=== PATIENT | male | born 1940 | race Caucasian/White ===

== ENCOUNTER → 2016-08-22 | Outpatient (CLI) | payer MEDICARE ==
[2016-08-22 14:06] LABS: Basophils # (A) 0.1 k/uL (0-0.2); Basophils % (A) 2 %; CH 29.8; Eosinophils # (A) 0.1 k/uL (0-0.7); Eosinophils % (A) 2 %; HCT 43.8 % (39.0-53.0); HDW 2.48; HGB 13.8 gm/dL (13.0-17.5); Luc # (Auto) 0.14; Luc % (Auto) 3; Lymphocytes # (A) 0.7 k/uL (1.0-4.8); Lymphocytes % (A) 14 %; MCH 29.5 pg (25.0-35.0); MCHC 31.4 g/dL (31.0-37.0); MCV 93.7 fL (80.0-100.0); Mean Platelet Volume 8.8; Monocytes # (A) 0.4 k/uL (0-1.0); Monocytes % (A) 7 %; Neutrophils # (A) 3.5 k/uL (1.3-7.7); Neutrophils % (A) 72 %; RBC 4.67 m/uL (4.30-5.90); RDW 13.6 % (11.5-15.5); WBC 4.9 k/uL (3.8-10.6)
[2016-08-22 14:13] LABS: ALT 38 U/L (21-72); AST 22 U/L (17-59); Alkaline Phosphatase 86 U/L (38-126); Anion Gap 10 mmol/L; Blood Urea Nitrogen 18 mg/dL (9-20); Calcium 9.1 mg/dL (8.4-10.2); Carbon Dioxide 25 mmol/L (22-30); Chloride 106 mmol/L (98-107); Cholesterol 149 mg/dL (<200); Creatine Kinase 72 U/L (55-170); Glucose 111 mg/dL (74-99); HDL Cholesterol 47 mg/dL (40-60); Non-African American GFR(MDRD) >60 (>60 ml/min/1.73 sqM); Potassium 4.7 mmol/L (3.5-5.1); Sodium 141 mmol/L (137-145); Total Bilirubin 0.6 mg/dL (0.2-1.3); Total Protein 6.5 g/dL (6.3-8.2); Triglycerides 93 mg/dL (<150)
[2016-08-22 15:01] LABS: Erythrocyte Sedimentation Rate 6 mm/hr (0-15)
[2016-08-22 15:39] LABS: Hepatitis C Virus IgG Index 0.05
[2016-08-22 15:41] LABS: Hepatitis C Virus IgG Ab Negative (Negative)
== END ==
LOC: LABWHC1 08:39
PROVIDERS: ATTEND Internal Medicine
DX: D64.9 Anemia, unspecified (principal); E78.5 Hyperlipidemia, unspecified; N40.0 Benign prostatic hyperplasia without lower urinary tract symptoms
CPT/HCPCS: 36415; 80053; 80061; 82550; 84153; 84439; 84443; 85025; 85652; 86140; 86803

== ENCOUNTER → 2016-09-05 | Outpatient (CLI) | payer MEDICARE ==
[2016-09-05 11:41] LABS: Follicle Stimulating Hormone 6.1 mIU/mL; Prolactin 11.9 ng/mL (3.7-17.9)
[2016-09-05 12:59] LABS: Hemoglobin A1C 6.1 % (4.2-6.1)
== END ==
LOC: LABWHC1 08:56
PROVIDERS: ATTEND Internal Medicine
DX: N40.0 Benign prostatic hyperplasia without lower urinary tract symptoms (principal); E29.1 Testicular hypofunction; N52.9 Male erectile dysfunction, unspecified
CPT/HCPCS: 36415; 82040; 82947; 83001; 83002; 83036; 84146; 84270; 84403

== ENCOUNTER 2016-11-18 22:50 | Emergency (ER) | payer MEDICARE ==
[2016-11-18 23:08] VITALS: TEMP 97.6
[2016-11-19] MEDS ORDERED: cloNIDine HCL 0.1 MG TAB PO STA (00:23)
[2016-11-19] MEDS ORDERED: OXYMETAZOLINE 0.05% NASL SPRAY 15 ML NASAL STA (00:23)
--- NOTE | 2016-11-19 00:41 | ED ---
ENT HPI - General Chief complaint: ENT Stated complaint: Nose Bleed Time Seen by Provider: 11/19/16 00:14 Source: family Mode of arrival: ambulatory Limitations: no limitations - History of Present Illness Initial comments: This patient is a 76-year-old man who presents with complaint that he is having some bleeding from the right side of his nose. He states that it started while he was at rest. He tried to stop things at home but it continued to run for a bit over an hour. The patient states that he has been having some nosebleeds intermittently over the past 2 weeks and that he is been seeing Dr. Mckeon. He just finished a course of antibiotics for possible sinus infection. The patient states that the last time he had bleeding like this was when he had nasal polyps and Dr. Gustafson had to remove them. The patient is not having any symptoms of anemia, no chest pain, dyspnea, palpitations, lightheadedness or syncope, no diaphoresis. No fever or chills. No cough MD complaint: epistaxis Onset/Timin -: hour(s) Location: nose Consistency: constant Improves with: pressure Context-Epistaxis: aspirin use, history of similar - Related Data Home Medications Medication Instructions Recorded Confirmed Aspirin EC [Ecotrin] 325 mg PO DAILY 11/18/16 11/18/16 Atorvastatin [Lipitor] 80 mg PO HS 11/18/16 11/18/16 Losartan/Hydrochlorothiazide 1 tab PO DAILY 11/18/16 11/18/16 [Hyzaar 50-12.5 Tablet] Metoprolol Tartrate [Lopressor] 50 mg PO BID 11/18/16 11/18/16 PARoxetine [Paxil] 20 mg PO DAILY 11/18/16 11/18/16 Allergies Allergy/AdvReac Type Severity Reaction Status Date / Time cephalexin [From Keflex] AdvReac Nausea & Verified 11/18/16 23:30 Vomiting & Diarrhea Review of Systems ROS Statement: Those systems with pertinent positive or pertinent negative responses have been documented in the HPI. ROS Other: All systems not noted in ROS Statement are negative. Constitutional: Denies: fever, chills Eyes: Denies: eye pain, vision change ENT: Reports: as per HPI, epistaxis. Denies: ear pain, throat pain, dental pain , other Respiratory: Denies: cough, dyspnea Cardiovascular: Denies: chest pain, palpitations, orthopnea, syncope Gastrointestinal: Denies: abdominal pain, vomiting Genitourinary: Denies: dysuria, hematuria Skin: Denies: rash Neurological: Denies: headache, weakness, numbness Hematological/Lymphatic: Denies: easy bleeding Past Medical History Past Medical History: No Reported History History of Any Multi-Drug Resistant Organisms: None Reported Past Surgical History: Joint Replacement, Orthopedic Surgery Additional Past Surgical History / Comment(s): heart valve replacement. Right carotid sx. Past Psychological History: No Psychological Hx Reported Smoking Status: Never smoker Past Alcohol Use History: Occasional Past Drug Use History: None Reported General Exam Limitations: no limitations General appearance: alert, in no apparent distress Head exam: Present: atraumatic, normocephalic Eye exam: Present: normal appearance, PERRL, EOMI. Absent: scleral icterus, conjunctival injection ENT exam: Present: normal oropharynx, other (Fresh clot in the right Nare. When this is removed there is no visible anterior source of bleeding. Currently no active bleeding.) Respiratory exam: Present: normal lung sounds bilaterally, chest wall tenderness. Absent: respiratory distress, wheezes, rales, rhonchi, stridor Cardiovascular Exam: Present: regular rate, normal rhythm, normal heart sounds GI/Abdominal exam: Present: soft. Absent: distended, tenderness, guarding Extremities exam: Present: normal capillary refill, pedal edema Neurological exam: Present: alert, CN II-XII intact Skin exam: Present: warm, dry, intact, normal color. Absent: rash Course Vital Signs 11/18/16 11/19/16 23:02 01:04 Temperature 97.6 F Pulse Rate 72 70 Respiratory 18 16 Rate Blood Pressure 140/93 116/52 O2 Sat by Pulse 97 Oximetry Medical Decision Making - Medical Decision Making Patient is a 76-year-old man presenting to be evaluated for epistaxis. Patient was administered oxymetazoline and observed. The patient did have a couple more drops of blood at intervals, but no active bleeding. There is no anterior source of bleeding visible. Discussed with patient and patient's family the risks and benefits of packing versus observation with conservative treatment and at this point in the interest of comfort he chooses not to have packing and will follow-up with Dr. Prince. Discussed return parameters. Disposition Clinical Impression: Epistaxis Disposition: HOME SELF-CARE Condition: Fair Instructions: Nosebleed (ED) Referrals: Quinn Camarena MD [Primary Care Provider] - 1-2 days Aakash Mckeon MD [STAFF PHYSICIAN] - 1-2 days
[2016-11-19 01:06] VITALS: BP 116/52; PULSE 70; RESP 16
== END 2016-11-19 01:40 | disposition home or self-care (01) ==
LOC: EC 22:50
DX: R04.0 Epistaxis (principal); Z79.82 Long term (current) use of aspirin; Z79.899 Other long term (current) drug therapy; Z88.1 Allergy status to other antibiotic agents
CPT/HCPCS: 99283

== ENCOUNTER 2016-11-23 03:43 | Emergency (ER) | payer MEDICARE ==
[2016-11-23 03:51] VITALS: RESP 18
[2016-11-23] MEDS ORDERED: OXYMETAZOLINE 0.05% NASL SPRAY 15 ML ONE (04:04)
--- NOTE | 2016-11-23 04:05 | ED ---
ENT HPI - General Chief complaint: ENT Stated complaint: Nose bleed Time Seen by Provider: 11/23/16 03:51 Source: patient, RN notes reviewed Mode of arrival: ambulatory Limitations: no limitations - History of Present Illness Initial comments: This is a 76-year-old male who presents with complaints of epistaxis from the right naris. He was seen here several days ago for the same. Spontaneously stopped Of note he is also on his way to [facility] for embolization for the same problem He has no other complaints at this time. She'll sweats. He does have a history of a polyp removal from her right naris years ago. He has no pain at this time. He states he keeps dripping down the back. Feels very high. MD complaint: epistaxis - Related Data Home Medications Medication Instructions Recorded Confirmed Aspirin EC [Ecotrin] 325 mg PO DAILY 11/18/16 11/23/16 Atorvastatin [Lipitor] 80 mg PO HS 11/18/16 11/23/16 Losartan/Hydrochlorothiazide 1 tab PO DAILY 11/18/16 11/23/16 [Hyzaar 50-12.5 Tablet] Metoprolol Tartrate [Lopressor] 50 mg PO BID 11/18/16 11/23/16 PARoxetine [Paxil] 20 mg PO DAILY 11/18/16 11/23/16 Allergies Allergy/AdvReac Type Severity Reaction Status Date / Time cephalexin [From Keflex] AdvReac Nausea & Verified 11/23/16 03:51 Vomiting & Diarrhea Review of Systems ROS Statement: Those systems with pertinent positive or pertinent negative responses have been documented in the HPI. ROS Other: All systems not noted in ROS Statement are negative. Past Medical History Past Medical History: CVA/TIA, Hypertension History of Any Multi-Drug Resistant Organisms: None Reported Past Surgical History: Coronary Bypass/CABG, Joint Replacement, Orthopedic Surgery Additional Past Surgical History / Comment(s): heart valve replacement. Right carotid sx. Past Psychological History: No Psychological Hx Reported Smoking Status: Never smoker Past Alcohol Use History: Occasional Past Drug Use History: None Reported General Exam - General Exam Comments Initial Comments: This is a well-developed well-nourished awake alert oriented 3 male Limitations: no limitations General appearance: alert, in no apparent distress Head exam: Present: atraumatic, normocephalic, normal inspection Eye exam: Present: normal appearance, PERRL, EOMI. Absent: scleral icterus, conjunctival injection, periorbital swelling ENT exam: Present: other (Dried blood and small amount of oozing from the right naris of Blood) Neck exam: Present: normal inspection. Absent: tenderness, meningismus, lymphadenopathy Respiratory exam: Absent: wheezes, rales Neurological exam: Present: alert, oriented X3, CN II-XII intact Psychiatric exam: Present: normal affect, normal mood Skin exam: Present: warm, dry, intact, normal color. Absent: rash Course Vital Signs 11/23/16 03:47 Temperature 96.8 F L Pulse Rate 60 Respiratory 18 Rate Blood Pressure 99/60 O2 Sat by Pulse 98 Oximetry Procedures - Procedures Initial comment: The patient did require nasal packing due to an unidentified bleeding source. I did use a rapid Rhino. This was inflated after proper preparation with an appropriate amount of air injected into the apparatus. This did control the bleeding. Patient did not allow totally inserted as per usual is protruding approximately 1.5 cm. Other small amount of oozing it appears with controlled bleeding. Medical Decision Making - Medical Decision Making The patient with epistaxis. Epistaxis is controlled. Patient will be discharged to keep his appointment at [address] for ENT and embolization. Disposition Clinical Impression: Epistaxis, recurrent Disposition: HOME SELF-CARE Condition: Good Instructions: Nosebleed (ED) Additional Instructions: Continue with your appointment at [facility] this morning. Referrals: Quinn Camarena MD [Primary Care Provider] - 1-2 days
[2016-11-23] MEDS ORDERED: OXYMETAZOLINE 0.05% NASL SPRAY 15 ML NASAL STA (04:44)
[2016-11-23 04:56] VITALS: BP 149/73; PULSE 61; TEMP 98.7
== END 2016-11-23 04:51 | disposition home or self-care (01) ==
LOC: EC 03:43
DX: R04.0 Epistaxis (principal); I10 Essential (primary) hypertension; Z88.1 Allergy status to other antibiotic agents; Z79.82 Long term (current) use of aspirin; Z79.899 Other long term (current) drug therapy
CPT/HCPCS: 30901; 99283

== ENCOUNTER → 2016-12-03 | Outpatient (CLI) | payer MEDICARE ==
--- NOTE | 2016-12-03 09:34 | CT ---
EXAMINATION TYPE: CT sinus wo con DATE OF EXAM: 12/03/2016 COMPARISON: NONE HISTORY: Chronic sinusitis CT DLP: 608 mGycm CONTRAST: 0 mL of Omnipaque 300 The paranasal sinuses are examined in the axial plane at 2 mm thick sections. Reconstructed images i n the coronal plane were obtained. There is dental amalgam scatter artifact There is near complete opacification of the right maxillary sinus. Left maxillary sinus is clear. Mi ld mucosal thickening is through scattered ethmoid air cells. The sphenoid sinuses are clear. The f rontal sinuses are clear. The septum is evaluated. There is septal deviation to the left. The ostiomeatal units are patent. There is been a right uncinate ectomy. IMPRESSIONS: 1. Mucosal thickening within the right maxillary sinus. There is been a right uncinate ectomy. Minim al mucosal thickening is within ethmoid air cells.
== END | disposition home or self-care (01) ==
LOC: RADCTMAIN 09:05
PROVIDERS: ATTEND Otolaryngology
DX: J32.0 Chronic maxillary sinusitis (principal); J34.89 Other specified disorders of nose and nasal sinuses; R04.0 Epistaxis
CPT/HCPCS: 70486

== ENCOUNTER 2017-08-27 16:43 | Outpatient (CLI) | payer MEDICARE ==
[2017-08-27 18:21] LABS: Basophils % (A) 1 %; Eosinophils # (A) 0.1 k/uL (0-0.7); Eosinophils % (A) 2 %; HCT 42.2 % (39.0-53.0); HGB 14.4 gm/dL (13.0-17.5); Lymphocytes # (A) 0.9 k/uL (1.0-4.8); Lymphocytes % (A) 19 %; MCH 30.3 pg (25.0-35.0); Mean Platelet Volume 7.5; Monocytes # (A) 0.5 k/uL (0-1.0); Monocytes % (A) 10 %; Neutrophils # (A) 3.1 k/uL (1.3-7.7); Neutrophils % (A) 65 %; Platelet Count 161 k/uL (150-450); RBC 4.74 m/uL (4.30-5.90); RDW 13.2 % (11.5-15.5); WBC 4.7 k/uL (3.8-10.6)
--- NOTE | 2017-08-27 18:36 | XR ---
EXAMINATION TYPE: XR chest 2V DATE OF EXAM: 08/27/2017 COMPARISON: Prior chest x-ray 07/16/2012 HISTORY: Shortness of breath and cough TECHNIQUE: Frontal and lateral views of the chest are obtained. FINDINGS: Patient is post median sternotomy. Cardiac mediastinal silhouette, pulmonary vascularity a nd kenia are stable. No evident airspace disease, pneumothorax, or pleural effusion. Patient is post c ardiac valve replacement. The aorta is dense. IMPRESSION: No acute cardiopulmonary process.
== END 2017-08-27 17:46 | disposition home or self-care (01) ==
LOC: PEDOP 16:43
PROVIDERS: ATTEND Internal Medicine
DX: J06.9 Acute upper respiratory infection, unspecified (principal); J12.9 Viral pneumonia, unspecified
CPT/HCPCS: 85025; 87502; 71046; G0463; 99212

== ENCOUNTER → 2017-09-16 | Outpatient (CLI) | payer MEDICARE ==
[2017-09-16 08:56] LABS: Basophils % (A) 0 %; Eosinophils # (A) 0.1 k/uL (0-0.7); Eosinophils % (A) 2 %; HCT 45.5 % (39.0-53.0); HGB 15.3 gm/dL (13.0-17.5); Lymphocytes # (A) 1.2 k/uL (1.0-4.8); Lymphocytes % (A) 19 %; MCH 29.7 pg (25.0-35.0); MCHC 33.5 g/dL (31.0-37.0); MCV 88.6 fL (80.0-100.0); Mean Platelet Volume 7.4; Monocytes # (A) 0.4 k/uL (0-1.0); Monocytes % (A) 6 %; Neutrophils # (A) 4.1 k/uL (1.3-7.7); Neutrophils % (A) 70 %; Platelet Count 214 k/uL (150-450); RBC 5.14 m/uL (4.30-5.90); RDW 13.3 % (11.5-15.5); WBC 5.9 k/uL (3.8-10.6)
[2017-09-16 09:49] LABS: ALT 45 U/L (21-72); AST 30 U/L (17-59); Alkaline Phosphatase 87 U/L (38-126); Anion Gap 11 mmol/L; Blood Urea Nitrogen 20 mg/dL (9-20); C Reactive Protein <5.0 mg/L (<10.0); Calcium 9.8 mg/dL (8.4-10.2); Carbon Dioxide 31 mmol/L (22-30); Chloride 103 mmol/L (98-107); Cholesterol 163 mg/dL (<200); Creatine Kinase 47 U/L (55-170); Glucose 116 mg/dL (74-99); HDL Cholesterol 45 mg/dL (40-60); LDL Cholesterol,Calculated 87 mg/dL (0-99); Potassium 5.4 mmol/L (3.5-5.1); Sodium 145 mmol/L (137-145); Total Bilirubin 0.6 mg/dL (0.2-1.3); Total Protein 6.9 g/dL (6.3-8.2); Triglycerides 153 mg/dL (<150)
[2017-09-16 10:16] LABS: Prostate Specific Antigen 3.06 ng/mL (0.00-4.00)
[2017-09-16 11:18] LABS: Erythrocyte Sedimentation Rate 9 mm/hr (0-15)
== END | disposition home or self-care (01) ==
LOC: LABWHC1 08:24
PROVIDERS: ATTEND Internal Medicine
DX: Z00.00 Encounter for general adult medical examination without abnormal findings (principal); N40.0 Benign prostatic hyperplasia without lower urinary tract symptoms; E78.5 Hyperlipidemia, unspecified; I10 Essential (primary) hypertension; E55.9 Vitamin D deficiency, unspecified
CPT/HCPCS: 36415; 80053; 80061; 82306; 82550; 84153; 84443; 85025; 85652; 86140

== ENCOUNTER → 2017-09-17 | Outpatient (CLI) | payer MEDICARE | END | disposition home or self-care (01) | LOC: LABWHC1 16:17 | PROVIDERS: ATTEND Internal Medicine | DX: E87.5 Hyperkalemia (principal) | CPT/HCPCS: 36415; 84132 ==

== ENCOUNTER → 2017-10-08 | Outpatient (CLI) | payer MEDICARE ==
[2017-10-08 09:24] LABS: Calcium 9.4 mg/dL (8.4-10.2); Potassium 4.5 mmol/L (3.5-5.1)
== END | disposition home or self-care (01) ==
LOC: LABWHC1 08:30
PROVIDERS: ATTEND Internal Medicine
DX: E87.5 Hyperkalemia (principal); I10 Essential (primary) hypertension
CPT/HCPCS: 36415; 80048

== ENCOUNTER → 2018-02-04 | Outpatient (CLI) | payer MEDICARE ==
[2018-02-04 10:14] LABS: Calcium 9.3 mg/dL (8.4-10.2); Potassium 5.4 mmol/L (3.5-5.1)
== END | disposition home or self-care (01) ==
LOC: LABWHC1 08:47
PROVIDERS: ATTEND Internal Medicine
DX: E55.9 Vitamin D deficiency, unspecified (principal); E87.8 Other disorders of electrolyte and fluid balance, not elsewhere classified
CPT/HCPCS: 36415; 80048; 82306

== ENCOUNTER → 2018-02-20 | Outpatient (CLI) | payer MEDICARE ==
[2018-02-20 13:40] LABS: Anion Gap 7 mmol/L; Blood Urea Nitrogen 24 mg/dL (9-20); Calcium 9.4 mg/dL (8.4-10.2); Carbon Dioxide 30 mmol/L (22-30); Chloride 102 mmol/L (98-107); Glucose 100 mg/dL (74-99); Potassium 4.6 mmol/L (3.5-5.1); Sodium 139 mmol/L (137-145)
== END | disposition home or self-care (01) ==
LOC: LABWHC1 12:13
PROVIDERS: ATTEND Internal Medicine
DX: E87.5 Hyperkalemia (principal); E87.8 Other disorders of electrolyte and fluid balance, not elsewhere classified
CPT/HCPCS: 36415; 80048

== ENCOUNTER 2018-04-05 15:48 | Emergency (ER) | payer MEDICARE ==
[2018-04-05 15:52] VITALS: PULSE 49; RESP 18
[2018-04-05] MEDS ORDERED: SODIUM CHLORIDE 0.9% 1,000 ML IV STA (16:20)
--- NOTE | 2018-04-05 16:27 | ED ---
Dizziness HPI - General Chief Complaint: Dizziness Stated Complaint: SOB Time Seen by Provider: 04/05/18 16:06 Source: patient, RN notes reviewed Mode of arrival: ambulatory Limitations: no limitations - History of Present Illness Initial Comments: This a 77-year-old male who presents with complaints of dizziness that has occurred especially over last couple mornings when he gets up it had been brief episode with todays being prolonged. He was [facility] at [facility] and found have a bradycardic heart rate was sent here for further evaluation. He denied chest pain shortness breath fevers chills nausea vomiting focal weakness or other symptoms at this time. He has no prior history of bradycardia he also has no new changes medication. MD Complaint: dizziness, lightheadedness, difficulty walking, other - Related Data Home Medications Medication Instructions Recorded Confirmed Aspirin EC [Ecotrin] 325 mg PO DAILY 11/18/16 04/05/18 Atorvastatin [Lipitor] 80 mg PO HS 11/18/16 04/05/18 Losartan/Hydrochlorothiazide 1 tab PO DAILY 11/18/16 04/05/18 [Hyzaar 50-12.5 Tablet] Metoprolol Tartrate [Lopressor] 50 mg PO BID 11/18/16 04/05/18 PARoxetine [Paxil] 20 mg PO DAILY 11/18/16 04/05/18 Cetirizine HCl [Zyrtec] 10 mg PO DAILY 04/05/18 04/05/18 Cholecalciferol (Vitamin D3) 2,000 unit PO DAILY 04/05/18 04/05/18 [Vitamin D3] Fluticasone Nasal [place] [Flonase 1 spray EA NOSTRIL DAILY 04/05/18 04/05/18 Nasal [place]] Furosemide [Lasix] 20 mg PO DAILY 04/05/18 04/05/18 Allergies Allergy/AdvReac Type Severity Reaction Status Date / Time cephalexin [From Keflex] AdvReac Nausea & Verified 04/05/18 16:41 Vomiting & Diarrhea Review of Systems ROS Statement: Those systems with pertinent positive or pertinent negative responses have been documented in the HPI. ROS Other: All systems not noted in ROS Statement are negative. Past Medical History Past Medical History: CVA/TIA, Hypertension History of Any Multi-Drug Resistant Organisms: None Reported Past Surgical History: Coronary Bypass/CABG, Joint Replacement, Orthopedic Surgery Additional Past Surgical History / Comment(s): heart valve replacement. Right carotid sx. Nasal cauterization Past Psychological History: No Psychological Hx Reported Smoking Status: Never smoker Past Alcohol Use History: Occasional Past Drug Use History: None Reported General Exam - General Exam Comments Initial Comments: This is a well-developed well-nourished awake alert oriented 3 male Limitations: no limitations General appearance: alert, in no apparent distress Head exam: Present: atraumatic, normocephalic, normal inspection Eye exam: Present: normal appearance, PERRL, EOMI. Absent: scleral icterus, conjunctival injection, periorbital swelling ENT exam: Present: normal exam, mucous membranes moist Neck exam: Present: normal inspection. Absent: tenderness, meningismus, lymphadenopathy Respiratory exam: Present: normal lung sounds bilaterally. Absent: respiratory distress, wheezes, rales, rhonchi, stridor Cardiovascular Exam: Present: normal rhythm, bradycardia, normal heart sounds. Absent: systolic murmur, diastolic murmur, rubs, gallop, clicks GI/Abdominal exam: Present: soft, normal bowel sounds. Absent: distended, tenderness, guarding, rebound, rigid Extremities exam: Present: normal inspection, full ROM, normal capillary refill. Absent: tenderness, pedal edema, joint swelling, calf tenderness Back exam: Present: normal inspection Neurological exam: Present: alert, oriented X3, CN II-XII intact Psychiatric exam: Present: normal affect, normal mood Skin exam: Present: warm, dry, intact, normal color. Absent: rash Course Vital Signs 04/05/18 04/05/18 15:49 17:40 Temperature 98.1 F Pulse Rate 49 L 49 L Respiratory 18 18 Rate Blood Pressure 136/79 129/69 O2 Sat by Pulse 99 95 Oximetry EKG Findings - EKG Results: EKG: interpreted by ERMD, sinus rhythm (Sinus bradycardia rate of 51. Interval 174 QRS duration 158 QT since QTC 534/492 right bundle-branch block and left anterior fascicular block pattern animal voltage criteria for LVH) Medical Decision Making - Medical Decision Making I did discuss findings with the patient and his also with Dr. Camarena, he does have a history of bradycardia this is not out of the ordinary for him. He will be discharge is follow-up in the office and return when necessary - Lab Data Result diagrams: 04/05/18 16:15 04/05/18 16:15 Lab Results 04/05/18 04/05/18 04/05/18 Range/Units 16:15 16:15 16:15 WBC 4.7 (3.8-10.6) k/uL RBC 5.20 (4.30-5.90) m/uL Hgb 15.0 (13.0-17.5) gm/dL Hct 48.1 (39.0-53.0) % MCV 92.4 (80.0-100.0) fL MCH 28.9 (25.0-35.0) pg MCHC 31.3 (31.0-37.0) g/dL RDW 13.6 (11.5-15.5) % Plt Count 202 (150-450) k/uL Neutrophils % 72 % Lymphocytes % 16 % Monocytes % 8 % Eosinophils % 2 % Basophils % 1 % Neutrophils # 3.4 (1.3-7.7) k/uL Lymphocytes # 0.8 L (1.0-4.8) k/uL Monocytes # 0.4 (0-1.0) k/uL Eosinophils # 0.1 (0-0.7) k/uL Basophils # 0.0 (0-0.2) k/uL Sodium 139 (137-145) mmol/L Potassium 4.7 (3.5-5.1) mmol/L Chloride 102 (98-107) mmol/L Carbon Dioxide 30 (22-30) mmol/L Anion Gap 7 mmol/L BUN 20 (9-20) mg/dL Creatinine 1.02 (0.66-1.25) mg/dL Est GFR (CKD-EPI)AfAm 83 (>60 ml/min/1.73 sqM) Est GFR (CKD-EPI)NonAf 72 (>60 ml/min/1.73 sqM) Glucose 95 (74-99) mg/dL Calcium 9.8 (8.4-10.2) mg/dL Magnesium 1.8 (1.6-2.3) mg/dL Total Bilirubin 0.8 (0.2-1.3) mg/dL AST 37 (17-59) U/L ALT 46 (21-72) U/L Alkaline Phosphatase 91 (38-126) U/L Total Creatine Kinase 54 L (55-170) U/L CK-MB (CK-2) 0.7 (0.0-2.4) ng/mL CK-MB (CK-2) Rel Index 1.3 Troponin I <0.012 (0.000-0.034) ng/mL Total Protein 7.3 (6.3-8.2) g/dL Albumin 4.1 (3.5-5.0) g/dL Urine Color Urine Appearance (Clear) Urine pH (5.0-8.0) Ur Specific [facility] (1.001-1.035) Urine Protein (Negative) Urine Glucose (UA) (Negative) Urine Ketones (Negative) Urine Blood (Negative) Urine Nitrite (Negative) Urine Bilirubin (Negative) Urine Urobilinogen (<2.0) mg/dL Ur Leukocyte Esterase (Negative) Urine RBC (0-5) /hpf Urine WBC (0-5) /hpf Ur Squamous Epith Cells (0-4) /hpf Amorphous Sediment (None) /hpf Hyaline Casts (0-2) /lpf Urine Mucus (None) /hpf 04/05/18 Range/Units 17:39 WBC (3.8-10.6) k/uL RBC (4.30-5.90) m/uL Hgb (13.0-17.5) gm/dL Hct (39.0-53.0) % MCV (80.0-100.0) fL MCH (25.0-35.0) pg MCHC (31.0-37.0) g/dL RDW (11.5-15.5) % Plt Count (150-450) k/uL Neutrophils % % Lymphocytes % % Monocytes % % Eosinophils % % Basophils % % Neutrophils # (1.3-7.7) k/uL Lymphocytes # (1.0-4.8) k/uL Monocytes # (0-1.0) k/uL Eosinophils # (0-0.7) k/uL Basophils # (0-0.2) k/uL Sodium (137-145) mmol/L Potassium (3.5-5.1) mmol/L Chloride (98-107) mmol/L Carbon Dioxide (22-30) mmol/L Anion Gap mmol/L BUN (9-20) mg/dL Creatinine (0.66-1.25) mg/dL Est GFR (CKD-EPI)AfAm (>60 ml/min/1.73 sqM) Est GFR (CKD-EPI)NonAf (>60 ml/min/1.73 sqM) Glucose (74-99) mg/dL Calcium (8.4-10.2) mg/dL Magnesium (1.6-2.3) mg/dL Total Bilirubin (0.2-1.3) mg/dL AST (17-59) U/L ALT (21-72) U/L Alkaline Phosphatase (38-126) U/L Total Creatine Kinase (55-170) U/L CK-MB (CK-2) (0.0-2.4) ng/mL CK-MB (CK-2) Rel Index Troponin I (0.000-0.034) ng/mL Total Protein (6.3-8.2) g/dL Albumin (3.5-5.0) g/dL Urine Color Yellow Urine Appearance Clear (Clear) Urine pH 5.5 (5.0-8.0) Ur Specific [facility] 1.026 (1.001-1.035) Urine Protein 1+ H (Negative) Urine Glucose (UA) Negative (Negative) Urine Ketones Negative (Negative) Urine Blood Negative (Negative) Urine Nitrite Negative (Negative) Urine Bilirubin Negative (Negative) Urine Urobilinogen 2.0 (<2.0) mg/dL Ur Leukocyte Esterase Negative (Negative) Urine RBC 1 (0-5) /hpf Urine WBC 2 (0-5) /hpf Ur Squamous Epith Cells 1 (0-4) /hpf Amorphous Sediment Rare H (None) /hpf Hyaline Casts 45 H (0-2) /lpf Urine Mucus Many H (None) /hpf - Radiology Data Radiology results: report reviewed (I did review the imaging and report no acute findings.), image reviewed Disposition Clinical Impression: Bradycardia on ECG, Episode of dizziness Disposition: HOME SELF-CARE Condition: Good Instructions: Dizziness (ED), Bradycardia (ED) Is patient prescribed a controlled substance at d/c from ED?: No Referrals: Quinn Camarena MD [Primary Care Provider] - 1-2 days
[2018-04-05 16:56] LABS: Basophils % (A) 1 %; Eosinophils # (A) 0.1 k/uL (0-0.7); Eosinophils % (A) 2 %; HCT 48.1 % (39.0-53.0); Lymphocytes # (A) 0.8 k/uL (1.0-4.8); Lymphocytes % (A) 16 %; MCH 28.9 pg (25.0-35.0); MCHC 31.3 g/dL (31.0-37.0); MCV 92.4 fL (80.0-100.0); Monocytes # (A) 0.4 k/uL (0-1.0); Monocytes % (A) 8 %; Neutrophils # (A) 3.4 k/uL (1.3-7.7); Neutrophils % (A) 72 %; Platelet Count 202 k/uL (150-450); RDW 13.6 % (11.5-15.5); WBC 4.7 k/uL (3.8-10.6)
[2018-04-05 17:05] LABS: Albumin 4.1 g/dL (3.5-5.0); Calcium 9.8 mg/dL (8.4-10.2); Magnesium 1.8 mg/dL (1.6-2.3); Potassium 4.7 mmol/L (3.5-5.1); Total Bilirubin 0.8 mg/dL (0.2-1.3); Total Protein 7.3 g/dL (6.3-8.2)
[2018-04-05 17:09] LABS: Creatine Kinase 54 U/L (55-170)
[2018-04-05 17:22] LABS: Creatine Kinase MB 0.7 ng/mL (0.0-2.4); Troponin I <0.012 ng/mL (0.000-0.034)
[2018-04-05 18:07] LABS: Amorphous Sediment,Urine Rare /hpf; Appearance,Urine Clear (Clear); Bilirubin,Urine Negative (Negative); Blood,Urine Negative (Negative); Color,Urine Yellow; Glucose,Urine (UA) Negative (Negative); Hyaline Casts,Urine 45 /lpf (0-2); Ketones,Urine Negative (Negative); Leukocyte Esterase,Urine Negative (Negative); Mucus,Urine Many /hpf; Nitrite,Urine Negative (Negative); PH, Urine 5.5 (5.0-8.0); Protein,Urine 1+ (Negative); RBC,Urine 1 /hpf (0-5); Specific Gravity,Urine 1.026 (1.001-1.035); Squamous Epithelial Cell,Urine 1 /hpf (0-4); WBC,Urine 2 /hpf (0-5)
--- NOTE | 2018-04-05 18:07 | XR ---
EXAMINATION TYPE: XR chest 2V DATE OF EXAM: 04/05/2018 COMPARISON: Prior chest x-ray 08/27/2017 HISTORY: Cough and shortness of breath TECHNIQUE: Frontal and lateral views of the chest are obtained. FINDINGS: Patient is post median sternotomy. The aorta is dense. There are overlying cardiac leads. R ight hemidiaphragm is again elevated. There is no focal air space opacity, pleural effusion, or pneum othorax seen. The cardiac silhouette size is stable, patient is post aortic valve replacement. The osseous structures are intact. IMPRESSION: No acute cardiopulmonary process.
[2018-04-05 18:56] VITALS: BP 151/69; TEMP 97.8
== END 2018-04-05 18:56 | disposition home or self-care (01) ==
LOC: EC 15:48
DX: R00.1 Bradycardia, unspecified (principal); R42 Dizziness and giddiness; R26.2 Difficulty in walking, not elsewhere classified; I10 Essential (primary) hypertension; Z88.1 Allergy status to other antibiotic agents; Z79.51 Long term (current) use of inhaled steroids; Z79.82 Long term (current) use of aspirin; Z79.899 Other long term (current) drug therapy; Z95.1 Presence of aortocoronary bypass graft; Z95.2 Presence of prosthetic heart valve
CPT/HCPCS: 36415; 71046; 80053; 81001; 82550; 82553; 83735; 84484; 85025; 93005; 96360; 96361; 99284

== ENCOUNTER → 2018-11-07 | Outpatient (CLI) | payer MEDICARE ==
[2018-11-07 10:39] LABS: Basophils % (A) 1 %; Eosinophils # (A) 0.1 k/uL (0-0.7); Eosinophils % (A) 2 %; HGB 13.9 gm/dL (13.0-17.5); Lymphocytes # (A) 0.8 k/uL (1.0-4.8); Lymphocytes % (A) 17 %; MCH 27.9 pg (25.0-35.0); MCHC 31.5 g/dL (31.0-37.0); MCV 88.7 fL (80.0-100.0); Mean Platelet Volume 7.5; Monocytes # (A) 0.4 k/uL (0-1.0); Monocytes % (A) 8 %; Neutrophils # (A) 3.4 k/uL (1.3-7.7); Neutrophils % (A) 71 %; Platelet Count 208 k/uL (150-450); RBC 4.96 m/uL (4.30-5.90); RDW 14.9 % (11.5-15.5); WBC 4.7 k/uL (3.8-10.6)
[2018-11-07 13:45] LABS: Erythrocyte Sedimentation Rate 11 mm/hr (0-15)
[2018-11-07 16:30] LABS: C Reactive Protein <0.4 mg/dL (0.0-0.8); Creatine Kinase 73 U/L (35-257)
[2018-11-07 16:31] LABS: ALT 19 U/L (10-49); AST 21 U/L (14-35); Alkaline Phosphatase 93 U/L (41-126); Calcium 9.2 mg/dL (8.7-10.3); Carbon Dioxide 29.4 mmol/L (21.6-31.8); Chloride 103 mmol/L (96-109); Cholesterol 157 mg/dL (0-200); Globulin 2.1 g/dL (1.6-3.3); Glucose 114 mg/dL (70-110); LDL Cholesterol,Calculated 94.2 mg/dL (0.0-131.0); Potassium 4.3 mmol/L (3.5-5.5); Sodium 141 mmol/L (135-145); Total Bilirubin 0.8 mg/dL (0.3-1.2); Total Protein 6.3 g/dL (6.2-8.2)
== END | disposition home or self-care (01) ==
LOC: LABWHC1 09:26
PROVIDERS: ATTEND Internal Medicine
DX: Z00.00 Encounter for general adult medical examination without abnormal findings (principal); N40.0 Benign prostatic hyperplasia without lower urinary tract symptoms; E78.5 Hyperlipidemia, unspecified; I10 Essential (primary) hypertension; E55.9 Vitamin D deficiency, unspecified
CPT/HCPCS: 36415; 80053; 80061; 82550; 84153; 84443; 85025; 85652; 86140

== ENCOUNTER 2019-03-13 18:51 | Emergency (ER) | payer MEDICARE ==
--- NOTE | 2019-03-13 20:13 | ED ---
General Adult HPI - General Chief complaint: Fall Stated complaint: Fall Time Seen by Provider: 03/13/19 19:37 Source: patient, family, RN notes reviewed Mode of arrival: EMS Limitations: no limitations - History of Present Illness Initial comments: Patient is a pleasant 78-year-old male presenting to the emergency department complaining of fall. Fall occurred prior to arrival. Patient was at family members house and fell a proximally 5 steps. Patient did strike his head. No loss of consciousness. No confusion. Family states patient appeared slightly dazed for a short time afterwards. Patient does not take blood thinners however does take daily aspirin. Patient was able to take a few steps with assistance. Patient denies any neck or back pain. No chest pain or dyspnea. No abdominal pain. Patient does have abrasions to bilateral arms and head. Last tetanus immunization was 5 years ago. - Related Data Home Medications Medication Instructions Recorded Confirmed Atorvastatin [Lipitor] 80 mg PO HS 11/18/16 03/13/19 Losartan/Hydrochlorothiazide 1 tab PO DAILY 11/18/16 03/13/19 [Hyzaar 50-12.5 Tablet] Metoprolol Tartrate [Lopressor] 50 mg PO BID 11/18/16 03/13/19 PARoxetine [Paxil] 20 mg PO DAILY 11/18/16 03/13/19 Cetirizine HCl [Zyrtec] 10 mg PO DAILY 04/05/18 03/13/19 Cholecalciferol (Vitamin D3) 2,000 unit PO DAILY 04/05/18 03/13/19 [Vitamin D3] Fluticasone Nasal [place] [Flonase 1 spray EA NOSTRIL DAILY 04/05/18 03/13/19 Nasal [place]] Furosemide [Lasix] 20 mg PO DAILY 04/05/18 03/13/19 Aspirin EC [Ecotrin Low Dose] 81 mg PO DAILY 03/13/19 03/13/19 Allergies Allergy/AdvReac Type Severity Reaction Status Date / Time cephalexin [From Keflex] AdvReac Nausea & Verified 03/13/19 19:37 Vomiting & Diarrhea Review of Systems ROS Statement: Those systems with pertinent positive or pertinent negative responses have been documented in the HPI. ROS Other: All systems not noted in ROS Statement are negative. Constitutional: Denies: fever Eyes: Denies: eye pain ENT: Denies: ear pain Respiratory: Denies: dyspnea Cardiovascular: Denies: chest pain Endocrine: Denies: fatigue Gastrointestinal: Denies: abdominal pain Genitourinary: Denies: dysuria Musculoskeletal: Denies: back pain Skin: Denies: rash Neurological: Denies: weakness, confusion Past Medical History Past Medical History: CVA/TIA, Hypertension History of Any Multi-Drug Resistant Organisms: None Reported Past Surgical History: Coronary Bypass/CABG, Joint Replacement, Orthopedic Surgery Additional Past Surgical History / Comment(s): heart valve replacement. Right carotid sx. Nasal cauterization Past Psychological History: No Psychological Hx Reported Smoking Status: Never smoker Past Alcohol Use History: Occasional Past Drug Use History: None Reported General Exam Limitations: no limitations General appearance: alert, in no apparent distress Head exam: Present: other (Posterior parietal soft tissue swelling and abrasions) Eye exam: Present: normal appearance, PERRL, EOMI. Absent: nystagmus ENT exam: Present: normal oropharynx Neck exam: Present: normal inspection, full ROM. Absent: tenderness Respiratory exam: Present: normal lung sounds bilaterally. Absent: chest wall tenderness Cardiovascular Exam: Present: regular rate, normal rhythm GI/Abdominal exam: Present: soft. Absent: tenderness Extremities exam: Present: normal inspection, full ROM. Absent: tenderness Back exam: Present: normal inspection. Absent: tenderness, vertebral tenderness Neurological exam: Present: alert, CN II-XII intact. Absent: motor sensory deficit Expanded Neurological exam: Present: protecting the airway Speech: Present: fluid speech Cranial nerves: EOM's Intact: Normal, Facial Sensation: Normal Sensory exam: Upper Extremity Light Touch: Normal, Lower Extremity Light Touch: Normal Motor strength exam: RUE: 5, LUE: 5, RLE: 5, LLE: 5 Eye Response: (4) open spontaneously Motor Response: (6) obeys commands Verbal Response: (5) oriented Psychiatric exam: Present: normal affect, normal mood Skin exam: Present: normal color Course Vital Signs 03/13/19 18:54 Temperature 98.1 F Pulse Rate 54 L Respiratory 20 Rate Blood Pressure 165/76 O2 Sat by Pulse 98 Oximetry - Reevaluation(s) Reevaluation #1: 03/13/19 20:12 Following original examination patient stated his left hand does feel a little bit funny. Sensation intact. No obvious swelling. No tenderness. Medical Decision Making - Medical Decision Making Patient reevaluated and resting comfortably in bed. Patient and family updated on results. - Radiology Data Radiology results: report reviewed (Computed tomography scan of the brain shows old infarct, no acute Gemelli. No intercranial hemorrhage. Computed tomography scan of the cervical spine shows no fracture. Computed tomography scan of the facial bones shows no fracture.) Disposition Clinical Impression: Fall, Concussion Disposition: HOME SELF-CARE Condition: Stable Instructions (If sedation given, give patient instructions): Concussion (ED), Head Injury (ED) Additional Instructions: Please follow-up with primary care physician in the beginning of the week. [id number]-afoncul Tylenol as needed. Twice daily wash all abrasions with soap and water, apply antibiotic ointment, and bandage. Return for confusion, weakness, persistent vomiting, difficulty walking, worsening symptoms or other concerns. Is patient prescribed a controlled substance at d/c from ED?: No Referrals: Quinn Camarena MD [Primary Care Provider] - 1-2 days Time of Disposition: 20:57
--- NOTE | 2019-03-13 20:14 | CT ---
EXAMINATION TYPE: CT facial bones wo con DATE OF EXAM: 03/13/2019 COMPARISON: HISTORY: Facial lacerations after fall injury CT DLP: 1173.9 mGycm Automated exposure control for dose reduction was used. TECHNIQUE: CT scan of the sinuses is performed without contrast, axial images are obtained, coronal r eformatted images are also reviewed. FINDINGS: The mandibular ring is intact. Temporomandibular joints appear normal. Zygomatic arches are intact. Orbital margins are intact. There is fairly normal aeration of the paranasal sinuses. There is previous surgery on the right maxillary sinus. There is no evidence of blowout fracture. There is no evidence of orbital mass. The nasal bone is intact. There is subcutaneous edema and soft tissue swelling anterior to the right zygoma. IMPRESSION: No fracture. Right side zygomatic soft tissue swelling that measures 1.5 cm in thickness.
--- NOTE | 2019-03-13 20:17 | CT ---
EXAMINATION TYPE: CT brain alex caicedo DATE OF EXAM: 03/13/2019 COMPARISON: CT brain 07/16/2012 HISTORY: Facial lacerations after fall injury CT DLP: 1173.9 mGycm Automated exposure control for dose reduction was used. TECHNIQUE: CT scan of the head and cervical spine are performed without contrast. FINDINGS: Ventricles have normal size. There is no mass effect nor midline shift. There is no sign of intracranial hemorrhage. There is old right parietal 6 cm cortical infarct. The calvarium is intac t. Skull base is intact. There is normal alignment of the cervical vertebra. There is degenerative disc space narrowing at C5- 6 C6-7. There is spurring of the endplates. Facet joints are intact. There is anterior hypertrophic o steophyte formation in the mid and lower cervical spine. IMPRESSION: Old right parietal cortical infarct unchanged. No acute intracranial abnormality. Spondylotic changes in the cervical spine. No fracture seen.
[2019-03-13 22:45] VITALS: BP 139/68; PULSE 58; RESP 18; TEMP 98
== END 2019-03-13 21:48 | disposition home or self-care (01) ==
LOC: EC 18:51
DX: S06.0X0A Concussion without loss of consciousness, initial encounter (principal); S00.01XA Abrasion of scalp, initial encounter; I10 Essential (primary) hypertension; Z79.899 Other long term (current) drug therapy; Z79.51 Long term (current) use of inhaled steroids; Z79.82 Long term (current) use of aspirin; Z88.1 Allergy status to other antibiotic agents; Z95.1 Presence of aortocoronary bypass graft; Z95.2 Presence of prosthetic heart valve; Z86.73 Personal history of transient ischemic attack (TIA), and cerebral infarction without residual deficits; W10.9XXA Fall (on) (from) unspecified stairs and steps, initial encounter; Y92.009 Unspecified place in unspecified non-institutional (private) residence as the place of occurrence of the external cause
CPT/HCPCS: 70450; 70486; 72125; 99284

== ENCOUNTER → 2019-04-25 | Outpatient (CLI) | payer MEDICARE ==
--- NOTE | 2019-04-26 22:05 | MR ---
EXAMINATION TYPE: MR brain wo/w con DATE OF EXAM: 04/25/2019 COMPARISON: CT brain 03/13/2019 HISTORY: vertigo, memory loss TECHNIQUE: Multiplanar, multisequence images of the brain and brainstem is performed without and with IV contras t, utilizing 7.5 mL intravenous Gadavist . FINDINGS: Diffusion weighted images demonstrate no evidence of a recent infarct or other diffusion ab normality. There is no extra-axial fluid collection. The ventricular system and cisternal spaces ar e stable in size and appearance. The brain volume is stable, patient's right frontoparietal infarct with associated encephalomalacia is again seen, there is underlying gliotic change present correspond ing to the low attenuation seen on CT, there is hyperintensity and inversion recovery and T2-weighted sequences. Right internal carotid artery shows an asymmetric appearance, the flow void seen on T2 an d inversion recovery sequence on the left at the level of the siphon shows an irregular appearance, p ossible minimal flow void on the right. Suspect cross no the anterior circulation may be present. Mid line structures demonstrate normal morphology. The craniocervical junction appears within normal ribeiro its. The dural venous sinuses appear patent. The visualized sinuses are remarkable for mucosal disea se in the maxillary sinuses, ethmoid air cells and the globes are intact. IMPRESSION: Chronic cerebral vascular accident is again noted. Correlate for internal carotid artery occlusion on the right.
== END | disposition home or self-care (01) ==
LOC: RADMRIMAIN 11:53
PROVIDERS: ATTEND Internal Medicine
DX: I63.89 Other cerebral infarction (principal); Z87.820 Personal history of traumatic brain injury; R42 Dizziness and giddiness; Z86.73 Personal history of transient ischemic attack (TIA), and cerebral infarction without residual deficits
CPT/HCPCS: 70553; A9585

== ENCOUNTER → 2020-02-09 | Outpatient (CLI) | payer MEDICARE ==
[2020-02-09 09:44] LABS: Basophils % (A) 0 %; Eosinophils # (A) 0.1 k/uL (0-0.7); Eosinophils % (A) 2 %; HCT 43.4 % (39.0-53.0); HGB 13.5 gm/dL (13.0-17.5); Lymphocytes # (A) 0.6 k/uL (1.0-4.8); Lymphocytes % (A) 15 %; MCH 28.7 pg (25.0-35.0); MCV 92.4 fL (80.0-100.0); Mean Platelet Volume 7.8; Monocytes # (A) 0.3 k/uL (0-1.0); Monocytes % (A) 6 %; Neutrophils # (A) 3.3 k/uL (1.3-7.7); Neutrophils % (A) 75 %; Platelet Count 150 k/uL (150-450); RDW 13.7 % (11.5-15.5); WBC 4.3 k/uL (3.8-10.6)
[2020-02-09 16:32] LABS: African American GFR (CKD) 83.8 (60.0-200.0); Albumin 4.1 g/dL (3.80-4.90); Albumin/Globulin Ratio 1.95 (1.60-3.17); Anion Gap 6.1 mmol/L (4.00-12.00); Calcium 9.3 mg/dL (8.7-10.3); Carbon Dioxide 29.9 mmol/L (21.6-31.8); Chol/HDL Ratio 2.98; Globulin 2.1 g/dL (1.6-3.3); Non-African American GFR(CKD) 72.3 (60.0-200.0); Total Bilirubin 0.6 mg/dL (0.2-1.2); Total Protein 6.2 g/dL (6.2-8.2)
[2020-02-09 16:39] LABS: Prostate Specific Antigen 3.3 ng/mL (0.0-6.5)
[2020-02-09 18:38] LABS: Erythrocyte Sedimentation Rate 9 mm/Hr (0-20)
== END | disposition home or self-care (01) ==
LOC: LABWHC1 08:41
PROVIDERS: ATTEND Internal Medicine
DX: I10 Essential (primary) hypertension (principal); D64.9 Anemia, unspecified; E78.5 Hyperlipidemia, unspecified; E87.8 Other disorders of electrolyte and fluid balance, not elsewhere classified; M19.90 Unspecified osteoarthritis, unspecified site; N40.0 Benign prostatic hyperplasia without lower urinary tract symptoms
CPT/HCPCS: 36415; 80053; 80061; 82550; 84153; 85025; 85652

== ENCOUNTER 2020-03-03 07:29 | Observation (INO) | payer MEDICARE ==
[2020-03-03] MEDS ORDERED: SODIUM CHLORIDE 0.9% 500 ML 500 ML IV STA (07:34)
--- NOTE | 2020-03-03 07:46 | ED ---
General Adult HPI - General Stated complaint: left sided weakness Time Seen by Provider: 03/03/20 07:29 Source: patient, RN notes reviewed, old records reviewed - History of Present Illness Initial comments: This is a 79-year-old male who presents to the emergency department complaining of left-sided weakness when he woke up. Patient states when he went to bed last night he had no symptoms he went about 11:00. Patient currently states all symptoms have resolved. Patient states she has a history of a previous TIA with some residual left-sided facial droop. Patient stated today he had no visual disturbance any did not notice any facial droop. Patient states currently his strength is back to baseline. Patient denies any symptoms this time. Patient states at no time did he have chest pain or difficulty breathing or shortness of breath. Patient denies any recent fever chills or cough per patient denies any abdominal pain patient denies nausea vomiting diarrhea. Patient denies any headache. - Related Data Home Medications Medication Instructions Recorded Confirmed Atorvastatin [Lipitor] 80 mg PO DAILY 11/18/16 03/03/20 PARoxetine [Paxil] 20 mg PO DAILY 11/18/16 03/03/20 Cetirizine HCl [Zyrtec] 10 mg PO DAILY 04/05/18 03/03/20 Cholecalciferol (Vitamin D3) 2,000 unit PO DAILY 04/05/18 03/03/20 [Vitamin D3] Fluticasone Nasal [place] [Flonase 1 spray EA NOSTRIL DAILY 04/05/18 03/03/20 Nasal [place]] Aspirin EC [Ecotrin] 325 mg PO DAILY 03/03/20 03/03/20 Losartan Potassium [Cozaar] 25 mg PO DAILY 03/03/20 03/03/20 Metoprolol Tartrate [Lopressor] 25 mg PO BID 03/03/20 03/03/20 Prevagen 1 tab PO DAILY 03/03/20 03/03/20 Tamsulosin [Flomax] 0.4 mg PO BID 03/03/20 03/03/20 Allergies Allergy/AdvReac Type Severity Reaction Status Date / Time cephalexin [From Keflex] AdvReac Nausea & Verified 03/03/20 08:39 Vomiting & Diarrhea Review of Systems ROS Statement: Those systems with pertinent positive or pertinent negative responses have been documented in the HPI. ROS Other: All systems not noted in ROS Statement are negative. Past Medical History Past Medical History: CVA/TIA, Hypertension History of Any Multi-Drug Resistant Organisms: None Reported Past Surgical History: Coronary Bypass/CABG, Joint Replacement, Orthopedic Surgery Additional Past Surgical History / Comment(s): heart valve replacement. Right carotid sx. Nasal cauterization Past Psychological History: No Psychological Hx Reported Past Alcohol Use History: Occasional Past Drug Use History: None Reported General Exam - General Exam Comments Initial Comments: GENERAL: Patient is well-developed and well-nourished. Patient is nontoxic and well- hydrated and is in no acute distress. ENT: Neck is soft and supple. No significant lymphadenopathy is noted. Oropharynx is clear. Moist mucous membranes. Neck has full range of motion without eliciting any pain. EYES: The sclera were anicteric and conjunctiva were pink and moist. Extraocular movements were intact and pupils were equal round and reactive to light. Eyelids were unremarkable. PULMONARY: Unlabored respirations. Good breath sounds bilaterally. No audible rales rhonchi or wheezing was noted. CARDIOVASCULAR: There is a regular rate and rhythm without any murmurs gallops or rubs. ABDOMEN: Soft and nontender with normal bowel sounds. No palpable organomegaly was noted. There is no palpable pulsatile mass. SKIN: Skin is clear with no lesions or rashes and otherwise unremarkable. NEUROLOGIC: Patient is alert and oriented x3. Slight facial droop of the left side but patient states it's residual otherwise no cranial nerve deficit noted. Motor and sensory are also intact. Normal speech, volume and content. Patient has some facial droop on the left side however he states this was noted at his baseline. MUSCULOSKELETAL: Normal extremities with adequate strength and full range of motion. No lower extremity swelling or edema. No calf tenderness. LYMPHATICS: No significant lymphadenopathy is noted PSYCHIATRIC: Normal psychiatric evaluation. Course Vital Signs 03/03/20 07:38 Temperature 98.4 F Pulse Rate 61 Respiratory 19 Rate Blood Pressure 148/76 O2 Sat by Pulse 98 Oximetry Medical Decision Making - Medical Decision Making EKG shows sinus rhythm with premature atrial complexes. Patient's rate is 60 beats a minute. AL interval is 182 QRS is 146 Q-T intervals 478 QTC is 478. Patient's EKG shows a right bundle branch block. Chest x-ray showed no acute normalities. Patient remained asymptomatic throughout the ED stay. I spoke with Dr. Camarena he agreed to admit the patient admitted the patient wrote admitting orders - Lab Data Result diagrams: 03/03/20 07:42 03/03/20 07:42 Lab Results 03/03/20 03/03/20 03/03/20 Range/Units 07:42 07:42 07:42 WBC 4.8 (3.8-10.6) k/uL RBC 4.53 (4.30-5.90) m/uL Hgb 13.1 (13.0-17.5) gm/dL Hct 41.2 (39.0-53.0) % MCV 90.8 (80.0-100.0) fL MCH 28.9 (25.0-35.0) pg MCHC 31.8 (31.0-37.0) g/dL RDW 13.6 (11.5-15.5) % Plt Count 149 L (150-450) k/uL Neutrophils % 74 % Lymphocytes % 16 % Monocytes % 6 % Eosinophils % 2 % Basophils % 1 % Neutrophils # 3.5 (1.3-7.7) k/uL Lymphocytes # 0.7 L (1.0-4.8) k/uL Monocytes # 0.3 (0-1.0) k/uL Eosinophils # 0.1 (0-0.7) k/uL Basophils # 0.0 (0-0.2) k/uL PT 9.9 (9.0-12.0) sec INR 0.9 (<1.2) APTT 23.0 (22.0-30.0) sec Sodium 138 (137-145) mmol/L Potassium 4.4 (3.5-5.1) mmol/L Chloride 107 (98-107) mmol/L Carbon Dioxide 27 (22-30) mmol/L Anion Gap 4 mmol/L BUN 23 H (9-20) mg/dL Creatinine 0.97 (0.66-1.25) mg/dL Est GFR (CKD-EPI)AfAm 87 (>60 ml/min/1.73 sqM) Est GFR (CKD-EPI)NonAf 76 (>60 ml/min/1.73 sqM) Glucose 107 H (74-99) mg/dL Calcium 8.5 (8.4-10.2) mg/dL Total Bilirubin 0.5 (0.2-1.3) mg/dL AST 25 (17-59) U/L ALT 21 (4-49) U/L Alkaline Phosphatase 81 (38-126) U/L Troponin I (0.000-0.034) ng/mL Total Protein 6.0 L (6.3-8.2) g/dL Albumin 3.5 (3.5-5.0) g/dL 03/03/20 Range/Units 07:42 WBC (3.8-10.6) k/uL RBC (4.30-5.90) m/uL Hgb (13.0-17.5) gm/dL Hct (39.0-53.0) % MCV (80.0-100.0) fL MCH (25.0-35.0) pg MCHC (31.0-37.0) g/dL RDW (11.5-15.5) % Plt Count (150-450) k/uL Neutrophils % % Lymphocytes % % Monocytes % % Eosinophils % % Basophils % % Neutrophils # (1.3-7.7) k/uL Lymphocytes # (1.0-4.8) k/uL Monocytes # (0-1.0) k/uL Eosinophils # (0-0.7) k/uL Basophils # (0-0.2) k/uL PT (9.0-12.0) sec INR (<1.2) APTT (22.0-30.0) sec Sodium (137-145) mmol/L Potassium (3.5-5.1) mmol/L Chloride (98-107) mmol/L Carbon Dioxide (22-30) mmol/L Anion Gap mmol/L BUN (9-20) mg/dL Creatinine (0.66-1.25) mg/dL Est GFR (CKD-EPI)AfAm (>60 ml/min/1.73 sqM) Est GFR (CKD-EPI)NonAf (>60 ml/min/1.73 sqM) Glucose (74-99) mg/dL Calcium (8.4-10.2) mg/dL Total Bilirubin (0.2-1.3) mg/dL AST (17-59) U/L ALT (4-49) U/L Alkaline Phosphatase (38-126) U/L Troponin I <0.012 (0.000-0.034) ng/mL Total Protein (6.3-8.2) g/dL Albumin (3.5-5.0) g/dL Disposition Clinical Impression: Transient cerebral ischemia Disposition: ADMITTED IP TO THIS HOSP Is patient prescribed a controlled substance at d/c from ED?: No Referrals: Quinn Camarena MD [Primary Care Provider] - 1-2 days Time of Disposition: 09:35
[2020-03-03 08:08] LABS: Basophils % (A) 1 %; Eosinophils # (A) 0.1 k/uL (0-0.7); Eosinophils % (A) 2 %; HCT 41.2 % (39.0-53.0); HGB 13.1 gm/dL (13.0-17.5); Lymphocytes # (A) 0.7 k/uL (1.0-4.8); Lymphocytes % (A) 16 %; MCH 28.9 pg (25.0-35.0); MCHC 31.8 g/dL (31.0-37.0); MCV 90.8 fL (80.0-100.0); Mean Platelet Volume 8.1; Monocytes # (A) 0.3 k/uL (0-1.0); Monocytes % (A) 6 %; Neutrophils # (A) 3.5 k/uL (1.3-7.7); Neutrophils % (A) 74 %; Platelet Count 149 k/uL (150-450); RBC 4.53 m/uL (4.30-5.90); RDW 13.6 % (11.5-15.5); WBC 4.8 k/uL (3.8-10.6)
[2020-03-03 08:17] LABS: INR 0.9 (<1.2); Prothrombin Time 9.9 sec (9.0-12.0)
[2020-03-03 08:24] LABS: Albumin 3.5 g/dL (3.5-5.0); Calcium 8.5 mg/dL (8.4-10.2); Potassium 4.4 mmol/L (3.5-5.1); Total Bilirubin 0.5 mg/dL (0.2-1.3)
--- NOTE | 2020-03-03 08:51 | XR ---
EXAMINATION TYPE: XR chest 2V DATE OF EXAM: 03/03/2020 COMPARISON: 04/05/2018 HISTORY: Shortness of breath TECHNIQUE: Frontal and lateral views of the chest are obtained. FINDINGS: Scattered senescent parenchymal changes noted. Hyperinflation compatible with COPD. No evidence for infiltrate. No evidence for atelectasis. Heart size is stable. Mediastinal structures are stable and grossly unremarkable. No evidence for hilar prominence. Degenerative changes dorsal spine. IMPRESSION: 1. No evidence for acute pulmonary disease.
--- NOTE | 2020-03-03 09:00 | CT ---
EXAMINATION TYPE: CT brain wo con for TPA DATE OF EXAM: 03/03/2020 COMPARISON: 03/13/2019 HISTORY: Left sided weakness CT DLP: 1099.[address] of the brain was performed. The ventricles, basal cisterns and sulci overlying the cerebral convexities demonstrate mild enlargem ent. Remote insult right MCA territory. There is no evidence for intracranial hemorrhage or sulcal effacement. There is decreased attenuation about the periventricular white matter and deep white matter of both c erebral hemispheres, compatible with chronic small vessel ischemia. Differential diagnosis does inclu de demyelination. No mass effects are seen.No midline shift. Osseous calvarium is intact. If symptoms persist consider MRI. IMPRESSION: 1. Age related atrophic and chronic small vessel ischemic change without acute intracranial process s een at this time.
[2020-03-03] MEDS ORDERED: ASPIRIN 325 MG TAB PO STA (09:35)
[2020-03-03] MEDS ORDERED: ASPIRIN 325 MG TAB PO SCH (10:45)
--- NOTE | 2020-03-03 12:54 | US ---
EXAMINATION TYPE: US carotid duplex BILAT DATE OF EXAM: 03/03/2020 COMPARISON: NONE CLINICAL HISTORY: occlusion. Right ICA occluded EXAM MEASUREMENTS: RIGHT: Peak Systolic Velocity (PSV) cm/sec ----- Right CCA: 29.1 ----- Right ICA: n/a ----- Right ECA: 94.1 ICA/CCA ratio: n/a RIGHT: End Diastole cm/sec ----- Right CCA: 4.2 ----- Right ICA: n/a ----- Right ECA: 11.7 LEFT: Peak Systolic Velocity (PSV) cm/sec ----- Left CCA: 7.36 ----- Left ICA: 100.0 ----- Left ECA: 65.2 ICA/CCA ratio: 1.4 LEFT: End Diastole cm/sec ----- Left CCA: 25.3 ----- Left ICA: 43.3 ----- Left ECA: 16.1 VERTEBRALS (direction of flow): Right Vertebral: Antegrade Left Vertebral: Antegrade Rhythm: Normal Occluded right ICA IMPRESSION: 1. 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 2. No significant hemodynamic stenosis involving the left internal carotid artery. 3. Atherosclerotic changes. Criteria for Assigning % of Stenosis / Diameter reduction (Estimation based on the indirect measurements of the internal carotid artery velocities (ICA PSV). 1. Normal (no stenosis)=ICA PSV < 125 cm/s: ratio < 2.0: ICA EDV<40 cm/s. 2. Less than 50% stenosis=ICA PSV < 125 cm/s: ratio < 2.0: ICA EDV<40 cm/s. 3. 50 to 69% stenosis=ICA PSV of 125 to 230 cm/s: ration 2.0 ? 4.0: ICA EDV 40-100 cm/s. 4. Greater than 70% stenosis to near occlusion= ICA PSV > 230 cm/s: ratio > 4.0: ICA EDV > 100 cm/s. 5. Near occlusion= ICA PSV velocities may be low or undetectable: variable ratio and ICA EDV. 6. Total occlusion=unable to detect flow.
[2020-03-03] MEDS: TAMSULOSIN 0.4 MG CAP.ER.24H PO SCH ×2 (14:42→20:08)
[2020-03-03] MEDS: LOSARTAN 25 MG TAB PO SCH (14:42)
[2020-03-03] MEDS: ASPIRIN 325 MG TAB PO SCH (14:42)
[2020-03-03] MEDS: METOPROLOL TARTRATE 25 MG TAB PO SCH ×2 (14:42→21:25)
[2020-03-03] MEDS: ATORVASTATIN 80 MG TAB PO SCH (14:43)
--- NOTE | 2020-03-03 17:04 | P.CNNES ---
History of Present Illness Consult date: 03/03/20 Requesting physician: Memo Gomez Reason for Consult: Tansient left sided weakness History of Present Illness: This is a 79-year-old right-handed gentleman with medical history of stroke right fronto-parietal (1997), right ICA occulsion s/p endarterectomy (1997) that was unsuccessful, hypertension, coronary artery disease status post CABG and Aortic valve replacement (Bov[place]) the presented emergency department on 03/03/2020 at 07:29am for an episode of left upper extremity weakness and numbness. His is at bedside He said he woke up at 6:00 in the morning and he noticed the left upper extremity weakness and numbness. Last normal state was 11 PM last night. Patient stated that his episode lasted for about a couple hours then resolved. His episode was not associated with the any visual disturbance, slurring the speech, any numbness involving the face or lower extremity. He said that he had an episode in 1997 where his left side of his cheek went numb and he was brought to [facility] and that he was told that he had a transient ischemic attack. He had some stenosis over the right internal carotid artery and had endarterectomy in 1997 but he said that was unsuccessful. His only residual effect from then 1997 TIA episode that he was told was minimal left facial droop. He was not told he had a stroke but he was told he had a transient ischemic attack according to him and his . He takes aspirin the 325 and Lipitor 80 mg daily. He is not on any anticoagulation. He denies any history of seizure. Patient denies tobacco use and illicit drug use. He is socially drinks all call last all call drink was a 6 month ago and the and when he does drink it's usually social. CT of the head the was reported as age-related atrophic and chronic small vessel ischemic change without acute intracranial process seen at this time. I personally reviewed that and I felt there is a encephalomalacia over the frontal parietal region. On MRI of April 2019 at the mentioned that the patient had the encephalomalacia over the frontal parietal region. The CT of the head of 2018 that mentioned that the this was stable compared to the 2013 (encephalomalacia). EKG was reported as sinus rhythm with premature atrial complexes with aberrant conduction. Right bundle branch block. Left anterior fascicular block. Bifascicular block. Minimal voltage criteria for left ventricular hypertrophy, may be normal variant. T wave abnormality, consider inferior lateral ischemia. Ventricular rate is 60. Carotid duplex was reported as there is occlusion of the right ICA. No significant hemodynamic stenosis involving the left internal carotid artery. Atherosclerotic changes. Initial glucose is 107. Review of Systems Review of system: The 12 point system was reviewed and apparent positive and negative per HPI. Past Medical History Past Medical History: CVA/TIA, Hypertension Additional Past Medical History / Comment(s): multiple TIAs. History of Any Multi-Drug Resistant Organisms: None Reported Past Surgical History: Coronary Bypass/CABG, Joint Replacement, Orthopedic Surgery Additional Past Surgical History / Comment(s): heart valve replacement. Right carotid sx. Nasal cauterization. bilat knee replacements. Past Anesthesia/Blood Transfusion Reactions: No Reported Reaction Past Psychological History: No Psychological Hx Reported Smoking Status: Never smoker Past Alcohol Use History: Occasional Past Drug Use History: None Reported Medications and Allergies Home Medications Medication Instructions Recorded Confirmed Type Atorvastatin [Lipitor] 80 mg PO DAILY 11/18/16 03/03/20 History PARoxetine [Paxil] 20 mg PO DAILY 11/18/16 03/03/20 History Cetirizine HCl [Zyrtec] 10 mg PO DAILY 04/05/18 03/03/20 History Cholecalciferol (Vitamin D3) 2,000 unit PO DAILY 04/05/18 03/03/20 History [Vitamin D3] Fluticasone Nasal Combined [place] [Flonase 1 spray EA NOSTRIL DAILY 04/05/18 03/03/20 History Nasal [place]] Aspirin EC [Ecotrin] 325 mg PO DAILY 03/03/20 03/03/20 History Losartan Potassium [Cozaar] 25 mg PO DAILY 03/03/20 03/03/20 History Metoprolol Tartrate [Lopressor] 25 mg PO BID 03/03/20 03/03/20 History Prevagen 1 tab PO DAILY 03/03/20 03/03/20 History Tamsulosin [Flomax] 0.4 mg PO BID 03/03/20 03/03/20 History Allergies Allergy/AdvReac Type Severity Reaction Status Date / Time cephalexin [From Keflex] AdvReac Nausea & Verified 03/03/20 08:39 Vomiting & Diarrhea Physical Examination - Vital Signs Vital Signs: Vital Signs Temp Pulse Pulse Resp BP BP Pulse Ox 03/03/20 15:00 59 L 14 03/03/20 13:20 14 03/03/20 13:07 97.7 F 59 L 14 147/65 97 03/03/20 12:08 56 L 19 125/74 98 03/03/20 09:35 57 L 16 125/69 97 03/03/20 07:38 98.4 F 61 19 148/76 98 Intake and Output 03/03/20 03/03/20 03/03/20 06:59 14:59 22:59 Other: Voiding Method Toilet Toilet Weight 81.601 kg GENERAL: The patient is lying in bed and is not in acute distress. CHEST: The heart rate is regular rate rhythm. No murmurs to auscultation. No carotid bruit bilaterally. LUNG: Clear to auscultation bilaterally no wheezing noted throughout. Not labored breathing. ABDOMEN/GI: Bowel sounds present in all 4 quadrants. No tenderness to palpation throughout. NEUROLOGICAL: Higher mental function: The patient is awake, alert, oriented to self, place and time. Patient is following commands. No aphasia and no neglect. Cranial nerves: The pupils are round, equal and reactive to light and accommodation. Visual dwyer are full to confrontation throughout. Extraocular movement is intact no nystagmus is noted. Facial sensation is normal to touch throughout. The facial strength is normal throughout. Hearing is normal bilaterally to hand rub. Tongue is midline and moved [id number] without any difficulty. No dysarthria is noted. Shoulder shrug is normal bilaterally. Motor: Gait is normal with normal arm swing. The strength is 5 over 5 throughout. Normal tone and bulk. Cerebellum: Normal finger to nose bilaterally. Sensation: Sensation is normal to touch throughout. Reflexes (right/left): 1+ throughout. Plantars are downgoing bilaterally. Results AST of 25, ALTs of 21. - Laboratory Findings CBC and BMP: 03/03/20 07:42 03/03/20 07:42 Abnormal Lab Findings: Abnormal Labs 03/03/20 03/03/20 07:42 07:42 Plt Count 149 L Lymphocytes # 0.7 L BUN 23 H Glucose 107 H Total Protein 6.0 L Assessment and Plan Assessment: Transient ischemic attack (left arm weakness and numbness) Chronic right frontal parietal stroke (1198) Complete occlusion of the right ICA with had unsuccessful endarterectomy in 1997 History of coronary artery disease status post CABG Valve replacement Plan: Currently he is on aspirin 325 daily. In addition I'll add the Plavix 75 in addition to aspirin and for the Plavix for him to be on it for 21 days because TIA episode. Then after that that he discontinued the Plavix and indefinitely continue on aspirin. Continue Lipitor 80 mg daily. Ordered the MRI the brain, lipidprofile, 2-D echocardiogram. Also ordered TSH. Continue cardiac monitoring PT/OT ans OCCUPATIONAL MEDICINE PHYSICIAN are on board The patient was notified that it is a possibility that this could've been a seizure as well because of the encephalomalacia over the frontal parietal region which and caused the cortical irritability from previous stroke. He was in formed that if he continues to have these episodes then the it is highly recommended for him to be on antiepileptic drug. The images were shown that the patient and his and the plan was discussed with them. Thank You for the consult. Josemanuel Ricardo M.D. Neuro-hospitalist Time with Patient: Greater than 30
[2020-03-03] MEDS: CLOPIDOGREL 75 MG TAB PO SCH (18:39)
--- NOTE | 2020-03-03 19:38 | HP ---
HISTORY AND PHYSICAL DATE OF ADMISSION: March 03, 2020. The patient age [age] years old white male . Date of 1940. The patient admitted on observation status and his room #328, bed 1. CHIEF COMPLAINT: The patient presented with left arm and hand not moving and clumsy with numbness. HISTORY OF PRESENT ILLNESS: 79 years old male, , has previous history of right frontal parietal stroke in 1997. He has also right internal carotid artery occlusion after he had endarterectomy in 1997 and was unsuccessful. He has a history of hypertension and coronary artery disease status post CABG. He has aortic valve replacement bovine. 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 He stated that it stayed one and a half hour and by the time he came to the ER was residual effect only and resolved. Last night at 11:00 pm he was completely normal. The patient had no association with visual disturbance or amaurosis fugax. No slurred speech and no numbness of the face. The patient stated that he had disturbance of the speech in 1997 involving also the left face. At the time of the examination, he was completely cleared, able to move his hand and no numbness. Residual effect from 1998 TIA episode. Minimal facial drooping. He is not on any anticoagulant at this time. He had a CT scan of the head and the brain with the presence of age related atrophic and chronic small vessel disease, ischemia without any intracranial process. He had encephalomalacia of the frontal, frontoparietal region. The patient also had an EKG in the ER showed sinus rhythm and right bundle branch block. His carotid duplex study was indicating complete occlusion of the right internal carotid. With no evidence of hemodynamic stenosis on the left side. REVIEW OF SYMPTOMS: Reviewing of the system: He has on examination, he is conscious, alert, oriented, able to give history. The head: he is normocephalic and he denied any blurred vision or headache. The cardiovascular: He had aortic valve replacement and right carotid endarterectomy, which has been completely blocked. He has a history of hypertension and previous TIA. History of hypercholesteremia. Cardiovascular as mentioned, the valve replacement and hypertension. On the pulmonary: No cough or expectoration. No fever or chills. No loss of taste or upper respiratory tract congestion. He had history of surgical nasal polyp on September 1996 and history of vasectomy. His aortic valve done in 2007. Musculoskeletal: He had a total knee replacement in 03/[address] Smith on the left knee and had right knee operated upon in 03/22/[address] Blackburn. He has also coronary bypass graft x2. All of the review of systems was noncontributory. SOCIAL HISTORY: Alcohol intake is rare with a possible 1 can of beer a week. He exercising 3 times a week. Caffeine 3 cups a day. His children: 2 daughters. Smoke habit, never smoked. He retired in 1997. The patient is . FAMILY HISTORY: Hypertension in sister and brother and brother has prostate cancer, arthritis in the sister, stroke cousin, heart disease brother and cousin. He has 3 sisters and diabetes in 1 sister and brother. His father had stomach cancer and mother at age of 84 with the complication of gallbladder removal surgery, father at age of 65 with the cancer of the stomach. MEDICATIONS: Current list of medication: He is on paroxetine 20 mg tablet in a.m., Tamsulosin for enlarged benign prostatic hypertrophy with Tamsulosin 0.4 mg capsule twice a day. He is on atorvastatin 80 mg once at bedtime, metoprolol tartrate 25 mg twice a day, losartan 25 mg tablet once a day. Prevagan 1 capsule a day OTC. He is on aspirin 325 mg once a day and vitamin D3 2000 soft gel capsule once a day OTC and nasal spray for allergy and congestion. PHYSICAL EXAMINATION: VITAL SIGNS: His vital signs, the patient on admission, his temperature 97.7 F, and his pulse rate 56/61, respiratory rate 14 per minute, blood pressure ranging between 148/76 to 125/74. His pulse ox ranging between 98 and 97. He was able to walk and he went to the toilet for voiding. PHYSICAL EXAMINATION: Patient is conscious, alert, oriented x3. Head was normocephalic, atraumatic. Pupil was equal, reactive and he had bilateral hearing aid with a hearing deficit. Nose was negative. Oropharynx: Natural teeth with normal tongue. The estimation and testing of the cranial nerves were negative. Neck was supple. No JVD. No thyromegaly. No lymphadenopathy. He had a scar on the right neck for the previous history of carotid endarterectomy, which is from both the internal carotids and the supply coming from the left side. The chest was clear to auscultation and percussion. No wheezes, no rhonchi. Heart was regular sinus rhythm and the abdomen was soft, positive bowel sounds. No tenderness in the 4 quadrants. Extremities: He has left upper extremity still clumsy but much improved with no numbness at the time of examination. Able to move the hand as well as the arm as well as the left leg. He had bilateral knee arthroplasty with the underlying degenerative arthritis. ASSESSMENT: 1. Transient ischemic attack with a history of previous stroke and history of encephalomalacia. 2. History otherwise aortic valve replacement. 3. History of bilateral knee arthroplasties. 4. He had a bypass with 2 vessel with the underlying coronary artery disease. 5. No history of diabetes. 6. History of depression. 7. History of benign prostatic hypertrophy. 8. History of hyperlipidemia. 9. History of hypertension with hypertensive heart disease, however, currently stable. PLAN: 1. Consulting the Neurology Dr. Josemanuel Yanez who is on for this week for evaluation and treatment and for further testing and meanwhile we will monitor him. 2. Ask the Cardiology to see him as well. 3. The patient is on observation status. 4. MRI was ordered. With the order of the MRI tomorrow and see if the neurologist has any further treatment or for further investigation and probably if it is normal, probably going to go home tomorrow maximum 24 or 48 hours. 5. We will follow the patient, he was on observation. MMODL / IJN: [id number] /
[2020-03-03] MEDS ORDERED: TAMSULOSIN 0.4 MG CAP.ER.24H PO SCH (21:00)
[2020-03-03] MEDS ORDERED: METOPROLOL TARTRATE 25 MG TAB PO SCH (21:00)
--- NOTE | 2020-03-04 08:19 | MR ---
EXAMINATION TYPE: MR brain wo con DATE OF EXAM: 03/04/2020 COMPARISON: MRI brain April 25, 2019. CT brain yesterday. HISTORY: Stroke: Left arm weakness and numbness TECHNIQUE: Multiplanar, multisequence imaging of the brain and brainstem is performed without IV cont rast. FINDINGS: Diffusion weighted images demonstrate no evidence of a recent infarct or other diffusion abnormality. There is no worrisome extra-axial fluid collection. Mild/moderate diffuse ventricular and sulcal prom inence redemonstrated. Significant old infarct right frontal parietal lobes in the MCA distribution r edemonstrated. Occasional focus of T2 hyperintensity consistent with mild to minimal chronic small ve ssel ischemic change. Midline structures demonstrate normal morphology. The craniocervical junction appears within normal limits. There is less well-visualized distal right internal carotid artery flow void corresponding to complete occlusion on CT neck study January 29, 2020 at its origin. The visualized sinuses are clear and the globes are intact. IMPRESSION: 1. No MRI evidence for a recent infarct. 2. Bilateral mild to moderate diffuse cerebral atrophy with significant old right frontoparietal infa rct in the MCA distribution redemonstrated. No significant change from prior MRI. Chronic completely occluded right internal carotid artery at carotid bulb origin, reconstitution at level of [place] of right middle and anterior cerebral arteries of the anterior circulation is likely present.
[2020-03-04 08:24] VITALS: BP 120/69; PULSE 55; RESP 16; TEMP 98
--- NOTE | 2020-03-04 08:47 | P.PN ---
Subjective Progress Note Date: 03/04/20 Patient was seen at bedside and said he is doing good today. He denies any further episodes of weakness or numbness of her left upper extremity. Denies any numbness over the face, any difficulty getting his words out, any visual disturbance. Objective - Vital Signs Vital signs: Vital Signs Temp 98 F 03/04/20 08:23 Pulse 55 L 03/04/20 08:23 Resp 16 03/04/20 08:23 BP 120/69 03/04/20 08:23 Pulse Ox 97 03/04/20 08:23 Intake & Output 03/03/20 03/04/20 03/04/20 18:59 06:59 18:59 Intake Total 200 Output Total 900 Balance 200 -900 Weight 81.601 kg Intake: Oral 200 Output: Urine 900 Other: Voiding Method Toilet Toilet # Voids 1 - Exam GENERAL: The patient is lying in bed and is not in acute distress. CHEST: The heart rate is regular rate rhythm. No murmurs to auscultation. No carotid bruit bilaterally. LUNG: Clear to auscultation bilaterally no wheezing noted throughout. Not labored breathing. ABDOMEN/GI: Bowel sounds present in all 4 quadrants. No tenderness to palpation throughout. NEUROLOGICAL: Higher mental function: The patient is awake, alert, oriented to self, place and time. Patient is following commands. No aphasia and no neglect. Cranial nerves: The pupils are round, equal and reactive to light and accommodation. Visual dwyer are full to confrontation throughout. Extraocular movement is intact no nystagmus is noted. Facial sensation is normal to touch throughout. The facial strength is normal throughout. Hearing is normal bilaterally to hand rub. Tongue is midline and moved [id number] without any difficulty. No dysarthria is noted. Shoulder shrug is normal bilaterally. Motor: Gait is normal with normal arm swing. The strength is 5 over 5 throughout. Normal tone and bulk. Cerebellum: Normal finger to nose bilaterally. Sensation: Sensation is normal to touch throughout. Reflexes (right/left): 1+ throughout. Plantars are downgoing bilaterally. 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 Continue Plavix for 21 days because TIA episode then after than discontinue it. To remain indefinitely remain on aspirin. Continue Lipitor 80 mg daily. MRI the brain: Was reported as no MRI evidence of for recent infarct. Bilateral mild to moderate diffuse cerebral atrophy with significant old right frontal parietal infarct in the MCA distribution demonstrated. No significant change from prior MRI. Chronic completely occluded right internal carotid artery at the carotid bulb origin, reconstitution at the level [place] also right middle and anterior cerebral arteries of the anterior circulation is likely present. I personally reviewed the MRI of the brain and I do agree there is no acute ischemia. There is only encephalomalacia that was a able to appreciate over the right frontal parietal region. Lipid profile: Triglyceride of 104, cholesterol of 131, LDL of 76 and HDL 34. 2-D echocardiogram: Pending TSH: 2.01 Continue cardiac monitoring PT/OT ans PHARMACIST AIDE are on board The patient was notified that it is a possibility that this could've been a seizure as well because of the encephalomalacia over the frontal parietal region which and caused the cortical irritability from previous stroke. He was informed of that if he continues to have these episodes then the it is highly recommended for him to be on antiepileptic drug. At this time he was not inclinded of being on anti-epileptic medication but will consider it later. If the echocardiogram is normal from a neurology standpoint he is clear for discharge. Patient needs to follow-up with a neurologist as an outpatient. Josemanuel Ricardo M.D. Neuro-hospitalist Time with Patient: Less than 30
[2020-03-04] MEDS ORDERED: LORATADINE 10 MG TAB PO SCH (09:00)
[2020-03-04] MEDS ORDERED: ATORVASTATIN 80 MG TAB PO SCH (09:00)
[2020-03-04] MEDS ORDERED: FLUTICASONE 50MCG/SPRAY NASAL 16GM EA NOSTRIL SCH (09:00)
[2020-03-04] MEDS ORDERED: NON FORMULARY DRUG (Prevagen 1 TAB) PO SCH (09:00)
[2020-03-04] MEDS ORDERED: ASPIRIN 325 MG TAB PO SCH (09:00)
[2020-03-04] MEDS ORDERED: CHOLECALCIFEROL 1,000 UNIT TAB PO SCH (09:00)
[2020-03-04] MEDS ORDERED: PARoxetine 20 MG TAB PO SCH (09:00)
[2020-03-04] MEDS ORDERED: LOSARTAN 25 MG TAB PO SCH (09:00)
[2020-03-04] MEDS: ATORVASTATIN 80 MG TAB PO SCH (09:48)
[2020-03-04] MEDS: ASPIRIN 325 MG TAB PO SCH (09:48)
[2020-03-04] MEDS: CLOPIDOGREL 75 MG TAB PO SCH (09:48)
[2020-03-04] MEDS: METOPROLOL TARTRATE 25 MG TAB PO SCH (09:49)
[2020-03-04] MEDS: TAMSULOSIN 0.4 MG CAP.ER.24H PO SCH (09:49)
[2020-03-04] MEDS: LOSARTAN 25 MG TAB PO SCH (09:49)
--- NOTE | 2020-03-04 11:37 | ECHOF ---
Referral Reason:stroke MEASUREMENTS -------- HEIGHT: 165.1 cm WEIGHT: 81.2 kg BP: 119/72 RVIDd: 3.4 cm (< 3.3) IVSd: 1.3 cm (0.6 - 1.1) LVIDd: 4.7 cm (3.9 - 5.3) LVPWd: 1.1 cm (0.6 - 1.1) IVSs: 1.6 cm LVIDs: 3.6 cm LVPWs: 1.4 cm LA Diam: 3.3 cm (2.7 - 3.8) Ao Diam: 3.0 cm (2.0 - 3.7) AV Cusp: 1.2 cm (1.5 - 2.6) MV EXCURSION: 13.514 mm (> 18.000) MV EF SLOPE: 84 mm/s (70 - 150) MV E Saleem: 0.86 m/s MV DecT: 221 ms MV A Saleem: 0.98 m/s MV E/A Ratio: 0.87 AV maxP.29 mmHg AV meanP.74 mmHg AR PHT: 760 ms RAP: 5.00 mmHg RVSP: 37.58 mmHg FINDINGS -------- This was a technically adequate study. The left ventricular size is normal. There is mild concentric left ventricular hypertrophy. Overa ll left ventricular systolic function is mildly impaired with, an EF between 45 - 50 %. Basal infer ior LV wall motion is hypokinetic. The right ventricle is mildly enlarged. The right atrium is normal in size. 5.0mg of Lumason was utilized for enhancement of images Interatrial and interventricular septum intact. Aortic valve is trileaflet and is mildly thickened. Peak/mean gradient across the Aortic Valve is 2 4.29mmHg / 14.74mmHg. Normally functioning bioprosthetic valve. There is mild roddy-prosthetic reg urgitation of the bioprosthetic aortic valve. The mitral valve leaflets are moderately thickened. Moderate mitral annular calcification present. Mild mitral regurgitation is present. Mild tricuspid regurgitation present. There is mild pulmonary hypertension. The right ventricular systolic pressure, as measured by Doppler, is 37.58mmHg. Trace/mild (physiologic) pulmonic regurgitation. The aortic root size is normal. Normal inferior vena cava with normal inspiratory collapse consistent with estimated right atrial pre ssure of 5 mmHg. There is no pericardial effusion. CONCLUSIONS -------- 1. The left ventricular size is normal. 2. There is mild concentric left ventricular hypertrophy. 3. Overall left ventricular systolic function is mildly impaired with, an EF between 45 - 50 %. 4. Basal inferior LV wall motion is hypokinetic. 5. The right ventricle is mildly enlarged. 6. 5.0mg of Lumason was utilized for enhancement of images 7. Aortic valve is trileaflet and is mildly thickened. 8. Peak/mean gradient across the Aortic Valve is 24.29mmHg / 14.74mmHg. 9. Normally functioning bioprosthetic valve. 10. There is mild roddy-prosthetic regurgitation of the bioprosthetic aortic valve. 11. The mitral valve leaflets are moderately thickened. 12. Moderate mitral annular calcification present. 13. Mild mitral regurgitation is present. 14. Mild tricuspid regurgitation present. 15. There is mild pulmonary hypertension. 16. The right ventricular systolic pressure, as measured by Doppler, is 37.58mmHg. 17. Trace/mild (physiologic) pulmonic regurgitation. 18. There is no pericardial effusion 19. Consider KAI if clinically indicated VENEER TAPING MACHINE OFFBEARER: ABEL Collado
--- NOTE | 2020-03-04 13:03 | P.DS ---
Providers Date of admission: 03/03/20 09:35 Stable neurologically Expected date of discharge: 03/04/20 Attending physician: Quinn Camarena Consults: 03/03/20 09:36 Consult Physician Routine Consulting Provider: Josemanuel Ricardo Consult Reason/Comments: TIA Do you want consulting provider notified?: Yes Primary care physician: Quinn Camarena Discharge summary by Dr. Camarena Date of admission 03/03/2020. Date of discharge 03/04/2020. Final diagnosis TIA transient ischemic attack of the left arm weakness and numbness. #2 chronic right frontal parietal stroke. #3 complete occlusion of the right internal carotid artery with a history of unsuccessful and arthrectomy in 1997. 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 #5 underlying coronary artery disease atherosclerotic heart disease with the coronary artery bypass graft 2. #6 impaired left ventricular systolic function with ejection fraction 45-50%. Basal inferior left ventricular wall motion is hypokinetic Gradient across aortic valve 24 with the bioprosthetic valve. And mild regurgitation of the bioprosthetic aortic valve. Mitral regurgitation, tricuspid regurgitation, mild pulmonary hypertension mild his serologic pulmonary regurgitation. Initial presentation in the emergency room: Patient presented with the sudden onset of left upper arm numbness and tingling inability to move it. Hospital course: Patient admitted on cardiac observation unit on 328. Consultation with Dr. Josemanuel Ricardo. Neurologist. MRI of the brain was requested and done and reviewed by the neurologist. His recommendation follow-up with Dr. Richmond neurology as outpatient. Neurologist started him on Plavix added to the aspirin for 21 days. On discharge: Patient seen and evaluated and examined his at bedside. Cleared by neurologist for discharge. Patient is conscious alert oriented 3 with resolution of the numbness of left upper extremities is able to ambulate no neurological residual no numbness and intact motor as well. Head was normocephalic and atraumatic and the pupil is equal reactive and conjunctiva was pink and sclera nonicteric. Oropharynx able to eat and swallow with the natural teeth. No loss of smell no loss of taste. Neck was supple no JVD no thyromegaly no lymphadenopathy scar on the right carotid with complete occlusion of the internal carotid and the scar present. Chest clear to auscultation and percussion no wheezes no rhonchi's. Heart regular sinus rhythm Abdomen soft positive bowel sounds. No tenderness in the 4 quadrants No edema of the lower extremities and positive pulses. On the chest he has a midline scar from previous CABG coronary artery bypass graft and also history of aortic valve replacement . Discussed with the patient that echocardiogram with the underlying follow-up with Dr. ERENDIRA Lima. As outpatient. As well as I'll Dr. Richmond neurologist as outpatient Assessment and plan discharge home today from observation unit. Plan - Discharge Summary Discharge Rx Participant: No New Discharge Prescriptions: No Action PARoxetine [Paxil] 20 mg PO DAILY Atorvastatin [Lipitor] 80 mg PO DAILY Fluticasone Nasal [place] [Flonase Nasal [place]] 1 spray EA NOSTRIL DAILY Cholecalciferol (Vitamin D3) [Vitamin D3] 2,000 unit PO DAILY Cetirizine HCl [Zyrtec] 10 mg PO DAILY Tamsulosin [Flomax] 0.4 mg PO BID Metoprolol Tartrate [Lopressor] 25 mg PO BID Losartan Potassium [Cozaar] 25 mg PO DAILY Aspirin EC [Ecotrin] 325 mg PO DAILY Prevagen 1 tab PO DAILY Discharge Medication List Atorvastatin [Lipitor] 80 mg PO DAILY 11/18/16 [History] PARoxetine [Paxil] 20 mg PO DAILY 11/18/16 [History] Cetirizine HCl [Zyrtec] 10 mg PO DAILY 04/05/18 [History] Cholecalciferol (Vitamin D3) [Vitamin D3] 2,000 unit PO DAILY 04/05/18 [History] Fluticasone Nasal [place] [Flonase Nasal [place]] 1 spray EA NOSTRIL DAILY 04/05/18 [History] Aspirin EC [Ecotrin] 325 mg PO DAILY 03/03/20 [History] Losartan Potassium [Cozaar] 25 mg PO DAILY 03/03/20 [History] Metoprolol Tartrate [Lopressor] 25 mg PO BID 03/03/20 [History] Prevagen 1 tab PO DAILY 03/03/20 [History] Tamsulosin [Flomax] 0.4 mg PO BID 03/03/20 [History] Follow up Appointment(s)/Referral(s): Quinn Camarena MD [Primary Care Provider] - 1-2 days
== END 2020-03-04 13:54 | disposition home or self-care (01) ==
LOC: EC 07:29 → 3NCARDOBS 09:35
PROVIDERS: ADMIT Internal Medicine; ATTEND Internal Medicine
DX: G45.9 Transient cerebral ischemic attack, unspecified (principal); R53.1 Weakness; I65.21 Occlusion and stenosis of right carotid artery; E78.00 Pure hypercholesterolemia, unspecified; E78.5 Hyperlipidemia, unspecified; G93.89 Other specified disorders of brain; I11.9 Hypertensive heart disease without heart failure; I25.10 Atherosclerotic heart disease of native coronary artery without angina pectoris; I45.2 Bifascicular block; I49.1 Atrial premature depolarization; I73.9 Peripheral vascular disease, unspecified; N40.0 Benign prostatic hyperplasia without lower urinary tract symptoms; Z79.82 Long term (current) use of aspirin; Z79.899 Other long term (current) drug therapy; Z80.0 Family history of malignant neoplasm of digestive organs; Z80.42 Family history of malignant neoplasm of prostate; Z82.3 Family history of stroke; Z82.49 Family history of ischemic heart disease and other diseases of the circulatory system; Z83.3 Family history of diabetes mellitus; Z95.1 Presence of aortocoronary bypass graft; Z95.3 Presence of xenogenic heart valve; Z96.653 Presence of artificial knee joint, bilateral
CPT/HCPCS: 96360; 99285; 36415; 93005; 97161; 97165; 80061; 80053; 84443; 84484; 85025; 85610; 85730; 71046; 93880; 70450; 70551; G0378 ×2; C8929; Q9950; 93306

== ENCOUNTER 2020-03-29 07:54 | Day surgery (SDC) | payer MEDICARE ==
[2020-03-24 15:36] VITALS: BMI 30.2
[2020-03-29] MEDS ORDERED: SODIUM CHLORIDE 0.9% 500 ML 500 ML IV ONE (08:07)
[2020-03-29 08:23] VITALS: TEMP 98.1
[2020-03-29] MEDS ORDERED: fentaNYL (PF) 50 MCG/ML 2 ML AMP ONE (09:58)
[2020-03-29] MEDS ORDERED: MIDAZOLAM 2 MG/2 ML VIAL IV ONE (10:12)
[2020-03-29] MEDS ORDERED: BENZOCAINE SPRAY 1 CAN TOPICAL ONE (10:12)
[2020-03-29] MEDS ORDERED: fentaNYL (PF) 50 MCG/ML 2 ML AMP IV ONE (10:16)
--- NOTE | 2020-03-29 10:43 | P.TEE ---
Indications for Procedure(s): History of a CVA/TIA. Ruled out Cardec source of emboli Date of Procedure: 03/29/20 Preoperative Diagnosis: History of CVA. History of a previous aortic valve replacement Postoperative Diagnosis: No definite cardiac source of emboli. Moderate to severe mitral regurgitation which is eccentric Procedure(s) Performed: KAI examination Description of Procedure(s): INDICATION: This is 79-year-old gentleman with history of previous aortic valve replacement with bioprosthetic valve, recently experienced weakness of the left upper extremity suggestive of TIA/CVA. A KAI examination is requested to rule out any Cardec source of emboli CONSENT: . Informed consent was obtained from the patient PROCEDURE: . Patient was brought to the lab in a fasting state. He was prepped and draped in the usual fashion. The throat was sprayed with Hurricaine. Patient was given 2 mg of Versed and 50 g fentanyl for sedation. A lubricated Omni probe was introduced into the oropharynx and was advanced into the esophagus and stomach. Multiple views were obtained both from the stomach and esophagus. Patient tolerated the procedure well. Color pulse and continuous- wave Doppler studies were performed. Saline contrast bubble injection was also performed FINDINGS: The tissue processing well ventilated area was not well visualized. The right and posterior leaflets of showed some calcification but the left leaflet could not be seen well. However, it seems to function normally without any evidence of regurgitation. Gradient of about 23 was obtained across the prosthetic valve. The mitral valve appeared to be normal. However, there is an eccentric mitral regurgitation which is at least moderate to severe with a PISA value of 0.8-1. The left atrial appendage appeared to be free of any clot. The interatrial septum appeared to be intact without any spontaneous shunt. Saline contrast bubble injection did not reveal any crossing of the bubbles across the septum. The aorta showed mild plaque. Left ventricular function appear to be fair. IMPRESSION: #1. Aortic bioprosthetic valve not well visualized but seems to function normally without any evidence of regurgitation or significant gradient. #2. Mitral valve shows eccentric 3-4+ mitral regurgitation. Structurally appeared to be normal. #3. Left atrial appendage appeared free of any clot. #4. Interatrial septum appeared to be intact without any spontaneous shunt #5. Saline contrast bubble injection did not reveal any crossing of the bubbles #6. There is mild to moderate plaque in the aorta PLAN: Continue maximal medical therapy. Follow mitral regurgitation closely
[2020-03-29] MEDS ORDERED: SODIUM CHLORIDE 0.9% 1,000 ML IV SCH (10:45)
[2020-03-29 11:43] VITALS: RESP 16
[2020-03-29 12:47] VITALS: BP 121/57; PULSE 65
== END 2020-03-29 12:25 | disposition home or self-care (01) ==
LOC: CATHCVL 07:54
PROVIDERS: ATTEND Internal Medicine Cardiovascular Disease
DX: I34.0 Nonrheumatic mitral (valve) insufficiency (principal); Z86.73 Personal history of transient ischemic attack (TIA), and cerebral infarction without residual deficits; Z95.3 Presence of xenogenic heart valve; I10 Essential (primary) hypertension; R09.89 Other specified symptoms and signs involving the circulatory and respiratory systems; I25.10 Atherosclerotic heart disease of native coronary artery without angina pectoris; E78.00 Pure hypercholesterolemia, unspecified; E78.5 Hyperlipidemia, unspecified; I25.5 Ischemic cardiomyopathy; I27.20 Pulmonary hypertension, unspecified; E66.3 Overweight; I83.93 Asymptomatic varicose veins of bilateral lower extremities; Z95.1 Presence of aortocoronary bypass graft; Z98.890 Other specified postprocedural states; Z86.79 Personal history of other diseases of the circulatory system; Z79.899 Other long term (current) drug therapy; Z79.82 Long term (current) use of aspirin; Z88.1 Allergy status to other antibiotic agents; Z88.8 Allergy status to other drugs, medicaments and biological substances; Z68.29 Body mass index [BMI] 29.0-29.9, adult
CPT/HCPCS: 93312; 93320; 93325; J2250; J3010

== ENCOUNTER → 2020-07-26 | Outpatient (CLI) | payer MEDICARE ==
--- NOTE | 2020-07-27 10:07 | NM ---
EXAMINATION TYPE: NM WBC limited DATE OF EXAM: 07/26/2020 COMPARISON: MR brain 03/04/2020, ultrasound carotid Doppler duplex 03/03/2020 HISTORY: I 65.23 TECHNIQUE: Following administration of 16.5 mCi Tc99m Ceretec. Images obtained 4 hours post injecti on. FINDINGS: Limited scanning performed over the upper chest, head and neck Small focus of uptake noted in the right neck on anterior image also seen on RPO image. Physiologic u ptake is noted within the marrow. IMPRESSION: Indeterminate small focus of activity in the right neck as described. CT of the neck with contrast ma y be of benefit.
== END | disposition home or self-care (01) ==
LOC: RADNMMAIN 06:47
PROVIDERS: ATTEND Surgery
DX: R93.89 Abnormal findings on diagnostic imaging of other specified body structures (principal)
CPT/HCPCS: 78300; A9569

== ENCOUNTER → 2020-08-08 | Outpatient (CLI) | payer MEDICARE ==
--- NOTE | 2020-08-08 08:38 | CT ---
EXAMINATION TYPE: CT angio neck DATE OF EXAM: 08/08/2020 HISTORY: Carotid stenosis COMPARISON: CT neck January 29, 2020 CT DLP: 352.9 mGycm. Automated Exposure Control for Dose Reduction was Utilized. TECHNIQUE: CTA scan of the neck is performed with IV Contrast, patient injected with 65 mL of Isovue 370, axial images are obtained, coronal and sagittal reformatted images are reviewed. MIP Images are created on CT scanner and reviewed. 3D reconstructed images are created on an independent workstatio n and reviewed. FINDINGS: Carotid/Vascular Structures: Normal three-vessel origin from aortic arch. Normal origin right common carotid artery from the right brachiocephalic artery. Focal moderate to severe calcified plaque at or igin right common carotid artery. No significant stenosis. Mild to moderate peripheral calcified plaq ue in the aortic arch just after three-vessel origin. Partial visualization of post-CABG changes. Mod erate to severe peripheral plaque at origin of left common carotid artery. No significant stenosis. N o significant plaque or stenosis in remainder of common carotid arteries, tortuous course to left com mon carotid artery noted. There is moderate to severe calcified plaque right common carotid artery ex tending into proximal internal carotid artery. Complete occlusion is present shortly after its origin . Right external carotid artery is patent without significant stenosis. No significant stenosis and l eft external carotid artery. Moderate to severe calcified plaque left carotid bulb extends into proxi mal internal carotid artery. Remainder left internal carotid artery shows moderate calcified plaque p etrous and supraclinoid segment without significant stenosis. There is filling of the right middle ce rebral artery likely from collateral flow at level of [place]. There is larger caliber or do minant left vertebral artery. Vertebral arteries are patent to basilar junction. Ascending aortic an eurysm up to to 4.5 cm axial image 2 noted. Other: Straightening of cervical spine with moderate multilevel spurring. Nplu-ex-gevlzwrd disc space narrowing C5-C6 and C6-C7 levels. IMPRESSION: 1. Complete occlusion of right internal carotid artery shortly after its origin. In retrospect this w as present on January 29, 2020 CT. 2. There is ascending thoracic aortic aneurysm measuring up to 4.5 cm in size partially imaged on thi s study.
== END | disposition home or self-care (01) ==
LOC: RADCTMAIN 07:08
PROVIDERS: ATTEND Surgery
DX: I65.21 Occlusion and stenosis of right carotid artery (principal); I71.2 Thoracic aortic aneurysm, without rupture; I65.29 Occlusion and stenosis of unspecified carotid artery; T82.7XXA Infection and inflammatory reaction due to other cardiac and vascular devices, implants and grafts, initial encounter
CPT/HCPCS: 82565; 84520; 70498; 36415; Q9967

== ENCOUNTER → 2020-08-16 | Outpatient (CLI) | payer MEDICARE ==
[2020-08-16 09:25] LABS: Basophils % (A) 0 %; Eosinophils # (A) 0.1 k/uL (0-0.7); Eosinophils % (A) 2 %; HCT 46.1 % (39.0-53.0); HGB 14.4 gm/dL (13.0-17.5); Lymphocytes # (A) 0.9 k/uL (1.0-4.8); Lymphocytes % (A) 16 %; MCH 28.2 pg (25.0-35.0); MCHC 31.2 g/dL (31.0-37.0); MCV 90.4 fL (80.0-100.0); Mean Platelet Volume 8.1; Monocytes # (A) 0.4 k/uL (0-1.0); Monocytes % (A) 6 %; Neutrophils # (A) 4.1 k/uL (1.3-7.7); Neutrophils % (A) 74 %; Platelet Count 161 k/uL (150-450); RDW 13.8 % (11.5-15.5); WBC 5.6 k/uL (3.8-10.6)
[2020-08-16 09:38] LABS: Potassium 4.7 mmol/L (3.5-5.1)
== END | disposition home or self-care (01) ==
LOC: LABPAT 08:04
PROVIDERS: ATTEND Surgery
DX: Z01.818 Encounter for other preprocedural examination (principal); S11.90XA Unspecified open wound of unspecified part of neck, initial encounter; X58.XXXA Exposure to other specified factors, initial encounter
CPT/HCPCS: 36415; 80051; 82565; 84520; 85025

== ENCOUNTER 2020-08-23 06:14 | Day surgery (SDC) | payer MEDICARE ==
[~2020-08-23 06:14] MED LIST: HYDROmorphone 0.5 MG/0.5 ML SYRINGE IVP PRN; LACTATED RINGERS 1,000 ML IV SCH; ONDANSETRON 4 MG/2 ML VIAL IVP ONE; Pre Op ABX Message 1 EACH MISC MISCELLANE ONE; fentaNYL (PF) 50 MCG/ML 2 ML AMP IV PRN
[2020-08-23] MEDS ORDERED: DEXAMETHASONE SOD PHOSPHATE 4 MG/ML 1 ML VIAL IVP ONE (07:01)
[2020-08-23] MEDS ORDERED: SUCCINYLCHOLINE CHLORIDE 100 MG/5 ML SYR IV ONE (07:21)
[2020-08-23] MEDS ORDERED: ePHEDrine SULFATE/0.9% NACL/PF 50 MG/5 ML SYRINGE IV ONE (07:21)
[2020-08-23] MEDS ORDERED: PROPOFOL 10 MG/ML 20 ML VIAL IV ONE (07:21)
[2020-08-23] MEDS ORDERED: MIDAZOLAM 2 MG/2 ML VIAL ONE (07:21)
[2020-08-23] MEDS ORDERED: LIDOCAINE 1% INJ 10MG/ML (20 ML MDV) ONE (07:21)
[2020-08-23] MEDS ORDERED: fentaNYL (PF) 50 MCG/ML 2 ML AMP ONE (07:21)
[2020-08-23] MEDS ORDERED: BUPIVACAINE (PF) 0.25% 30 ML VIAL SQ ONE ×2 (07:36)
[2020-08-23] MEDS ORDERED: ceFAZolin 1,000 MG in SODIUM CHLORIDE 0.9% 1,000 ML IRRIGATION ONE (08:11)
[2020-08-23 08:47] VITALS: TEMP 97
[2020-08-23 09:12] VITALS: RESP 16
--- NOTE | 2020-08-23 09:26 | P.OP ---
Date of Procedure: 08/23/20 Preoperative Diagnosis: Right neck chronic neck wound Postoperative Diagnosis: Right chronic neck wound with tract Procedure(s) Performed: Excision of right neck wound and tract with revision of scar Anesthesia: CAPO Surgeon: Dustin Torres Estimated Blood Loss (ml): 5 Pathology: other (right neck mass, and cervical lymph node) Condition: stable Disposition: PACU Indications for Procedure: 80 year old male with history of multiple neck surgeries originally presented to the office secondary to chronic draining wound at the incision that he states having for several years. After CTA and utrasound demonstrating the wound without evidence of bleeding as well as an occluded previously repaired carotid he was scheduled for excision and presents today for procedure. Operative Findings: wound with cyst like structure and tract to the previous carotid patch area Description of Procedure: After written informed consent was obtained the patient all risks benefits and competitions were described the patient is brought to the operative suite and laid in a supine position. The area of the neck was prepped and draped in usual sterile fashion after appropriate anesthetic was performed per the anesthesiologist. A timeout was performed in normal fashion antibiotics were administered prior to incision. An elliptical incision was created around the existing wound with a 15 blade scalpel and dissection was carried down around the wound with electrocautery. The incision was extended slightly to allow for access to the deep structures. The wound had a sinus tract that extended down to the previous scarred area around his previous patch. Further dissection was carried around the wound to the scar tissue above the patch where it was ligated. There was no drainage noted from this tract at this area and it had diminished to a small orifice. The area was copiously irrigated with antibiotic solution. There is no active drainage noted and opening was unable to be visualized. Hemostasis was assured with electrocautery. The wound/mass was sent off for pathology as well as a lymph node that was encountered upon dissection. The incision was then closed in a multilayer fashion. The skin was then cleansed and dressings were placed. Patient tolerated the procedure well and was following commands and moving all extremities. Patient was then sent to PACU for recovery.
[2020-08-23] MEDS ORDERED: diphenhydrAMINE 50 MG/ML 1 ML VIAL ONE (10:03)
[2020-08-23] MEDS ORDERED: ACETAMINOPHEN TAB 500 MG TAB ONE (10:03)
[2020-08-23] MEDS ORDERED: ACETAMINOPHEN TAB 500 MG TAB PO ONE (10:06)
[2020-08-23] MEDS ORDERED: diphenhydrAMINE 50 MG/ML 1 ML VIAL IVP ONE (10:07)
[2020-08-23 10:31] VITALS: BP 118/73; PULSE 71
--- NOTE | 2020-08-25 13:04 | CDI ---
Date: 08.25.20 CDS/Supervisor Wet Pour Name: Inocencia Echols Phone: If any questions, call [facility] Medical Doctor Md at Patient Name: Redd Hay Admit Date 08.23.20 Discharge Date: 08.23.20 ATTENTION: The [facility] Coding Staff appreciate your assistance in clarifying documentation. Please respond to the clarification below the line at the bottom and electronically sign. The [facility] Coding staff will review the response and follow-up if needed. Please note: Queries are made part of the Legal Health Record. If you have any questions, please contact the Medical Doctor Md. Dear Dr. Torres In order to code to the greatest specificity and for the greatest reimbursement I need the following information: Please document the diameter of the excision/scar revision: __0.5 cm or less __0.6 to 1.0 cm __1.1 to 2.0 cm __2.1 to 3.0 cm __3.1 to 4.0 cm __over 4.0 cm Thank you for your kind consideration. 3.1-4cm MTDD
== END 2020-08-23 11:37 | disposition home or self-care (01) ==
LOC: OR 06:14
PROVIDERS: ATTEND Surgery
DX: S11.90XA Unspecified open wound of unspecified part of neck, initial encounter (principal); L02.11 Cutaneous abscess of neck; L90.5 Scar conditions and fibrosis of skin; I65.23 Occlusion and stenosis of bilateral carotid arteries; I71.2 Thoracic aortic aneurysm, without rupture; E78.5 Hyperlipidemia, unspecified; I10 Essential (primary) hypertension; I25.10 Atherosclerotic heart disease of native coronary artery without angina pectoris; Z79.899 Other long term (current) drug therapy; Z79.82 Long term (current) use of aspirin; Z86.73 Personal history of transient ischemic attack (TIA), and cerebral infarction without residual deficits; Z98.890 Other specified postprocedural states; Z95.2 Presence of prosthetic heart valve; X58.XXXA Exposure to other specified factors, initial encounter
CPT/HCPCS: 88304; 88305; 11424; J2250; J1200; J1100; J0690 ×2; J2405; J2001; J3010; J0330; J2704

== ENCOUNTER 2020-08-25 13:58 | Emergency (ER) | payer MEDICARE ==
[2020-08-25 14:35] VITALS: TEMP 98
--- NOTE | 2020-08-25 17:40 | ED ---
General Adult HPI - General Chief complaint: Neck Pain/Injury Stated complaint: Swelling in neck/face Time Seen by Provider: 08/25/20 17:10 Source: patient Mode of arrival: ambulatory Limitations: no limitations - History of Present Illness Initial comments: Dictation was produced using Clear[employer]ide dictation software. please excuse any grammatical, word or spelling errors. This patient was cared for during a federal and state declared state of emerg ency secondary to Covid 19 Chief Complaint: 80-year-old male presents with complaint of malocclusion History of Present Illness: 80-year-old male who presents today with his [place]. Patient had a neck surgery of a cyst near the right carotid artery 2 days ago. Since his surgery he is complaining of malocclusion. is concerned that he might be having a stroke because of his left face seems weaker than normal and is having trouble speaking.. He states he has pain to his blas ateral jaws. They said during the procedure he had general anesthesia. Denies any facial paresthesias. He states he does have some left hand paresthesias that does not appear to be new. His main complaint is malocclusion and left jaw pain. The ROS documented in this emergency department record has been reviewed and confirmed by me. Those systems with pertinent positive or negative responses have been documented in the HPI. All other systems are other negative and/or noncontributory. PHYSICAL EXAM: General Impression: Alert and oriented x3, not in acute distress HEENT: Normocephalic atraumatic, extra-ocular movements intact, pupils equal and reactive to light bilaterally, mucous membranes moist, malocclusion Cardiovascular: Heart regular rate and rhythm Chest: Able to complete full sentences, no retractions, no tachypnea Abdomen: abdomen soft, non-tender, non-distended, no organomegaly Musculoskeletal: Pulses present and equal in all extremities, no peripheral edema Motor: no focal deficits noted Neurological: no focal motor or sensory deficits noted, left lower facial weak ness that reports is chronic Skin: Intact with no visualized rashes Psych: Normal affect and mood ED course: Old male presents to the emergency department for malocclusion and jaw pain and his concerns of TMJ dislocation. He does have features concerning for possible CVA given that there was procedure performed there is right carotid. Vital signs upon arrival shows heart rate 53 cumbersome vital signs within acceptable limits. Computed tomography scan of the brain shows old No acute intracranial abnormality. There is old right MCA territory infarct. Computed tomography scan the face shows left TMJ dislocation. TMJ reduction was performed under procedural sedation. Patient reevaluated after successful reduction of TMJ dislocation with improvement of symptoms. reports that he appears to be baseline now. Patient reports significant improvement of symptoms. Patient will be discharged with outpatient referral to oral surgery. Patient placed in a Colin bandage and counseled on liquid diet preferably and do not open the jaw so widely. - Related Data Home Medications Medication Instructions Recorded Confirmed Atorvastatin [Lipitor] 80 mg PO HS 11/18/16 08/25/20 Cholecalciferol (Vitamin D3) 50 mcg PO DAILY 04/05/18 08/25/20 [Vitamin D3] Aspirin EC [Ecotrin] 325 mg PO DAILY 03/03/20 08/25/20 Losartan Potassium [Cozaar] 25 mg PO HS 03/03/20 08/25/20 Metoprolol Tartrate [Lopressor] 25 mg PO DAILY 03/03/20 08/25/20 Tamsulosin [Flomax] 0.4 mg PO HS 03/03/20 08/25/20 Escitalopram [Lexapro] 5 mg PO DAILY 03/24/20 08/25/20 busPIRone HCL 5 mg PO BID 03/24/20 08/25/20 Fluocinolone Acetonide [Lidex Soln] 1 applic TOPICAL DAILY PRN 08/25/20 08/25/20 Ketoconazole [Ketoconazole 2% 1 applic TOPICAL DAILY PRN 08/25/20 08/25/20 Shampoo] Previous Rx's Medication Instructions Recorded HYDROcodone/APAP 5-325MG [[place] 1 tab PO Q6HR PRN 3 Days #12 tab 08/25/20 5-325] Allergies Allergy/AdvReac Type Severity Reaction Status Date / Time cephalexin [From Keflex] AdvReac Nausea & Verified 08/25/20 18:20 Vomiting & Diarrhea Review of Systems ROS Statement: Those systems with pertinent positive or pertinent negative responses have been documented in the HPI. ROS Other: All systems not noted in ROS Statement are negative. Past Medical History Past Medical History: Coronary Artery Disease (CAD), CVA/TIA, Hypertension Additional Past Medical History / Comment(s): STATES HE GETS CYSTS AT THE SIGHT OF THE RIGHT CAROTID SURGERY SCAR, DRAINS PERDIODICALLY. MULTIPLE TIAs. -HO SPITALIZED 03/03/20-03/04/20 FOR TIA WITH LEFT ARM WEAKNESS & NUMBNESS WHICH HAS RESOLVED. LEAKY HEART VALVE. History of Any Multi-Drug Resistant Organisms: None Reported Past Surgical History: Coronary Bypass/CABG, Joint Replacement, Orthopedic Surge ry Additional Past Surgical History / Comment(s): AORTIC VALVE REPLACEMENT (BOVINE). RIGHT CAROTID ENDARTERECTOMY (DR. HANKS. Nasal cauterization. Bilat knee replacements. CABG (2007) Past Anesthesia/Blood Transfusion Reactions: No Reported Reaction Past Psychological History: No Psychological Hx Reported Smoking Status: Never smoker Past Alcohol Use History: Rare Past Drug Use History: None Reported - Past Family History Mother Family Medical History: No Reported History General Exam Limitations: no limitations Course Vital Signs 08/25/20 08/25/20 08/25/20 14:32 17:17 18:43 Temperature 98.0 F Pulse Rate 53 L 49 L Respiratory 18 16 16 Rate Blood Pressure 129/75 166/73 O2 Sat by Pulse 99 99 Oximetry 08/25/20 08/25/20 08/25/20 18:55 18:58 19:03 Temperature Pulse Rate 50 L 51 L 49 L Respiratory 16 16 16 Rate Blood Pressure 166/82 133/66 130/77 O2 Sat by Pulse 100 96 100 Oximetry Procedures - Orthopedic Joint Reduction Joint #1 Consent Obtained: verbal consent, written consent Side: left Joint Reduction Location: other (tmj) Analgesia: procedural sedation Technique Used: traction/counter-traction - Procedural Sedation Procedural Sedation Start Time: 18:55 Procedural Sedation Stop Time: 18:58 Indications: fracture/dislocation reduction (tmj dislocation) ASA Class: II Mallampati Airway Score: 2 Preparation: laboratory monitor applied, pulse oximeter, supplemental O2 applied IV Propofol Dose (mgs): 50 Complications: none Patient Tolerated Procedure: well Medical Decision Making - Lab Data Result diagrams: 08/25/20 18:10 08/25/20 18:10 Lab Results 08/25/20 08/25/20 Range/Units 18:10 18:10 WBC 6.3 (3.8-10.6) k/uL RBC 5.02 (4.30-5.90) m/uL Hgb 14.6 (13.0-17.5) gm/dL Hct 45.9 (39.0-53.0) % MCV 91.5 (80.0-100.0) fL MCH 29.1 (25.0-35.0) pg MCHC 31.8 (31.0-37.0) g/dL RDW 13.9 (11.5-15.5) % Plt Count 153 (150-450) k/uL MPV 7.9 Neutrophils % 78 % Lymphocytes % 14 % Monocytes % 6 % Eosinophils % 2 % Basophils % 0 % Neutrophils # 5.0 (1.3-7.7) k/uL Lymphocytes # 0.9 L (1.0-4.8) k/uL Monocytes # 0.4 (0-1.0) k/uL Eosinophils # 0.1 (0-0.7) k/uL Basophils # 0.0 (0-0.2) k/uL Sodium 141 (137-145) mmol/L Potassium 4.2 (3.5-5.1) mmol/L Chloride 102 (98-107) mmol/L Carbon Dioxide 32 H (22-30) mmol/L Anion Gap 7 mmol/L BUN 14 (9-20) mg/dL Creatinine 0.90 (0.66-1.25) mg/dL Est GFR (CKD-EPI)AfAm >90 (>60 ml/min/1.73 sqM) Est GFR (CKD-EPI)NonAf 82 (>60 ml/min/1.73 sqM) Glucose 95 (74-99) mg/dL Calcium 9.7 (8.4-10.2) mg/dL Disposition Clinical Impression: TMJ dislocation Disposition: HOME SELF-CARE Condition: Good Instructions (If sedation given, give patient instructions): Closed Reduction (ED), Temporomandibular Disorder (ED) Prescriptions: HYDROcodone/APAP 5-325MG [[place] 5-325] 1 tab PO Q6HR PRN 3 Days #12 tab PRN Reason: Severe Pain Is patient prescribed a controlled substance at d/c from ED?: Yes If prescribed controlled substance>3 days was MAPS reviewed?: Prescribed <3 Days Referrals: Quinn Camarena MD [Primary Care Provider] - 1-2 days Memo Acosta DDS [STAFF PHYSICIAN] - 1-2 days Time of Disposition: 19:13
[2020-08-25 18:17] LABS: Basophils % (A) 0 %; Eosinophils # (A) 0.1 k/uL (0-0.7); Eosinophils % (A) 2 %; HCT 45.9 % (39.0-53.0); HGB 14.6 gm/dL (13.0-17.5); Lymphocytes # (A) 0.9 k/uL (1.0-4.8); Lymphocytes % (A) 14 %; MCH 29.1 pg (25.0-35.0); MCHC 31.8 g/dL (31.0-37.0); MCV 91.5 fL (80.0-100.0); Mean Platelet Volume 7.9; Monocytes # (A) 0.4 k/uL (0-1.0); Monocytes % (A) 6 %; Neutrophils % (A) 78 %; Platelet Count 153 k/uL (150-450); RBC 5.02 m/uL (4.30-5.90); RDW 13.9 % (11.5-15.5); WBC 6.3 k/uL (3.8-10.6)
[2020-08-25] MEDS ORDERED: PROPOFOL 10 MG/ML 20 ML VIAL IV ONE (18:30)
[2020-08-25 18:37] LABS: African American GFR (CKD) >90 (>60 ml/min/1.73 sqM); Anion Gap 7 mmol/L; Blood Urea Nitrogen 14 mg/dL (9-20); Calcium 9.7 mg/dL (8.4-10.2); Carbon Dioxide 32 mmol/L (22-30); Chloride 102 mmol/L (98-107); Glucose 95 mg/dL (74-99); Non-African American GFR(CKD) 82 (>60 ml/min/1.73 sqM); Potassium 4.2 mmol/L (3.5-5.1); Sodium 141 mmol/L (137-145)
--- NOTE | 2020-08-25 18:39 | CT ---
EXAM: CT brain wo con CLINICAL HISTORY: Status post right neck mass removal. Jaw pain and reduced range of motion. COMPARISON: 03/03/2020. TECHNIQUE: Contiguous axial noncontrast images of the brain were obtained. Coronal and sagittal refor mats were generated and reviewed. Imaging dose reduction technique were utilized per protocol. FINDINGS: There is no evidence for intracranial hemorrhage, mass effect or midline shift. There is old right MC A territory infarct. The aponte-white differentiation is maintained. There is mild white matter disease and parenchymal volume loss Ventricular size and configuration is within normal limits for degree of parenchymal volume. The paranasal sinuses are clear. The mastoid air cells are clear. No evidence for calvarial fracture. IMPRESSION: No acute intracranial abnormality. Old right MCA territory infarct.
--- NOTE | 2020-08-25 19:14 | CT ---
Exam: CT MAXILLOFACIAL WITHOUT CONTRAST Clinical Indication: Postoperative right neck mass removal, presenting with jaw pain and reduced rang e of motion. Comparison: CT neck 08/08/2020. Technique: A CT of the facial bones was performed utilizing axial acquisition without the administra tion of intravenous contrast. Sagittal and coronal reformations were obtained. Iterative dose modulat ion technique was performed. Findings: There are multiple small foci of gas within the right superior and anterior neck soft tissues, just d istal to the mandible angle. No significant fluid collection is seen. There is anterior dislocation of the left temporomandibular joint. There is no acute fracture. The pa ranasal sinuses and mastoid air cells are adequately aerated. Dental amalgam is seen. There is no significant soft tissue abnormality. Impression: Anterior dislocation of the left temporomandibular joint. No acute fracture. Mild soft tissue gas about the right superior and anterior neck soft tissue, likely related to recent postsurgical changes.
[2020-08-25 20:03] VITALS: BP 150/73; PULSE 53; RESP 18
== END 2020-08-25 19:58 | disposition home or self-care (01) ==
LOC: EC 13:58
DX: S03.02XA Dislocation of jaw, left side, initial encounter (principal); I10 Essential (primary) hypertension; I25.10 Atherosclerotic heart disease of native coronary artery without angina pectoris; Z79.82 Long term (current) use of aspirin; Z86.73 Personal history of transient ischemic attack (TIA), and cerebral infarction without residual deficits
CPT/HCPCS: 99284; 21480; 96374; 36415; 80048; 85025; 70486; 70450; J2704

== ENCOUNTER → 2021-03-08 | Outpatient (CLI) | payer MEDICARE ==
[2021-03-08 16:12] LABS: Basophils # (A) 0 X 10*3/uL (0.00-0.10); Basophils % (A) 0 %; Eosinophils # (A) 0.01 X 10*3/uL (0.04-0.35); Eosinophils % (A) 0.3 %; HCT 43.5 % (39.6-50.0); HGB 13.6 g/dL (13.0-17.0); Lymphocytes # (A) 0.42 X 10*3/uL (0.90-5.00); Lymphocytes % (A) 10.5 %; MCH 28.8 pg (27.0-32.0); MCHC 31.3 g/dL (32.0-37.0); Mean Platelet Volume 11.4 fL (9.5-12.2); Monocytes % (A) 7.5 %; Neutrophils # (A) 3.25 X 10*3/uL (1.80-7.70); Neutrophils % (A) 81.2 %; Platelet Count 135 X 10*3/uL (140-440); RBC 4.73 X 10*6/uL (4.40-5.60); RDW 13.8 % (11.5-14.5)
== END | disposition home or self-care (01) ==
LOC: LABWHC1 10:39
PROVIDERS: ATTEND Internal Medicine
DX: K57.92 Diverticulitis of intestine, part unspecified, without perforation or abscess without bleeding (principal); R19.7 Diarrhea, unspecified
CPT/HCPCS: 36415; 80053; 83630; 85025; 87045; 87046; 87324

== ENCOUNTER → 2021-03-17 | Outpatient (CLI) | payer MEDICARE ==
[2021-03-17 14:30] LABS: Appearance,Urine Clear (Clear); Bilirubin,Urine Negative (Negative); Blood,Urine Negative (Negative); Color,Urine Yellow; Glucose,Urine (UA) Negative (Negative); Ketones,Urine Negative (Negative); Leukocyte Esterase,Urine Negative (Negative); Nitrite,Urine Negative (Negative); Protein,Urine Trace (Negative); Specific Gravity,Urine 1.015 (1.001-1.035); Urobilinogen,Urine <2.0 mg/dL (<2.0)
[2021-03-17 21:23] LABS: ALT 42 U/L (10-49); AST 27 U/L (14-35); African American GFR (CKD) 81.2 (60.0-200.0); Albumin 3.9 g/dL (3.8-4.9); Albumin/Globulin Ratio 1.55 (1.60-3.17); Alkaline Phosphatase 90 U/L (41-126); BUN/Creat Ratio 13.24 Ratio (12.00-20.00); Blood Urea Nitrogen 13.5 mg/dL (9.0-27.0); Calcium 9.5 mg/dL (8.7-10.3); Carbon Dioxide 24.2 mmol/L (21.6-31.8); Chloride 104 mmol/L (96-109); Chol/HDL Ratio 3.83 Ratio; Creatine Kinase 74 U/L (35-257); Globulin 2.5 g/dL (1.6-3.3); Glucose 103 mg/dL (70-110); Non-African American GFR(CKD) 70.1 (60.0-200.0); Potassium 5.2 mmol/L (3.5-5.5); Sodium 139 mmol/L (135-145); Total Protein 6.4 g/dL (6.2-8.2)
[2021-03-17 21:24] LABS: Magnesium 1.8 mg/dL (1.5-2.4)
[2021-03-17 23:27] LABS: C Reactive Protein <0.30 mg/dL (0.00-0.80)
== END | disposition home or self-care (01) ==
LOC: LABWHC1 12:02
PROVIDERS: ATTEND Internal Medicine
DX: Z00.00 Encounter for general adult medical examination without abnormal findings (principal); I10 Essential (primary) hypertension; E87.8 Other disorders of electrolyte and fluid balance, not elsewhere classified; E78.5 Hyperlipidemia, unspecified; E55.9 Vitamin D deficiency, unspecified
CPT/HCPCS: 36415; 80053; 80061; 81003; 82306; 82550; 83735; 84153; 85652; 86140

== ENCOUNTER → 2022-03-26 | Outpatient (CLI) | payer MEDICARE ==
[2022-03-26 20:20] LABS: ALT 24 U/L (10-49); AST 21 U/L (14-35); African American GFR (CKD) 87.4 (60.0-200.0); Albumin/Globulin Ratio 1.54 (1.60-3.17); Alkaline Phosphatase 106 U/L (41-126); Blood Urea Nitrogen 14.5 mg/dL (9.0-27.0); Calcium 9.2 mg/dL (8.7-10.3); Chloride 102 mmol/L (96-109); Creatine Kinase 63 U/L (35-257); Globulin 2.6 g/dL (1.6-3.3); Glucose 93 mg/dL (70-110); Magnesium 1.9 mg/dL (1.5-2.4); Non-African American GFR(CKD) 75.4 (60.0-200.0); Phosphorus 2.9 mg/dL (2.4-5.1); Potassium 4.9 mmol/L (3.5-5.5); Sodium 137 mmol/L (135-145); Total Protein 6.6 g/dL (6.2-8.2); Uric Acid 5.3 mg/dL (3.7-8.7)
[2022-03-26 20:57] LABS: Basophils # (A) 0.02 X 10*3/uL (0.00-0.10); Basophils % (A) 0.5 %; Eosinophils # (A) 0.06 X 10*3/uL (0.04-0.35); Eosinophils % (A) 1.4 %; HCT 40.3 % (39.6-50.0); HGB 13.1 g/dL (13.0-17.0); Immature Grans, Automated 0.2 %; Lymphocytes # (A) 0.67 X 10*3/uL (0.90-5.00); Lymphocytes % (A) 15.1 %; MCH 29.3 pg (27.0-32.0); MCHC 32.5 g/dL (32.0-37.0); MCV 90.2 fL (80.0-97.0); Mean Platelet Volume 10.7 fL (9.5-12.2); Monocytes # (A) 0.39 X 10*3/uL (0.20-1.00); Monocytes % (A) 8.8 %; NRBC Per 100 WBC 0 /100 WBCS (0.0-0.0); Neutrophils # (A) 3.29 X 10*3/uL (1.80-7.70); Platelet Count 159 X 10*3/uL (140-440); RBC 4.47 X 10*6/uL (4.40-5.60); RDW 14.3 % (11.5-14.5); WBC 4.44 X 10*3/uL (4.50-10.00)
[2022-03-26 22:07] LABS: Erythrocyte Sedimentation Rate 8 mm/Hr (0-20)
== END | disposition home or self-care (01) ==
LOC: LABWHC1 13:20
PROVIDERS: ATTEND Internal Medicine
DX: Z00.00 Encounter for general adult medical examination without abnormal findings (principal); N40.0 Benign prostatic hyperplasia without lower urinary tract symptoms; E78.5 Hyperlipidemia, unspecified; E03.9 Hypothyroidism, unspecified; M81.0 Age-related osteoporosis without current pathological fracture; D64.9 Anemia, unspecified; E55.9 Vitamin D deficiency, unspecified
CPT/HCPCS: 36415; 80053; 82306; 82550; 83735; 84100; 84153; 84443; 84550; 85025; 85652; 86140

== ENCOUNTER → 2022-03-27 | Outpatient (CLI) | payer MEDICARE ==
[2022-03-27 14:26] LABS: Basophils # (A) 0.01 X 10*3/uL (0.00-0.10); Basophils % (A) 0.2 %; Eosinophils # (A) 0.09 X 10*3/uL (0.04-0.35); Eosinophils % (A) 1.9 %; HCT 42.6 % (39.6-50.0); HGB 13.3 g/dL (13.0-17.0); Immature Grans, Automated 0.4 %; Lymphocytes # (A) 0.65 X 10*3/uL (0.90-5.00); Lymphocytes % (A) 13.9 %; MCH 28.9 pg (27.0-32.0); MCHC 31.2 g/dL (32.0-37.0); MCV 92.6 fL (80.0-97.0); Mean Platelet Volume 10.9 fL (9.5-12.2); Monocytes # (A) 0.37 X 10*3/uL (0.20-1.00); Monocytes % (A) 7.9 %; NRBC Per 100 WBC 0 /100 WBCS (0.0-0.0); Neutrophils # (A) 3.54 X 10*3/uL (1.80-7.70); Neutrophils % (A) 75.7 %; Platelet Count 161 X 10*3/uL (140-440); RDW 14.3 % (11.5-14.5); WBC 4.68 X 10*3/uL (4.50-10.00)
[2022-03-27 16:44] LABS: ALT 24 U/L (10-49); AST 18 U/L (14-35); African American GFR (CKD) 93.8 (60.0-200.0); Alkaline Phosphatase 106 U/L (41-126); BUN/Creat Ratio 15.22 Ratio (12.00-20.00); Blood Urea Nitrogen 13.7 mg/dL (9.0-27.0); Calcium 9.2 mg/dL (8.7-10.3); Chloride 104 mmol/L (96-109); Chol/HDL Ratio 3.43 Ratio; Globulin 2.1 g/dL (1.6-3.3); Glucose 103 mg/dL (70-110); Non-African American GFR(CKD) 80.9 (60.0-200.0); Phosphorus 2.9 mg/dL (2.4-5.1); Potassium 4.6 mmol/L (3.5-5.5); Sodium 141 mmol/L (135-145); Total Protein 6.1 g/dL (6.2-8.2); Uric Acid 4.9 mg/dL (3.7-8.7)
== END | disposition home or self-care (01) ==
LOC: LABWHC1 09:40
PROVIDERS: ATTEND Internal Medicine
DX: Z00.00 Encounter for general adult medical examination without abnormal findings (principal); D64.9 Anemia, unspecified; N40.0 Benign prostatic hyperplasia without lower urinary tract symptoms; E78.5 Hyperlipidemia, unspecified; E05.90 Thyrotoxicosis, unspecified without thyrotoxic crisis or storm; E55.9 Vitamin D deficiency, unspecified
CPT/HCPCS: 36415; 80053; 80061; 82272; 82306; 83735; 84100; 84443; 84550; 85025

== ENCOUNTER → 2023-04-10 | Outpatient (CLI) | payer MEDICARE ==
[2023-04-10 12:33] LABS: Creatinine,Urine Random 188.8 mg/dL; Protein/Creatinine Ratio,Urine 0.042
[2023-04-10 16:25] LABS: Appearance,Urine Clear (Clear); Bilirubin,Urine Negative (Negative); Blood,Urine Negative (Negative); Color,Urine Yellow (Yellow); Ketones,Urine Negative (Negative); Nitrite,Urine Negative (Negative); PH, Urine 6.5; Specific Gravity,Urine 1.021 (1.001-1.030)
[2023-04-10 17:09] LABS: Basophils # (A) 0.01 X 10*3/uL (0.00-0.10); Basophils % (A) 0.2 %; Eosinophils # (A) 0.06 X 10*3/uL (0.04-0.35); Eosinophils % (A) 1.5 %; HCT 43.4 % (39.6-50.0); HGB 13.8 g/dL (13.0-17.0); Lymphocytes # (A) 0.64 X 10*3/uL (0.90-5.00); Lymphocytes % (A) 15.7 %; MCH 29.4 pg (27.0-32.0); MCHC 31.8 g/dL (32.0-37.0); MCV 92.5 FL (80.0-97.0); Mean Platelet Volume 11.9 FL (9.5-12.2); Monocytes # (A) 0.31 X 10*3/uL (0.20-1.00); Monocytes % (A) 7.6 %; NRBC Per 100 WBC 0 X 10*3/uL (0.00-0.01); Neutrophils # (A) 3.05 X 10*3/uL (1.80-7.70); Neutrophils % (A) 74.8 %; Platelet Count 126 X 10*3/uL (140-440); RBC 4.69 X 10*6/uL (4.40-5.60); RDW 13.8 % (11.5-14.5); WBC 4.08 X 10*3/uL (4.50-10.00)
[2023-04-10 17:23] LABS: % Iron Saturation 23.58 (15.00-50.00); ALT 26 U/L (10-49); AST 19 U/L (14-35); Albumin 4.1 g/dL (3.8-4.9); Albumin/Globulin Ratio 1.95 Ratio (1.60-3.17); Alkaline Phosphatase 108 U/L (41-126); Blood Urea Nitrogen 16.1 mg/dL (9.0-27.0); Calcium 9.3 mg/dL (8.7-10.3); Carbon Dioxide 24.8 mmol/L (21.6-31.8); Chloride 105 mmol/L (96-109); Chol/HDL Ratio 3.79 Ratio; Creatine Kinase 51 U/L (35-257); Globulin 2.1 g/dL (1.6-3.3); Glucose 96 mg/dL (70-110); Iron 79 UG/DL (65-175); Magnesium 1.7 mg/dL (1.5-2.4); Phosphorus 2.9 mg/dL (2.4-5.1); Potassium 4.6 mmol/L (3.5-5.5); Prostate Specific Antigen 4.63 ng/mL (0.000-6.500); Sodium 141 mmol/L (135-145); Total Bilirubin 0.5 mg/dL (0.3-1.2); Total Iron Binding Capacity 335 UG/DL (228-460); Total Protein 6.2 g/dL (6.2-8.2); Uric Acid 4.8 mg/dL (3.7-8.7)
[2023-04-10 17:43] LABS: Erythrocyte Sedimentation Rate 9 mm/Hr (0-20)
== END | disposition home or self-care (01) ==
LOC: LABWHC1 08:42
PROVIDERS: ATTEND Internal Medicine
DX: Z00.00 Encounter for general adult medical examination without abnormal findings (principal); I10 Essential (primary) hypertension; D64.9 Anemia, unspecified; E78.5 Hyperlipidemia, unspecified; E55.9 Vitamin D deficiency, unspecified; E87.8 Other disorders of electrolyte and fluid balance, not elsewhere classified; M10.9 Gout, unspecified
CPT/HCPCS: 36415; 80053; 80061; 81003; 82306; 82550; 82570; 82728; 83540; 83550; 83735; 84100; 84153; 84156; 84443; 84550; 85025; 85652; 86140

== ENCOUNTER → 2023-04-17 | Outpatient (CLI) | payer MEDICARE ==
--- NOTE | 2023-04-17 10:02 | XR ---
EXAMINATION TYPE: XR chest 2V DATE OF EXAM: 04/17/2023 COMPARISON: 03/03/2020 TECHNIQUE: PA and lateral views submitted. HISTORY: Shortness of breath FINDINGS: Bilateral subsegmental consolidation with small left effusion. Prosthetic heart valve. 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 Heart is enlarged and there is postoperative change.. Osseous structures demonstrate hypertrophic and degenerative changes of the spine. IMPRESSION: 1. Cardiomegaly with the left lower lobe infiltrate and small effusion. Early venous congestion in th e differential diagnosis..
== END | disposition home or self-care (01) ==
LOC: RADXRMAIN 09:32
PROVIDERS: ATTEND Internal Medicine
DX: I51.7 Cardiomegaly (principal)
CPT/HCPCS: 71046

== ENCOUNTER 2023-04-20 03:55 | Inpatient (IN) | payer MEDICARE ==
[2023-04-20] MEDS ORDERED: methylPREDNISolone SOD SUCCI 125 MG/2 ML VIAL IV STA (04:10)
[2023-04-20] MEDS: MAGNESIUM SULFATE-D5W PMX 1 GM in DEXTROSE/WATER 1 100ML.BAG IVPB SCH ×2 (04:33→05:23)
[2023-04-20 04:47] LABS: Basophils % (A) 0 %; Eosinophils # (A) 0.1 k/uL (0-0.7); Eosinophils % (A) 2 %; HCT 40.1 % (39.0-53.0); HGB 12.7 gm/dL (13.0-17.5); Lymphocytes # (A) 0.8 k/uL (1.0-4.8); Lymphocytes % (A) 16 %; MCH 29.7 pg (25.0-35.0); MCHC 31.7 g/dL (31.0-37.0); MCV 93.5 fL (80.0-100.0); Monocytes # (A) 0.2 k/uL (0-1.0); Monocytes % (A) 5 %; Neutrophils # (A) 3.8 k/uL (1.3-7.7); Neutrophils % (A) 75 %; Platelet Count 104 k/uL (150-450); RBC 4.29 m/uL (4.30-5.90); WBC 5.1 k/uL (3.8-10.6)
[2023-04-20 04:55] LABS: Partial Thromboplastin Time 24.5 sec (22.0-30.0); Prothrombin Time 10.7 sec (10.0-12.5)
[2023-04-20] MEDS ORDERED: IPRATROPIUM-ALBUTEROL 3 ML NEB INHALATION STA (04:59)
[2023-04-20 05:14] LABS: ALT 47 U/L (4-49); AST 38 U/L (17-59); African American GFR (CKD) >90 (>60 ml/min/1.73 sqM); Albumin 3.5 g/dL (3.5-5.0); Alkaline Phosphatase 88 U/L (38-126); Anion Gap 9 mmol/L; Blood Urea Nitrogen 22 mg/dL (9-20); Calcium 8.7 mg/dL (8.4-10.2); Carbon Dioxide 24 mmol/L (22-30); Chloride 106 mmol/L (98-107); Glucose 138 mg/dL (74-99); Non-African American GFR(CKD) 80 (>60 ml/min/1.73 sqM); Potassium 3.7 mmol/L (3.5-5.1); Sodium 139 mmol/L (137-145); Total Bilirubin 0.6 mg/dL (0.2-1.3); Total Protein 6.1 g/dL (6.3-8.2)
--- NOTE | 2023-04-20 05:33 | ED ---
SOB HPI - General Chief Complaint: Shortness of Breath Stated Complaint: SOB Time Seen by Provider: 04/20/23 03:58 Source: EMS Mode of arrival: EMS - History of Present Illness Initial Comments: 83-year-old male with past history of coronary artery disease, hypertension who presents emergency Department with shortness of breath. States that he has been short of breath for the past day however it got acutely worse within the past hour. He denies history of COPD or congestive heart failure. Denies any lower extremity edema. No fevers, chills or cough. When EMS arrived they felt that the patient had a significant wheeze and therefore gave him 2 albuterol and 1 Atrovent breathing treatments. Patient is a nonsmoker. He denies any chest pain. Patient does not take a diuretic. Denies any calf pain or swelling. No other alleviating, precipitating or modifying factors - Related Data Home Medications Medication Instructions Recorded Confirmed Atorvastatin [Lipitor] 80 mg PO HS 11/18/16 08/25/20 Cholecalciferol (Vitamin D3) 50 mcg PO DAILY 04/05/18 08/25/20 [Vitamin D3] Aspirin EC [Ecotrin] 325 mg PO DAILY 03/03/20 08/25/20 Losartan Potassium [Cozaar] 25 mg PO HS 03/03/20 08/25/20 Metoprolol Tartrate [Lopressor] 25 mg PO DAILY 03/03/20 08/25/20 Tamsulosin [Flomax] 0.4 mg PO HS 03/03/20 08/25/20 Escitalopram [Lexapro] 5 mg PO DAILY 03/24/20 08/25/20 busPIRone HCL 5 mg PO BID 03/24/20 08/25/20 Fluocinolone Acetonide [Lidex Soln] 1 applic TOPICAL DAILY PRN 08/25/20 08/25/20 Ketoconazole [Ketoconazole 2% 1 applic TOPICAL DAILY PRN 08/25/20 08/25/20 Shampoo] Previous Rx's Medication Instructions Recorded HYDROcodone/APAP 5-325MG [[place] 1 tab PO Q6HR PRN 3 Days #12 tab 08/25/20 5-325] Allergies Allergy/AdvReac Type Severity Reaction Status Date / Time cephalexin [From Keflex] AdvReac Nausea & Verified 04/20/23 04:04 Vomiting & Diarrhea Review of Systems ROS Statement: Those systems with pertinent positive or pertinent negative responses have been documented in the HPI. ROS Other: All systems not noted in ROS Statement are negative. Past Medical History Past Medical History: Coronary Artery Disease (CAD), CVA/TIA, Hypertension Additional Past Medical History / Comment(s): STATES HE GETS CYSTS AT THE SIGHT OF THE RIGHT CAROTID SURGERY SCAR, DRAINS PERDIODICALLY. MULTIPLE TIAs. - HOSPITALIZED 03/03/20-03/04/20 FOR TIA WITH LEFT ARM WEAKNESS & NUMBNESS WHICH HAS RESOLVED. LEAKY HEART VALVE. History of Any Multi-Drug Resistant Organisms: None Reported Past Surgical History: Coronary Bypass/CABG, Joint Replacement, Orthopedic Surgery Additional Past Surgical History / Comment(s): AORTIC VALVE REPLACEMENT (BOVINE). RIGHT CAROTID ENDARTERECTOMY (DR. HANKS. Nasal cauterization. B ilat knee replacements. CABG (2007) Past Anesthesia/Blood Transfusion Reactions: No Reported Reaction Past Psychological History: No Psychological Hx Reported Smoking Status: Never smoker Past Alcohol Use History: Rare Past Drug Use History: None Reported - Past Family History Mother Family Medical History: No Reported History General Exam General appearance: alert, in distress Head exam: Present: atraumatic, normocephalic, normal inspection Eye exam: Present: normal appearance, PERRL, EOMI. Absent: scleral icterus, conjunctival injection, periorbital swelling ENT exam: Present: normal exam, mucous membranes moist Neck exam: Present: normal inspection. Absent: tenderness, meningismus, lymphadenopathy Respiratory exam: Present: respiratory distress, wheezes, accessory muscle use, other (Tachypnea, conversational dyspnea). Absent: rales, rhonchi, stridor Cardiovascular Exam: Present: regular rate, normal rhythm, normal heart sounds. Absent: systolic murmur, diastolic murmur, rubs, gallop, clicks GI/Abdominal exam: Present: soft, normal bowel sounds. Absent: distended, tenderness, guarding, rebound, rigid Extremities exam: Present: normal inspection, full ROM, normal capillary refill. Absent: tenderness, pedal edema, joint swelling, calf tenderness Back exam: Present: normal inspection Neurological exam: Present: alert, oriented X3, CN II-XII intact Psychiatric exam: Present: normal affect, normal mood Skin exam: Present: warm, dry, intact, normal color. Absent: rash Course Vital Signs 04/20/23 04/20/23 04/20/23 03:56 05:04 05:40 Temperature 98.9 F Pulse Rate 89 78 79 Respiratory 18 20 Rate Blood Pressure 133/70 143/66 O2 Sat by Pulse 89 L 92 L Oximetry 04/20/23 04/20/23 06:00 07:45 Temperature 98.1 F Pulse Rate 81 101 H Respiratory 22 22 Rate Blood Pressure 138/69 144/95 O2 Sat by Pulse 94 L 97 Oximetry Medical Decision Making - Medical Decision Making Was pt. sent in by a medical professional or institution (, PA, SCIENCE EDITOR, urgent care, hospital, or longterm...) When possible be specific @ -No Did you speak to anyone other than the patient for history (EMS, parent, family, police, friend...)? What history was obtained from this source @ -EMS and Did you review nursing and triage notes (agree or disagree)? Why? @ -I reviewed and agree with nursing and triage notes Were old charts reviewed (outside hosp., previous admission, EMS record, old EKG, old radiological studies, urgent care reports/EKG's, longterm records)? Report findings @ -No old charts were reviewed Differential Diagnosis (chest pain, altered mental status, abdominal pain women, abdominal pain men, vaginal bleeding, weakness, fever, dyspnea, syncope, headache, dizziness, GI bleed, back pain, seizure, CVA, palpatations, mental health, musculoskeletal)? @ -Differential Dyspnea: Coronary syndrome, arrhythmia, tamponade, asthma, COPD, pulmonary embolism, pneumonia, pneumothorax, pulmonary effusion, anaphylaxis, diabetic ketoacidosis, flailed chest, pulmonary contusion, diaphragmatic rupture, anemia, neuromuscular, this is not meant to be an all-inclusive list. EKG interpreted by me (3pts min.). @ -Yes and demonstrates sinus rhythm with a rate of 85. NM interval 194. QRS 154. QTC of 495. PVCs. Right bundle branch block. No acute ST segment elevation X-rays interpreted by me (1pt min.). @ -Yes and demonstrates pleural effusions CT interpreted by me (1pt min.). @ -None done U/S interpreted by me (1pt. min.). @ -None done What testing was considered but not performed or refused? (CT, X-rays, U/S, labs)? Why? @ -None What meds were considered but not given or refused? Why? @ -None Did you discuss the management of the patient with other professionals (pr ofessionals i.e. , PA, SCIENCE EDITOR, lab, RT, psych nurse, social worker school, slunk skin curer, teacher, youth liaison officer, case finisher)? Give summary @ -Spoke with Dr. Emanuel who will admit patient Was smoking cessation discussed for >3mins.? @ -No Was critical care preformed (if so, how long)? @ -No Were there social determinants of health that impacted care today? How? (Homelessness, low income, unemployed, alcoholism, drug addiction, transportation, low edu. Level, literacy, decrease access to med. care, assisted, rehab)? @ -No Was there de-escalation of care discussed even if they declined (Discuss DNR or withdrawal of care, Hospice)? DNR status @ -No What co-morbidities impacted this encounter? (DM, HTN, Smoking, COPD, CAD, Cancer, CVA, ARF, Chemo, Hep., AIDS, mental health diagnosis, sleep apnea, morbid obesity)? @ -ascad Was patient admitted / discharged? Hospital course, mention meds given and route, prescriptions, significant lab abnormalities, going to OR and other pertinent info. @ -Admitted. Upon arrival patient was placed into room 10. He was given an additional breathing treatment, 125 Solu-Medrol and a gram of magnesium. Laboratory studies were conducted. Chest x-ray was performed which demonstrates pleural effusions. Patient was given a dose of Lasix. Recommended admission. Spoke with Dr. humphreys who will admit the patient. Undiagnosed new problem with uncertain prognosis? @ -Yes Drug Therapy requiring intensive monitoring for toxicity (Heparin, Nitro, Insulin, Cardizem)? @ -No Were any procedures done? @ -No Diagnosis/symptom? @ -Acute hypoxic respiratory failure, new CHF exacerbation, NSTEMI Acute, or Chronic, or Acute on Chronic? @ -acute Uncomplicated (without systemic symptoms) or Complicated (systemic symptoms)? @ -complicated Side effects of treatment? @ -No Exacerbation, Progression, or Severe Exacerbation? @ -No Poses a threat to life or bodily function? How? (Chest pain, [place], [place], pneumonia, PE, COPD, DKA, ARF, appy, cholecystitis, CVA, Diverticulitis, Homicidal, Suicidal, threat to staff... and all critical care pts) @ -yes - Lab Data Result diagrams: 04/20/23 04:18 04/20/23 04:18 Lab Results 04/20/23 04/20/23 04/20/23 Range/Units 04:18 04:18 04:18 WBC 5.1 (3.8-10.6) k/uL RBC 4.29 L (4.30-5.90) m/uL Hgb 12.7 L (13.0-17.5) gm/dL Hct 40.1 (39.0-53.0) % MCV 93.5 (80.0-100.0) fL MCH 29.7 (25.0-35.0) pg MCHC 31.7 (31.0-37.0) g/dL RDW 14.0 (11.5-15.5) % Plt Count 104 L (150-450) k/uL MPV 9.0 Neutrophils % 75 % Lymphocytes % 16 % Monocytes % 5 % Eosinophils % 2 % Basophils % 0 % Neutrophils # 3.8 (1.3-7.7) k/uL Lymphocytes # 0.8 L (1.0-4.8) k/uL Monocytes # 0.2 (0-1.0) k/uL Eosinophils # 0.1 (0-0.7) k/uL Basophils # 0.0 (0-0.2) k/uL PT 10.7 (10.0-12.5) sec INR 1.0 (<1.2) APTT 24.5 (22.0-30.0) sec Sodium 139 (137-145) mmol/L Potassium 3.7 (3.5-5.1) mmol/L Chloride 106 (98-107) mmol/L Carbon Dioxide 24 (22-30) mmol/L Anion Gap 9 mmol/L BUN 22 H (9-20) mg/dL Creatinine 0.90 (0.66-1.25) mg/dL Est GFR (CKD-EPI)AfAm >90 (>60 ml/min/1.73 sqM) Est GFR (CKD-EPI)NonAf 80 (>60 ml/min/1.73 sqM) Glucose 138 H (74-99) mg/dL Plasma Lactic Acid Owen (0.7-2.0) mmol/L Calcium 8.7 (8.4-10.2) mg/dL Total Bilirubin 0.6 (0.2-1.3) mg/dL AST 38 (17-59) U/L ALT 47 (4-49) U/L Alkaline Phosphatase 88 (38-126) U/L Troponin I (0.000-0.034) ng/mL NT-Pro-B Natriuret Pep 8380 pg/mL Total Protein 6.1 L (6.3-8.2) g/dL Albumin 3.5 (3.5-5.0) g/dL Influenza Type A (PCR) (Not Detectd) Influenza Type B (PCR) (Not Detectd) RSV (PCR) (Not Detectd) SARS-CoV-2 (PCR) (Not Detectd) 04/20/23 04/20/23 04/20/23 Range/Units 04:18 04:18 04:26 WBC (3.8-10.6) k/uL RBC (4.30-5.90) m/uL Hgb (13.0-17.5) gm/dL Hct (39.0-53.0) % MCV (80.0-100.0) fL MCH (25.0-35.0) pg MCHC (31.0-37.0) g/dL RDW (11.5-15.5) % Plt Count (150-450) k/uL MPV Neutrophils % % Lymphocytes % % Monocytes % % Eosinophils % % Basophils % % Neutrophils # (1.3-7.7) k/uL Lymphocytes # (1.0-4.8) k/uL Monocytes # (0-1.0) k/uL Eosinophils # (0-0.7) k/uL Basophils # (0-0.2) k/uL PT (10.0-12.5) sec INR (<1.2) APTT (22.0-30.0) sec Sodium (137-145) mmol/L Potassium (3.5-5.1) mmol/L Chloride (98-107) mmol/L Carbon Dioxide (22-30) mmol/L Anion Gap mmol/L BUN (9-20) mg/dL Creatinine (0.66-1.25) mg/dL Est GFR (CKD-EPI)AfAm (>60 ml/min/1.73 sqM) Est GFR (CKD-EPI)NonAf (>60 ml/min/1.73 sqM) Glucose (74-99) mg/dL Plasma Lactic Acid Owen 1.5 (0.7-2.0) mmol/L Calcium (8.4-10.2) mg/dL Total Bilirubin (0.2-1.3) mg/dL AST (17-59) U/L ALT (4-49) U/L Alkaline Phosphatase (38-126) U/L Troponin I 0.067 H* (0.000-0.034) ng/mL NT-Pro-B Natriuret Pep pg/mL Total Protein (6.3-8.2) g/dL Albumin (3.5-5.0) g/dL Influenza Type A (PCR) Not Detected (Not Detectd) Influenza Type B (PCR) Not Detected (Not Detectd) RSV (PCR) Not Detected (Not Detectd) SARS-CoV-2 (PCR) Not Detected (Not Detectd) Disposition Clinical Impression: Hypoxia, New onset of congestive heart failure, NSTEMI (non-ST elevated myocardial infarction) Disposition: ADMITTED IP TO THIS [facility] Condition: Serious Is patient prescribed a controlled substance at d/c from ED?: No Time of Disposition: 06:12 Decision to Admit Reason: Admit from EC Decision Date: 04/20/23 Decision Time: 06:12
[2023-04-20 05:56] LABS: NT-Pro-B-Type Natriuretic Pept 8380 pg/mL
[2023-04-20] MEDS ORDERED: FUROSEMIDE 10 MG/ML 10 ML VIAL IV STA (06:11)
[2023-04-20] MEDS ORDERED: NALOXONE 0.4 MG/ML 1 ML VIAL IV PRN (06:20)
[2023-04-20] MEDS ORDERED: ASPIRIN 81 MG PO STA (06:22)
--- NOTE | 2023-04-20 07:15 | XR ---
EXAM: XR Chest, 2 Views CLINICAL HISTORY: ITS.REASON XR Reason: difficulty breathing TECHNIQUE: Frontal and lateral views of the chest. COMPARISON: 04/17/2023 FINDINGS: Lungs: Unchanged hazy left base consolidation. Pleural space: Small left pleural effusion. No pneumothorax. Heart: Postsurgical changes from prior aortic valve replacement. Median sternotomy wires in place. Calcified aortic arch. Mediastinum: Unremarkable. Normal mediastinal contour. Bones/joints: Unremarkable. No acute fracture. IMPRESSION: Small left pleural effusion and hazy left base consolidation which may be due to edema, atelectasis, or infection, unchanged from prior study. No new consolidations.
[2023-04-20] MEDS ORDERED: IPRATROPIUM-ALBUTEROL 3 ML NEB INHALATION PRN (10:43)
[2023-04-20] MEDS ORDERED: ESCITALOPRAM 5 MG TAB PO SCH (11:00)
[2023-04-20] MEDS ORDERED: LOSARTAN 25 MG TAB PO SCH (11:00)
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
[2023-04-20] MEDS: CHOLECALCIFEROL 25 MCG (1000 IU) TABLET PO SCH (11:33)
[2023-04-20] MEDS: methylPREDNISolone SOD SUCCI 40 MG/ML 1 ML VIAL IV SCH ×2 (11:35→18:39)
--- NOTE | 2023-04-20 12:03 | CA ---
Transthoracic Echo Report Name: Redd Hay Age: 83 Gender: M : 1940 Exam Date: 04/20/2023 10:15 Exam Location: [facility] Ht (in): 64 Wt (lb): 170 Ordering Physician: Ava Antunez DO Attending/Referring Phys: [id number], [employer] Dede Mcgee [facility] Procedure CPT: Indications: sob, new onset heart failure Cardiac Hx: Technical Quality: Technically difficult study Contrast 1: Definity Total Dose (mL): 5 Contrast 2: Total Dose (mL): MEASUREMENTS (Male / Female) Normal Values 2D ECHO LV Diastolic Diameter PLAX 6.0 cm 4.2 - 5.9 / 3.9 - 5.3 cm LV Systolic Diameter PLAX 5.1 cm IVS Diastolic Thickness 0.9 cm 0.6 - 1.0 / 0.6 - 0.9 cm LVPW Diastolic Thickness 0.9 cm 0.6 - 1.0 / 0.6 - 0.9 cm LV Relative Wall Thickness 0.3 Ascending Aorta Diameter 4.0 cm M-MODE Aortic Root Diameter MM 2.6 cm LA Systolic Diameter MM 3.7 cm LA Ao Ratio MM 1.4 AV Cusp Separation MM 1.4 cm DOPPLER AV Peak Velocity 331.6 cm/s AV Peak Gradient 44.0 mmHg AV Mean Velocity 248.9 cm/s AV Mean Gradient 27.3 mmHg AV Velocity Time Integral 69.5 cm AI Peak Velocity 356.3 cm/s AI Peak Gradient 50.8 mmHg AI Pressure Half Time 263.7 ms LVOT Peak Velocity 86.9 cm/s LVOT Peak Gradient 3.0 mmHg LVOT Velocity Time Integral 21.1 cm TR Peak Velocity 339.0 cm/s TR Peak Gradient 46.0 mmHg Right Atrial Pressure 3.0 mmHg Pulmonary Artery Systolic Pressu 49.0 mmHg Right Ventricular Systolic Press 49.0 mmHg FINDINGS Left Ventricle Left ventricular wall thickness at upper limits of normal. Mildly increased left ventricular diastolic diameter. Moderately reduced left ventricular systolic function. Left ventricular ejection fraction is estimated at 30-35%. Right Ventricle Right ventricle not well visualized. Moderate pulmonary hypertension. Right Atrium Mild right atrial dilatation. Left Atrium Mild left atrial dilatation. Mitral Valve Mitral valve not well visualized. Mitral annular calcification. Trace mitral regurgitation. Aortic Valve Aortic valve not well visualized. Bioprosthetic aortic valve. Gradient recorded across the prosthetic aortic valve within the expected range. Moderate bioprosthetic aortic valve regurgitation. Tricuspid Valve Tricuspid valve not well visualized. Mild tricuspid regurgitation. Pulmonic Valve Pulmonic valve not well visualized. Pericardium Minimal pericardial effusion (normal variant). Aorta Normal size aortic root and mildly dilated proximal ascending aorta. CONCLUSIONS Dilated LV with reduced LV systolic function ejection fraction 35% Parallel with aortic regurgitation Moderately elevated mean gradient across the bioprosthetic aortic valve Previewed by: Dr. Vin Leigh MD (Electronically Signed) Final Date: 20 April 2023 12:02
[2023-04-20] MEDS ORDERED: ESCITALOPRAM 5 MG TAB PO ONE (13:00)
--- NOTE | 2023-04-20 13:30 | P.CRDCN ---
History of Present Illness Consult date: 04/20/23 Reason for Consult (text): Elevated troponin History of present illness: This is Husam Abraham NP, I'm dictating on behalf of Dr. Leigh's H&P and A&P The patient was interviewed and examined. HPI: Patient is a pleasant 83-year-old male with a past medical history that includes coronary artery disease, hypertension, and TIA who presented to the hospital with complaints of shortness of breath. Patient reports that shortness of breath started over the course of the last day, but increased in severity just prior to arrival to the hospital. Patient reports that he was having significant wheezing and a nonproductive cough at that time. In the emergency department the patient underwent an evaluation that included an EKG which demonstrated normal sinus rhythm with frequent PVCs, right bundle branch block and left anterior fascicular block with no evidence of STEMI. Lab work was completed which demonstrated an elevated troponin, and cardiology was subsequently consulted. This morning the patient reports that he is feeling somewhat better. His shortness of breath has improved since arriving to the hospital. He is not and states that he has not been experiencing any chest pain. ROS: [No fever, chills, or rigors] [Positive for nonproductive cough, no phlegm, or expectoration] [no nausea, vomiting, or diarrhea] [no hematuria, dysuria] [no musculoskelatal complaints] [no strokes or seizures] [no skin lesions] EXAMINATION: GENERAL: Well-appearing, well-nourished and in no acute distress. NECK: Supple without JVD or thyromegaly. LUNGS: Diminished breath sounds bilaterally. Respiration equal and unlabored. No wheezes, rales or rhonchi. HEART: Regular rate and rhythm with systolic murmur, no rubs or gallops. S1 and S2 heard. EXTREMITIES: Normal range of motion, no edema. No clubbing or cyanosis. Peripheral pulses intact and strong. REVIEW OF LABS, ECG & MEDICAL DATA: LABS: White count 5.1, hemoglobin 12.7, platelets 104, sodium 139, potassium 3.7, B1 22, creatinine 0.9, calcium 8.7, troponin-0.067, 0.065, 0.061; BNP 8380 EKG: Normal sinus rhythm with frequent PVCs, right bundle branch block, left anterior fascicular block IMAGING: Chest x-ray dated 04/20/2023 demonstrates small left pleural effusion and hazy left base consolidation which may be due to edema, atelectasis, or infection, unchanged from prior study, no new consolidations. Echocardiogram dated 04/20/2023 demonstrates dilated LV with reduced LV systolic function EF of 35%, parallel with aortic regurgitation, moderately elevated mean gradient across the bioprosthetic aortic valve. VITALS: Temp 98.1, pulse 84, blood pressure 144/95, O2 saturation 97% on 3 L IMPRESSION: 1. Elevated troponins, trending down not indicative of ACS 2. Dilated left ventricle with reduced LV systolic function, EF 35% 3. Suspect COPD 4. Hypertension 5. History CAD PLAN: Resume home cardiac medications. Consider IV Lasix if necessary. Pulmonology on consult, and appreciate recommendations. Further recommendations based on patient's clinical course. Thank you for the consult and allowing us to participate in the care of this patient. Past Medical History Past Medical History: Coronary Artery Disease (CAD), CVA/TIA, Hypertension Additional Past Medical History / Comment(s): STATES HE GETS CYSTS AT THE SIGHT OF THE RIGHT CAROTID SURGERY SCAR, DRAINS PERDIODICALLY. MULTIPLE TIAs. - HOSPITALIZED 03/03/20-03/04/20 FOR TIA WITH LEFT ARM WEAKNESS & NUMBNESS WHICH HAS RESOLVED. LEAKY HEART VALVE. History of Any Multi-Drug Resistant Organisms: None Reported Past Surgical History: Coronary Bypass/CABG, Joint Replacement, Orthopedic Surgery Additional Past Surgical History / Comment(s): AORTIC VALVE REPLACEMENT ([facility]). RIGHT CAROTID ENDARTERECTOMY (DR. HANKS. Nasal cauterization. Bilat knee replacements. CABG (2007) Past Anesthesia/Blood Transfusion Reactions: No Reported Reaction Past Psychological History: No Psychological Hx Reported Smoking Status: Never smoker Past Alcohol Use History: Rare Past Drug Use History: None Reported - Past Family History Mother Family Medical History: No Reported History Medications and Allergies Home Medications Medication Instructions Recorded Confirmed Type Atorvastatin [Lipitor] 80 mg PO HS 11/18/16 04/20/23 History Tamsulosin [Flomax] 0.8 mg PO W/SUPPER 03/03/20 04/20/23 History busPIRone HCL 5 mg PO BID 03/24/20 04/20/23 History Ketoconazole [Ketoconazole 2% 1 applic TOPICAL MOTH 08/25/20 04/20/23 History Shampoo] Aspirin EC [Ecotrin Low Dose] 81 mg PO DAILY 04/20/23 04/20/23 History Cholecalciferol [Vitamin D3 (25 50 mcg PO HS 04/20/23 04/20/23 History Mcg = 1000 Iu)] Clobetasol 0.05% Solution 1 applic TOPICAL DIRECTED 04/20/23 04/20/23 History Escitalopram [Lexapro] 20 mg PO DAILY 04/20/23 04/20/23 History Allergies Allergy/AdvReac Type Severity Reaction Status Date / Time cephalexin [From Keflex] AdvReac Nausea & Verified 04/20/23 12:37 Vomiting & Diarrhea Physical Exam Vitals: Vital Signs Temp Pulse Resp BP Pulse Ox FiO2 04/20/23 13:16 85 18 119/92 95 04/20/23 11:31 89 20 110/69 95 04/20/23 11:20 86 04/20/23 11:09 84 97 28 04/20/23 07:45 98.1 F 101 H 22 144/95 97 04/20/23 06:00 81 22 138/69 94 L 04/20/23 05:40 79 04/20/23 05:04 78 20 143/66 92 L 04/20/23 03:56 98.9 F 89 18 133/70 89 L Intake and Output 04/19/23 04/20/23 04/20/23 22:59 06:59 14:59 Other: Weight 77.111 kg Results 04/20/23 04:18 04/20/23 04:18 Cardiac Enzymes 04/20/23 04/20/23 04/20/23 Range/Units 04:18 04:18 09:42 AST 38 (17-59) U/L Troponin I 0.067 H* 0.065 H* (0.000-0.034) ng/mL Coagulation 04/20/23 Range/Units 04:18 PT 10.7 (10.0-12.5) sec APTT 24.5 (22.0-30.0) sec CBC 04/20/23 Range/Units 04:18 WBC 5.1 (3.8-10.6) k/uL RBC 4.29 L (4.30-5.90) m/uL Hgb 12.7 L (13.0-17.5) gm/dL Hct 40.1 (39.0-53.0) % Plt Count 104 L (150-450) k/uL Comprehensive Metabolic Panel 04/20/23 Range/Units 04:18 Sodium 139 (137-145) mmol/L Potassium 3.7 (3.5-5.1) mmol/L Chloride 106 (98-107) mmol/L Carbon Dioxide 24 (22-30) mmol/L BUN 22 H (9-20) mg/dL Creatinine 0.90 (0.66-1.25) mg/dL Glucose 138 H (74-99) mg/dL Calcium 8.7 (8.4-10.2) mg/dL AST 38 (17-59) U/L ALT 47 (4-49) U/L Alkaline Phosphatase 88 (38-126) U/L Total Protein 6.1 L (6.3-8.2) g/dL Albumin 3.5 (3.5-5.0) g/dL Current Medications Generic Name Dose Route Start Last Admin Trade Name Freq PRN Reason Stop Dose Admin Albuterol/Ipratropium 3 ml 04/20/23 10:43 04/20/23 11:09 Ipratropium-Albuterol 3 Ml Neb INHALATION 3 ml RT-QID PRN Administration Shortness Of Breath Or Wheezing Atorvastatin Calcium 80 mg 04/20/23 21:00 Atorvastatin 80 Mg Tab PO HS ARMANDO Cholecalciferol 50 mcg 04/20/23 11:00 04/20/23 11:33 Cholecalciferol 25 Mcg (1000 Iu) Tablet PO 50 mcg DAILY ARMANDO Administration Escitalopram Oxalate 20 mg 04/21/23 09:00 Escitalopram 20 Mg Tab PO DAILY ARMANDO Furosemide 20 mg 04/20/23 16:00 Furosemide 10 Mg/Ml 2 Ml Vial IV Q8HR ARMANDO Heparin Sodium (Porcine) 5,000 unit 04/20/23 21:00 Heparin Sodium,Porcine 5,000 Unit/Ml 1 Ml Vial SQ Q12HR ARMANDO Methylprednisolone Sodium Succinate 40 mg 04/20/23 11:00 04/20/23 11:35 Methylprednisolone Sod Succi 40 Mg/Ml 1 Ml Vial IV 40 mg Q8H ARMANDO Administration Naloxone HCl 0.2 mg 04/20/23 06:20 Naloxone 0.4 Mg/Ml 1 Ml Vial IV Q2M PRN Opioid Reversal Intake and Output 04/19/23 04/20/23 04/20/23 22:59 06:59 14:59 Other: Weight 77.111 kg 04/20/23 04:18 04/20/23 04:18
--- NOTE | 2023-04-20 13:43 | P.CNPUL ---
History of Present Illness Consult date: 04/20/23 Reason for consult: dyspnea History of present illness: This is a 83-year-old male patient presented to the emergency department because of worsening shortness of breath. The patient started off by few days ago having some increased cough that was nonproductive. Denies having any chest pain. Progressively following that, the patient became short of breath. He is known to have coronary artery disease. His undergone previous aortic valve surgery and bypass surgery many years back. He is being followed up locally by cardiology. He is currently on 2 L of oxygen by nasal cannula. His EKG showing normal sinus rhythm with frequent PVCs and he also has a right bundle branch block pattern he had no evidence of any acute ischemic changes. Chest x-ray was consistent with cardiomegaly and CHF. The patient also had a small left-sided pleural effusion. No airspace disease of consolidation.. The rest of the blood work shows a white cell count of 5.1, hemoglobin 12.7 and a platelet count of 104. Normal coagulation profile. The enzymes at 22 with a creatinine of 0.9. Troponins are 0.06 respectively 3. ProBNP level is 8380. Rest of the electronic to normal. The vital screening including influenza, RSV and Covid 19 testing came back all negative. The patient was started on IV Lasix 20 mg IV every 8 hours and the patient is producing excellent amount of urine output. The patient is being seen by cardiology. Echo was ordered and the patient was found to have dilated LV with a reduced left ventricular ejection fraction of 35%. There is also moderate elevation of the gradient across the bioprosthetic aortic valve. No altered mentation. No major edema lower extremities. No previous history of DVT or pulmonary embolism. The patient is currently being admitted to the hospital for further workup. The patient is to be seen by cardiology. Review of Systems Constitutional: Reports fatigue Eyes: denies as per HPI, denies blurred vision, denies bulging eye, denies decreased vision, denies diplopia, denies discharge, denies dry eye, denies irritation, denies itching, denies pain, denies photophobia, denies loss of peripheral vision, denies loss of vision, denies tunnel vision/blind spots Ears: deny: decreased hearing, ear discharge, earache, tinnitus Ears, nose, mouth and throat: Reports as per HPI Breasts: absent: as per HPI, gynecomastia Cardiovascular: Reports decreased exercise tolerance, Reports dyspnea on exertion Respiratory: Reports cough, Reports dyspnea Gastrointestinal: Reports as per HPI Genitourinary: Reports as per HPI Musculoskeletal: Reports as per HPI Musculoskeletal: absent: ankle pain, ankle stiffness, ankle swelling Integumentary: Reports as per HPI Neurological: Reports as per HPI Psychiatric: Reports as per HPI Endocrine: Reports as per HPI Hematologic/Lymphatic: Reports as per HPI Allergic/Immunologic: Reports as per HPI Past Medical History Past Medical History: Coronary Artery Disease (CAD), CVA/TIA, Hypertension, Prostate Disorder Additional Past Medical History / Comment(s): STATES HE GETS CYSTS AT THE SIGHT OF THE RIGHT CAROTID SURGERY SCAR, DRAINS PERDIODICALLY. MULTIPLE TIAs. - HOSPITALIZED 03/03/20-03/04/20 FOR TIA WITH LEFT ARM WEAKNESS & NUMBNESS WHICH HAS RESOLVED. LEAKY HEART VALVE. AVR and previoud CABG History of Any Multi-Drug Resistant Organisms: None Reported Past Surgical History: Coronary Bypass/CABG, Joint Replacement, Orthopedic Surgery Additional Past Surgical History / Comment(s): AORTIC VALVE REPLACEMENT ([facility]). RIGHT CAROTID ENDARTERECTOMY (DR. HANKS. Nasal cauterization. Bilat knee replacements. CABG (2007) Past Anesthesia/Blood Transfusion Reactions: No Reported Reaction Past Psychological History: No Psychological Hx Reported Smoking Status: Never smoker Past Alcohol Use History: Rare Past Drug Use History: None Reported - Past Family History Mother Family Medical History: No Reported History Medications and Allergies Home Medications Medication Instructions Recorded Confirmed Type Atorvastatin [Lipitor] 80 mg PO HS 11/18/16 04/20/23 History Tamsulosin [Flomax] 0.8 mg PO W/SUPPER 03/03/20 04/20/23 History busPIRone HCL 5 mg PO BID 03/24/20 04/20/23 History Ketoconazole [Ketoconazole 2% 1 applic TOPICAL MOTH 08/25/20 04/20/23 History Shampoo] Aspirin EC [Ecotrin Low Dose] 81 mg PO DAILY 04/20/23 04/20/23 History Cholecalciferol [Vitamin D3 (25 50 mcg PO HS 04/20/23 04/20/23 History Mcg = 1000 Iu)] Clobetasol 0.05% Solution 1 applic TOPICAL DIRECTED 04/20/23 04/20/23 History Escitalopram [Lexapro] 20 mg PO DAILY 04/20/23 04/20/23 History Allergies Allergy/AdvReac Type Severity Reaction Status Date / Time cephalexin [From Keflex] AdvReac Nausea & Verified 04/20/23 12:37 Vomiting & Diarrhea Physical Exam Vitals: Vital Signs Temp Pulse Resp BP Pulse Ox 04/20/23 07:45 98.1 F 101 H 22 144/95 97 04/20/23 06:00 81 22 138/69 94 L 04/20/23 05:40 79 04/20/23 05:04 78 20 143/66 92 L 04/20/23 03:56 98.9 F 89 18 133/70 89 L Intake and Output 04/19/23 04/20/23 04/20/23 22:59 06:59 14:59 Other: Weight 77.111 kg Calm and comfortable on 2 L of oxygen by nasal cannula Head exam was generally normal. There was no scleral icterus or corneal arcus. Mucous membranes were moist. Neck was supple and with jugular venous distension, thyromegaly, or carotid bruits. Carotids were easily palpable bilaterally. There was no adenopathy. Lungs sounds are diminished and the patient has crackles in the lung bases and the patient also has some limited extremity wheezes Heart sounds are showing a systolic ejection murmur grade 3/6 over the apex. Patient has frequent PVCs. Abdominal exam revealed normal bowel sounds. The abdomen was soft, non-tender, and without masses, organomegaly, or appreciable enlargement of the abdominal aorta. Examination of the extremities revealed easily palpable radial, femoral and pedal pulses. There was no cyanosis, clubbing or edema. Examination of the skin revealed no evidence of significant rashes, suspicious appearing nevi or other concerning lesions. Neurologically, the patient is awake and alert and the patient does not have any focal neurological deficit. Cranial nerves are essentially intact. Results - Laboratory Findings CBC and BMP: 04/20/23 04:18 04/20/23 04:18 ABG WBC 5.1 k/uL (3.8-10.6) 04/20/23 04:18 RBC 4.29 m/uL (4.30-5.90) L 04/20/23 04:18 Hgb 12.7 gm/dL (13.0-17.5) L 04/20/23 04:18 Hct 40.1 % (39.0-53.0) 04/20/23 04:18 MCV 93.5 fL (80.0-100.0) 04/20/23 04:18 MCH 29.7 pg (25.0-35.0) 04/20/23 04:18 MCHC 31.7 g/dL (31.0-37.0) 04/20/23 04:18 RDW 14.0 % (11.5-15.5) 04/20/23 04:18 Plt Count 104 k/uL (150-450) L 04/20/23 04:18 MPV 9.0 04/20/23 04:18 Neutrophils % 75 % 04/20/23 04:18 Lymphocytes % 16 % 04/20/23 04:18 Monocytes % 5 % 04/20/23 04:18 Eosinophils % 2 % 04/20/23 04:18 Basophils % 0 % 04/20/23 04:18 Neutrophils # 3.8 k/uL (1.3-7.7) 04/20/23 04:18 Lymphocytes # 0.8 k/uL (1.0-4.8) L 04/20/23 04:18 Monocytes # 0.2 k/uL (0-1.0) 04/20/23 04:18 Eosinophils # 0.1 k/uL (0-0.7) 04/20/23 04:18 Basophils # 0.0 k/uL (0-0.2) 04/20/23 04:18 PT 10.7 sec (10.0-12.5) 04/20/23 04:18 INR 1.0 (<1.2) 04/20/23 04:18 APTT 24.5 sec (22.0-30.0) 04/20/23 04:18 Sodium 139 mmol/L (137-145) 04/20/23 04:18 Potassium 3.7 mmol/L (3.5-5.1) 04/20/23 04:18 Chloride 106 mmol/L (98-107) 04/20/23 04:18 Carbon Dioxide 24 mmol/L (22-30) 04/20/23 04:18 Anion Gap 9 mmol/L 04/20/23 04:18 BUN 22 mg/dL (9-20) H 04/20/23 04:18 Creatinine 0.90 mg/dL (0.66-1.25) 04/20/23 04:18 Est GFR (CKD-EPI)AfAm >90 (>60 ml/min/1.73 sqM) 04/20/23 04:18 Est GFR (CKD-EPI)NonAf 80 (>60 ml/min/1.73 sqM) 04/20/23 04:18 Glucose 138 mg/dL (74-99) H 04/20/23 04:18 Plasma Lactic Acid Owen 1.5 mmol/L (0.7-2.0) 04/20/23 04:18 Calcium 8.7 mg/dL (8.4-10.2) 04/20/23 04:18 Total Bilirubin 0.6 mg/dL (0.2-1.3) 04/20/23 04:18 AST 38 U/L (17-59) 04/20/23 04:18 ALT 47 U/L (4-49) 04/20/23 04:18 Alkaline Phosphatase 88 U/L (38-126) 04/20/23 04:18 Troponin I 0.065 ng/mL (0.000-0.034) H* 04/20/23 09:42 NT-Pro-B Natriuret Pep 8380 pg/mL 04/20/23 04:18 Total Protein 6.1 g/dL (6.3-8.2) L 04/20/23 04:18 Albumin 3.5 g/dL (3.5-5.0) 04/20/23 04:18 Influenza Type A (PCR) Not Detected (Not Detectd) 04/20/23 04:26 Influenza Type B (PCR) Not Detected (Not Detectd) 04/20/23 04:26 RSV (PCR) Not Detected (Not Detectd) 04/20/23 04:26 SARS-CoV-2 (PCR) Not Detected (Not Detectd) 04/20/23 04:26 PT/INR, D-dimer PT 10.7 sec (10.0-12.5) 04/20/23 04:18 INR 1.0 (<1.2) 04/20/23 04:18 Abnormal lab findings: Abnormal Labs 04/20/23 04/20/23 04/20/23 04:18 04:18 04:18 RBC 4.29 L Hgb 12.7 L Plt Count 104 L Lymphocytes # 0.8 L BUN 22 H Glucose 138 H Troponin I 0.067 H* Total Protein 6.1 L 04/20/23 09:42 RBC Hgb Plt Count Lymphocytes # BUN Glucose Troponin I 0.065 H* Total Protein - Diagnostic Findings Chest x-ray: image reviewed Assessment and Plan Plan: Acute decompensated CHF with worsening shortness of breath. Exact cause for decompensated heart failure is not clear. Rule out underlying non-ST segment elevation myocardial infarction. Rule out a component of bronchitis currently. Is worsening shortness of breath. The patient has some increased wheezing. Rule out cardiac asthma Systolic heart failure with ejection fraction of 35% Acute hypoxic respiratory failure currently on 2 L of oxygen by nasal cannula Acute non-ST segment elevation myocardial infarction Frequent PVCs with a normal sinus rhythm and a right bundle branch block pattern with left anterior fascicular block History of aortic valve replacement and the patient is a bioprosthetic aortic valve. Echo Showing a moderate grade across the aortic valve Shortness of breath secondary to above Coronary artery disease with previous bypass surgery Hypertension Carotid artery disease with previous carotid surgery Previous history of CVA and TIAs, maintain on aspirin on outpatient basis BPH Plan Agree on IV Lasix Echo was noted Continue bronchodilators and steroids for the next 24 hours Repeat chest x-ray with next 24 hours Cardiology regarding the heart failure and the aortic valve disease May benefit from further cardiac workup including a cardiac catheterization if this has not been done recently. We'll continue to follow
[2023-04-20] MEDS: FUROSEMIDE 10 MG/ML 2 ML VIAL IV SCH ×2 (16:26→23:11)
[2023-04-20] MEDS: HEPARIN SODIUM,PORCINE 5,000 UNIT/ML 1 ML VIAL SQ SCH (20:00)
[2023-04-20] MEDS: ATORVASTATIN 80 MG TAB PO SCH (20:00)
[2023-04-21] MEDS: methylPREDNISolone SOD SUCCI 40 MG/ML 1 ML VIAL IV SCH ×3 (03:12→20:09)
[2023-04-21] MEDS: CHOLECALCIFEROL 25 MCG (1000 IU) TABLET PO SCH (08:31)
[2023-04-21] MEDS: FUROSEMIDE 10 MG/ML 2 ML VIAL IV SCH ×2 (08:31→17:31)
[2023-04-21] MEDS: HEPARIN SODIUM,PORCINE 5,000 UNIT/ML 1 ML VIAL SQ SCH ×2 (08:31→20:09)
[2023-04-21] MEDS ORDERED: ESCITALOPRAM 20 MG TAB PO SCH (09:00)
[2023-04-21 09:58] LABS: Basophils % (A) 0 %; Eosinophils % (A) 0 %; HCT 39.3 % (39.0-53.0); HGB 12.4 gm/dL (13.0-17.5); Hypochromasia Slight; Lymphocytes # (A) 0.2 k/uL (1.0-4.8); Lymphocytes % (A) 3 %; MCH 29.7 pg (25.0-35.0); MCHC 31.6 g/dL (31.0-37.0); MCV 94.2 fL (80.0-100.0); Mean Platelet Volume 9.4; Monocytes # (A) 0.2 k/uL (0-1.0); Monocytes % (A) 3 %; Neutrophils # (A) 7.4 k/uL (1.3-7.7); Neutrophils % (A) 95 %; Platelet Count 132 k/uL (150-450); RBC 4.17 m/uL (4.30-5.90); WBC 7.8 k/uL (3.8-10.6)
[2023-04-21 10:11] LABS: African American GFR (CKD) 81 (>60 ml/min/1.73 sqM); Anion Gap 11 mmol/L; Blood Urea Nitrogen 28 mg/dL (9-20); Calcium 8.9 mg/dL (8.4-10.2); Carbon Dioxide 24 mmol/L (22-30); Chloride 103 mmol/L (98-107); Glucose 198 mg/dL (74-99); Magnesium 1.9 mg/dL (1.6-2.3); Non-African American GFR(CKD) 70 (>60 ml/min/1.73 sqM); Sodium 138 mmol/L (137-145)
--- NOTE | 2023-04-21 11:54 | P.PN ---
Subjective Progress Note Date: 04/21/23 The patient is a 83-year-old male who follows in the office with Dr. ERENDIRA Lima. He is admitted to the hospital for worsening dyspnea. He was found to be in a COPD exacerbation as well as mild heart failure. BNP is elevated at 8000 and the patient does have a reduced ejection fraction. Patient interviewed and examined resting comfortably in bed. He states his breathing is gradually improving. He denies any chest pain or chest pressure. No dizziness or lightheadedness. No heart racing or fluttering. GENERAL: Ill-appearing, well-nourished and in no acute distress. NECK: Supple without JVD or thyromegaly. LUNGS: Breath sounds diminished to auscultation bilaterally. Respiration equal and unlabored. Expiratory wheeze in the right upper and lower lobes. HEART: Regular rate and rhythm. Systolic murmur. No rubs or gallops. S1 and S2 heard. EXTREMITIES: Normal range of motion, no edema. No clubbing or cyanosis. Peripheral pulses intact and strong. TELEMETRY: Sinus rhythm LABS: CBC 7.8, hemoglobin 12.3, hematocrit 39.3, platelet 132, sodium 138, potassium 4.0, BUN 28, creatinine 1.0, magnesium 1.9, IMPRESSION: Dyspnea COPD exacerbation Elevated troponins, flat trend, not indicative of acute coronary syndrome Cardiomyopathy, unspecified, EF 35% Status post aortic valve replacement, moderate regurgitation of bioprosthetic valve Hypertension Right bundle-branch block with left anterior fascicular block History of coronary artery disease PLAN: Check TSH Continue supportive treatment for COPD exacerbation Consider outpatient KAI to further evaluate valvular heart disease Further recommendations to be based upon clinical course I am dictating on behalf of Dr Vin Leigh's history/physical and assessment/plan. Objective - Vital Signs Vital signs: Vital Signs Temp 97.6 F 04/21/23 08:29 Pulse 83 04/21/23 08:30 Resp 16 04/21/23 08:30 BP 138/68 04/21/23 08:29 Pulse Ox 93 L 04/21/23 09:42 FiO2 28 04/20/23 11:09 Intake & Output 04/20/23 04/21/23 04/21/23 18:59 06:59 18:59 Output Total 500 Balance -500 Weight 77.111 kg 79.3 kg Output: Urine 500 Other: Voiding Method Urinal # Voids 2 - Labs CBC & Chem 7: 04/21/23 09:01 04/21/23 09:01 Labs: Abnormal Lab Results - Last 24 Hours (Table) 04/20/23 04/21/23 04/21/23 Range/Units 12:42 09:01 09:01 RBC 4.17 L (4.30-5.90) m/uL Hgb 12.4 L (13.0-17.5) gm/dL Plt Count 132 L (150-450) k/uL Lymphocytes # 0.2 L (1.0-4.8) k/uL BUN 28 H (9-20) mg/dL Glucose 198 H (74-99) mg/dL Troponin I 0.061 H* (0.000-0.034) ng/mL
--- NOTE | 2023-04-21 12:44 | P.PN ---
Subjective Progress Note Date: 04/21/23 This is a 83-year-old male patient presented to the emergency department because of worsening shortness of breath. The patient started off by few days ago having some increased cough that was nonproductive. Denies having any chest pain. Progressively following that, the patient became short of breath. He is known to have coronary artery disease. His undergone previous aortic valve surgery and bypass surgery many years back. He is being followed up locally by cardiology. He is currently on 2 L of oxygen by nasal cannula. His EKG showing normal sinus rhythm with frequent PVCs and he also has a right bundle branch block pattern he had no evidence of any acute ischemic changes. Chest x-ray was consistent with cardiomegaly and CHF. The patient also had a small left-sided pleural effusion. No airspace disease of consolidation.. The rest of the blood work shows a white cell count of 5.1, hemoglobin 12.7 and a platelet count of 104. Normal coagulation profile. The enzymes at 22 with a creatinine of 0.9. Troponins are 0.06 respectively 3. ProBNP level is 8380. Rest of the electro julian to normal. The vital screening including influenza, RSV and Covid 19 testing came back all negative. The patient was started on IV Lasix 20 mg IV every 8 hours and the patient is producing excellent amount of urine output. The patient is being seen by cardiology. Echo was ordered and the patient was found to have dilated LV with a reduced left ventricular ejection fraction of 35%. There is also moderate elevation of the gradient across the bioprosthetic aortic valve. No altered mentation. No major edema lower extremities. No previous history of DVT or pulmonary embolism. The patient is currently being admitted to the hospital for further workup. The patient is to be seen by car diology. On today's evaluation of 04/21/2023, seeing the patient for a follow-up. The patient is improved compared to yesterday. He remains on Lasix 20 mg IV every 8 hours. hours. His less short of breath. No significant bronchospasm and wheezing. Echocardiogram was completed and the patient was found to have impairment of LV function with ejection fraction of 30-35%. The patient is currently on room air oxygen. Afebrile. Hemodynamically stable. Caul Puller on the case. Objective - Vital Signs Vital signs: Vital Signs Temp 97.6 F 04/21/23 08:29 Pulse 83 04/21/23 08:30 Resp 16 04/21/23 08:30 BP 138/68 04/21/23 08:29 Pulse Ox 93 L 04/21/23 09:42 FiO2 28 04/20/23 11:09 Intake & Output 04/20/23 04/21/23 04/21/23 18:59 06:59 18:59 Output Total 500 Balance -500 Weight 77.111 kg 79.3 kg Output: Urine 500 Other: Voiding Method Urinal # Voids 2 - Exam Calm and comfortable on 2 L of oxygen by nasal cannula Head exam was generally normal. There was no scleral icterus or corneal arcus. Mucous membranes were moist. Neck was supple and with jugular venous distension, thyromegaly, or carotid bruits. Carotids were easily palpable bilaterally. There was no adenopathy. Lungs sounds are diminished and the patient has crackles in the lung bases and the patient also has some limited extremity wheezes Heart sounds are showing a systolic ejection murmur grade 3/6 over the apex. Patient has frequent PVCs. Abdominal exam revealed normal bowel sounds. The abdomen was soft, non-tender, and without masses, organomegaly, or appreciable enlargement of the abdominal aorta. Examination of the extremities revealed easily palpable radial, femoral and pedal pulses. There was no cyanosis, clubbing or edema. Examination of the skin revealed no evidence of significant rashes, suspicious appearing nevi or other concerning lesions. Neurologically, the patient is awake and alert and the patient does not have any focal neurological deficit. Cranial nerves are essentially intact. - Labs CBC & Chem 7: 04/21/23 09:01 04/21/23 09:01 Labs: Abnormal Lab Results - Last 24 Hours (Table) 04/20/23 04/20/23 Range/Units 09:42 12:42 Troponin I 0.065 H* 0.061 H* (0.000-0.034) ng/mL Assessment and Plan Plan: Acute decompensated CHF with worsening shortness of breath. Exact cause for decompensated heart failure is not clear. Rule out underlying non-ST segment elevation myocardial infarction. Rule out a component of bronchitis currently. Is worsening shortness of breath. The patient has some increased wheezing. Rule out cardiac asthma, significantly improved since yesterday while being on diuretics. 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 Echo Showing a moderate grade across the aortic valve Shortness of breath secondary to above Coronary artery disease with previous bypass surgery Hypertension Carotid artery disease with previous carotid surgery Previous history of CVA and TIAs, maintain on aspirin on outpatient basis BPH Plan Continue Lasix for another 24 hours Echo was noted Caul Puller incentive cardiac catheterization is needed Continue bronchodilators and steroids for the next 24 hours Repeat chest x-ray with next 24 hours Cardiology regarding the heart failure and the aortic valve disease May benefit from further cardiac workup including a cardiac catheterization if this has not been done recently. We'll continue to follow
[2023-04-21 13:17] LABS: T4, Free (Free Thyroxine) 1.21 ng/dL (0.78-2.19)
[2023-04-21] MEDS ORDERED: ESCITALOPRAM 5 MG TAB PO SCH (14:15)
--- NOTE | 2023-04-21 14:28 | P.PN ---
Subjective Progress Note Date: 04/21/23 Progress note Date of service 04/21/[address] Camarena Patient seen today [id number] evaluated, discussed with patient and his at bedside. With the explanation of what he happened to him With the thoughts of questioning the patient patient stated that in the week of his progressive of his shortness SOB start this and subsequent of lifting heavy Tyer more than 80 pounds twice for his truck. Patient found with his echocardiogram that he had decreased left ventricular diastolic diameter and decreased systolic function with left ventricular ejection fraction 30-35. He had right ventricular moderate pulmonary hypertension Mild right atrial dilatation Mild left atrial the irritation Aortic valve bioprosthetic aortic valve with the gradient across the prosthetic valve and moderate regurgitation, tricuspid valve mild tricuspid regurgitation. And patient advised today do not do any upper extremity strenuous exercise or lifting or racking leaves or shuffling snow or bowling. Discussed the underlying congestive heart failure with the systolic and diastolic dysfunction added to coronary artery bypass graft with 2 vessel. And elevated troponin 3 times as well as elevated pro-BNP with the underlying non- STEMI FL, as mentioned congestive heart failure systolic and diastolic Hypoxemia with acute respiratory failure and wheezing bilateral. Today as patient seen he had no complain feeling much better. Vital sign temperature 97.2 F oral, heart rate 88 bpm and respiratory rate 16, her blood his blood pressure 127/65 with a mean 85, oxygen saturation 93 on room air. Head was normocephalic and atraumatic, he has minor residual from his previous CVA and TIA affecting his left side Oropharynx natural days Neck was supple with a history of carotid endarterectomy in the right side and cyst formation Chest today is improving significantly with no wheezes or rhonchi's and with the Lasix IV has been cleared his rales on the back. Heart compensated regular sinus and positive aortic murmur. As mentioned by the echo Abdomen is soft positive bowel sounds no organ enlargement Extremities no edema and positive pulses Neurologically stable Assessment: #1 acute respiratory hypoxemia #2 acute non-STEMI FL #3 congestive heart failure acute combined systolic and diastolic with ejection fraction measured by 30-35%. #4 history of previous CVA affecting the speech and minimally on the left side. Plan: #1 there is some discrepancy of medication for depression and will cut down the escitalopram 25 mg until we corrected the dose from patient recorded as well as his and discussed with his and the patient. #2 we'll decrease the steroid to 40 mg IV push every 12 hour as improving wheezing and rhonchi #3 will continue diuresis and probably will change to oral tomorrow #4 will see what is the cardiology plan as well and if there is a need for any cardiac catheterization or any other investigation. #5 will ambulate the patient. Objective - Vital Signs Vital signs: Vital Signs Temp 97.2 F L 04/21/23 12:41 Pulse 88 04/21/23 12:41 Resp 16 04/21/23 12:41 BP 127/65 04/21/23 12:41 Pulse Ox 93 L 04/21/23 12:41 FiO2 28 04/20/23 11:09 Intake & Output 04/20/23 04/21/23 04/21/23 18:59 06:59 18:59 Output Total 500 Balance -500 Weight 77.111 kg 79.3 kg Output: Urine 500 Other: Voiding Method Urinal # Voids 2 - Labs CBC & Chem 7: 04/21/23 09:01 04/21/23 09:01 Labs: Abnormal Lab Results - Last 24 Hours (Table) 04/21/23 04/21/23 04/21/23 Range/Units 09:01 09:01 09:01 RBC 4.17 L (4.30-5.90) m/uL Hgb 12.4 L (13.0-17.5) gm/dL Plt Count 132 L (150-450) k/uL Lymphocytes # 0.2 L (1.0-4.8) k/uL BUN 28 H (9-20) mg/dL Glucose 198 H (74-99) mg/dL TSH 0.329 L (0.465-4.680) mIU/L
[2023-04-21] MEDS: ATORVASTATIN 80 MG TAB PO SCH (20:09)
[2023-04-22] MEDS: FUROSEMIDE 10 MG/ML 2 ML VIAL IV SCH ×2 (00:26→08:29)
[2023-04-22] MEDS: HEPARIN SODIUM,PORCINE 5,000 UNIT/ML 1 ML VIAL SQ SCH (08:29)
[2023-04-22] MEDS: methylPREDNISolone SOD SUCCI 40 MG/ML 1 ML VIAL IV SCH (08:29)
[2023-04-22] MEDS: CHOLECALCIFEROL 25 MCG (1000 IU) TABLET PO SCH (08:29)
[2023-04-22 08:57] VITALS: RESP 16; TEMP 97.7
[2023-04-22] MEDS ORDERED: ESCITALOPRAM 5 MG TAB PO SCH (09:00)
--- NOTE | 2023-04-22 10:54 | P.PN ---
Subjective Progress Note Date: 04/22/23 The patient is a 83-year-old male who follows in the office with Dr. ERENDIRA Lima. He is admitted to the hospital for worsening dyspnea. He was found to be in a COPD exacerbation as well as mild heart failure. BNP is elevated at 8000 and the patient does have a reduced ejection fraction. Patient interviewed and examined resting comfortably in bed. He states his breathing is gradually improving. He denies any chest pain or chest pressure. No dizziness or lightheadedness. No heart racing or fluttering. TELEMETRY: Sinus rhythm LABS: CBC 7.8, hemoglobin 12.3, hematocrit 39.3, platelet 132, sodium 138, potassium 4.0, BUN 28, creatinine 1.0, magnesium 1.9, 04/22 Patient is seen today in follow-up. He states his breathing is about back to normal. He has been ambulating in his room and hallway and doing very well. He and his state that the regurgitation on the bioprosthetic valve is some thing new which the plan is for follow-up with Dr. Lima in the office regarding this. He denies having any chest pain. No lightheadedness or dizziness. He is currently on Lasix IV 20 mg every 8 hours. Weight is down 1 kg from yesterday. No repeat lab work available at this time. TSH is 0.3-9 with normal free T4 of 1.21. Patient is waiting for clearance for discharge home later today. GENERAL: Ill-appearing, well-nourished and in no acute distress. NECK: Supple without JVD or thyromegaly. LUNGS: Breath sounds diminished to auscultation bilaterally. Respiration equal and unlabored. Expiratory wheeze in the right upper and lower lobes. HEART: Regular rate and rhythm. Systolic murmur. No rubs or gallops. S1 and S2 heard. EXTREMITIES: Normal range of motion, no edema. No clubbing or cyanosis. Peripheral pulses intact and strong. IMPRESSION: COPD exacerbation Elevated troponins, flat trend, not indicative of acute coronary syndrome Cardiomyopathy, unspecified, EF 35% Status post aortic valve replacement, moderate regurgitation of bioprosthetic valve Hypertension Right bundle-branch block with left anterior fascicular block History of coronary artery disease PLAN: Continue current cardiac medications Transition IV Lasix to oral Continue supportive treatment for COPD exacerbation Patient is cleared from cardiology for discharge May follow-up with Dr. ERENDIRA Lima in the office Nurse practitioner note has been reviewed, I agree with the documented findings and plan of care. Patient was seen and examined. Objective - Vital Signs Vital signs: Vital Signs Temp 97.7 F 04/22/23 08:35 Pulse 87 04/22/23 08:35 Resp 16 04/22/23 08:35 BP 126/46 04/22/23 08:35 Pulse Ox 95 04/22/23 08:35 FiO2 28 04/20/23 11:09 Intake & Output 04/21/23 04/22/23 04/22/23 18:59 06:59 18:59 Intake Total 840 Output Total 350 1550 Balance 490 -1550 Weight 78 kg Intake: Oral 840 Output: Urine 350 1550 Other: Voiding Method Urinal Urinal # Voids 1 - Labs CBC & Chem 7: 04/21/23 09:01 04/21/23 09:01 Labs: Abnormal Lab Results - Last 24 Hours (Table) 04/21/23 04/21/23 04/21/23 Range/Units 09:01 09:01 09:01 RBC 4.17 L (4.30-5.90) m/uL Hgb 12.4 L (13.0-17.5) gm/dL Plt Count 132 L (150-450) k/uL Lymphocytes # 0.2 L (1.0-4.8) k/uL BUN 28 H (9-20) mg/dL Glucose 198 H (74-99) mg/dL TSH 0.329 L (0.465-4.680) mIU/L
[2023-04-22 12:08] VITALS: BP 117/56; PULSE 65
--- NOTE | 2023-04-22 14:26 | P.DS ---
Providers Date of admission: 04/20/23 06:20 Expected date of discharge: 04/22/23 Attending physician: Quinn Camarena Consults: 04/20/23 06:20 Consult Physician Urgent Consulting Provider: Meghann Vergara Consult Reason/Comments: acute hypoxic resp failure Do you want consulting provider notified?: Yes Consult Physician Urgent Consulting Provider: [facility] Consult Reason/Comments: new onset chf, nstemi Do you want consulting provider notified?: Yes Primary care physician: Quinn Camarena Dictation discharge summary Date of service discharge 04/22/2023 Admission on 04/20/2023. Final diagnosis: #1 acute congestive heart failure biventricular #2 systolic function impaired with ejection fraction 30-35 #3 cardiomyopathy probably ischemic with the underlying history of 2 coronary artery bypass graft median sternotomy. 2007 #4 of aortic valve replacement janelle #6 vine prosthesis. #5 right carotid endarterectomy. #6 small left pleural effusion in the chest x-ray done on admission 04/20/2023. #7 wheezing and rhonchi's and rales on admission with associated shortness of breath and hypoxemia. Consultation: #[address] Leigh, subsequently Dr. Romero who cleared him for discharge today. #2 Dr. Mosqueda pulmonary and critical and subsequently Dr. Ricardo. Presentation to the ER: Patient try by EMS shortness of breath and rales in in the emergency room patient diuresed and his pro BNP was significant elevation more than 8000 subsequently consultation with the cardiology as well as pulmonary was requested . Hospital course Patient diuresed aggressively with IV Lasix and subsequently changed to by mouth and adjusted Lasix to 20 mg twice a day by Dr. Romero and he cleared him for discharge Patient started on a steroid in the ER and subsequently decreased and discontinued as his lung is cleared up with no rales and to continue with home medication with the inhaler Puffer ventilating HFA. As needed only and probably the association with congestive heart failure more than COPD exacerbation As patient stabilized breathing fine is no wheezes no rhonchi's no rales, ambulatory seen by cardiology and pulmonary Medication adjusted and patient discharged home in stable general condition to follow-up with Dr. ERENDIRA Lima the primary cardiology and Dr. Mosqueda the pulmonary and critical care This on discharge: Physical exam Head was normocephalic and atraumatic pupil was equal reactive conjunctiva was pink sclera was nonicteric oropharynx natural teeth history he had some hearing improvement Neck was supple no JVD no thyromegaly no lymphadenopathy he had a cyst in the line of the right carotid endarterectomy Chest was clear to auscultation percussion heart was regular sinus rhythm and abdomen was soft positive bowel sounds and extremities no edema Neurologically stable His was at bedside and discussed with her as well Assessment stable with the vital sign temperature 97.7 F oral, pulse 87/m regular respiratory rate 16/m, blood pressure 126/46 with a mean 72 and repeat blood pressure 117/56 with a mean 76 Oxygen saturation 95%. Plan patient discharged home today Follow-up with Dr. ERENDIRA Lima Advised do not left heavy objects, no raking leaves, no bowling and no shoveling snow. We'll follow him next week Follow-up with Dr. Mosqueda the pulmonary and critical care as well as needed end of dictation Patient Condition at Discharge: Serious Plan - Discharge Summary Discharge Rx Participant: No New Discharge Prescriptions: New Furosemide [Lasix] 20 mg PO BID@0900,1600 #60 tab Continue Atorvastatin [Lipitor] 80 mg PO HS Tamsulosin [Flomax] 0.8 mg PO W/SUPPER busPIRone HCL 5 mg PO BID Ketoconazole [Ketoconazole 2% Shampoo] 1 applic TOPICAL MOTH Aspirin EC [Ecotrin Low Dose] 81 mg PO DAILY Cholecalciferol [Vitamin D3 (25 Mcg = 1000 Iu)] 50 mcg PO HS Escitalopram [Lexapro] 20 mg PO DAILY Clobetasol 0.05% Solution 1 applic TOPICAL DIRECTED Discharge Medication List Atorvastatin [Lipitor] 80 mg PO HS 11/18/16 [History] Tamsulosin [Flomax] 0.8 mg PO W/SUPPER 03/03/20 [History] busPIRone HCL 5 mg PO BID 03/24/20 [History] Ketoconazole [Ketoconazole 2% Shampoo] 1 applic TOPICAL MOTH 08/25/20 [History] Aspirin EC [Ecotrin Low Dose] 81 mg PO DAILY 04/20/23 [History] Cholecalciferol [Vitamin D3 (25 Mcg = 1000 Iu)] 50 mcg PO HS 04/20/23 [History] Clobetasol 0.05% Solution 1 applic TOPICAL DIRECTED 04/20/23 [History] Escitalopram [Lexapro] 20 mg PO DAILY 04/20/23 [History] Furosemide [Lasix] 20 mg PO BID@0900,1600 #60 tab 04/22/23 [Rx] Follow up Appointment(s)/Referral(s): Christina Lima MD [STAFF PHYSICIAN] - 04/30/23 3:15 pm ([facility]) Quinn Camarena MD [Primary Care Provider] - 05/01/23 10:30 am Patient Instructions/Handouts: Heart Failure (DC)
--- NOTE | 2023-04-22 15:46 | P.PN ---
Subjective Progress Note Date: 04/22/23 Principal diagnosis: Acute on chronic systolic congestive heart failure with acute hypoxic respiratory failure and non-ST elevation myocardial infarction This is a 83-year-old male patient presented to the emergency department because of worsening shortness of breath. The patient started off by few days ago having some increased cough that was nonproductive. Denies having any chest pain. Progressively following that, the patient became short of breath. He is known to have coronary artery disease. His undergone previous aortic valve surgery and bypass surgery many years back. He is being followed up locally by cardiology. He is currently on 2 L of oxygen by nasal cannula. His EKG showing normal sinus rhythm with frequent PVCs and he also has a right bundle branch block pattern he had no evidence of any acute ischemic changes. Chest x-ray was consistent with cardiomegaly and CHF. The patient also had a small left-sided pleural effusion. No airspace disease of consolidation.. The rest of the blood work shows a white cell count of 5.1, hemoglobin 12.7 and a platelet count of 104. Normal coagulation profile. The enzymes at 22 with a creatinine of 0.9. Troponins are 0.06 respectively 3. ProBNP level is 8380. Rest of the electronic to normal. The vital screening including influenza, RSV and Covid 19 testing came back all negative. The patient was started on IV Lasix 20 mg IV every 8 hours and the patient is producing excellent amount of urine output. The patient is being seen by cardiology. Echo was ordered and the patient was found to have dilated LV with a reduced left ventricular ejection fraction of 35%. There is also moderate elevation of the gradient across the bioprosthetic aortic valve. No altered mentation. No major edema lower extremities. No previous history of DVT or pulmonary embolism. The patient is currently being admitted to the hospital for further workup. The patient is to be seen by cardiology. On today's evaluation of 04/21/2023, seeing the patient for a follow-up. The patient is improved compared to yesterday. He remains on Lasix 20 mg IV every 8 hours. hours. His less short of breath. No significant bronchospasm and wheezing. Echocardiogram was completed and the patient was found to have impairment of LV function with ejection fraction of 30-35%. The patient is currently on room air oxygen. Afebrile. Hemodynamically stable. Dragger Out on the case. Patient was reevaluated today on 04/22/2023, patient is feeling better, breathing easier, responding well to diuretics he was seen yesterday by Dr. Vergara for his congestive heart failure, and he was found to have impaired left ventricular function with ejection fraction of 30-35%. Apparently the patient was cleared by cardiology for discharge planning today. CBC is relatively normal electrolytes are normal renal profile is normal, BNP level on admission was 8380 and his troponin level is in the range of 0.061, patient was transitioned to oral Lasix by cardiology and they cleared the patient to be discharged Objective - Vital Signs Vital signs: Vital Signs Temp 97.7 F 04/22/23 08:35 Pulse 65 04/22/23 11:41 Resp 16 04/22/23 11:41 BP 117/56 04/22/23 11:41 Pulse Ox 95 04/22/23 11:41 FiO2 28 04/20/23 11:09 Intake & Output 04/21/23 04/22/23 04/22/23 18:59 06:59 18:59 Intake Total 840 Output Total 350 1550 500 Balance 490 -1550 -500 Weight 78 kg Intake: Oral 840 Output: Urine 350 1550 500 Other: Voiding Method Urinal Urinal Urinal # Voids 1 - Exam Physical Exam: Revealed an 83-year-old white male in no distress, on room air, is at bedside Head: Atraumatic, normocephalic. HEENT:[Neck is supple.] [No neck masses.] [No thyromegaly.] [No JVD.] Chest: [slightly diminished breath sounds at the bases no crackles or rhonchi or wheezes Cardiac Exam: [Normal S1 and S2, no S3 gallop, no murmur.] Abdomen: [Soft, nontender, no megaly, no rebound, no guarding, normal bowel sounds.] Extremities: [No clubbing, no edema, no cyanosis.] Neurological Exam: [No focal neurologic deficit.]alert and oriented 3 Psychiatric: Normal mood affect and normal mental status examination - Labs CBC & Chem 7: 04/21/23 09:01 04/21/23 09:01 Assessment and Plan Assessment: impression:acute systolic congestive heart failure with severe LV dysfunction and acute non-ST elevation myocardial infarction acute Systolic heart failure with ejection fraction of 35% Acute hypoxic respiratory failure currently on 2 L of oxygen by nasal cannula Acute non-ST segment elevation myocardial infarction History of aortic valve replacement and the patient is a bioprosthetic aortic valve. recommendation: Pulmonary-lam, I believe the patient could be cleared for discharge if cleared by cardiology Follow-up on outpatient basis if felt necessary by the primary care physician. Time with Patient: Less than 30
[2023-04-22] MEDS ORDERED: FUROSEMIDE 20 MG TAB PO SCH (16:00)
--- NOTE | 2023-04-23 07:02 | CDI ---
Documentation Clarification Form Date: 04/23/2023 06:51:39 AM From: Karma Dyson Admit Date: 04/20/2023 06:20:00 AM Patient Name: Redd Hay Visit Number: [id number] Discharge Date: 04/22/2023 02:45:00 PM ATTENTION: The Clinical Documentation Specialists (CDI) and [facility] Coding Staff appreciate your assistance in clarifying documentation. Please respond to the clarification below the line at the bottom and electronically sign. The CDI & [facility] Coding staff will review the response and follow-up if needed. Please note: Queries are made part of the Legal Health Record. If you have any questions, please contact the author of this message via ITS. Dr. Quinn Camarena Conflicting documentation has been found in the medical record. As attending physician, please provide clarification. NSTEMI documented ED notes, PN's 04/21 and 04/22 Cardiology consult "Elevated troponins, trending down not indicative of ACS. History/Risk Factors: HTN, RBBB LAFB, CHF, heart valve replacement, PVC's elevated troponins Clinical Indicators: elevated troponins Treatment: Heparin Please clarify which diagnosis is most appropriate: [ ] NSTEMI [ ] NSTEMI ruled out [ ] Other (please specify) [ ] Unable to determine cardiology did not put that as a diagnosis on the consult please review Please check with the cardiology, because on the dictation the did not with a diagnosis of non-STEMI Please review that with them [id number]
[2023-04-23] MEDS ORDERED: ESCITALOPRAM 20 MG TAB PO SCH (09:00)
== END 2023-04-22 14:45 | disposition home or self-care (01) | DRG 291 ==
LOC: EC 03:55 → 3SCARD 06:20
PROVIDERS: ADMIT Internal Medicine; ATTEND Internal Medicine
DX: I11.0 Hypertensive heart disease with heart failure (principal); I50.43 Acute on chronic combined systolic (congestive) and diastolic (congestive) heart failure; J96.01 Acute respiratory failure with hypoxia; I45.2 Bifascicular block; J44.1 Chronic obstructive pulmonary disease with (acute) exacerbation; I27.20 Pulmonary hypertension, unspecified; I25.5 Ischemic cardiomyopathy; Z79.82 Long term (current) use of aspirin; Z79.899 Other long term (current) drug therapy; Z86.73 Personal history of transient ischemic attack (TIA), and cerebral infarction without residual deficits; Z95.1 Presence of aortocoronary bypass graft; Z95.3 Presence of xenogenic heart valve; Z96.653 Presence of artificial knee joint, bilateral; R79.89 Other specified abnormal findings of blood chemistry; I65.29 Occlusion and stenosis of unspecified carotid artery; I35.1 Nonrheumatic aortic (valve) insufficiency; H91.90 Unspecified hearing loss, unspecified ear; I49.3 Ventricular premature depolarization; F32.A Depression, unspecified; F41.9 Anxiety disorder, unspecified; Z88.1 Allergy status to other antibiotic agents
CPT/HCPCS: 36415; 71046; 80048; 80053; 83605; 83735; 83880; 84439; 84443; 84484; 85025; 85610; 85730; 87636; 93005; 93306; 94640; 94760; 96365; 96366; 96375; 96376; 99285

== ENCOUNTER 2023-05-02 13:24 | Inpatient (IN) | payer MEDICARE ==
--- NOTE | 2023-05-02 13:39 | ED ---
Chest Pain HPI - General Source: patient, RN notes reviewed Mode of arrival: wheelchair Limitations: no limitations <Kyrie Matson - Last Filed: 05/02/23 13:37> <Uziel Cano - Last Filed: 05/02/23 15:59> - General Chief Complaint: Chest Pain Stated Complaint: stabbing chest pains Time Seen by Provider: 05/02/23 13:37 - History of Present Illness Initial Comments: 83-year-old male presents emergency from [facility] chest pain. Patient states he is here 2 weeks ago for similar complaints. Patient states started earlier today centralized chest pain. He has mild shortness of breath. (Kyrie Matson) 83-year-old male with chest discomfort and increased dyspnea. Patient had several recent medication changes by both his primary care and provider. He was recently admitted with chest pain and CHF. He has previous history of bioprosthetic aortic valve. He denies chest pain at the time my evaluation stating that he's had several brief episodes of chest pain over the past 24 hours as well as increased dyspnea. He was discontinued from his Lasix within the past several days. (Uziel Cano) - Related Data Home Medications Medication Instructions Recorded Confirmed Atorvastatin [Lipitor] 80 mg PO HS 11/18/16 04/20/23 Tamsulosin [Flomax] 0.8 mg PO W/SUPPER 03/03/20 04/20/23 busPIRone HCL 5 mg PO BID 03/24/20 04/20/23 Ketoconazole [Ketoconazole 2% 1 applic TOPICAL MOTH 08/25/20 04/20/23 Shampoo] Aspirin EC [Ecotrin Low Dose] 81 mg PO DAILY 04/20/23 04/20/23 Cholecalciferol [Vitamin D3 (25 50 mcg PO HS 04/20/23 04/20/23 Mcg = 1000 Iu)] Clobetasol 0.05% Solution 1 applic TOPICAL DIRECTED 04/20/23 04/20/23 Escitalopram [Lexapro] 20 mg PO DAILY 04/20/23 04/20/23 Previous Rx's Medication Instructions Recorded Furosemide [Lasix] 20 mg PO BID@0900,1600 #60 tab 04/22/23 Allergies Allergy/AdvReac Type Severity Reaction Status Date / Time cephalexin [From Keflex] AdvReac Nausea & Verified 05/02/23 13:33 Vomiting & Diarrhea Review of Systems ROS Other: All systems not noted in ROS Statement are negative. <Kyrie Matson - Last Filed: 05/02/23 13:37> ROS Other: All systems not noted in ROS Statement are negative. <Uziel Cano - Last Filed: 05/02/23 15:59> ROS Statement: Those systems with pertinent positive or pertinent negative responses have been documented in the HPI. Past Medical History Past Medical History: Coronary Artery Disease (CAD), CVA/TIA, Hypertension Additional Past Medical History / Comment(s): STATES HE GETS CYSTS AT THE SIGHT OF THE RIGHT CAROTID SURGERY SCAR, DRAINS PERDIODICALLY. MULTIPLE TIAs. - HOSPITALIZED 03/03/20-03/04/20 FOR TIA WITH LEFT ARM WEAKNESS & NUMBNESS WHICH HAS RESOLVED. LEAKY HEART VALVE, Fall with concussion in 2019. AVR and previou CABG 20 years ago History of Any Multi-Drug Resistant Organisms: None Reported Past Surgical History: Coronary Bypass/CABG, Joint Replacement, Orthopedic Surgery Additional Past Surgical History / Comment(s): AORTIC VALVE REPLACEMENT (BOVINE). RIGHT CAROTID ENDARTERECTOMY (DR. HANKS. Nasal cauterization. Bilat knee replacements. CABG (2008) Past Anesthesia/Blood Transfusion Reactions: No Reported Reaction Past Psychological History: No Psychological Hx Reported Smoking Status: Never smoker Past Alcohol Use History: Rare Past Drug Use History: None Reported - Past Family History Mother Family Medical History: No Reported History <Kyrie Matson - Last Filed: 05/02/23 13:37> General Exam Limitations: no limitations <Kyrie Matson - Last Filed: 05/02/23 13:37> General appearance: alert, in distress (Mild dyspnea) Eye exam: Present: normal appearance, PERRL Respiratory exam: Present: rales, decreased breath sounds. Absent: respiratory distress Cardiovascular Exam: Present: bradycardia, irregular rhythm GI/Abdominal exam: Present: soft. Absent: distended, tenderness Extremities exam: Present: normal inspection, normal capillary refill. Absent: calf tenderness Neurological exam: Present: alert, oriented X3, CN II-XII intact. Absent: motor sensory deficit Psychiatric exam: Present: normal affect, normal mood Skin exam: Present: warm, dry, intact <Uziel Cano - Last Filed: 05/02/23 15:59> - General Exam Comments Initial Comments: Visual Physical Exam Vital signs reviewed General: Well-appearing, nontoxic, no acute distress. Head: Normocephalic, atraumatic Eyes: PERRLA, EOMI ENT: Airway patent Chest: Nonlabored breathing Skin: No visual rash, normal skin tone Neuro: Alert and oriented 3 Musculoskeletal: No gross abnormalities (Kyrie Matson) Course Vital Signs 05/02/23 05/02/23 05/02/23 13:30 13:32 15:00 Temperature 97.7 F Pulse Rate 42 L 70 91 Respiratory 16 19 19 Rate Blood Pressure 128/62 167/83 182/97 O2 Sat by Pulse 95 96 96 Oximetry Chest Pain MDM <Kyrie Matson - Last Filed: 05/02/23 13:37> <Uziel Cano - Last Filed: 05/02/23 15:59> - MDM I completed the quick note portion of this chart signed Kyrie Matson PA-C (Kyrie Matson) Was pt. sent in by a medical professional or institution (Dr. PA, FLOOR COVERINGS SALESPERSON, urgent care, hospital, or long-term...) When possible be specific @ -No Did you speak to anyone other than the patient for history (EMS, parent, family, police, friend...)? What history was obtained from this source @ -No Did you review nursing and triage notes (agree or disagree)? Why? @ -I reviewed and agree with nursing and triage notes Were old charts reviewed (outside hosp., previous admission, EMS record, old EKG, old radiological studies, urgent care reports/EKG's, long-term records)? Report findings @ -No old charts were reviewed Differential Diagnosis (chest pain, altered mental status, abdominal pain women, abdominal pain men, vaginal bleeding, weakness, fever, dyspnea, syncope, headache, dizziness, GI bleed, back pain, seizure, CVA, palpatations, mental health, musculoskeletal)? @ Differential Chest Pain: Stable Angina, Unstable Angina, STEMI, NSTEMI Aortic Dissection, Pneumothorax, Musculoskeletal, Esophageal Spasm GERD, Cholecystitis, Pancreatitis, Zoster, this is not meant to be an all-inclusive list. EKG interpreted by me (3pts min.). @EKG sinus rhythm with frequent PVC, right bundle branch block, left anterior fascicular block, rate is 78, TN interval 172, QRS duration 116, QTC [address] segment elevation. Similar appearing EKG compared to recent admission. X-rays interpreted by me (1pt min.). @ -Pulmonary edema and bilateral effusion. CT interpreted by me (1pt min.). @ -None done U/S interpreted by me (1pt. min.). @ -None done What testing was considered but not performed or refused? (CT, X-rays, U/S, labs)? Why? @ -None What meds were considered but not given or refused? Why? @ -None Did you discuss the management of the patient with other professionals (professionals i.e. , PA, FLOOR COVERINGS SALESPERSON, lab, RT, psych nurse, social media analyst, music box mechanic, teacher, textile technical officer, case coordinator)? Give summary @ -[Dr. Camarena Was smoking cessation discussed for >3mins.? @ -No Was critical care preformed (if so, how long)? @ -No Were there social determinants of health that impacted care today? How? (Homelessness, low income, unemployed, alcoholism, drug addiction, transportation, low edu. Level, literacy, decrease access to med. care, nursing home, rehab)? @ -No Was there de-escalation of care discussed even if they declined (Discuss DNR or withdrawal of care, Hospice)? DNR status @ -No What co-morbidities impacted this encounter? (DM, HTN, Smoking, COPD, CAD, Cancer, CVA, ARF, Chemo, Hep., AIDS, mental health diagnosis, sleep apnea, morbid obesity)? @CHF, valvular heart disease Was patient admitted / discharged? Hospital course, mention meds given and route, prescriptions, significant lab abnormalities, going to OR and other pertinent info. @83-year-old male with episodic chest pain and increased dyspnea. Patient is in mild respiratory distress, tachypneic. Chest x-ray confirming CHF with elevated BNP at 9000. His troponin is elevated at 0.1 which is in the range of recent admission. He has no active chest pain during my evaluation. This level will need to be trended. He's given IV diuresis in the emergency department. He'll be admitted to internal medicine with cardiology on consultation. Undiagnosed new problem with uncertain prognosis? @ -No Drug Therapy requiring intensive monitoring for toxicity (Heparin, Nitro, Insulin, Cardizem)? @ -No Were any procedures done? @ -No Diagnosis/symptom? @ -CHF, CP, elevated troponin Acute, or Chronic, or Acute on Chronic? @ -[Acute on chronic Uncomplicated (without systemic symptoms) or Complicated (systemic symptoms)? @ -default Side effects of treatment? @ -No Exacerbation, Progression, or Severe Exacerbation? @ -No Poses a threat to life or bodily function? How? (Chest pain, [place], [place], pneumonia, PE, COPD, DKA, ARF, appy, cholecystitis, CVA, Diverticulitis, Homicidal, Suicidal, threat to staff... and all critical care pts) @ -Yes, chest pain, CHF (Uziel Cano) Disposition <Kyrie Matson - Last Filed: 05/02/23 13:37> Is patient prescribed a controlled substance at d/c from ED?: No Time of Disposition: 15:59 <Uziel Cano - Last Filed: 05/02/23 15:59> Clinical Impression: CHF (congestive heart failure), Elevated troponin I level Disposition: ADMITTED IP TO THIS HOSP Condition: Stable Referrals: Quinn Camarena MD [Primary Care Provider] - 1-2 days
[2023-05-02 14:11] LABS: Basophils % (A) 0 %; Eosinophils % (A) 1 %; HCT 43.5 % (39.0-53.0); HGB 14.2 gm/dL (13.0-17.5); Lymphocytes # (A) 0.7 k/uL (1.0-4.8); Lymphocytes % (A) 10 %; MCH 30.4 pg (25.0-35.0); MCHC 32.7 g/dL (31.0-37.0); MCV 92.8 fL (80.0-100.0); Mean Platelet Volume 9.4; Monocytes # (A) 0.3 k/uL (0-1.0); Monocytes % (A) 5 %; Neutrophils # (A) 5.6 k/uL (1.3-7.7); Neutrophils % (A) 83 %; Platelet Count 105 k/uL (150-450); RBC 4.69 m/uL (4.30-5.90); WBC 6.8 k/uL (3.8-10.6)
--- NOTE | 2023-05-02 14:58 | XR ---
EXAMINATION TYPE: XR chest 2V DATE OF EXAM: 05/02/2023 COMPARISON: 04/20/2023. HISTORY: Chest pain. TECHNIQUE: Frontal and lateral views of the chest are obtained. FINDINGS: The cardiac silhouette is mildly enlarged and there is mild diffuse interstitial edema and small bilateral pleural effusions. Prosthetic cardiac valve noted. There are midline sternotomy wires. IMPRESSION: Cardiomegaly with mild pulmonary edema and small bilateral pleural effusions.
[2023-05-02 15:06] LABS: ALT 63 U/L (4-49); AST 39 U/L (17-59); African American GFR (CKD) 69 (>60 ml/min/1.73 sqM); Albumin 3.9 g/dL (3.5-5.0); Alkaline Phosphatase 94 U/L (38-126); Anion Gap 7 mmol/L; Blood Urea Nitrogen 25 mg/dL (9-20); Calcium 9.1 mg/dL (8.4-10.2); Carbon Dioxide 29 mmol/L (22-30); Chloride 101 mmol/L (98-107); Glucose 107 mg/dL (74-99); Magnesium 2.2 mg/dL (1.6-2.3); Non-African American GFR(CKD) 60 (>60 ml/min/1.73 sqM); Potassium 4.4 mmol/L (3.5-5.1); Sodium 137 mmol/L (137-145); Total Bilirubin 0.8 mg/dL (0.2-1.3); Total Protein 6.7 g/dL (6.3-8.2)
[2023-05-02 15:14] LABS: NT-Pro-B-Type Natriuretic Pept 9260 pg/mL
[2023-05-02] MEDS ORDERED: FUROSEMIDE 10 MG/ML 2 ML VIAL IV STA (15:22)
[2023-05-02 15:30] LABS: Partial Thromboplastin Time 26.1 sec (22.0-30.0); Prothrombin Time 10.6 sec (10.0-12.5)
[2023-05-02] MEDS ORDERED: NALOXONE 0.4 MG/ML 1 ML VIAL IV PRN (15:53)
[2023-05-02] MEDS ORDERED: ACETAMINOPHEN TAB 325 MG TAB PO PRN (15:53)
--- NOTE | 2023-05-02 17:40 | P.HPIM ---
History of Present Illness H&P Date: 05/02/23 (Unstable angina, chest pain precordial) Chief Complaint: Recurrent chest pain precordial with unstable angina with elevated troponin History and physical Date of service 05/02/[address] Camarena Chief complaint: Patient at home at around 3 AM has his experience chest pain left-sided precordial was pressure and substernal Again the pain is recurrent in the precordial area and in the morning hour for the second time Family cold the office stated that the patient is not feeling good and advised to go to the ER with the previous history of recent admission 2 weeks ago. History of present illness: 83 years old white male seen yesterday in the office with the hypotensive and at that time he was not feeling well lethargic and weak and able to ambulate and at that time found that he has blood pressure was 98/38 and hypotensive. His oxygen saturation 96%, BMI was 30.3 and repeat blood pressure in the office was still hypotensive. Reviewed his medication found that he was taken carvedilol 3.125 and he took it before seeing him in the office as well as losartan 25 mg by mouth daily he took it as well as well as Lasix 20 mg once a day. Patient was seen by Dr. ERENDIRA Lima cardiology for follow-up post discharge from hospital and he advised him at that time with these medication as well as to cut down the Lasix to once a day. Patient was hypotensive and bradycardic with a heart rate 39 bpm and weak and lethargic. Patient advised to hold these medication until we see him again however this morning family called the office and stated that he had worsening his condition his bradycardia was worse on no medication and he had as well chest precordial chest pain and recurrent and for that reason patient advised to come to the emergency room to be reevaluated. Line patient found in the ER that his troponin 0.102 which is high and BNP also elevated 9260 with the chest x-ray indicating cardiomegaly with mild pulmonary edema with small bilateral pleural effusion. He had significant bigeminy and he has in the office bradycardia however the EKG in the hospital indicating 78 bpm after he has been stopped and the carvedilol. And he had associated with a right bundle-branch block as well which has been chronic. Past medical history: #1 hypertension with hypertensive heart disease #2 in the office yesterday he had hypotension , dizziness and giddiness. Has past history of coronary artery disease atherosclerotic heart disease with 2 coronary artery bypass graft and #3 history of congestive heart failure on his last visit. #4 hyperlipidemia. Benign prostatic hypertrophy #5 impaired ejection fraction to 45%. Left ventricular hypertrophy by the echocardiogram mitral regurg of aortic regurg bioprosthesis aortic valve., Meds thoracotomy Depression and anxiety. Review of system: Conscious alert Cardiac mainly with chest pain and recurrent precordial Cardiac arrhythmia with bradycardia in the rate 39/m40/m on the carvedilol. Short of breath association with the congestive heart failure. Pulmonary shortness of breath GI no nausea vomiting or constipation no dysuria or hematuria. Musculoskeletal generalized weakness The rest of the review of systems noncontributory. Physical exam Patient conscious alert oriented seen in the module 2 in the emergency room, his and his daughter at bedside. Vital signs on admission temperature 97.7 F oral Heart rate 42 bpm Respiratory rate 16/m Blood pressure 128/62, mean 84 without having any medication which was held oxygen saturation was 95% on room air. 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 The head was normocephalic and atraumatic, pupil was equal reactive, hearing aid, oropharynx natural teeth Neck was supple no JVD no thyromegaly no lymphadenopathy he had history of right carotid endarterectomy and the cyst formation was seen and taken care by vascular surgeon. Chest midline thoracotomy he had some increase of anteroposterior diameter secondary to the thoracotomy no history of smoking in the past and he had rales bilateral Abdomen is soft positive bowel sounds Extremities: No edema positive pulses Neurologically stable and he had history of anxiety and depression Assessment: Acute congestive heart failure Acute elevation of troponin Bradycardia Of aortic valve repair or bioprosthesis Total coronary artery bypass graft. Anxiety and depression Hyperlipidemia Fluctuating hypotension with hypertension Plan patient admitted to the hospital Start on heparin subcu every 12 hours until seen by cardiology Cardiology consult Lasix IV push 20 mg daily. Serial cardiac panel was troponin. Past Medical History Past Medical History: Coronary Artery Disease (CAD), CVA/TIA, Hypertension Additional Past Medical History / Comment(s): STATES HE GETS CYSTS AT THE SIGHT OF THE RIGHT CAROTID SURGERY SCAR, DRAINS PERDIODICALLY. MULTIPLE TIAs. - HOSPITALIZED 03/03/20-03/04/20 FOR TIA WITH LEFT ARM WEAKNESS & NUMBNESS WHICH HAS RESOLVED. LEAKY HEART VALVE, Fall with concussion in 2019. AVR and previou CABG 20 years ago History of Any Multi-Drug Resistant Organisms: None Reported Past Surgical History: Coronary Bypass/CABG, Joint Replacement, Orthopedic Surgery Additional Past Surgical History / Comment(s): AORTIC VALVE REPLACEMENT (BOVINE). RIGHT CAROTID ENDARTERECTOMY (DR. HANKS. Nasal cauterization. Bilat knee replacements. CABG (2007) Past Anesthesia/Blood Transfusion Reactions: No Reported Reaction Past Psychological History: No Psychological Hx Reported Smoking Status: Never smoker Past Alcohol Use History: Rare Past Drug Use History: None Reported - Past Family History Mother Family Medical History: No Reported History Medications and Allergies Home Medications Medication Instructions Recorded Confirmed Type Atorvastatin [Lipitor] 80 mg PO HS 11/18/16 05/02/23 History Tamsulosin [Flomax] 0.8 mg PO HS 03/03/20 05/02/23 History busPIRone HCL 5 mg PO BID 03/24/20 05/02/23 History Aspirin EC [Ecotrin Low Dose] 81 mg PO DAILY 04/20/23 05/02/23 History Cholecalciferol [Vitamin D3 (25 50 mcg PO HS 04/20/23 05/02/23 History Mcg = 1000 Iu)] Escitalopram [Lexapro] 20 mg PO DAILY 04/20/23 05/02/23 History Prevagen 1 cap PO HS 05/02/23 05/02/23 History Allergies Allergy/AdvReac Type Severity Reaction Status Date / Time cephalexin [From Keflex] AdvReac Nausea & Verified 05/02/23 16:41 Vomiting & Diarrhea Physical Exam Vitals: Vital Signs Temp Pulse Resp BP Pulse Ox 05/02/23 15:00 91 19 182/97 96 05/02/23 13:32 70 19 167/83 96 05/02/23 13:30 97.7 F 42 L 16 128/62 95 Intake and Output 05/02/23 05/02/23 05/02/23 06:59 14:59 22:59 Other: Weight 76.204 kg Results CBC & Chem 7: 05/02/23 13:54 05/02/23 13:54 Labs: Abnormal Lab Results - Last 24 Hours (Table) 1105/02/23 05/02/23 Range/Units 13:54 13:54 13:54 Plt Count 105 L (150-450) k/uL Lymphocytes # 0.7 L (1.0-4.8) k/uL BUN 25 H (9-20) mg/dL Glucose 107 H (74-99) mg/dL ALT 63 H (4-49) U/L Troponin I 0.102 H* (0.000-0.034) ng/mL
[2023-05-02] MEDS: HEPARIN SODIUM,PORCINE 5,000 UNIT/ML 1 ML VIAL SQ SCH (20:47)
[2023-05-02] MEDS: busPIRone HCl 5 MG TAB PO SCH (20:47)
[2023-05-02] MEDS: ATORVASTATIN 80 MG TAB PO SCH (20:48)
[2023-05-02] MEDS: CHOLECALCIFEROL 25 MCG (1000 IU) TABLET PO SCH (20:48)
[2023-05-02] MEDS ORDERED: TAMSULOSIN 0.4 MG CAP.ER.24H PO SCH (21:00)
[2023-05-03] MEDS: ESCITALOPRAM 20 MG TAB PO SCH (07:57)
[2023-05-03] MEDS: ASPIRIN 81 MG PO SCH (07:57)
[2023-05-03] MEDS: busPIRone HCl 5 MG TAB PO SCH ×2 (07:57→21:14)
[2023-05-03] MEDS: HEPARIN SODIUM,PORCINE 5,000 UNIT/ML 1 ML VIAL SQ SCH ×2 (07:58→21:14)
[2023-05-03] MEDS ORDERED: carvediloL 3.125 MG TAB PO SCH (08:45)
[2023-05-03] MEDS ORDERED: FUROSEMIDE 10 MG/ML 2 ML VIAL IV SCH (09:00)
[2023-05-03] MEDS: FUROSEMIDE 40 MG TAB PO SCH (10:26)
[2023-05-03] MEDS: METOPROLOL TARTRATE 25 MG TAB PO SCH ×2 (10:33→21:14)
--- NOTE | 2023-05-03 13:06 | P.CRDCN ---
History of Present Illness History of present illness: HISTORY OF PRESENT ILLNESS: This is a 83-year-old male with a past medical history significant for coronary artery disease with previous CABG, aortic insufficiency with previous open aortic valve replacement [facility], dilated ascending aorta, hypertension, hyperlipidemia, and ischemic cardiomyopathy. Patient follows in the office with Dr. Lima. We have been asked to see the patient in consultation for congestive heart failure and chest pain. Patient examined at the bedside. Patient presented to the hospital with a chief complaint of chest discomfort and sh ortness of breath. He recently saw Dr. Lima in the office and his Lasix was changed to once daily in the morning. He was also started on carvedilol 3.125 mg twice a day and losartan 25 mg at night. At the time of examination, the patient denies chest pain or pressure. He currently denies any shortness of breath. Vital signs are stable. According to the patient's primary physician's documentation, the patient was having bradycardia. However this is inaccurate. The patient is having frequent PVCs. However he is not having significant bradycardia. * EKG reveals sinus mechanism with frequent PVCs * Chest xray cardiomegaly with mild pulmonary edema and small bilateral pleural effusions * Laboratory data: Troponin 0.102. 0.095. 0.097. ProBNP 9260. * Current home cardiac medications include losartan 25 mg at night, carvedilol 3.125 mg twice a day, Lasix 20 mg daily, atorvastatin 80 mg at night, and aspirin 81 mg daily * Most recent echocardiogram obtained in April 2023 revealed ejection fraction 30%, prosthetic aortic valve, moderate AR, mild TR * Cardiac catheterization history: November 2020 revealing 2 vessel CAD with significant dilatation of ascending aorta of 4.9 cm. Both vein grafts are occluded. Circumflex is 95% ostial lesion. RCA with 50% mid narrowing and distal left main 35% narrowing. Mild prosthetic valve aortic regurgitation noted. Patient underwent surgical opinion at [facility] and was found not to be a candidate for repeat revascularization REVIEW OF SYSTEMS: At the time of my exam: CONSTITUTIONAL: Denies fever or chills. HEENT: Denies blurred vision, vision changes, or eye pain. Denies hemoptysis CARDIOVASCULAR: Denies chest pain. Denies orthopnea. Denies PND. Denies palpitations RESPIRATORY: Denies shortness of breath. GASTROINTESTINAL: Denies abdominal pain. Denies nausea or vomiting. HEMATOLOGIC: Denies bleeding disorders. GENITOURINARY: Denies any blood in urine. SKIN: Denies pruitis. Denies rash. PHYSICAL EXAM: VITAL SIGNS: Reviewed. GENERAL: Well-developed in no acute distress. HEENT: Head is normocephalic. Pupils are equal, round. Sclerae anicteric. Mucous membranes of the mouth are moist. Neck supple. No JVD or thyromegaly LUNGS: Respirations even and unlabored. Lungs essentially clear to auscultation bilaterally. HEART: Irregular rate and rhythm. S1 and S2 heard. Systolic murmur noted ABDOMEN: Soft. Nondistended. Nontender. EXTREMITIES: Normal range of motion. No clubbing or cyanosis. Peripheral pulses intact. No lower extremity edema NEUROLOGIC: Awake and alert. Oriented x 3. ASSESSMENT: Chest pain with abnormal troponins, may be secondary to CAD versus frequent PVC burden Frequent PVC burden Bradycardia, ruled out, patient with sinus mechanism and frequent PVCs Coronary artery disease with previous CABG Known venous bypass graft occlusion x 2, per cardiac catheterization 2020 History of aortic insufficiency with aortic valve replacement at [facility] Ischemic cardiomyopathy, EF 30% Hypertension Hyperlipidemia PLAN: No need to repeat echocardiogram as this was performed earlier this month Discontinue IV Lasix. Begin oral Lasix 40 mg daily Resume losartan. Decrease dosage to 12.5 mg Discontinue carvedilol. Begin metoprolol tartrate 25 mg twice a day Continue additional cardiac medications Continue telemetry monitoring Case was discussed with patient's primary variety saw operator, Dr. Lima, with no plans for cardiac catheterization at this time. We will continue with conservative management. Further recommendations pending patient's course Nurse practitioner note has been reviewed by physician. Signing provider agrees with the documented findings, assessment, and plan of care. Past Medical History Past Medical History: Coronary Artery Disease (CAD), CVA/TIA, Hypertension Additional Past Medical History / Comment(s): STATES HE GETS CYSTS AT THE SIGHT OF THE RIGHT CAROTID SURGERY SCAR, DRAINS PERDIODICALLY. MULTIPLE TIAs. - HOSPITALIZED 03/03/20-03/04/20 FOR TIA WITH LEFT ARM WEAKNESS & NUMBNESS WHICH HAS RESOLVED. LEAKY HEART VALVE, Fall with concussion in 2019. AVR and previou CABG 20 years ago History of Any Multi-Drug Resistant Organisms: None Reported Past Surgical History: Coronary Bypass/CABG, Joint Replacement, Orthopedic Surgery Additional Past Surgical History / Comment(s): AORTIC VALVE REPLACEMENT ([facility]). RIGHT CAROTID ENDARTERECTOMY (DR. HANKS. Nasal cauterization. Bilat knee replacements. CABG (2007) Past Anesthesia/Blood Transfusion Reactions: No Reported Reaction Past Psychological History: No Psychological Hx Reported Smoking Status: Never smoker Past Alcohol Use History: Rare Past Drug Use History: None Reported - Past Family History Mother Family Medical History: No Reported History Medications and Allergies Home Medications Medication Instructions Recorded Confirmed Type Atorvastatin [Lipitor] 80 mg PO HS 11/18/16 05/02/23 History Tamsulosin [Flomax] 0.8 mg PO HS 03/03/20 05/02/23 History busPIRone HCL 5 mg PO BID 03/24/20 05/02/23 History Aspirin EC [Ecotrin Low Dose] 81 mg PO DAILY 04/20/23 05/02/23 History Cholecalciferol [Vitamin D3 (25 50 mcg PO HS 04/20/23 05/02/23 History Mcg = 1000 Iu)] Escitalopram [Lexapro] 20 mg PO DAILY 04/20/23 05/02/23 History Prevagen 1 cap PO HS 05/02/23 05/02/23 History Allergies Allergy/AdvReac Type Severity Reaction Status Date / Time cephalexin [From Keflex] AdvReac Nausea & Verified 05/02/23 16:41 Vomiting & Diarrhea Physical Exam Vitals: Vital Signs Temp Pulse Pulse Resp BP BP Pulse Ox 05/03/23 11:20 98.0 F 67 16 119/54 99 05/03/23 07:51 97.3 F L 78 16 141/65 93 L 05/03/23 04:00 84 16 93/51 95 05/03/23 00:00 80 16 134/69 96 05/02/23 20:27 97.6 F 82 16 156/68 95 05/02/23 19:56 98.3 F 87 18 130/55 95 05/02/23 18:00 79 19 122/51 93 L 05/02/23 15:00 91 19 182/97 96 05/02/23 13:32 70 19 167/83 96 05/02/23 13:30 97.7 F 42 L 16 128/62 95 Intake and Output 05/02/23 05/03/23 05/03/23 22:59 06:59 14:59 Output Total 1 Balance -1 Output: Urine 1 Other: Voiding Method Urinal Urinal Toilet Urinal # Voids 2 # Bowel Movements 1 Weight 76.204 kg Results 05/02/23 13:54 05/02/23 13:54 Cardiac Enzymes 05/02/23 05/02/23 05/02/23 Range/Units 13:54 13:54 16:56 AST 39 (17-59) U/L Troponin I 0.102 H* 0.095 H* (0.000-0.034) ng/mL 05/02/23 Range/Units 19:58 AST (17-59) U/L Troponin I 0.097 H* (0.000-0.034) ng/mL Coagulation 05/02/23 Range/Units 13:54 PT 10.6 (10.0-12.5) sec APTT 26.1 (22.0-30.0) sec CBC 05/02/23 Range/Units 13:54 WBC 6.8 (3.8-10.6) k/uL RBC 4.69 (4.30-5.90) m/uL Hgb 14.2 (13.0-17.5) gm/dL Hct 43.5 (39.0-53.0) % Plt Count 105 L (150-450) k/uL Comprehensive Metabolic Panel 05/02/23 Range/Units 13:54 Sodium 137 (137-145) mmol/L Potassium 4.4 (3.5-5.1) mmol/L Chloride 101 (98-107) mmol/L Carbon Dioxide 29 (22-30) mmol/L BUN 25 H (9-20) mg/dL Creatinine 1.15 (0.66-1.25) mg/dL Glucose 107 H (74-99) mg/dL Calcium 9.1 (8.4-10.2) mg/dL AST 39 (17-59) U/L ALT 63 H (4-49) U/L Alkaline Phosphatase 94 (38-126) U/L Total Protein 6.7 (6.3-8.2) g/dL Albumin 3.9 (3.5-5.0) g/dL Current Medications Generic Name Dose Route Start Last Admin Trade Name Freq PRN Reason Stop Dose Admin Acetaminophen 650 mg 05/02/23 15:53 Acetaminophen Tab 325 Mg Tab PO Q6HR PRN Mild Pain or Fever > 100.5 Aspirin 81 mg 05/03/23 09:00 05/03/23 07:57 Aspirin 81 Mg PO 81 mg DAILY ARMANDO Administration Atorvastatin Calcium 80 mg 05/02/23 21:00 05/02/23 20:48 Atorvastatin 80 Mg Tab PO Not Given HS ARMANDO Buspirone HCl 5 mg 05/02/23 21:00 05/03/23 07:57 Buspirone Hcl 5 Mg Tab PO 5 mg BID ARMANDO Administration Cholecalciferol 50 mcg 05/02/23 21:00 05/02/23 20:48 Cholecalciferol 25 Mcg (1000 Iu) Tablet PO Not Given HS ARMANDO Escitalopram Oxalate 20 mg 05/03/23 09:00 05/03/23 07:57 Escitalopram 20 Mg Tab PO 20 mg DAILY ARMANDO Administration Furosemide 40 mg 05/03/23 09:00 05/03/23 10:26 Furosemide 40 Mg Tab PO Not Given DAILY ARMANDO Heparin Sodium (Porcine) 5,000 unit 05/02/23 21:00 05/03/23 07:58 Heparin Sodium,Porcine 5,000 Unit/Ml 1 Ml Vial SQ 5,000 unit Q12HR ARMANDO Administration Losartan Potassium 12.5 mg 05/03/23 21:00 Losartan 25 Mg Tab PO HS ARMANDO Metoprolol Tartrate 25 mg 05/03/23 09:00 05/03/23 10:33 Metoprolol Tartrate 25 Mg Tab PO 25 mg BID ARMANDO Administration Naloxone HCl 0.2 mg 05/02/23 15:53 Naloxone 0.4 Mg/Ml 1 Ml Vial IV Q2M PRN Opioid Reversal Tamsulosin HCl 0.4 mg 05/03/23 21:00 Tamsulosin 0.4 Mg Cap.Er.24h PO HS [facility] Intake and Output 05/02/23 05/03/23 05/03/23 22:59 06:59 14:59 Output Total 1 Balance -1 Output: Urine 1 Other: Voiding Method Urinal Urinal Toilet Urinal # Voids 2 # Bowel Movements 1 Weight 76.204 kg 05/02/23 13:54 05/02/23 13:54
[2023-05-03 14:58] VITALS: BMI 28.8
--- NOTE | 2023-05-03 16:23 | P.PN ---
Subjective Progress Note Date: 05/03/23 Principal diagnosis: Diagnosis on admission: #1 hypotension #2 bradycardia in association with carvedilol patient heart rate 42 on admission in the ER as well as 40-39 in the office on the same medication #3 elevated troponin, etiology not clear by cardiology #4 coronary artery disease atherosclerotic artery disease #5 hyperlipidemia #6 coronary artery disease with two-vessel bypass graft was done at [facility]. #7 benign prostatic hypertrophy #8 congestive 10th heart failure with impaired ejection fraction to 30%. #9 and anxiety and depression. Progress note Date of service 05/03/[address] Camarena Patient seen today [id number] and discussed with his Patient seen today by Dr. Juju polanco, note on the chart by peyton Downing who indicate in her note that in accurate of bradycardia despite patient was on carvedilol and at this time they recommended medical management and they will manage the heart failure as well and they started his medication. And adjusted as well and they discontinue the carvedilol and the put him on beta blockers. Patient has episodic dizziness especially when he goes to the bathroom and I did advise a nurse to check orthostatic hypotension. Because of the congestive heart failure which indicated by elevated pro-BNP as well as troponin 1. On exam: His vital sign today temperature 97.6 F oral, pulse rate 66 bpm, respiratory rate 16 Blood pressure 118/56 with a mean 76 his oxygen on 2 L nasal cannula 99 and without the nasal cannula of oxygen 93%. Laboratory: No lab today will be drawn tomorrow Head was normocephalic and atraumatic pupil was equal reactive and oropharynx natural teeth Neck was supple no JVD no thyromegaly no lymphadenopathy trachea midline Chest midline scar from sternotomy, lung basis still have some rhonchi's. And he had a chest x-ray on admission indicated cardiomegaly with mild pulmonary edema and small bilateral pleural effusion in association with the congestive heart failure Heart regular at this time with the ejection fraction as mentioned by the cardiology 30% with cardiomegaly and ischemic cardiomyopathy Abdomen: Soft positive bowel sounds no tenderness in the 4 quadrants. Extremities no edema and positive pulses. Neurologically stable. Assessment: #1 abnormal troponin 3 need cardiology, #2 abnormal pro-BNP, with a chest x-ray pulmonary edema and rales on a uscultation which indicating congestive heart failure. #3 heart rate is normal at this time with the change of carvedilol, however he is on beta blockers and will be continue monitoring #4 patient is not ambulatory in bed and will start to ambulate and see if any symptoms are eyes by physical therapy. Plan: We'll continue currently the cardiology management. We'll obtain lab tomorrow. We'll follow cardiology order and opinion and the time of clearance for discharge. Objective - Vital Signs Vital signs: Vital Signs Temp 97.6 F 05/03/23 15:04 Pulse 66 05/03/23 15:04 Resp 16 05/03/23 15:04 BP 118/56 05/03/23 15:04 Pulse Ox 93 L 05/03/23 15:04 FiO2 Intake & Output 05/02/23 05/03/23 05/03/23 18:59 06:59 18:59 Intake Total 110 Output Total 1 Balance 109 Weight 76.204 kg 76.204 kg 76.204 kg Intake: Oral 110 Output: Urine 1 Other: Voiding Method Urinal Toilet Urinal # Voids 2 # Bowel Movements 1 - Labs CBC & Chem 7: 05/02/23 13:54 05/02/23 13:54 Labs: Abnormal Lab Results - Last 24 Hours (Table) 05/02/23 05/02/23 Range/Units 16:56 19:58 Troponin I 0.095 H* 0.097 H* (0.000-0.034) ng/mL
[2023-05-03] MEDS ORDERED: LOSARTAN 25 MG TAB PO SCH (21:00)
[2023-05-03] MEDS: CHOLECALCIFEROL 25 MCG (1000 IU) TABLET PO SCH (21:14)
[2023-05-03] MEDS: ATORVASTATIN 80 MG TAB PO SCH (21:14)
[2023-05-03] MEDS: LOSARTAN 25 MG TAB PO SCH (21:15)
[2023-05-03] MEDS: TAMSULOSIN 0.4 MG CAP.ER.24H PO SCH (21:15)
--- NOTE | 2023-05-04 08:00 | XR ---
EXAMINATION TYPE: XR chest 2V DATE OF EXAM: 05/04/2023 COMPARISON: 05/02/2023 INDICATION: Follow-up congestive heart failure TECHNIQUE: Frontal and lateral views of the chest are obtained. FINDINGS: The heart size is prominent. The pulmonary vasculature is slightly prominent. Right lower lobe infiltrate or effusion is present, increasing. IMPRESSION: 1. Increasing opacity right lateral lung base. Correlate for pleural effusion. Atelectasis should be considered. 2. Cardiomegaly with mild prominence of pulmonary vascular markings can be compatible with CHF.
[2023-05-04] MEDS: HEPARIN SODIUM,PORCINE 5,000 UNIT/ML 1 ML VIAL SQ SCH ×2 (08:21→20:56)
[2023-05-04] MEDS: METOPROLOL TARTRATE 25 MG TAB PO SCH ×2 (08:21→20:55)
[2023-05-04] MEDS: ESCITALOPRAM 20 MG TAB PO SCH (08:21)
[2023-05-04] MEDS: busPIRone HCl 5 MG TAB PO SCH ×2 (08:21→20:55)
[2023-05-04] MEDS: ASPIRIN 81 MG PO SCH (08:21)
[2023-05-04] MEDS: FUROSEMIDE 40 MG TAB PO SCH (08:21)
[2023-05-04 12:05] LABS: Basophils % (A) 0 %; Eosinophils % (A) 0 %; HCT 42.9 % (39.0-53.0); HGB 13.9 gm/dL (13.0-17.5); Hypochromasia Slight; Lymphocytes # (A) 0.8 k/uL (1.0-4.8); Lymphocytes % (A) 11 %; MCH 30.7 pg (25.0-35.0); MCHC 32.5 g/dL (31.0-37.0); MCV 94.3 fL (80.0-100.0); Monocytes # (A) 0.4 k/uL (0-1.0); Monocytes % (A) 6 %; Neutrophils # (A) 5.7 k/uL (1.3-7.7); Neutrophils % (A) 81 %; Platelet Count 100 k/uL (150-450); RBC 4.54 m/uL (4.30-5.90); RDW 13.9 % (11.5-15.5)
[2023-05-04 12:19] LABS: African American GFR (CKD) 50 (>60 ml/min/1.73 sqM); Anion Gap 9 mmol/L; Blood Urea Nitrogen 35 mg/dL (9-20); Carbon Dioxide 29 mmol/L (22-30); Chloride 98 mmol/L (98-107); Glucose 130 mg/dL (74-99); Magnesium 2.2 mg/dL (1.6-2.3); Non-African American GFR(CKD) 44 (>60 ml/min/1.73 sqM); Potassium 4.7 mmol/L (3.5-5.1); Sodium 136 mmol/L (137-145)
--- NOTE | 2023-05-04 14:34 | P.PN ---
Subjective Progress Note Date: 05/04/23 (Still shortness of breath, chest x-ray increase right pleural effusion) Progress note Date of service 05/04/[address] Camarena. Patient seen and evaluated [id number] discussed with the patient and his at bedside. His vital sign: This morning he was hypotensive with blood pressure 97/48 with the heart rate was 63 bpm however when down to the 50 PT per minute. His oxygen saturation was ranging between 100-99%. Complained: Still shortness of breath despite oxygen saturation is normal and the chest x-ray indicating increase the right pleural effusion we'll be consulting the pulmonary and critical care Dr. Ricardo. Patient did not seen yet by cardiology team. Laboratories: White count 7, hemoglobin 13.9, hematocrit 42.9, platelet count 100 no evidence of bleeding and he is on subcu heparin every 12 hours 5000 and no significant drop. As he bedridden for DVT prophylaxis as well as elevated troponin however the cardiology did not indicate need for IV heparin. Laboratories indicating that sodium 136, potassium 4.7, chloride 98, carbon dioxide 29., BUN on 05/02/2023 25 daily is 35, creatinine 1.15 on 05/02/2023 now 1.49 which increased indicating the effect of medication which is on diuretic Lasix for the congestive heart failure. Magnesium is normal 2.2 Troponin 10.102, 0.95, 0.0973 reading indicating high troponin Beta natruretic peptide, 9260 which indicated probably acute on the top of chronic with the ejection fraction of 30%. On exam: Conscious alert oriented 3 stated that he had shortness of breath and not feeling well. He is laying down on the Rhianna chair The head was normocephalic and atraumatic pupil was equal reactive, he had history in the past with 2 CVA and and bovine aortic valve. Neck was supple no JVD and it appeared to me that purely left-sided congestive heart failure as no edema of the lower extremities. History of right carotid endarterectomy Chest he has decreased air entry in the bases worse on the right with rales Heart cardiomegaly with regular sinus rhythm with a episode of bradycardia and episodes of low blood pressure Abdomen soft positive bowel sounds no organomegaly enlargement Extremities no edema and positive pulses. Neurologically stable Assessment and plan #1 continued to have shortness of breath and episodic bradycardia and hypotension. #2 short of breath in spite of the oxygen saturation and 2 L normal we'll be consulting the pulmonary to evaluate and treat. Chest x-ray was indicating increased pleural effusion #3 chronic congestive heart failure with acute on the top of chronic #4 elevated troponin 3 and cardiology did not indicate in the note of the cardiology team consideration of 90 STEMI DE. #5 aortic valve repair. #6 chest pain precordia not currently present. #7 will continue the cardiology management. Objective - Vital Signs Vital signs: Vital Signs Temp 97.9 F 05/04/23 08:18 Pulse 50 L 05/04/23 12:00 Resp 18 05/04/23 12:00 BP 107/49 05/04/23 12:00 Pulse Ox 99 05/04/23 12:00 FiO2 Intake & Output 05/03/23 05/04/23 05/04/23 18:59 06:59 18:59 Intake Total 220 540 240 Output Total 1 0 Balance 219 540 240 Weight 76.204 kg 77 kg Intake: Oral 220 540 240 Output: Urine 1 0 Stool 0 Urine/Stool Mix 0 Emesis 0 Oral Regurgitation 0 Other 0 Other: Voiding Method Toilet Toilet Toilet Urinal Urinal Urinal # Voids 2 0 # Bowel Movements 1 0 - Labs CBC & Chem 7: 05/04/23 11:16 05/04/23 11:16 Labs: Abnormal Lab Results - Last 24 Hours (Table) 05/04/23 05/04/23 Range/Units 11:16 11:16 Plt Count 100 L (150-450) k/uL Lymphocytes # 0.8 L (1.0-4.8) k/uL Sodium 136 L (137-145) mmol/L BUN 35 H (9-20) mg/dL Creatinine 1.49 H (0.66-1.25) mg/dL Glucose 130 H (74-99) mg/dL
--- NOTE | 2023-05-04 18:47 | P.PN ---
Subjective Progress Note Date: 05/04/23 Progress note: Patient is doing well from cardiac vessel standpoint. Blood pressure 107/64. Heart rate 52 beats a minute. BUN 35, creatinine 1.49. Yesterday creatinine was 1.15. Patient received IV diuretic in the ER and currently is by mouth diuretics. PHYSICAL EXAM: VITAL SIGNS: Reviewed. GENERAL: Well-developed in no acute distress. HEENT: Head is normocephalic. Pupils are equal, round. Sclerae anicteric. Mucous membranes of the mouth are moist. Neck supple. No JVD or thyromegaly LUNGS: Respirations even and unlabored. Lungs essentially clear to auscultation bilaterally. HEART: Irregular rate and rhythm. S1 and S2 heard. Systolic murmur noted ABDOMEN: Soft. Nondistended. Nontender. EXTREMITIES: Normal range of motion. No clubbing or cyanosis. Peripheral pulses intact. No lower extremity edema NEUROLOGIC: Awake and alert. Oriented x 3. ASSESSMENT: Chest pain with abnormal troponins, may be secondary to CAD versus frequent PVC burden Frequent PVC burden Bradycardia, ruled out, patient with sinus mechanism and frequent PVCs Coronary artery disease with previous CABG Known venous bypass graft occlusion x 2, per cardiac catheterization 2020 History of aortic insufficiency with aortic valve replacement at [facility] Ascending aortic aneurysm Ischemic cardiomyopathy, EF 30% Hypertension Hyperlipidemia PLAN: Continue Lasix 40 mg daily Resume losartan. Decrease dosage to 12.5 mg Continue metoprolol tartrate 25 mg twice a day Due to patient's low GFR we cannot perform a CT angiogram to monitor his ascending aortic aneurysm which his last measured at 4.8 cm. once kidney function improves, this should be done as an outpatient. Patient needs close follow-up with cardiology on an outpatient basis. Home oxygen evaluation and 6 minute walk test prior to discharge tomorrow 3 day holter monitor to quantify PVCs burden on discharge Objective - Vital Signs Vital signs: Vital Signs Temp 97.9 F 05/04/23 08:18 Pulse 52 L 05/04/23 15:20 Resp 18 05/04/23 15:20 BP 107/64 05/04/23 15:20 Pulse Ox 92 L 05/04/23 15:20 FiO2 Intake & Output 05/03/23 05/04/23 05/04/23 18:59 06:59 18:59 Intake Total 220 540 360 Output Total 1 500 Balance 219 540 -140 Weight 76.204 kg 77 kg Intake: Oral 220 540 360 Output: Urine 1 500 Stool 0 Urine/Stool Mix 0 Emesis 0 Oral Regurgitation 0 Other 0 Other: Voiding Method Toilet Toilet Toilet Urinal Urinal Urinal # Voids 2 0 # Bowel Movements 1 0 - Labs CBC & Chem 7: 05/04/23 11:16 12 11:16 Labs: Abnormal Lab Results - Last 24 Hours (Table) 05/04/23 05/04/23 Range/Units 11:16 11:16 Plt Count 100 L (150-450) k/uL Lymphocytes # 0.8 L (1.0-4.8) k/uL Sodium 136 L (137-145) mmol/L BUN 35 H (9-20) mg/dL Creatinine 1.49 H (0.66-1.25) mg/dL Glucose 130 H (74-99) mg/dL
[2023-05-04] MEDS: CHOLECALCIFEROL 25 MCG (1000 IU) TABLET PO SCH (20:55)
[2023-05-04] MEDS: ATORVASTATIN 80 MG TAB PO SCH (20:55)
[2023-05-04] MEDS: LOSARTAN 25 MG TAB PO SCH (20:55)
[2023-05-04] MEDS: TAMSULOSIN 0.4 MG CAP.ER.24H PO SCH (20:55)
[2023-05-05] MEDS: busPIRone HCl 5 MG TAB PO SCH ×2 (08:17→20:31)
[2023-05-05] MEDS: ESCITALOPRAM 20 MG TAB PO SCH (08:17)
[2023-05-05] MEDS: METOPROLOL TARTRATE 25 MG TAB PO SCH ×2 (08:17→20:32)
[2023-05-05] MEDS: ASPIRIN 81 MG PO SCH (08:17)
[2023-05-05] MEDS: BUMETANIDE 1 MG TAB PO SCH (08:17)
[2023-05-05] MEDS: HEPARIN SODIUM,PORCINE 5,000 UNIT/ML 1 ML VIAL SQ SCH ×2 (08:18→20:32)
--- NOTE | 2023-05-05 12:38 | P.CNPUL ---
History of Present Illness Consult date: 05/05/23 Requesting physician: Quinn Camarena Reason for consult: hypoxemia, pleural effusion, abnormal CXR/CT Chief complaint: Shortness of breath. History of present illness: Pulmonary consult dated 05/05/2023. 83-year-old male seen in the emergency department, on 05/02/2023, because of chest pain. He apparently was in the hospital 2 weeks prior, for similar complaints. He also complained of mild shortness of breath. The shortness of breath occur primarily on exertion. The patient does have a history of CHF. He also has had an aortic valve replacement. Currently, he is resting comfortably in room 379. He is on 2 L of oxygen. No IV fluids. Consulted, because of a right-sided pleural effusion. The patient will have an ultrasound of the right chest, to determine if there is enough fluid to do a thoracentesis safely. The patient has a history of coronary disease, CVA, hypertension, previous aortic valve replacement and bypass grafting, as well as previous right carotid surgery. The patient is a lifelong nonsmoker. Current laboratory data includes a white count 7, hemoglobin 13.9, hematocrit 42.9, and a platelet count of 100,000. Sodium 136, potassium 4.7, chlorides 98, CO2 29, BUN 35, and creatinine 1.49. The patient's troponins were 0.102, 0.095, and 0.097. In addition, his admission N-terminal proBNP was 9260, and from yesterday, it was 12,900. Chest x-ray showed a increasing right pleural effusion. There is also cardiomegaly. Pulmonary vascular markings were increased as well. Review of Systems REVIEW OF SYSTEMS: CONSTITUTIONAL: [Negative.] NEUROLOGIC: [ Negative.] HEENT: [ Negative.] CARDIAC: Chest pain. PULMONARY: Shortness of breath. GI: [Negative.] : [Negative.] RHEUMATOLOGIC: [ Negative.] IMMUNOLOGIC: [ Negative.] ENDOCRINE: [Negative. ] DERMATOLOGIC: [Negative.] Past Medical History Past Medical History: Coronary Artery Disease (CAD), CVA/TIA, Hypertension Additional Past Medical History / Comment(s): STATES HE GETS CYSTS AT THE SIGHT OF THE RIGHT CAROTID SURGERY SCAR, DRAINS PERDIODICALLY. MULTIPLE TIAs. - HOSPITALIZED 03/03/20-03/04/20 FOR TIA WITH LEFT ARM WEAKNESS & NUMBNESS WHICH HAS RESOLVED. LEAKY HEART VALVE, Fall with concussion in 2019. AVR and previou CABG 20 years ago History of Any Multi-Drug Resistant Organisms: None Reported Past Surgical History: Coronary Bypass/CABG, Joint Replacement, Orthopedic Surgery Additional Past Surgical History / Comment(s): AORTIC VALVE REPLACEMENT ([facility]OV[facility]). RIGHT CAROTID ENDARTERECTOMY (DR. HANKS. Nasal cauterization. Bilat knee replacements. CABG (2007) Past Anesthesia/Blood Transfusion Reactions: No Reported Reaction Past Psychological History: No Psychological Hx Reported Smoking Status: Never smoker Past Alcohol Use History: Rare Past Drug Use History: None Reported - Past Family History Mother Family Medical History: No Reported History Medications and Allergies Home Medications Medication Instructions Recorded Confirmed Type Atorvastatin [Lipitor] 80 mg PO HS 11/18/16 05/02/23 History Tamsulosin [Flomax] 0.8 mg PO HS 03/03/20 05/02/23 History busPIRone HCL 5 mg PO BID 03/24/20 05/02/23 History Aspirin EC [Ecotrin Low Dose] 81 mg PO DAILY 04/20/23 05/02/23 History Cholecalciferol [Vitamin D3 (25 50 mcg PO HS 04/20/23 05/02/23 History Mcg = 1000 Iu)] Escitalopram [Lexapro] 20 mg PO DAILY 04/20/23 05/02/23 History Prevagen 1 cap PO HS 05/02/23 05/02/23 History Allergies Allergy/AdvReac Type Severity Reaction Status Date / Time cephalexin [From Keflex] AdvReac Nausea & Verified 05/02/23 16:41 Vomiting & Diarrhea Physical Exam Osteopathic Statement: *. No significant issues noted on an osteopathic structural exam other than those noted in the History and Physical/Consult. Vitals: Vital Signs Temp Pulse Resp BP Pulse Ox 05/05/23 12:12 98 05/05/23 11:55 57 L 18 100/48 98 05/05/23 08:13 97.3 F L 87 18 95/56 99 05/05/23 03:46 62 18 118/65 100 05/04/23 23:37 98.1 F 61 18 95/52 99 05/04/23 20:01 72 18 127/91 100 05/04/23 15:20 52 L 18 107/64 92 L Intake and Output 12/02/23 12/03/23 12/03/23 22:59 06:59 14:59 Intake Total 120 240 Output Total 500 Balance -380 240 Intake: Oral 120 240 Output: Urine 500 Other: Voiding Method Toilet Toilet Toilet Urinal Urinal # Voids 2 1 Weight 76.5 kg No acute distress, oriented 3. Currently on 2 L of oxygen. Saturations 98%. No use of accessory muscles or conversational dyspnea. HEENT examination is grossly unremarkable. Mucous membranes are moist. No oral lesions. Neck supple. Full range of motion. No adenopathy thyromegaly or neck vein distention. Cardiovascular examination reveals regular rhythm rate. S1-S2 normal. No S3 or S4. No discernible murmur noted. Heart rate 57 bpm. Lungs reveal scattered rhonchi. Minimal crackles. No wheezes. Mild decreased breath sounds at the right base. Saturations are 98% on 2 L. Abdomen soft bowel sounds are heard. No masses or tenderness. Extremities are intact. No cyanosis clubbing or edema. Skin is without rash or lesion. Neurologic examination is brief but nonfocal. Results - Laboratory Findings CBC and BMP: 05/04/23 11:16 05/04/23 11:16 PT/INR, D-dimer PT 10.6 sec (10.0-12.5) 05/02/23 13:54 INR 1.0 (<1.2) 05/02/23 13:54 Abnormal lab findings: Abnormal Labs 05/02/23 05/02/23 05/02/23 13:54 13:54 13:54 Plt Count 105 L Lymphocytes # 0.7 L Sodium BUN 25 H Creatinine Glucose 107 H ALT 63 H Troponin I 0.102 H* 05/02/23 05/02/23 05/04/23 16:56 19:58 11:16 Plt Count 100 L Lymphocytes # 0.8 L Sodium BUN Creatinine Glucose ALT Troponin I 0.095 H* 0.097 H* 05/04/23 11:16 Plt Count Lymphocytes # Sodium 136 L BUN 35 H Creatinine 1.49 H Glucose 130 H ALT Troponin I - Diagnostic Findings Chest x-ray: image reviewed Assessment and Plan Assessment: Acute shortness of breath, secondary to CHF/right-sided pleural effusion. History of coronary artery disease, with previous bypass grafting. History of aortic insufficiency, status post aortic valve replacement. Ischemic cardiomyopathy, ejection fraction 30%. History of hypertension. History of hyperlipidemia. Ascending aortic aneurysm. History of CVA. Previous history of carotid artery surgery. Plan: Plan dated 05/05/2023. The patient is in no respiratory distress. We will order an ultrasound the right chest, with markings. Additional recommendations and suggestions are forthcoming. The patient may benefit from a thoracentesis, pending the results of the ultrasound. Labs, x-rays, and medications are reviewed. The patient's on 2 L. Saturations are 98%. Much of the history is obtained from the . We will continue to follow make recommendations along the way. Prognosis is guarded. Time with Patient: Greater than 30
--- NOTE | 2023-05-05 14:34 | US ---
EXAMINATION TYPE: US chest DATE OF EXAM: 05/05/2023 COMPARISON: XR 05/04/2023 CLINICAL INDICATION: Male, 83 years old with history of Right pleural effusion; Pleural effusion. TECHNIQUE: Targeted ultrasound of the posterior lower right hemithorax EXAM MEASUREMENTS: Right Pleural Effusion pocket size: 8.3 cm Right skin surface to fluid distance: 3.1 cm. Pocket was not marked due to lung tissue seen wit hin anterior fluid pocket at 3.1 cm as well. Right side NOT marked for possible thoracentesis outside the dept. Pulmonologists are able to review the images in the patient?s EMR. IMPRESSIONS: Right pleural effusion
--- NOTE | 2023-05-05 15:42 | P.PN ---
Subjective Progress Note Date: 05/05/23 Progress note Date of service 05/05/[address] Vikas Tomas. Patient seen [id number] today and discussed with the patient in detail and his granddaughter was at bedside [place]. Vital sign: 97.3 FL oral Heart rate fluctuating between 87 and 75. Respiratory rate 18/m nonlabored Blood pressure 95/56 and repeat 100/48 and a mean blood pressure between 69 and 65. Oxygen saturation on 2 L nasal cannula 98%. Patient seen by Dr. Griffith pulmonary and critical care and he had right pleural effusion which increased in size, Patient underwent ultrasound found to be 3.1 cm possible aspiration considered by Dr. Ricardo . Next week, tomorrow Pro-BNP increased from 9260 on 05/02/2023 to 28946 on 05/04/23 so apparently is not improving despite the patient had his medication including Lasix also had chronic kidney disease probably prerenal in origin as his creatinine went up from 1.15 to 1.49. Cardiology also ordered 6 minute walk tomorrow and will see the opinion of the cardiology rounding tomorrow. Dr. Matute cargo and ramp services manager saw the patient today as well On the [id number] exam: Head was normocephalic and atraumatic, pupil was equal reactive, oropharynx natural teeth, he had hearing deficit with hearing aid. Neck was supple no JVD no thyromegaly no lymphadenopathy Chest decreased air entry on the right lower lung with underlying pleural effusion and also the evidence of congestive heart failure Cardiac: He has a chronic congestive heart failure with acute of the top of chronic as well as elevated troponin on admission. Abdomen is soft positive bowel sounds Extremities no edema. Pulses. He had midline thoracotomy incision scar from previous surgery of aortic valve repair as well as he has 2 vessel bypass graft. Neurologically stable. Assessment: #1 abnormal troponin 3 times #2 coronary artery disease atherosclerotic heart disease and two-vessel bypass graft #3 acute congestive heart failure on the top of chronic with the underlying ischemic cardiomyopathy and ejection fraction 30% probably biventricular #4 of aortic aneurysm #5 chronic kidney disease stage III probably prerenal #6 bradycardia and hypotension on admission probably secondary to the impaired ejection fraction. #7 right pleural effusion 3.1 cm. Plan: #1 we'll wait for for further instruction by Dr. Ricardo pulmonary/or cold will be tomorrow rounding #2 also waiting for the 6 minute walk and the results by the cargo and ramp services manager will be rounding tomorrow #3 the clearance subsequently from both pulmonary and cardiology for discharge. #4 we'll continue the current medication if no changes by radiology Objective - Vital Signs Vital signs: Vital Signs Temp 97.3 F L 05/05/23 08:13 Pulse 57 L 05/05/23 11:55 Resp 18 05/05/23 11:55 BP 100/48 05/05/23 11:55 Pulse Ox 98 05/05/23 12:12 FiO2 Intake & Output 05/04/23 05/05/23 05/05/23 18:59 06:59 18:59 Intake Total 360 480 Output Total 500 Balance -140 480 Weight 76.5 kg Intake: Oral 360 480 Output: Urine 500 Stool 0 Urine/Stool Mix 0 Emesis 0 Oral Regurgitation 0 Other 0 Other: Voiding Method Toilet Toilet Toilet Urinal Urinal # Voids 0 2 1 # Bowel Movements 0 - Labs CBC & Chem 7: 05/04/23 11:16 05/04/23 11:16
--- NOTE | 2023-05-05 19:55 | P.PN ---
Subjective Progress Note Date: 05/05/23 Progress note: Patient is doing well from cardiac vessel standpoint. 100/48, pulse 57. Chest x-ray shows right lower lobe small loculated pleural effusion. This is worse from previous chest x-ray. Chest x-ray found measured at 8.2 cm. Pulmonary team was consulted for possible thoracentesis evaluation. Patient did not have any BMP levels drawn today. PHYSICAL EXAM: VITAL SIGNS: Reviewed. GENERAL: Well-developed in no acute distress. HEENT: Head is normocephalic. Pupils are equal, round. Sclerae anicteric. Mucous membranes of the mouth are moist. Neck supple. No JVD or thyromegaly LUNGS: Respirations even and unlabored. Lungs essentially clear to auscultation bilaterally. HEART: Irregular rate and rhythm. S1 and S2 heard. Systolic murmur noted ABDOMEN: Soft. Nondistended. Nontender. EXTREMITIES: Normal range of motion. No clubbing or cyanosis. Peripheral pulses intact. No lower extremity edema NEUROLOGIC: Awake and alert. Oriented x 3. ASSESSMENT: Moderate loculated right pleural effusion Chest pain with abnormal troponins, may be secondary to CAD versus frequent PVC burden Frequent PVC burden Bradycardia, ruled out, patient with sinus mechanism and frequent PVCs Coronary artery disease with previous CABG Known venous bypass graft occlusion x 2, per cardiac catheterization 2020 History of aortic insufficiency with aortic valve replacement at [facility] Ascending aortic aneurysm Ischemic cardiomyopathy, EF 30% Hypertension Hyperlipidemia PLAN: Continue Lasix 40 mg daily Resume losartan. Decrease dosage to 12.5 mg Continue metoprolol tartrate 25 mg twice a day Due to patient's low GFR we cannot perform a CT angiogram to monitor his as cending aortic aneurysm which his last measured at 4.8 cm. once kidney function improves, this should be done as an outpatient. Patient needs close follow-up with cardiology on an outpatient basis. Repeat BMP levels tomorrow Patient needs a 3 day Holter monitor to quantify patient's PVC burden and check heart rate trends on metoprolol tartrate 25 mg twice a day. This is very impor tant to be done prior to the discharge. Please instruct the patient to take the monitor from her clinic as this may the results are available to us on a early basis. Home oxygen evaluation and 6 minute walk test prior to discharge tomorrow Close follow-up with Dr. Lima outpatient for CAD and aortic aneurysm evaluation Objective - Vital Signs Vital signs: Vital Signs Temp 97.3 F L 05/05/23 08:13 Pulse 64 05/05/23 16:22 Resp 18 05/05/23 16:22 BP 119/47 05/05/23 16:22 Pulse Ox 99 05/05/23 16:22 FiO2 Intake & Output 05/05/23 05/05/23 05/06/23 06:59 18:59 06:59 Intake Total 600 Balance 600 Weight 76.5 kg Intake: Oral 600 Other: Voiding Method Toilet Toilet Urinal # Voids 2 3 - Labs CBC & Chem 7: 05/04/23 11:16 05/04/23 11:16
[2023-05-05] MEDS: ATORVASTATIN 80 MG TAB PO SCH (20:31)
[2023-05-05] MEDS: LOSARTAN 25 MG TAB PO SCH (20:31)
[2023-05-05] MEDS: CHOLECALCIFEROL 25 MCG (1000 IU) TABLET PO SCH (20:32)
[2023-05-05] MEDS: TAMSULOSIN 0.4 MG CAP.ER.24H PO SCH (20:32)
[2023-05-06 09:03] LABS: African American GFR (CKD) 64 (>60 ml/min/1.73 sqM); Anion Gap 9 mmol/L; Blood Urea Nitrogen 51 mg/dL (9-20); Carbon Dioxide 25 mmol/L (22-30); Chloride 101 mmol/L (98-107); Glucose 113 mg/dL (74-99); Non-African American GFR(CKD) 56 (>60 ml/min/1.73 sqM); Potassium 4.3 mmol/L (3.5-5.1); Sodium 135 mmol/L (137-145)
[2023-05-06] MEDS: BUMETANIDE 1 MG TAB PO SCH (09:12)
[2023-05-06] MEDS: METOPROLOL TARTRATE 25 MG TAB PO SCH ×2 (09:12→20:56)
[2023-05-06] MEDS: busPIRone HCl 5 MG TAB PO SCH ×2 (09:12→20:55)
[2023-05-06] MEDS: ESCITALOPRAM 20 MG TAB PO SCH (09:12)
[2023-05-06] MEDS: HEPARIN SODIUM,PORCINE 5,000 UNIT/ML 1 ML VIAL SQ SCH ×2 (09:12→20:56)
[2023-05-06] MEDS: ASPIRIN 81 MG PO SCH (09:12)
--- NOTE | 2023-05-06 11:13 | CDI ---
Documentation Clarification Form Date: From: Ashanti Barnes Phone: [phone] Admit Date: 05/02/2023 03:53:00 PM Patient Name: Redd Hay Visit Number: [id number] Discharge Date: ATTENTION: The Clinical Documentation Specialists (CDI) and [facility] Coding Staff appreciate your assistance in clarifying documentation. Please respond to the clarification below the line at the bottom and electronically sign. The CDI & [facility] Coding staff will review the response and follow-up if needed. Please note: Queries are made part of the Legal Health Record. If you have any questions, please contact the author of this message via ITS. Dr. Quinn Camarena Your patient has elevated troponin levels. Please clarify if there is an additional diagnosis and/or clinical significance related to this value. Patient history/risk factors: "83 years old white male seen yesterday in the office with the hypotensive and at that time he was not feeling well lethargic and weak and able to ambulate and at that time found that he has blood pressure was 98/38 and hypotensive." - Per H&P on 05/02 Clinical indicators: "Chest pain with abnormal troponins, may be secondary to CAD versus frequent PVC burden" - Per Progress Note on 05/05 Treatment: Per Cardiology Note on 05/03 "Discontinue IV Lasix. Begin oral Lasix 40 mg daily Resume losartan. Decrease dosage to 12.5 mg Discontinue carvedilol. Begin metoprolol tartrate 25 mg twice a day Continue additional cardiac medications Continue telemetry monitoring" "Patient needs a 3 day Holter monitor to quantify patient's PVC burden and check heart rate trends" - Per Progress Note on 05/05 Is there an additional diagnosis and/or clinical significance related to the above lab result/information: [ ] Type 2 MA due to CAD / Frequent PVC's [ ] Non-ischemic with acute myocardial injury [ ] No additional diagnosis/Not clinically significant [ ] Other, please specify [ x ] Unable to determine Please check with the cardiology, from the cardiology consult I could not find specific diagnosis to answer this question and please consult the cardiology for the above question. VANI
--- NOTE | 2023-05-06 14:22 | P.PN ---
Subjective Progress Note Date: 05/06/23 Progress note: Patient is doing well from cardiac vessel standpoint. 100/48, pulse 57. Chest x-ray shows right lower lobe small loculated pleural effusion. This is worse from previous chest x-ray. Chest x-ray found measured at 8.2 cm. Pulmonary team was consulted for possible thoracentesis evaluation. Patient did not have any BMP levels drawn today. 05/06 Patient states he had no problems overnight. He has less cough this morning. He thinks his breathing is a little bit better. No chest pain. His states when he gets to the bathroom and back he is very short of breath and even while in the bathroom he has to lean against the sink before he can walk up to this bed. He also was not eating very much and has low appetite. Ultrasound of the chest revealed right pleural effusion 8.3 cm. Discussed case with pulmonary medicine regarding plan for possible thoracentesis with IR. Blood pressure is 98/45, heart rate is in the 50s and 60s, pulse ox 92% on 2 L. Repeat blood work reveals sodium 135, potassium 4.3, BUN 51 creatinine 1.22. Patient is currently on Bumex 1 mg daily. PHYSICAL EXAM: VITAL SIGNS: Reviewed. GENERAL: Well-developed in no acute distress. HEENT: Head is normocephalic. Pupils are equal, round. Sclerae anicteric. Mucous membranes of the mouth are moist. Neck supple. No JVD or thyromegaly LUNGS: Respirations even and unlabored. Lungs essentially clear to auscultation bilaterally. HEART: Irregular rate and rhythm. S1 and S2 heard. Systolic murmur noted ABDOMEN: Soft. Nondistended. Nontender. EXTREMITIES: Normal range of motion. No clubbing or cyanosis. Peripheral pulses intact. No lower extremity edema NEUROLOGIC: Awake and alert. Oriented x 3. ASSESSMENT: Moderate loculated right pleural effusion Chest pain with abnormal troponins, may be secondary to CAD versus frequent PVC burden Frequent PVC burden Bradycardia, ruled out, patient with sinus mechanism and frequent PVCs Coronary artery disease with previous CABG Known venous bypass graft occlusion x 2, per cardiac catheterization 2020 History of aortic insufficiency with aortic valve replacement at [facility] Ascending aortic aneurysm Ischemic cardiomyopathy, EF 30% Hypertension Hyperlipidemia PLAN: Continue Bumex 1 mg daily Resume losartan 12.5 mg Continue metoprolol tartrate 25 mg twice a day Due to patient's low GFR we cannot perform a CT angiogram to monitor his ascending aortic aneurysm which his last measured at 4.8 cm. once kidney function improves, this should be done as an outpatient. Patient needs close follow-up with cardiology on an outpatient basis. Repeat BMP levels tomorrow Patient needs a 3 day Holter monitor to quantify patient's PVC burden and check heart rate trends on metoprolol tartrate 25 mg twice a day. This is very important to be done prior to the discharge. Please instruct the patient to take the monitor from her clinic as this may the results are available to us on a early basis. Close follow-up with Dr. Lima outpatient for CAD and aortic aneurysm evaluation Nurse practitioner note has been reviewed, I agree with the documented findings and plan of care. Patient was seen and examined. Objective - Vital Signs Vital signs: Vital Signs Temp 97.6 F 05/06/23 08:00 Pulse 60 05/06/23 08:00 Resp 18 05/06/23 08:00 BP 113/68 05/06/23 08:00 Pulse Ox 97 05/06/23 08:00 FiO2 Intake & Output 05/05/23 05/06/23 05/06/23 18:59 06:59 18:59 Intake Total 600 Output Total 0 Balance 600 0 Weight 77.7 kg Intake: Oral 600 Output: Stool 0 Other: Voiding Method Toilet Toilet # Voids 3 3 # Bowel Movements 0 - Labs CBC & Chem 7: 05/04/23 11:16 05/06/23 06:29 Labs: Abnormal Lab Results - Last 24 Hours (Table) 05/06/23 Range/Units 06:29 Sodium 135 L (137-145) mmol/L BUN 51 H (9-20) mg/dL Glucose 113 H (74-99) mg/dL
--- NOTE | 2023-05-06 14:58 | P.PN ---
Subjective Progress Note Date: 05/06/23 (Short of breath) Progress note Date of service 05/[address] Tomas. Patient seen and evaluated discussed with the patient and his at bedside. Patient seen by Dr. Mosqueda pulmonary and critical care for the right pleural effusion, is planned to repeat a chest x-ray tomorrow and to discuss with the patient if there is a need for thoracentesis of the right sided pleural effusion. Patient seen today by cardiology team and I did review that note of the nurse practitioner and I also reviewed the query questions and I referred them to the cardiology because I could not find answer in the cardiology note or recommendation they may be have a better idea of answering these questions. Vital sign temperature 97.4, pulse rate 58 with bradycardia, respiratory rate 24 with the shortness of breath, blood pressure 98/45, oxygen saturation 92 on 2 L nasal cannula. Laboratory: Sodium 135 potassium 4.3, chloride 101, carbon dioxide 25. BUN 51 creatinine 1.22 which is improved from yesterday., EGFR today 56 and yesterday was 44 which is some improvement in the renal function. Patient admitted with congestive heart failure pro-BNP more than 9000 on however in the repeating again worsened more than 12,000. Patient on the same medication with no changes as managed by cardiology. On exam: Patient's conscious alert week in bed Head was normocephalic and atraumatic, pupil was equal reactive, he had bilateral hearing deficit, oropharynx natural teeth, normal swallowing Neck was supple no JVD, right carotid endarterectomy with the fist formation, Chest decreased air entry on the bases mostly on the right sided, midline scar from previous thoracotomy for 2 vessel bypass graft and also aortic replacement bovine. He is not on any anticoagulant by cardiology. And minimal rales Heart regular sinus rhythm with cardiomegaly and murmur with aortic regurg Abdomen is soft positive bowel sounds no tenderness Extremities no edema and positive pulses Neurologically: He had history of CVA and TIA in the past but no recent event Assessment: #1 on admission elevated troponin 3 has been followed by cardiology #2 acute congestive heart failure on the top of chronic left sided systolic in nature #3 severe impairment of ejection fraction to 30% associated with ischemic cardiomyopathy. #4 chronic kidney disease secondary to prerenal with impaired ejection fraction #5 hypotension #6 bradycardia. #7 coronary artery disease atherosclerotic heart disease 2 vessel bypass graft #8 bovine aortic valve replacement with aortic regurg. Plan: #1 Dr. Mosqueda pulmonary and critical care plan for possible thoracentesis on the right side pleural effusion tomorrow. #20 cardiology seen the patient with the continuation of the same medication #3 patient still feeling short of breath. #4 plan to continue current medication #5 Dr. Matute associate counsel order 6 minute walk test however I am not sure the cardiology today when saw the patient is continued with these order or he discontinued it. #6 will follow cardiology recommendation and pulmonary recommendation. #7 discussed with his and the patient in detail. Objective - Vital Signs Vital signs: Vital Signs Temp 97.4 F L 05/06/23 12:00 Pulse 58 L 05/06/23 12:00 Resp 24 05/06/23 12:00 BP 98/45 05/06/23 12:00 Pulse Ox 92 L 05/06/23 12:00 FiO2 Intake & Output 05/05/23 05/06/23 05/06/23 18:59 06:59 18:59 Intake Total 600 118 Output Total 0 Balance 600 0 118 Weight 77.7 kg Intake: Oral 600 118 Output: Stool 0 Other: Voiding Method Toilet Toilet # Voids 3 3 # Bowel Movements 0 - Labs CBC & Chem 7: 05/04/23 11:16 05/06/23 06:29 Labs: Abnormal Lab Results - Last 24 Hours (Table) 05/06/23 Range/Units 06:29 Sodium 135 L (137-145) mmol/L BUN 51 H (9-20) mg/dL Glucose 113 H (74-99) mg/dL
--- NOTE | 2023-05-06 16:18 | P.PN ---
Subjective Progress Note Date: 05/06/23 83-year-old male seen in the emergency department, on 05/02/2023, because of chest pain. He apparently was in the hospital 2 weeks prior, for similar complaints. He also complained of mild shortness of breath. The shortness of breath occur primarily on exertion. The patient does have a history of CHF. He also has had an aortic valve replacement. Currently, he is resting comfortably in room 379. He is on 2 L of oxygen. No IV fluids. Consulted, because of a right-sided pleural effusion. The patient will have an ultrasound of the right chest, to determine if there is enough fluid to do a thoracentesis safely. The patient has a history of coronary disease, CVA, hypertension, previous aortic valve replacement and bypass grafting, as well as previous right carotid surgery. The patient is a lifelong nonsmoker. Current laboratory data includes a white count 7, hemoglobin 13.9, hematocrit 42.9, and a platelet count of 100,000. Sodium 136, potassium 4.7, chlorides 98, CO2 29, BUN 35, and creatinine 1.49. The patient's troponins were 0.102, 0.095, and 0.097. In addition, his admission N-terminal proBNP was 9260, and from yesterday, it was 12,900. Chest x-ray showed a increasing right pleural effusion. There is also cardiomegaly. Pulmonary vascular markings were increased as well.. On today's evaluation of 05/06/2023, the patient remains on 3 L of oxygen by nasal cannula. No syncope shortness of breath. Ultrasound of the chest was done and the patient is an 8 cm pocket in the right lung. The patient is impaired LV function with an ejection fraction of 35%. The patient has moderate degree of aortic regurgitation at the level of the prosthetic aortic valve. No significant shortness of breath at rest. Comorbidities include hypertension and hyperlipidemia and the patient is also known to have coronary artery disease and is undergone previous bypass surgery. The labs show a creatinine of 1.2 with a BUN of 51. Sodium was at 135. ProBNP level was 12,900. Limited edema lower extremities. No other new complaints otherwise for now. Objective - Vital Signs Vital signs: Vital Signs Temp 97.6 F 05/06/23 08:00 Pulse 60 05/06/23 08:00 Resp 18 05/06/23 08:00 BP 113/68 05/06/23 08:00 Pulse Ox 97 05/06/23 08:00 FiO2 Intake & Output 05/05/23 05/06/23 05/06/23 18:59 06:59 18:59 Intake Total 600 Output Total 0 Balance 600 0 Weight 77.7 kg Intake: Oral 600 Output: Stool 0 Other: Voiding Method Toilet Toilet # Voids 3 3 # Bowel Movements 0 - Exam No acute distress, oriented 3. Currently on 2 L of oxygen. Saturations 98%. No use of accessory muscles or conversational dyspnea. HEENT examination is grossly unremarkable. Mucous membranes are moist. No oral lesions. Neck supple. Full range of motion. No adenopathy thyromegaly or neck vein distention. Cardiovascular examination reveals regular rhythm rate. S1-S2 normal. No S3 or S4. No discernible murmur noted. Lungs reveal scattered rhonchi. Minimal crackles. No wheezes. Mild decreased breath sounds at the right base. Abdomen soft bowel sounds are heard. No masses or tenderness. Extremities are intact. No cyanosis clubbing or edema. Skin is without rash or lesion. Neurologic examination is brief but nonfocal. - Labs CBC & Chem 7: 05/04/23 11:16 05/06/23 06:29 Labs: Abnormal Lab Results - Last 24 Hours (Table) 05/06/23 Range/Units 06:29 Sodium 135 L (137-145) mmol/L BUN 51 H (9-20) mg/dL Glucose 113 H (74-99) mg/dL Assessment and Plan Plan: Acute shortness of breath, secondary to CHF/right-sided pleural effusion. Ultrasound of the chest shows a 8 cm pocket in the right lung History of coronary artery disease, with previous bypass grafting. History of aortic insufficiency, status post aortic valve replacement. Ischemic cardiomyopathy, ejection fraction 30%. Moderately elevated gradient across the bioprosthetic aortic valve with moderate degree of aortic valve regurgitation History of hypertension. History of hyperlipidemia. Ascending aortic aneurysm. History of CVA. Previous history of carotid artery surgery. Plan: Patient is currently on diuretics. The patient is receiving Bumex 1 mg by mouth daily Will likely need thoracentesis of the pleural effusion remains unchanged Clinically stable at 3 L of oxygen by nasal cannula with a pulse ox of 99% Renal function stable with creatinine of 1.2 Possible thoracentesis in the morning Provide incentive spirometer
[2023-05-06] MEDS: TAMSULOSIN 0.4 MG CAP.ER.24H PO SCH (20:55)
[2023-05-06] MEDS: LOSARTAN 25 MG TAB PO SCH (20:55)
[2023-05-06] MEDS: CHOLECALCIFEROL 25 MCG (1000 IU) TABLET PO SCH (20:55)
[2023-05-06] MEDS: ATORVASTATIN 80 MG TAB PO SCH (20:55)
--- NOTE | 2023-05-07 08:30 | XR ---
EXAMINATION TYPE: Two view chest xray DATE OF EXAM: 05/07/2023 COMPARISON: 05/04/2023 TECHNIQUE: PA and lateral views submitted. HISTORY: Pleural effusion FINDINGS: Heart is enlarged with postoperative changes. Prosthetic aortic valve. Atherosclerotic change aorta w ith bilateral consolidation and pleural effusion stable. Underlying COPD suspected. Degenerative menard ges spine and atherosclerotic change aorta. IMPRESSION: 1. Stable bilateral consolidation pleural effusion.
[2023-05-07] MEDS: METOPROLOL TARTRATE 25 MG TAB PO SCH ×2 (08:39→19:57)
[2023-05-07] MEDS: busPIRone HCl 5 MG TAB PO SCH ×2 (08:39→19:58)
[2023-05-07] MEDS: BUMETANIDE 1 MG TAB PO SCH (08:39)
[2023-05-07] MEDS: HEPARIN SODIUM,PORCINE 5,000 UNIT/ML 1 ML VIAL SQ SCH ×2 (08:39→19:58)
[2023-05-07] MEDS: ESCITALOPRAM 20 MG TAB PO SCH (08:39)
[2023-05-07] MEDS: ASPIRIN 81 MG PO SCH (08:39)
--- NOTE | 2023-05-07 10:49 | P.PN ---
Subjective Progress Note Date: 05/07/23 83-year-old male seen in the emergency department, on 05/02/2023, because of chest pain. He apparently was in the hospital 2 weeks prior, for similar complaints. He also complained of mild shortness of breath. The shortness of breath occur primarily on exertion. The patient does have a history of CHF. He also has had an aortic valve replacement. Currently, he is resting comfortably in room 379. He is on 2 L of oxygen. No IV fluids. Consulted, because of a right-sided pleural effusion. The patient will have an ultrasound of the right chest, to determine if there is enough fluid to do a thoracentesis safely. The patient has a history of coronary disease, CVA, hypertension, previous aortic valve replacement and bypass grafting, as well as previous right carotid surgery. The patient is a lifelong nonsmoker. Current laboratory data includes a white count 7, hemoglobin 13.9, hematocrit 42.9, and a platelet count of 100,000. Sodium 136, potassium 4.7, chlorides 98, CO2 29, BUN 35, and creatinine 1.49. The patient's troponins were 0.102, 0.095, and 0.097. In addition, his admission N-terminal proBNP was 9260, and from yesterday, it was 12,900. Chest x-ray showed a increasing right pleural effusion. There is also cardiomegaly. Pulmonary vascular markings were increased as well.. On today's evaluation of 05/06/2023, the patient remains on 3 L of oxygen by nasal cannula. No syncope shortness of breath. Ultrasound of the chest was done and the patient is an 8 cm pocket in the right lung. The patient is impaired LV function with an ejection fraction of 35%. The patient has moderate degree of aortic regurgitation at the level of the prosthetic aortic valve. No significant shortness of breath at rest. Comorbidities include hypertension and hyperlipidemia and the patient is also known to have coronary artery disease and is undergone previous bypass surgery. The labs show a creatinine of 1.2 with a BUN of 51. Sodium was at 135. ProBNP level was 12,900. Limited edema lower extremities. No other new complaints otherwise for now. on today's evaluation of 05/07/2023, the patient on 2 L of oxygen by nasal cannula. Still having some difficulties in breathing. No chest pain. No cough or sputum production. The patient has CHF with an ejection fraction of 35%. The patient has an 8 cm pocket of pleural fluid on the right.Labs from today showed a sodium level of 135, BUN is at 51 with a creatinine of 1.2 and the potassium levels of 4.3. The patient remains on Bumex 1 mg by mouth daily. Repeat chest x-ray from today shows stable bilateral pleural effusions slightly more on the right compared to the left. Objective - Vital Signs Vital signs: Vital Signs Temp 97.5 F L 05/07/23 08:35 Pulse 67 05/07/23 08:35 Resp 17 05/07/23 08:35 BP 117/55 05/07/23 08:35 Pulse Ox 99 05/07/23 08:35 FiO2 Intake & Output 05/06/23 05/07/23 05/07/23 18:59 06:59 18:59 Intake Total 118 Output Total 400 Balance 118 -400 Intake: Oral 118 Output: Urine 400 Stool 0 Other: Voiding Method Toilet Toilet # Voids 1 # Bowel Movements 0 - Labs CBC & Chem 7: 05/04/23 11:16 05/06/23 06:29 Assessment and Plan Plan: Acute shortness of breath, secondary to CHF/right-sided pleural effusion. Ultrasound of the chest shows a 8 cm pocket in the right lung History of coronary artery disease, with previous bypass grafting. History of aortic insufficiency, status post aortic valve replacement. Ischemic cardiomyopathy, ejection fraction 30%. Moderately elevated gradient across the bioprosthetic aortic valve with moderate degree of aortic valve regurgitation History of hypertension. History of hyperlipidemia. Ascending aortic aneurysm. History of CVA. Previous history of carotid artery surgery. Plan: we'll do a bedside diagnostic and therapeutic thoracentesis Patient is currently on diuretics. The patient is receiving Bumex 1 mg by mouth daily able on 2 L L of oxygen by nasal cannula with a pulse ox of 99% Renal function stable Possible thoracentesis today Provide incentive spirometer
[2023-05-07] MEDS ORDERED: BUMETANIDE 0.25 MG/ML 10 ML VIAL IV SCH (11:15)
[2023-05-07 12:00] LABS: African American GFR (CKD) 64 (>60 ml/min/1.73 sqM); Anion Gap 9 mmol/L; Blood Urea Nitrogen 50 mg/dL (9-20); Calcium 9.3 mg/dL (8.4-10.2); Carbon Dioxide 27 mmol/L (22-30); Chloride 98 mmol/L (98-107); Glucose 145 mg/dL (74-99); Non-African American GFR(CKD) 55 (>60 ml/min/1.73 sqM); Potassium 4.8 mmol/L (3.5-5.1); Sodium 134 mmol/L (137-145)
--- NOTE | 2023-05-07 12:24 | P.PN ---
Subjective Progress Note Date: 05/07/23 Progress note Date of service 05/07/[address] Camarena Patient seen [id number] discussed with the patient and his on bedside Vital sign: Temperature 97.5, pulse rate 67, respiratory rate 17, and blood pressure 117/55, mean blood pressure 75, oxygen saturation 99% on 2 L nasal cannula. Patient seen by Dr. Mosqueda pulmonary and critical care and had right sided thoracentesis which was dry. Patient seen by Dr. maryanne mark cardiology, we don't have yet his opinion and note from him or the nurse practitioner rounding with him yet The order chest x-ray tomorrow for follow-up. The stated that Dr. ERENDIRA Lima secondary to passage on the phone for the patient to have echocardiogram on Saturday and they cardiology office, and she is spoke with Dr. Lynch on the ground for the cardiology and that he told her he will order one no ordered yet on the chart and be greater on. Short of breath is intermittent as a complaint. His ejection fraction is low with the impaired systolic function, prostatic aortic valve bovine, aortic regurg with the ejection fraction in the past 30-35% with the underlying history of triple-vessel bypass graft as well as the aortic valve repair at [facility]. And resistant congestive heart failure with the current admission acute on the top of chronic. With the elevated troponin 3. On the exam: Head was normocephalic and atraumatic, pupil equal reactive, conjunctivae was pink, hearing deficit, oropharynx natural teeth Neck was supple with history of right carotid endarterectomy and cyst formation Chest is symmetrical with the mild hyperinflation probably with the thoracotomy, patient never smoked in the past. Heart: Cardiomegaly. With the underlying chronic congestive heart failure, acute on the top of chronic on admission. With the positive murmur. Abdomen soft positive bowel sounds no organ enlargement Extremities no edema of the lower extremities and positive pulses. Neurologically. He had history of TIA and CVA affected his speech in the past Assessment: And plan: #1 resistant congestive heart failure with the impaired ejection fraction with the associated elevated pro-BNP, elevated troponin 13, bilateral pleural eff usion, previous echo indicating 30-35 ejection fraction #2 ischemic cardiomyopathy #3 coronary artery disease atherosclerotic coronary artery disease. #4 short of breath with the complaint of problem Patient would have chest x-ray tomorrow for follow-up and will be seen by cardiology and the probable echocardiogram to be ordered by cardiology for evaluation and follow-up with Dr. Mosqueda as well. We'll follow the recommendations and plan for cardiology. We'll discharge patient when they cleared him for discharge. Objective - Vital Signs Vital signs: Vital Signs Temp 97.5 F L 05/07/23 08:35 Pulse 67 05/07/23 08:35 Resp 17 05/07/23 08:35 BP 117/55 05/07/23 08:35 Pulse Ox 99 05/07/23 08:35 FiO2 Intake & Output 05/06/23 05/07/23 05/07/23 18:59 06:59 18:59 Intake Total 118 240 Output Total 400 Balance 118 -400 240 Intake: Oral 118 240 Output: Urine 400 Stool 0 Other: Voiding Method Toilet Toilet # Voids 1 # Bowel Movements 0 1 - Labs CBC & Chem 7: 05/04/23 11:16 05/07/23 11:29 Labs: Abnormal Lab Results - Last 24 Hours (Table) 05/07/23 Range/Units 11:29 Sodium 134 L (137-145) mmol/L BUN 50 H (9-20) mg/dL Glucose 145 H (74-99) mg/dL
--- NOTE | 2023-05-07 12:33 | P.PN ---
Subjective Progress Note Date: 05/07/23 Progress note: Patient is doing well from cardiac vessel standpoint. 100/48, pulse 57. Chest x-ray shows right lower lobe small loculated pleural effusion. This is worse from previous chest x-ray. Chest x-ray found measured at 8.2 cm. Pulmonary team was consulted for possible thoracentesis evaluation. Patient did not have any BMP levels drawn today. 05/06 Patient states he had no problems overnight. He has less cough this morning. He thinks his breathing is a little bit better. No chest pain. His states when he gets to the bathroom and back he is very short of breath and even while in the bathroom he has to lean against the sink before he can walk up to this bed. He also was not eating very much and has low appetite. Ultrasound of the chest revealed right pleural effusion 8.3 cm. Discussed case with pulmonary medicine regarding plan for possible thoracentesis with IR. Blood pressure is 98/45, heart rate is in the 50s and 60s, pulse ox 92% on 2 L. Repeat blood work reveals sodium 135, potassium 4.3, BUN 51 creatinine 1.22. Patient is currently on Bumex 1 mg daily. 05/07 Patient states that he is breathing better today. His states that his breathing was were mild this morning. Repeat chest x-ray is stable bilateral consolidation pleural effusion. Pulmonary is following for thoracentesis possibly today. Blood pressure 117/55, heart rate in the 60s and 70s, pulse ox 99% on 2 L nasal cannula. Patient is maintained on IV Bumex 1 mg every 12 hours. PHYSICAL EXAM: VITAL SIGNS: Reviewed. GENERAL: Well-developed in no acute distress. HEENT: Head is normocephalic. Pupils are equal, round. Sclerae anicteric. Mucous membranes of the mouth are moist. Neck supple. No JVD or thyromegaly LUNGS: Respirations even and unlabored. Lungs essentially clear to auscultation bilaterally. HEART: Irregular rate and rhythm. S1 and S2 heard. Systolic murmur noted ABDOMEN: Soft. Nondistended. Nontender. EXTREMITIES: Normal range of motion. No clubbing or cyanosis. Peripheral pulses intact. No lower extremity edema NEUROLOGIC: Awake and alert. Oriented x 3. ASSESSMENT: Moderate loculated right pleural effusion Chest pain with abnormal troponins, may be secondary to CAD versus frequent PVC burden Frequent PVC burden Bradycardia, ruled out, patient with sinus mechanism and frequent PVCs Coronary artery disease with previous CABG Known venous bypass graft occlusion x 2, per cardiac catheterization 2020 History of aortic insufficiency with aortic valve replacement at [facility] Ascending aortic aneurysm Ischemic cardiomyopathy, EF 30% Hypertension Hyperlipidemia PLAN: Continue Bumex 1 mg daily IV increased to twice daily per pulmonary Continue losartan 12.5 mg Continue metoprolol tartrate 25 mg twice a day Repeat BMP levels tomorrow Start patient on Farxiga 10 mg daily OP monitoring of his ascending aortic aneurysm which his last measured at 4.8 cm. once kidney function improves. OP follow-up with Dr. Lima outpatient for CAD and aortic aneurysm evaluation Nurse practitioner note has been reviewed, I agree with the documented findings and plan of care. Patient was seen and examined. Objective - Vital Signs Vital signs: Vital Signs Temp 97.5 F L 05/07/23 08:35 Pulse 67 05/07/23 08:35 Resp 17 05/07/23 08:35 BP 117/55 05/07/23 08:35 Pulse Ox 99 05/07/23 08:35 FiO2 Intake & Output 05/06/23 05/07/23 05/07/23 18:59 06:59 18:59 Intake Total 118 240 Output Total 400 Balance 118 -400 240 Intake: Oral 118 240 Output: Urine 400 Stool 0 Other: Voiding Method Toilet Toilet # Voids 1 # Bowel Movements 0 1 - Labs CBC & Chem 7: 05/04/23 11:16 05/07/23 11:29
[2023-05-07] MEDS: DAPAGLIFLOZIN PROPANEDIOL 10 MG TABLET PO SCH (12:57)
[2023-05-07] MEDS: BUMETANIDE 0.25 MG/ML 4 ML VIAL IV SCH ×2 (12:59→19:58)
--- NOTE | 2023-05-07 15:24 | CDI ---
Documentation Clarification Form Date: 05/06/2023 11:14:00 AM From: Ashanti Barnes Phone: [phone] Admit Date: 05/02/2023 03:53:00 PM Patient Name: Redd Hay Visit Number: [id number] Discharge Date: ATTENTION: The Clinical Documentation Specialists (CDI) and [facility] Coding Staff appreciate your assistance in clarifying documentation. Please respond to the clarification below the line at the bottom and electronically sign. The CDI & [facility] Coding staff will review the response and follow-up if needed. Please note: Queries are made part of the Legal Health Record. If you have any questions, please contact the author of this message via ITS. Dr. Bay Woosd Your patient has elevated troponin levels. Please clarify if there is an additional diagnosis and/or clinical significance related to this value. Patient history/risk factors: "83 years old white male seen yesterday in the office with the hypotensive and at that time he was not feeling well lethargic and weak and able to ambulate and at that time found that he has blood pressure was 98/38 and hypotensive." - Per H&P on 05/02 Clinical indicators: "Chest pain with abnormal troponins, may be secondary to CAD versus frequent PVC burden" - Per Progress Note on 05/05 Treatment: Per Cardiology Note on 05/03 "Discontinue IV Lasix. Begin oral Lasix 40 mg daily Resume losartan. Decrease dosage to 12.5 mg Discontinue carvedilol. Begin metoprolol tartrate 25 mg twice a day Continue additional cardiac medications Continue telemetry monitoring" "Patient needs a 3 day Holter monitor to quantify patient's PVC burden and check heart rate trends" - Per Progress Note on 05/05 Is there an additional diagnosis and/or clinical significance related to the above lab result/information: [ ] Type 2 PA due to CAD / Frequent PVC's [ ] Non-ischemic with acute myocardial injury [ ] No additional diagnosis/Not clinically significant [ ] Other, please specify [ ] Unable to determine MTDD
[2023-05-07] MEDS: CHOLECALCIFEROL 25 MCG (1000 IU) TABLET PO SCH (19:57)
[2023-05-07] MEDS: TAMSULOSIN 0.4 MG CAP.ER.24H PO SCH (19:58)
[2023-05-07] MEDS: ATORVASTATIN 80 MG TAB PO SCH (19:58)
[2023-05-07] MEDS: LOSARTAN 25 MG TAB PO SCH (19:58)
--- NOTE | 2023-05-08 08:50 | XR ---
EXAMINATION TYPE: XR chest 2V DATE OF EXAM: 05/08/2023 COMPARISON: 05/07/2023 TECHNIQUE: PA and lateral views submitted. HISTORY: Pleural effusion FINDINGS: Bilateral consolidation and small effusion greater on the right. Post median sternotomy changes.. He art size is enlarged but no overt failure. Osseous structures demonstrate hypertrophic and degenerati ve changes of the spine. Bilateral AC joint arthropathy. Atherosclerotic change aorta. Prosthetic hea rt valve. IMPRESSION: 1. Bilateral consolidation and small effusion with mild progression of the right.
[2023-05-08] MEDS: BUMETANIDE 0.25 MG/ML 4 ML VIAL IV SCH ×2 (08:55→21:28)
[2023-05-08] MEDS: DAPAGLIFLOZIN PROPANEDIOL 10 MG TABLET PO SCH (08:55)
[2023-05-08] MEDS: busPIRone HCl 5 MG TAB PO SCH ×2 (08:56→21:28)
[2023-05-08] MEDS: ESCITALOPRAM 20 MG TAB PO SCH (08:56)
[2023-05-08] MEDS: HEPARIN SODIUM,PORCINE 5,000 UNIT/ML 1 ML VIAL SQ SCH ×2 (08:56→21:28)
[2023-05-08] MEDS: METOPROLOL TARTRATE 25 MG TAB PO SCH ×2 (08:56→21:28)
[2023-05-08] MEDS: ASPIRIN 81 MG PO SCH (08:56)
[2023-05-08 12:26] LABS: African American GFR (CKD) 63 (>60 ml/min/1.73 sqM); Anion Gap 14 mmol/L; Blood Urea Nitrogen 44 mg/dL (9-20); Carbon Dioxide 23 mmol/L (22-30); Chloride 98 mmol/L (98-107); Glucose 122 mg/dL (74-99); Non-African American GFR(CKD) 55 (>60 ml/min/1.73 sqM); Potassium 3.9 mmol/L (3.5-5.1); Sodium 135 mmol/L (137-145)
--- NOTE | 2023-05-08 13:57 | P.PN ---
Subjective Progress Note Date: 05/08/23 Progress note Date of service 05/08/[address] Camarena Patient seen and evaluated [id number] Son-in-law was in the room, patient also was started to have limited echocardiogram for evaluation of his valve and consolidation of the chronic congestive heart failure as well as elevated troponin Chest x-ray today suggestive of bilateral consolidation and small effusion with mild progressive of the right side Patient underwent right thoracentesis yesterday was dry no fluid obtained however will be waiting today for Dr. Vergara with the consideration of bilateral consolidation and if there is need for doing CT of the chest for pulmonary fibrosis or scar will wait for pulmonary oh.. Patient seen today and order for him limited echocardiogram which is in the process at the time I saw the patient with the mechanical laboratory technician in the room. Result in is pending after done today to see the opinion of the compliance testing analyst and if any for further investigation needed. Patient still short of breath. Vital signs today temperature 97.6 F oral, heart rate fluctuating between 67, 72, 58 Respiratory rate fluctuating between 23 respiratory rate at 4:46 AM to now at the time oblige 17. Blood pressure also fluctuating between 118/63 currently 106/59. Oxygen saturation 97% on 2 L. On the physical exam: Head was normocephalic and atraumatic Patient is conscious alert oriented 3 Oropharynx able to eat and swallow Neck supple and he had a right carotid endarterectomy for previous surgery with cyst formation no lymphadenopathy trachea midline Chest has symmetrical, with a midline thoracotomy healing incision from previous coronary artery bypass graft and the borderline of aortic valve replacement which was done in [place] for the hospital. Heart currently fluctuating between bradycardia and normal sinus rhythm however the bradycardia is borderline and insignificant Respiratory rate this morning was increased was tachypnea. His blood pressure is also fluctuating as mentioned above. The thoraxes mild hyperinflation with no history of smoking in the past. Abdomen is soft positive bowel sounds no tenderness. Extremities: No edema. Pulses. Neurologically stable he had history of TIA and CVA in the past affected his speech not present Assessment: This is a second admission to [facility] with the acute congestive heart failure on the top of chronic with the elevated troponin 3 and elevated proBNP. Underlying coronary artery disease atherosclerotic heart disease and two-vessel bypass and aortic valve replacement with the underlying aortic regurgitation. Hyperlipidemia Acute congestive heart failure on top of chronic. Depression and anxiety. Benign prostatic hypertrophy Hypertension with hypertensive heart disease currently normotensive with the treatment. Plan: Waiting for the cardiology opinion and definitive treatment if needed after evaluation of the limited echo with the evaluation of the aortic valve Waiting also for pulmonary and critical care for the evaluation with the chest x-ray indicating consolidation bilaterally and if we need to do a computed tomography scan of the chest were not. We will follow the opinion of cardiology and pulmonary We'll discharge him when he is clear by both consulting physician for definitive treatment. Objective - Vital Signs Vital signs: Vital Signs Temp 97.6 F 05/08/23 12:00 Pulse 58 L 05/08/23 12:00 Resp 17 05/08/23 12:00 BP 106/59 05/08/23 12:00 Pulse Ox 97 05/08/23 12:00 FiO2 Intake & Output 05/07/23 05/08/23 05/08/23 18:59 06:59 18:59 Intake Total 240 120 Output Total 0 Balance 240 0 120 Weight 77.4 kg Intake: Oral 240 120 Output: Stool 0 Other: Voiding Method Toilet Toilet Toilet # Voids 4 1 # Bowel Movements 1 - Labs CBC & Chem 7: 05/04/23 11:16 05/08/23 11:38 Labs: Abnormal Lab Results - Last 24 Hours (Table) 05/08/23 Range/Units 11:38 Sodium 135 L (137-145) mmol/L BUN 44 H (9-20) mg/dL Glucose 122 H (74-99) mg/dL
--- NOTE | 2023-05-08 14:27 | P.PN ---
Subjective Progress Note Date: 05/08/23 Progress note: Patient is doing well from cardiac vessel standpoint. 100/48, pulse 57. Chest x-ray shows right lower lobe small loculated pleural effusion. This is worse from previous chest x-ray. Chest x-ray found measured at 8.2 cm. Pulmonary team was consulted for possible thoracentesis evaluation. Patient did not have any BMP levels drawn today. 05/06 Patient states he had no problems overnight. He has less cough this morning. He thinks his breathing is a little bit better. No chest pain. His states when he gets to the bathroom and back he is very short of breath and even while in the bathroom he has to lean against the sink before he can walk up to this bed. He also was not eating very much and has low appetite. Ultrasound of the chest revealed right pleural effusion 8.3 cm. Discussed case with pulmonary medicine regarding plan for possible thoracentesis with IR. Blood pressure is 98/45, heart rate is in the 50s and 60s, pulse ox 92% on 2 L. Repeat blood work reveals sodium 135, potassium 4.3, BUN 51 creatinine 1.22. Patient is currently on Bumex 1 mg daily. 05/07 Patient states that he is breathing better today. His states that his breathing was were mild this morning. Repeat chest x-ray is stable bilateral consolidation pleural effusion. Pulmonary is following for thoracentesis possibly today. Blood pressure 117/55, heart rate in the 60s and 70s, pulse ox 99% on 2 L nasal cannula. Patient is maintained on IV Bumex 1 mg every 12 hours. 05/08 The patient has no new concerns today. He is maintained on IV Bumex 1 mg every 12 hours and yesterday was started on Farxiga. Blood pressure 106/59, heart rate 58, pulse ox 97% on 2 L nasal cannula. Repeat blood work reveals sodium 135, potassium 3.9, BUN 44 creatinine 1.24. PHYSICAL EXA pulse ox 97% on 2 L nasal cannula.M: VITAL SIGNS: Reviewed. GENERAL: Well-developed in no acute distress. HEENT: Head is normocephalic. Pupils are equal, round. Sclerae anicteric. Mucous membranes of the mouth are moist. Neck supple. No JVD or thyromegaly LUNGS: Respirations even and unlabored. Lungs essentially clear to auscultation bilaterally. HEART: Irregular rate and rhythm. S1 and S2 heard. Systolic murmur noted ABDOMEN: Soft. Nondistended. Nontender. EXTREMITIES: Normal range of motion. No clubbing or cyanosis. Peripheral pulses intact. No lower extremity edema NEUROLOGIC: Awake and alert. Oriented x 3. ASSESSMENT: Moderate loculated right pleural effusion Chest pain with abnormal troponins, may be secondary to CAD versus frequent PVC burden Frequent PVC burden Bradycardia, ruled out, patient with sinus mechanism and frequent PVCs Coronary artery disease with previous CABG Known venous bypass graft occlusion x 2, per cardiac catheterization 2020 History of aortic insufficiency with aortic valve replacement at [facility] Ascending aortic aneurysm Ischemic cardiomyopathy, EF 30% Hypertension Hyperlipidemia PLAN: Continue Bumex 1 mg daily IV increased to twice daily per pulmonary Continue losartan 12.5 mg Continue metoprolol tartrate 25 mg twice a day Repeat BMP levels tomorrow Continue patient on Farxiga 10 mg daily Limited echocardiogram order to evaluate aortic valve. Nurse practitioner note has been reviewed, I agree with the documented findings and plan of care. Patient was seen and examined. Objective - Vital Signs Vital signs: Vital Signs Temp 98 F 05/08/23 08:54 Pulse 72 05/08/23 08:54 Resp 16 05/08/23 08:54 BP 111/52 05/08/23 08:54 Pulse Ox 98 05/08/23 08:54 FiO2 Intake & Output 05/07/23 05/08/23 05/08/23 18:59 06:59 18:59 Intake Total 240 120 Output Total 0 Balance 240 0 120 Weight 77.4 kg Intake: Oral 240 120 Output: Stool 0 Other: Voiding Method Toilet Toilet Toilet # Voids 4 1 # Bowel Movements 1 - Labs CBC & Chem 7: 05/04/23 11:16 05/08/23 11:38 Labs: Abnormal Lab Results - Last 24 Hours (Table) 05/07/23 Range/Units 11:29 Sodium 134 L (137-145) mmol/L BUN 50 H (9-20) mg/dL Glucose 145 H (74-99) mg/dL
--- NOTE | 2023-05-08 16:48 | P.PN ---
Subjective Progress Note Date: 05/08/23 83-year-old male seen in the emergency department, on 05/02/2023, because of chest pain. He apparently was in the hospital 2 weeks prior, for similar complaints. He also complained of mild shortness of breath. The shortness of breath occur primarily on exertion. The patient does have a history of CHF. He also has had an aortic valve replacement. Currently, he is resting comfortably in room 379. He is on 2 L of oxygen. No IV fluids. Consulted, because of a right-sided pleural effusion. The patient will have an ultrasound of the right chest, to determine if there is enough fluid to do a thoracentesis safely. The patient has a history of coronary disease, CVA, hypertension, previous aortic valve replacement and bypass grafting, as well as previous right carotid surgery. The patient is a lifelong nonsmoker. Current laboratory data includes a white count 7, hemoglobin 13.9, hematocrit 42.9, and a platelet count of 100,000. Sodium 136, potassium 4.7, chlorides 98, CO2 29, BUN 35, and creatinine 1.49. The patient's troponins were 0.102, 0.095, and 0.097. In addition, his admission N-terminal proBNP was 9260, and from yesterday, it was 12,900. Chest x-ray showed a increasing right pleural effusion. There is also cardiomegaly. Pulmonary vascular markings were increased as well.. On today's evaluation of 05/06/2023, the patient remains on 3 L of oxygen by nasal cannula. No syncope shortness of breath. Ultrasound of the chest was done and the patient is an 8 cm pocket in the right lung. The patient is impaired LV function with an ejection fraction of 35%. The patient has moderate degree of aortic regurgitation at the level of the prosthetic aortic valve. No significant shortness of breath at rest. Comorbidities include hypertension and hyperlipidemia and the patient is also known to have coronary artery disease and is undergone previous bypass surgery. The labs show a creatinine of 1.2 with a BUN of 51. Sodium was at 135. ProBNP level was 12,900. Limited edema lower extremities. No other new complaints otherwise for now. on today's evaluation of 05/07/2023, the patient on 2 L of oxygen by nasal cannula. Still having some difficulties in breathing. No chest pain. No cough or sputum production. The patient has CHF with an ejection fraction of 35%. The patient has an 8 cm pocket of pleural fluid on the right.Labs from today showed a sodium level of 135, BUN is at 51 with a creatinine of 1.2 and the potassium levels of 4.3. The patient remains on Bumex 1 mg by mouth daily. Repeat chest x-ray from today shows stable bilateral pleural effusions slightly more on the right compared to the left. On today's evaluation of 05/08/2023, the patient is being seen for a follow-up. The patient remains on oxygen at 2 L/m cannula. Having some shortness of breath. Chest x-ray and the patient continues to have bilateral lower lobe consolidation and small effusions. There is essentially on the right. Note that I try to do a thoracentesis of the bedside on this patient and this was not successful. Based on that, I'm ordering a noncontrast CAT scan of the chest to further characterize abnormalities in the lower lobes bilaterally. The patient is currently on Bumex 1 mg IV every 12 hours. The blood work today shows a BUN of 44 with a creatinine of 1.2 and a sodium level is at 135. No other issues otherwise for now. Objective - Vital Signs Vital signs: Vital Signs Temp 97.8 F 05/08/23 16:00 Pulse 60 05/08/23 16:00 Resp 17 05/08/23 16:00 BP 110/51 05/08/23 16:00 Pulse Ox 99 05/08/23 16:00 FiO2 Intake & Output 05/07/23 05/08/23 05/08/23 18:59 06:59 18:59 Intake Total 240 360 Output Total 0 Balance 240 0 360 Weight 77.4 kg Intake: Oral 240 360 Output: Stool 0 Other: Voiding Method Toilet Toilet Toilet # Voids 4 1 # Bowel Movements 1 - Labs CBC & Chem 7: 05/04/23 11:16 05/08/23 11:38 Labs: Abnormal Lab Results - Last 24 Hours (Table) 05/08/23 Range/Units 11:38 Sodium 135 L (137-145) mmol/L BUN 44 H (9-20) mg/dL Glucose 122 H (74-99) mg/dL Assessment and Plan Plan: Acute shortness of breath, secondary to CHF/right-sided pleural effusion. Ultrasound of the chest shows a 8 cm pocket in the right lung. Thoracentesis was attempted and was not successful. We'll order a noncontrast CAT scan of the chest. History of coronary artery disease, with previous bypass grafting. History of aortic insufficiency, status post aortic valve replacement. Ischemic cardiomyopathy, ejection fraction 30%. Moderately elevated gradient across the bioprosthetic aortic valve with moderate degree of aortic valve regurgitation History of hypertension. History of hyperlipidemia. Ascending aortic aneurysm. History of CVA. Previous history of carotid artery surgery. Plan: Would proceed with a noncontrast CAT scan of the chest. At that thoracentesis earlier was difficult and not successful. Nevertheless, the chest x-ray still showing some consolidation and effusion in the right lung base. Patient is currently on diuretics. The patient is receiving Bumex 1 mg by mouth daily able on 2 L L of oxygen by nasal cannula with a pulse ox of 99% Renal function stable Possible thoracentesis if there is sizable effusion, this will be attempted again Provide incentive spirometer
--- NOTE | 2023-05-08 19:11 | CT ---
EXAMINATION TYPE: CT chest wo con DATE OF EXAM: 05/08/2023 COMPARISON: None HISTORY: pleural effusion CT DLP: 301.9 mGycm, Automated exposure control for dose reduction was used. CONTRAST: Performed injected with 0 mL of Isovue 300. TECHNIQUE: Axial images were obtained at 5 mm thick sections. Reconstructed images are reviewed on [employer] computer in the coronal plane. FINDINGS: Small Portion of the thyroid visualized is normal. No suspicious lung nodules or focal infiltrates are present. No enlarged mediastinal or hilar adenopathy is evident. The ascending aorta diameter at the level o f the main pulmonary artery is 4.7 cm. The main pulmonary artery diameter at the bifurcation is 3.4 cm. Moderate coronary artery calcification is present. The heart size is somewhat prominent. Limited CT sections are obtained through the upper abdomen. Abdomen is essentially unremarkable. IMPRESSION: 1. Small bilateral pleural effusions. 2. Ascending thoracic aortic aneurysm
[2023-05-08] MEDS: CHOLECALCIFEROL 25 MCG (1000 IU) TABLET PO SCH (21:27)
[2023-05-08] MEDS: ATORVASTATIN 80 MG TAB PO SCH (21:28)
[2023-05-08] MEDS: TAMSULOSIN 0.4 MG CAP.ER.24H PO SCH (21:28)
[2023-05-08] MEDS: LOSARTAN 25 MG TAB PO SCH (21:28)
--- NOTE | 2023-05-09 09:34 | CA ---
Transthoracic Echo Report Name: Redd Hay Age: 83 Gender: M : 1940 Exam Date: 05/08/2023 14:31 Exam Location: [facility] Ht (in): 64 Wt (lb): 170 Ordering Physician: Tessy Graves Attending/Referring Phys: [id number], [employer] Giancarlo Valenzuela Procedure CPT: Indications: recheck AV Cardiac Hx: Technical Quality: Fair Contrast 1: Total Dose (mL): Contrast 2: Total Dose (mL): MEASUREMENTS (Male / Female) Normal Values 2D ECHO LVOT Diameter 2.1 cm DOPPLER AV Peak Velocity 376.7 cm/s AV Peak Gradient 56.8 mmHg AI Peak Velocity 349.3 cm/s AI Peak Gradient 48.8 mmHg AI Pressure Half Time 304.5 ms LVOT Peak Velocity 87.2 cm/s LVOT Peak Gradient 3.0 mmHg LVOT Velocity Time Integral 22.0 cm LVOT Stroke Volume 79.4 cm??? LVOT Stroke Volume Index 43.5 ml/m??? LVOT Cardiac Index 2816.8 cm???/min???m??? AV Area Cont Eq pk 0.8 cm??? FINDINGS Left Ventricle Right Ventricle Right Atrium Left Atrium Mitral Valve Aortic Valve Bioprosthetic AV. At least moderate AI. Moderate Perivalvular leak. Estimated AV area by cont. Eq.= 0.9cm2 Tricuspid Valve Pulmonic Valve Pericardium Aorta CONCLUSIONS Bioprosthetic aortic valve with moderate perivalvular aortic insufficiency Elevated velocity across the aortic valve. The peak gradient was 55 mmHg. Previewed by: Dr. Jay Elliott MD (Electronically Signed) Final Date: 09 May 2023 09:33
[2023-05-09] MEDS: BUMETANIDE 0.25 MG/ML 4 ML VIAL IV SCH ×2 (10:15→20:30)
[2023-05-09] MEDS: ASPIRIN 81 MG PO SCH (10:15)
[2023-05-09] MEDS: HEPARIN SODIUM,PORCINE 5,000 UNIT/ML 1 ML VIAL SQ SCH ×2 (10:15→20:30)
[2023-05-09] MEDS: busPIRone HCl 5 MG TAB PO SCH ×2 (10:15→20:29)
[2023-05-09] MEDS: ESCITALOPRAM 20 MG TAB PO SCH (10:15)
[2023-05-09] MEDS: METOPROLOL TARTRATE 25 MG TAB PO SCH ×2 (10:15→20:29)
[2023-05-09] MEDS: DAPAGLIFLOZIN PROPANEDIOL 10 MG TABLET PO SCH (10:16)
[2023-05-09 10:27] LABS: African American GFR (CKD) 63 (>60 ml/min/1.73 sqM); Anion Gap 8 mmol/L; Blood Urea Nitrogen 42 mg/dL (9-20); Carbon Dioxide 31 mmol/L (22-30); Chloride 98 mmol/L (98-107); Glucose 133 mg/dL (74-99); Non-African American GFR(CKD) 54 (>60 ml/min/1.73 sqM); Potassium 3.8 mmol/L (3.5-5.1); Sodium 137 mmol/L (137-145)
--- NOTE | 2023-05-09 11:20 | P.PN ---
Subjective Progress Note Date: 05/09/23 Progress note Date of service 05/09/2023 Dictation by Patient seen [id number] discussed with his at bedside Vital sign: Temperature 97.8 F oral, pulse rate 74 bpm, respiratory rate 18. Nonlabored still short of breath. Blood pressure 114/53 and earlier today 105/69. Oxygen saturation on 2 L 97%. Investigation: CT of the chest without contrast impression small bilateral pleural effusion, ascending thoracic aortic aneurysm, size of the aneurysm 4.7 cm, pulmonary artery diameter 3.4 cm no consulate dictation. Echocardiogram limited for the aortic valve: Indicating bioprosthetic aortic valve with moderate aortic incompetence with moderate roddy-valvular leak with the conclusion bioprosthetic aortic valve with moderate 3 valvular aortic insufficiency Elevated velocity across the aortic valve the peak gradient 55 mmHg. Patient not seen yet by Dr. Ga Kraft cardiology, Dr. Mosqueda pulmonary for their opinion and any fourth of testing or definitive treatment or disposition yet. On the physical exam: Patient is conscious alert oriented 3 able to ambulate to the bathroom with oxygen nasal cannula 2 L. Head was normocephalic and atraumatic, pupil equal reactive, oropharynx natural teas no new event Neck was supple with the scar from right carotid endarterectomy and cyst f ormation no lymphadenopathy Chest has symmetrical, breath sounds with minimal rales bilaterally Heart: Regular sinus rhythm Positive murmur with the aortic valve bioprosthetic and gradient. Abdomen is soft positive bowel sounds Extremities no edema Assessment Patient admitted with elevated troponin 3 Acute congestive heart failure. Of chronic was pleural effusion. Ascending aortic aneurysm Dilated pulmonary artery appeared to be pulmonary hypertension Coronary artery disease, atherosclerotic heart disease 2 vessel bypass graft and bioprosthetic aortic valve. Ischemic cardiomyopathy with ejection fraction 30-35%. Plan: #1 we'll continue the current therapy #2 wait for the opinion of a cardiology as well as a pulmonary #3 and the decision to be discharged and cleared by both cardiology and pulmonary they will let me know and I will discharge patient according to their recommendation if there is no for further investigation or treatment to be rendered. Objective - Vital Signs Vital signs: Vital Signs Temp 97.8 F 05/09/23 08:00 Pulse 74 05/09/23 08:00 Resp 18 05/09/23 08:00 BP 114/53 05/09/23 08:00 Pulse Ox 97 05/09/23 08:00 FiO2 Intake & Output 05/08/23 05/09/23 05/09/23 18:59 06:59 18:59 Intake Total 480 Balance 480 Weight 77.2 kg Intake: Oral 480 Other: Voiding Method Toilet Toilet Toilet # Voids 1 2 2 - Labs CBC & Chem 7: 05/04/23 11:16 05/09/23 09:58 Labs: Abnormal Lab Results - Last 24 Hours (Table) 05/08/23 05/09/23 Range/Units 11:38 09:58 Sodium 135 L (137-145) mmol/L Carbon Dioxide 31 H (22-30) mmol/L BUN 44 H 42 H (9-20) mg/dL Glucose 122 H 133 H (74-99) mg/dL
--- NOTE | 2023-05-09 14:07 | P.PN ---
Subjective Progress Note Date: 05/09/23 Progress note: Patient is doing well from cardiac vessel standpoint. 100/48, pulse 57. Chest x-ray shows right lower lobe small loculated pleural effusion. This is worse from previous chest x-ray. Chest x-ray found measured at 8.2 cm. Pulmonary team was consulted for possible thoracentesis evaluation. Patient did not have any BMP levels drawn today. 05/06 Patient states he had no problems overnight. He has less cough this morning. He thinks his breathing is a little bit better. No chest pain. His states when he gets to the bathroom and back he is very short of breath and even while in the bathroom he has to lean against the sink before he can walk up to this bed. He also was not eating very much and has low appetite. Ultrasound of the chest revealed right pleural effusion 8.3 cm. Discussed case with pulmonary medicine regarding plan for possible thoracentesis with IR. Blood pressure is 98/45, heart rate is in the 50s and 60s, pulse ox 92% on 2 L. Repeat blood work reveals sodium 135, potassium 4.3, BUN 51 creatinine 1.22. Patient is currently on Bumex 1 mg daily. 05/07 Patient states that he is breathing better today. His states that his breathing was were mild this morning. Repeat chest x-ray is stable bilateral consolidation pleural effusion. Pulmonary is following for thoracentesis possibly today. Blood pressure 117/55, heart rate in the 60s and 70s, pulse ox 99% on 2 L nasal cannula. Patient is maintained on IV Bumex 1 mg every 12 hours. 05/08 The patient has no new concerns today. He is maintained on IV Bumex 1 mg every 12 hours and yesterday was started on Farxiga. Blood pressure 106/59, heart rate 58, pulse ox 97% on 2 L nasal cannula. Repeat blood work reveals sodium 135, potassium 3.9, BUN 44 creatinine 1.24. 05/09 Patient denies having any chest pain and dizziness. He states his breathing is stable. Echocardiogram reveals bioprosthetic aortic valve with moderate perivalvular aortic insufficiency. Elevated velocity across the aortic valve. Peak gradient 55 mmHg. Echocardiogram report results reviewed with the patient and his at bedside. CT of the chest reveals small bilateral pleural effusions. Ascending thoracic aortic aneurysm. PHYSICAL EXAM: VITAL SIGNS: Reviewed. GENERAL: Well-developed in no acute distress. HEENT: Head is normocephalic. Pupils are equal, round. Sclerae anicteric. Mucous membranes of the mouth are moist. Neck supple. No JVD or thyromegaly LUNGS: Respirations even and unlabored. Lungs essentially clear to auscultation bilaterally. HEART: Irregular rate and rhythm. S1 and S2 heard. Systolic and diastolic murmur noted ABDOMEN: Soft. Nondistended. Nontender. EXTREMITIES: Normal range of motion. No clubbing or cyanosis. Peripheral pulses intact. No lower extremity edema NEUROLOGIC: Awake and alert. Oriented x 3. ASSESSMENT: Moderate loculated right pleural effusion Chest pain with abnormal troponins, may be secondary to CAD versus frequent PVC burden Frequent PVC burden Bradycardia, ruled out, patient with sinus mechanism and frequent PVCs Coronary artery disease with previous CABG Known venous bypass graft occlusion x 2, per cardiac catheterization 2020 History of aortic insufficiency with aortic valve replacement at [facility] Ascending aortic aneurysm Ischemic cardiomyopathy, EF 30% Hypertension Hyperlipidemia PLAN: Continue Bumex 1 mg daily IV increased to twice daily per pulmonary Continue losartan 12.5 mg Continue metoprolol tartrate 25 mg twice a day Repeat BMP levels tomorrow Continue patient on Farxiga 10 mg daily At time of discharge, patient will follow-up with Dr. Lima in a week. Nurse practitioner note has been reviewed, I agree with the documented findings and plan of care. Patient was seen and examined. Objective - Vital Signs Vital signs: Vital Signs Temp 97.9 F 05/09/23 11:42 Pulse 75 05/09/23 11:42 Resp 18 05/09/23 13:25 BP 107/51 05/09/23 11:42 Pulse Ox 92 L 05/09/23 13:25 FiO2 Intake & Output 05/08/23 05/09/23 05/09/23 18:59 06:59 18:59 Intake Total 480 Balance 480 Weight 77.2 kg Intake: Oral 480 Other: Voiding Method Toilet Toilet Toilet # Voids 1 2 2 - Labs CBC & Chem 7: 05/04/23 11:16 05/09/23 09:58 Labs: Abnormal Lab Results - Last 24 Hours (Table) 05/09/23 Range/Units 09:58 Carbon Dioxide 31 H (22-30) mmol/L BUN 42 H (9-20) mg/dL Glucose 133 H (74-99) mg/dL
--- NOTE | 2023-05-09 15:48 | P.PN ---
Subjective Progress Note Date: 05/09/23 83-year-old male seen in the emergency department, on 05/02/2023, because of chest pain. He apparently was in the hospital 2 weeks prior, for similar complaints. He also complained of mild shortness of breath. The shortness of breath occur primarily on exertion. The patient does have a history of CHF. He also has had an aortic valve replacement. Currently, he is resting comfortably in room 379. He is on 2 L of oxygen. No IV fluids. Consulted, because of a right-sided pleural effusion. The patient will have an ultrasound of the right chest, to determine if there is enough fluid to do a thoracentesis safely. The patient has a history of coronary disease, CVA, hypertension, previous aortic valve replacement and bypass grafting, as well as previous right carotid surgery. The patient is a lifelong nonsmoker. Current laboratory data includes a white count 7, hemoglobin 13.9, hematocrit 42.9, and a platelet count of 100,000. Sodium 136, potassium 4.7, chlorides 98, CO2 29, BUN 35, and creatinine 1.49. The patient's troponins were 0.102, 0.095, and 0.097. In addition, his admission N-terminal proBNP was 9260, and from yesterday, it was 12,900. Chest x-ray showed a increasing right pleural effusion. There is also cardiomegaly. Pulmonary vascular markings were increased as well.. On today's evaluation of 05/06/2023, the patient remains on 3 L of oxygen by nasal cannula. No syncope shortness of breath. Ultrasound of the chest was done and the patient is an 8 cm pocket in the right lung. The patient is impaired LV function with an ejection fraction of 35%. The patient has moderate degree of aortic regurgitation at the level of the prosthetic aortic valve. No significant shortness of breath at rest. Comorbidities include hypertension and hyperlipidemia and the patient is also known to have coronary artery disease and is undergone previous bypass surgery. The labs show a creatinine of 1.2 with a BUN of 51. Sodium was at 135. ProBNP level was 12,900. Limited edema lower extremities. No other new complaints otherwise for now. on today's evaluation of 05/07/2023, the patient on 2 L of oxygen by nasal cannula. Still having some difficulties in breathing. No chest pain. No cough or sputum production. The patient has CHF with an ejection fraction of 35%. The patient has an 8 cm pocket of pleural fluid on the right.Labs from today showed a sodium level of 135, BUN is at 51 with a creatinine of 1.2 and the potassium levels of 4.3. The patient remains on Bumex 1 mg by mouth daily. Repeat chest x-ray from today shows stable bilateral pleural effusions slightly more on the right compared to the left. On today's evaluation of 05/08/2023, the patient is being seen for a follow-up. The patient remains on oxygen at 2 L/m cannula. Having some shortness of breath. Chest x-ray and the patient continues to have bilateral lower lobe consolidation and small effusions. There is essentially on the right. Note that I try to do a thoracentesis of the bedside on this patient and this was not successful. Based on that, I'm ordering a noncontrast CAT scan of the chest to further characterize abnormalities in the lower lobes bilaterally. The patient is currently on Bumex 1 mg IV every 12 hours. The blood work today shows a BUN of 44 with a creatinine of 1.2 and a sodium level is at 135. No other issues otherwise for now. On 05/09/2023, no new complaints and the patient remains on oxygen 2 L/m visit cannula. CAT scan of the chest was done yesterday the patient was found to have small bilateral pleural effusions. The patient is free of any chest pain. He is ambulating. He remains on Bumex 1 mg IV every 12 hours. The fluid balances not accurately reported. The patient's BUN is at 42 with a creatinine of 1.2 and a sodium level is at 137. On room air, his pulse ox improved is up to 92%. Breathing is nonlabored at this point in time. Objective - Vital Signs Vital signs: Vital Signs Temp 97.9 F 05/09/23 11:42 Pulse 75 05/09/23 11:42 Resp 18 05/09/23 13:25 BP 107/51 05/09/23 11:42 Pulse Ox 92 L 05/09/23 13:25 FiO2 Intake & Output 05/08/23 05/09/23 05/09/23 18:59 06:59 18:59 Intake Total 480 Balance 480 Weight 77.2 kg Intake: Oral 480 Other: Voiding Method Toilet Toilet Toilet # Voids 1 2 2 - Exam No acute distress, oriented 3. Currently on 2 L of oxygen. Saturations 98%. No use of accessory muscles or conversational dyspnea. HEENT examination is grossly unremarkable. Mucous membranes are moist. No oral lesions. Neck supple. Full range of motion. No adenopathy thyromegaly or neck vein distention. Cardiovascular examination reveals regular rhythm rate. S1-S2 normal. No S3 or S4. No discernible murmur noted. Lungs reveal scattered rhonchi. Minimal crackles. No wheezes. Mild decreased breath sounds at the right base. Abdomen soft bowel sounds are heard. No masses or tenderness. Extremities are intact. No cyanosis clubbing or edema. Skin is without rash or lesion. Neurologic examination is brief but nonfocal. - Labs CBC & Chem 7: 05/04/23 11:16 05/09/23 09:58 Labs: Abnormal Lab Results - Last 24 Hours (Table) 05/09/23 Range/Units 09:58 Carbon Dioxide 31 H (22-30) mmol/L BUN 42 H (9-20) mg/dL Glucose 133 H (74-99) mg/dL Assessment and Plan Plan: Acute shortness of breath, secondary to CHF/right-sided pleural effusion. Ultrasound of the chest shows a 8 cm pocket in the right lung. Thoracentesis was attempted and was not successful. CAT scan of the chest was noted and the patient was noted to have small bilateral pleural effusions, no airspace disease . No consolidation. History of coronary artery disease, with previous bypass grafting. History of aortic insufficiency, status post aortic valve replacement. Ischemic cardiomyopathy, ejection fraction 30%. Moderately elevated gradient across the bioprosthetic aortic valve with moderate degree of aortic valve regurgitation History of hypertension. History of hyperlipidemia. Ascending aortic aneurysm. History of CVA. Previous history of carotid artery surgery. Plan: Wean down FiO2 as tolerated currently on room air oxygen with a pulse ox of 92% CAT scan of the chest shows small bilateral pleural effusions, no need for thoracentesis Continue diuretics The patient is receiving Bumex 1 mg by mouth daily Renal function stable Provide incentive spirometer We'll follow
[2023-05-09] MEDS: CHOLECALCIFEROL 25 MCG (1000 IU) TABLET PO SCH (20:29)
[2023-05-09] MEDS: LOSARTAN 25 MG TAB PO SCH (20:29)
[2023-05-09] MEDS: ATORVASTATIN 80 MG TAB PO SCH (20:29)
[2023-05-09] MEDS: TAMSULOSIN 0.4 MG CAP.ER.24H PO SCH (20:29)
[2023-05-10 08:57] VITALS: RESP 18; TEMP 97.7
[2023-05-10] MEDS: busPIRone HCl 5 MG TAB PO SCH (09:03)
[2023-05-10] MEDS: METOPROLOL TARTRATE 25 MG TAB PO SCH (09:03)
[2023-05-10] MEDS: ESCITALOPRAM 20 MG TAB PO SCH (09:03)
[2023-05-10] MEDS: DAPAGLIFLOZIN PROPANEDIOL 10 MG TABLET PO SCH (09:03)
[2023-05-10] MEDS: HEPARIN SODIUM,PORCINE 5,000 UNIT/ML 1 ML VIAL SQ SCH (09:03)
[2023-05-10] MEDS: BUMETANIDE 0.25 MG/ML 4 ML VIAL IV SCH (09:04)
[2023-05-10] MEDS: ASPIRIN 81 MG PO SCH (09:05)
[2023-05-10 12:15] VITALS: BP 96/40; PULSE 64
--- NOTE | 2023-05-10 13:27 | CDI ---
Documentation Clarification Form Date: 05/07/2023 03:24:00 PM From: Ashanti Barnes Phone: [phone] Admit Date: 05/02/2023 03:53:00 PM Patient Name: Redd Hay Visit Number: [id number] Discharge Date: ATTENTION: The Clinical Documentation Specialists (CDI) and [facility] Coding Staff appreciate your assistance in clarifying documentation. Please respond to the clarification below the line at the bottom and electronically sign. The CDI & [facility] Coding staff will review the response and follow-up if needed. Please note: Queries are made part of the Legal Health Record. If you have any questions, please contact the author of this message via ITS. Dr. [place] Your patient has elevated troponin levels. Please clarify if there is an additional diagnosis and/or clinical significance related to this value. Patient history/risk factors: "83 years old white male seen yesterday in the office with the hypotensive and at that time he was not feeling well lethargic and weak and able to ambulate and at that time found that he has blood pressure was 98/38 and hypotensive." - Per H&P on 05/02 Clinical indicators: "Chest pain with abnormal troponins, may be secondary to CAD versus frequent PVC burden" - Per Progress Note on 05/05 Treatment: Per Cardiology Note on 05/03 "Discontinue IV Lasix. Begin oral Lasix 40 mg daily Resume losartan. Decrease dosage to 12.5 mg Discontinue carvedilol. Begin metoprolol tartrate 25 mg twice a day Continue additional cardiac medications Continue telemetry monitoring" "Patient needs a 3 day Holter monitor to quantify patient's PVC burden and check heart rate trends" - Per Progress Note on 05/05 Is there an additional diagnosis and/or clinical significance related to the above lab result/information: [ X] Type 2 OH due to CAD / Frequent PVC's [ ] Non-ischemic with acute myocardial injury [ ] No additional diagnosis/Not clinically significant [ ] Other, please specify [ ] Unable to determine MTDD
--- NOTE | 2023-05-10 13:32 | P.PN ---
Subjective Progress Note Date: 05/10/23 Progress note: Patient is doing well from cardiac vessel standpoint. 100/48, pulse 57. Chest x-ray shows right lower lobe small loculated pleural effusion. This is worse from previous chest x-ray. Chest x-ray found measured at 8.2 cm. Pulmonary team was consulted for possible thoracentesis evaluation. Patient did not have any BMP levels drawn today. 05/06 Patient states he had no problems overnight. He has less cough this morning. He thinks his breathing is a little bit better. No chest pain. His states when he gets to the bathroom and back he is very short of breath and even while in the bathroom he has to lean against the sink before he can walk up to this bed. He also was not eating very much and has low appetite. Ultrasound of the chest revealed right pleural effusion 8.3 cm. Discussed case with pulmonary medicine regarding plan for possible thoracentesis with IR. Blood pressure is 98/45, heart rate is in the 50s and 60s, pulse ox 92% on 2 L. Repeat blood work reveals sodium 135, potassium 4.3, BUN 51 creatinine 1.22. Patient is currently on Bumex 1 mg daily. 05/07 Patient states that he is breathing better today. His states that his breathing was were mild this morning. Repeat chest x-ray is stable bilateral consolidation pleural effusion. Pulmonary is following for thoracentesis possibly today. Blood pressure 117/55, heart rate in the 60s and 70s, pulse ox 99% on 2 L nasal cannula. Patient is maintained on IV Bumex 1 mg every 12 hours. 05/08 The patient has no new concerns today. He is maintained on IV Bumex 1 mg every 12 hours and yesterday was started on Farxiga. Blood pressure 106/59, heart rate 58, pulse ox 97% on 2 L nasal cannula. Repeat blood work reveals sodium 135, potassium 3.9, BUN 44 creatinine 1.24. 05/09 Patient denies having any chest pain and dizziness. He states his breathing is stable. Echocardiogram reveals bioprosthetic aortic valve with moderate perivalvular aortic insufficiency. Elevated velocity across the aortic valve. Peak gradient 55 mmHg. Echocardiogram report results reviewed with the patient and his at bedside. CT of the chest reveals small bilateral pleural effusions. Ascending thoracic aortic aneurysm. 05/10 Today in follow-up. He states his breathing is better and actually walked in the pederson. No chest pain. Vital signs are stable. He is anticipating discharge home today. Heart rate is in the 60s, blood pressure 96/40. Repeat blood work reveals BUN 42, creatinine 1.2, potassium 3.8. PHYSICAL EXAM: VITAL SIGNS: Reviewed. GENERAL: Well-developed in no acute distress. HEENT: Head is normocephalic. Pupils are equal, round. Sclerae anicteric. Mucous membranes of the mouth are moist. Neck supple. No JVD or thyromegaly LUNGS: Respirations even and unlabored. Lungs essentially clear to auscultation bilaterally. HEART: Irregular rate and rhythm. S1 and S2 heard. Systolic and diastolic murmur noted ABDOMEN: Soft. Nondistended. Nontender. EXTREMITIES: Normal range of motion. No clubbing or cyanosis. Peripheral pulses intact. No lower extremity edema NEUROLOGIC: Awake and alert. Oriented x 3. ASSESSMENT: Moderate loculated right pleural effusion Chest pain with abnormal troponins, may be secondary to CAD versus frequent PVC burden Frequent PVC burden Bradycardia, ruled out, patient with sinus mechanism and frequent PVCs Coronary artery disease with previous CABG Known venous bypass graft occlusion x 2, per cardiac catheterization 2020 History of aortic insufficiency with aortic valve replacement at [facility] Ascending aortic aneurysm Ischemic cardiomyopathy, EF 30% Hypertension Hyperlipidemia PLAN: Continue Bumex 1 mg daily IV increased to twice daily per pulmonary Continue losartan 12.5 mg Continue metoprolol tartrate 25 mg twice a day Continue patient on Farxiga 10 mg daily At time of discharge, patient will follow-up with Dr. Lima in a week. Patient is cleared from cardiology for discharge. Nurse practitioner note has been reviewed, I agree with the documented findings and plan of care. Patient was seen and examined. Objective - Vital Signs Vital signs: Vital Signs Temp 97.7 F 05/10/23 08:50 Pulse 69 05/10/23 10:01 Resp 18 05/10/23 10:01 BP 104/43 05/10/23 08:50 Pulse Ox 92 L 05/10/23 08:50 FiO2 Intake & Output 05/09/23 05/10/23 05/10/23 18:59 06:59 18:59 Intake Total 0 360 Balance 0 360 Weight 79.8 kg Intake: Oral 0 360 Other: Voiding Method Toilet Toilet Toilet # Voids 1 2 - Labs CBC & Chem 7: 05/04/23 11:16 05/09/23 09:58
--- NOTE | 2023-05-10 15:34 | P.DS ---
Providers Date of admission: 05/02/23 15:53 Attending physician: Quinn Camarena Consults: 05/02/23 15:53 Consult Physician ONCE Consulting Provider: Jay Elliott Consult Reason/Comments: CHF, CP Do you want consulting provider notified?: Yes 05/04/23 13:59 Consult Physician Urgent Consulting Provider: Uziel Ricardo Consult Reason/Comments: Pleural effusion increasing Do you want consulting provider notified?: Yes Primary care physician: Quinn Camarena Discharge summary Date of service 05/10/2023. Disposition: Stable general condition to go home today with a clearance of cardiology and pulmonary Follow-up with the above consultation physician Dr. Mosqueda as outpatient pulmonary and critical Dr. ERENDIRA Lima cardiology. Final diagnosis #1 acute congestive heart failure on the top of chronic #2 ischemic cardiomyopathy with ejection fraction 30-35%. #3 abnormal elevation of troponin 3 #4 bilateral pleural effusion worse on the right than the left with dry By pulmonary. #5 bradycardia on admission #6 coronary artery atherosclerosis with coronary artery bypass graft 2 #7 with underlying aortic valve with perivalvular leak with aortic incompetence "" insufficiency #8 ascending thoracic aortic aneurysm #Chronic kidney disease stage III secondary to prerenal with the lower ejection fraction of the heart 30%. History of hypertension Hyper lipidemia Recommendation and changes of medication by cardiology and the pulmonary. #1 Bumex 1 mg twice a day by mouth initially was IV and change it to by mouth ordered by pulmonary #2 losartan 12.5 mg ordered by cardiology Metoprolol tartrate 25 mg twice a day with discontinuation of the carvedilol by cardiology Pharmacy got 10 mg by mouth daily by cardiology. Medication reconciled and prescription ordered. Presentation to the emergency room: Precordial chest pain and shortness Pross, pleural effusion and elevated troponin 3 as well as elevated NTpro-BNP, normal pro-calcitonin Hospital course: Consultation with cardiology and subsequently pulmonary because of the shortness of breath and the pleural effusion was persistent. Patient diuresed, attempt of right pleural thoracentesis and was the right. CT of the chest follow-up and there is no consolidation or pneumonia with the prazosin of the congestive heart failure. Management with cardiology and pulmonary and currently patient cleared for discharge home by pulmonary and cardiology to be followed as outpatient. Discussed that with the patient and his and his daughter at bedside. 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 ERENDIRA Lima HEENT: No changes, head was normocephalic atraumatic, pupils equal reactive, oropharynx natural teeth, he had bilateral hearing deficit. Neck right carotid endarterectomy with the cyst formation has been followed by vascular surgeon no JVD no thyromegaly no lymphadenopathy trachea midline Chest: Symmetrical lung is created bilaterally minimal basilar rales with chronic congestive heart failure but able to [place] better. Heart: Cardiomegaly murmur on the aortic area and apex of the heart with underlying bovine aortic valve for history of aortic stenosis and currently he had. Aortic valve peak with mitral incompetence with the underlying ejection fraction of 30-35%. Patient during this hospitalization has limited echocardiogram for the aortic valve specifically and this is his second hospitalization and the prior one he had full echocardiogram. Abdomen is soft positive bowel sounds no organomegaly enlargement able to urinate and have a bowel movement Extremities no edema and positive pulses and he able to go to the bathroom. Neurologically stable no lateralizing sign no new events. Assessment: Patient stable general condition to be discharged home today, prescription given as also send to right 8 as well We'll follow him in 3-5 days as outpatient and he needs to follow-up with Dr. ERENDIRA Lima in 1 week as well as to follow-up with Dr. Mosqueda. Plan we'll continue medication which was designed ordered by cardiology and I continue the prescription as cardiology and pulmonary did not leave the pr escription for the patient . Diet cardiac. Activity as tolerated Please send copy to Dr. ERENDIRA Lima cardiology and Dr. Mosqueda for the follow-up thank you Patient Condition at Discharge: Stable Plan - Discharge Summary Discharge Rx Participant: No New Discharge Prescriptions: New Bumetanide [BUMEX] 1 mg PO BID@0900,1600 #60 tab Tamsulosin [Flomax] 0.4 mg PO HS cap Losartan [Cozaar] 12.5 mg PO HS #30 tab Dapagliflozin Propanediol [Farxiga] 10 mg PO DAILY 30 Days #30 tab Metoprolol Tartrate [Lopressor] 25 mg PO BID #60 tab Continue Atorvastatin [Lipitor] 80 mg PO HS busPIRone HCL 5 mg PO BID Prevagen 1 cap PO HS Aspirin EC [Ecotrin Low Dose] 81 mg PO DAILY Cholecalciferol [Vitamin D3 (25 Mcg = 1000 Iu)] 50 mcg PO HS Escitalopram [Lexapro] 20 mg PO DAILY Discontinued Tamsulosin [Flomax] 0.8 mg PO HS Discharge Medication List Atorvastatin [Lipitor] 80 mg PO HS 11/18/16 [History] busPIRone HCL 5 mg PO BID 03/24/20 [History] Aspirin EC [Ecotrin Low Dose] 81 mg PO DAILY 04/20/23 [History] Cholecalciferol [Vitamin D3 (25 Mcg = 1000 Iu)] 50 mcg PO HS 04/20/23 [History] Escitalopram [Lexapro] 20 mg PO DAILY 04/20/23 [History] Prevagen 1 cap PO HS 05/02/23 [History] Bumetanide [BUMEX] 1 mg PO BID@0900,1600 #60 tab 05/10/23 [Rx] Dapagliflozin Propanediol [Farxiga] 10 mg PO DAILY 30 Days #30 tab 05/10/23 [Rx] Losartan [Cozaar] 12.5 mg PO HS #30 tab 05/10/23 [Rx] Metoprolol Tartrate [Lopressor] 25 mg PO BID #60 tab 05/10/23 [Rx] Tamsulosin [Flomax] 0.4 mg PO HS cap 05/10/23 [Rx] Follow up Appointment(s)/Referral(s): Christnia Lima MD [STAFF PHYSICIAN] - 1 Week Quinn Camarena MD [Primary Care Provider] - Discharge/Stand Alone Forms: Who Do I Call?, Personal Tile Inspector
[2023-05-10] MEDS ORDERED: BUMETANIDE 1 MG TAB PO SCH (16:00)
--- NOTE | 2023-05-10 16:27 | P.PN ---
Subjective Progress Note Date: 05/10/23 83-year-old male seen in the emergency department, on 05/02/2023, because of chest pain. He apparently was in the hospital 2 weeks prior, for similar complaints. He also complained of mild shortness of breath. The shortness of breath occur primarily on exertion. The patient does have a history of CHF. He also has had an aortic valve replacement. Currently, he is resting comfortably in room 379. He is on 2 L of oxygen. No IV fluids. Consulted, because of a right-sided pleural effusion. The patient will have an ultrasound of the right chest, to determine if there is enough fluid to do a thoracentesis safely. The patient has a history of coronary disease, CVA, hypertension, previous aortic valve replacement and bypass grafting, as well as previous right carotid surgery. The patient is a lifelong nonsmoker. Current laboratory data includes a white count 7, hemoglobin 13.9, hematocrit 42.9, and a platelet count of 100,000. Sodium 136, potassium 4.7, chlorides 98, CO2 29, BUN 35, and creatinine 1.49. The patient's troponins were 0.102, 0.095, and 0.097. In addition, his admission N-terminal proBNP was 9260, and from yesterday, it was 12,900. Chest x-ray showed a increasing right pleural effusion. There is also cardiomegaly. Pulmonary vascular markings were increased as well.. On today's evaluation of 05/06/2023, the patient remains on 3 L of oxygen by nasal cannula. No syncope shortness of breath. Ultrasound of the chest was done and the patient is an 8 cm pocket in the right lung. The patient is impaired LV function with an ejection fraction of 35%. The patient has moderate degree of aortic regurgitation at the level of the prosthetic aortic valve. No significant shortness of breath at rest. Comorbidities include hypertension and hyperlipidemia and the patient is also known to have coronary artery disease and is undergone previous bypass surgery. The labs show a creatinine of 1.2 with a BUN of 51. Sodium was at 135. ProBNP level was 12,900. Limited edema lower extremities. No other new complaints otherwise for now. on today's evaluation of 05/07/2023, the patient on 2 L of oxygen by nasal cannula. Still having some difficulties in breathing. No chest pain. No cough or sputum production. The patient has CHF with an ejection fraction of 35%. The patient has an 8 cm pocket of pleural fluid on the right.Labs from today showed a sodium level of 135, BUN is at 51 with a creatinine of 1.2 and the potassium levels of 4.3. The patient remains on Bumex 1 mg by mouth daily. Repeat chest x-ray from today shows stable bilateral pleural effusions slightly more on the right compared to the left. On today's evaluation of 05/08/2023, the patient is being seen for a follow-up. The patient remains on oxygen at 2 L/m cannula. Having some shortness of breath. Chest x-ray and the patient continues to have bilateral lower lobe consolidation and small effusions. There is essentially on the right. Note that I try to do a thoracentesis of the bedside on this patient and this was not successful. Based on that, I'm ordering a noncontrast CAT scan of the chest to further characterize abnormalities in the lower lobes bilaterally. The patient is currently on Bumex 1 mg IV every 12 hours. The blood work today shows a BUN of 44 with a creatinine of 1.2 and a sodium level is at 135. No other issues otherwise for now. On 05/09/2023, no new complaints and the patient remains on oxygen 2 L/m visit cannula. CAT scan of the chest was done yesterday the patient was found to have small bilateral pleural effusions. The patient is free of any chest pain. He is ambulating. He remains on Bumex 1 mg IV every 12 hours. The fluid balances not accurately reported. The patient's BUN is at 42 with a creatinine of 1.2 and a sodium level is at 137. On room air, his pulse ox improved is up to 92%. Breathing is nonlabored at this point in time. on 05/10/2020, the patient is on room air oxygen. No respiratory difficulties. He is ambulating and the patient is able to maintain a pulse ox above 90% even on room air oxygen. No desaturations. No chest pain. No shortness of breath.the patient is going to be discharged home on diuretics and the patient was going to receive Bumex 1 mg twice a day. Objective - Vital Signs Vital signs: Vital Signs Temp 97.7 F 05/10/23 08:50 Pulse 69 05/10/23 10:01 Resp 18 05/10/23 10:01 BP 104/43 05/10/23 08:50 Pulse Ox 92 L 05/10/23 08:50 FiO2 Intake & Output 05/09/23 05/10/23 05/10/23 18:59 06:59 18:59 Intake Total 0 360 Balance 0 360 Weight 79.8 kg Intake: Oral 0 360 Other: Voiding Method Toilet Toilet Toilet # Voids 1 2 - Exam No acute distress, oriented 3. patient is currently on room air oxygen. No use of accessory muscles or conversational dyspnea. HEENT examination is grossly unremarkable. Mucous membranes are moist. No oral lesions. Neck supple. Full range of motion. No adenopathy thyromegaly or neck vein distention. Cardiovascular examination reveals regular rhythm rate. S1-S2 normal. No S3 or S4. No discernible murmur noted. Lungs reveal scattered rhonchi. Minimal crackles. No wheezes. Mild decreased breath sounds at the right base. Abdomen soft bowel sounds are heard. No masses or tenderness. Extremities are intact. No cyanosis clubbing or edema. Skin is without rash or lesion. Neurologic examination is brief but nonfocal. - Labs CBC & Chem 7: 05/04/23 11:16 05/09/23 09:58 Assessment and Plan Plan: Acute shortness of breath, secondary to CHF/right-sided pleural effusion. the patient clinically improved and the patient's oxygen also improved on diuretics. No need for thoracentesis. CAT scan of the chest showed small bilateral pleural effusions and the patient is clinically stable. Decided not to repeat the thoracentesis. Initially attempted thoracentesis the right lung was not successful as the amount of fluid was minimal. History of coronary artery disease, with previous bypass grafting. History of aortic insufficiency, status post aortic valve replacement. Ischemic cardiomyopathy, ejection fraction 30%. Moderately elevated gradient across the bioprosthetic aortic valve with moderate degree of aortic valve regurgitation History of hypertension. History of hyperlipidemia. Ascending aortic aneurysm. History of CVA. Previous history of carotid artery surgery. Plan: Patient is currently on room air oxygen No major respiratory difficulties. Patient is ambulating and the patient is maintaining the pulse ox above 90% CAT scan of the chest shows small bilateral pleural effusions, no need for thoracentesis Continue diuretics The patient is receiving Bumex 1 mg by mouth daily Renal function stable Provide incentive spirometer We'll discharge home today.
== END 2023-05-10 15:57 | disposition home or self-care (01) | DRG 280 ==
LOC: EC 13:24 → 3SCARD 15:53
PROVIDERS: ADMIT Internal Medicine; ATTEND Internal Medicine
DX: I13.0 Hypertensive heart and chronic kidney disease with heart failure and stage 1 through stage 4 chronic kidney disease, or unspecified chronic kidney disease (principal); I50.21 Acute systolic (congestive) heart failure; I21.A1 Myocardial infarction type 2; I45.2 Bifascicular block; I71.21 Aneurysm of the ascending aorta, without rupture; Z95.3 Presence of xenogenic heart valve; Z95.1 Presence of aortocoronary bypass graft; I25.110 Atherosclerotic heart disease of native coronary artery with unstable angina pectoris; F32.A Depression, unspecified; I08.0 Rheumatic disorders of both mitral and aortic valves; N18.30 Chronic kidney disease, stage 3 unspecified; E78.5 Hyperlipidemia, unspecified; F41.9 Anxiety disorder, unspecified; H91.90 Unspecified hearing loss, unspecified ear; I25.5 Ischemic cardiomyopathy; N40.0 Benign prostatic hyperplasia without lower urinary tract symptoms; R09.02 Hypoxemia; Z96.653 Presence of artificial knee joint, bilateral; R00.1 Bradycardia, unspecified; I71.40 Abdominal aortic aneurysm, without rupture, unspecified; I95.9 Hypotension, unspecified; I25.10 Atherosclerotic heart disease of native coronary artery without angina pectoris; R53.1 Weakness; E11.22 Type 2 diabetes mellitus with diabetic chronic kidney disease; H91.93 Unspecified hearing loss, bilateral; K21.9 Gastro-esophageal reflux disease without esophagitis; Z79.899 Other long term (current) drug therapy; Z79.82 Long term (current) use of aspirin; Z86.73 Personal history of transient ischemic attack (TIA), and cerebral infarction without residual deficits; Z87.820 Personal history of traumatic brain injury; Z88.1 Allergy status to other antibiotic agents
CPT/HCPCS: 36415; 71046; 71250; 76604; 80048; 80053; 83735; 83880; 84484; 85025; 85610; 85730; 93005; 93308; 94760; 96374; 99285

== ENCOUNTER 2023-05-13 14:40 | Inpatient (IN) | payer MEDICARE ==
--- NOTE | 2023-05-13 16:03 | ED ---
SOB HPI - General Source: patient, family, RN notes reviewed Mode of arrival: ambulatory Limitations: no limitations <Lakisha Panda - Last Filed: 05/13/23 16:02> - General Source: patient, family, RN notes reviewed Mode of arrival: ambulatory Limitations: no limitations <Vinh East - Last Filed: 05/13/23 18:22> - General Chief Complaint: Shortness of Breath Stated Complaint: congested heart failure,sob-dr sent over Time Seen by Provider: 05/13/23 16:02 - History of Present Illness Initial Comments: Patient is an 83-year-old male presented ER supplies PCP for a chief complaint of shortness of breath. Family states that they want him admitted for a heart valve evaluation. Patient denies any fevers, chills, or chest pain. (Lakisha Panda) Patient is a pleasant 83-year-old male presenting to the emergency department with difficulty breathing. Patient was recently in the hospital with similar symptoms. Patient discharged couple days ago. Symptoms returned again. Patient did see his casing cleaner who recommended he come back to the hospital for admission and KAI. No chest pain. No leg edema. (Vinh East) - Related Data Home Medications Medication Instructions Recorded Confirmed Atorvastatin [Lipitor] 80 mg PO HS 11/18/16 05/13/23 busPIRone HCL 5 mg PO BID 03/24/20 05/13/23 Aspirin EC [Ecotrin Low Dose] 81 mg PO DAILY 04/20/23 05/13/23 Cholecalciferol [Vitamin D3 (25 50 mcg PO HS 04/20/23 05/13/23 Mcg = 1000 Iu)] Escitalopram [Lexapro] 20 mg PO DAILY 04/20/23 05/13/23 Prevagen 1 cap PO HS 05/02/23 05/13/23 Previous Rx's Medication Instructions Recorded Bumetanide [BUMEX] 1 mg PO BID@0900,1600 #60 tab 05/10/23 Dapagliflozin Propanediol [Farxiga] 10 mg PO DAILY 30 Days #30 tab 05/10/23 Losartan [Cozaar] 12.5 mg PO HS #30 tab 05/10/23 Metoprolol Tartrate [Lopressor] 25 mg PO BID #60 tab 05/10/23 Tamsulosin [Flomax] 0.4 mg PO HS cap 05/10/23 Allergies Allergy/AdvReac Type Severity Reaction Status Date / Time cephalexin [From Keflex] AdvReac Nausea & Verified 05/13/23 17:41 Vomiting & Diarrhea Review of Systems ROS Other: All systems not noted in ROS Statement are negative. <Lakisha Panda - Last Filed: 05/13/23 16:02> ROS Other: All systems not noted in ROS Statement are negative. Constitutional: Denies: fever Eyes: Denies: eye pain ENT: Denies: ear pain Respiratory: Reports: as per HPI, dyspnea. Denies: cough Cardiovascular: Denies: chest pain Endocrine: Denies: fatigue Gastrointestinal: Denies: abdominal pain Genitourinary: Denies: dysuria Musculoskeletal: Denies: back pain Skin: Denies: rash Neurological: Denies: weakness <Vinh East - Last Filed: 05/13/23 18:22> ROS Statement: Those systems with pertinent positive or pertinent negative responses have been documented in the HPI. Past Medical History Past Medical History: Coronary Artery Disease (CAD), CVA/TIA, Hypertension Additional Past Medical History / Comment(s): STATES HE GETS CYSTS AT THE SIGHT OF THE RIGHT CAROTID SURGERY SCAR, DRAINS PERDIODICALLY. MULTIPLE TIAs. - HOSPITALIZED 03/03/20-03/04/20 FOR TIA WITH LEFT ARM WEAKNESS & NUMBNESS WHICH HAS RESOLVED. LEAKY HEART VALVE, Fall with concussion in 2019. AVR and previou CABG 20 years ago History of Any Multi-Drug Resistant Organisms: None Reported Past Surgical History: Coronary Bypass/CABG, Joint Replacement, Orthopedic Surge ry Additional Past Surgical History / Comment(s): AORTIC VALVE REPLACEMENT (BOVINE). RIGHT CAROTID ENDARTERECTOMY (DR. HANKS. Nasal cauterization. Bilat knee replacements. CABG (2008) Past Anesthesia/Blood Transfusion Reactions: No Reported Reaction Past Psychological History: No Psychological Hx Reported Smoking Status: Never smoker Past Alcohol Use History: Rare Past Drug Use History: None Reported - Past Family History Mother Family Medical History: No Reported History <Lakisha Panda - Last Filed: 05/13/23 16:02> General Exam Limitations: no limitations <Lakisha Panda - Last Filed: 05/13/23 16:02> Limitations: no limitations General appearance: alert, in no apparent distress Head exam: Present: normocephalic Eye exam: Present: normal appearance Neck exam: Present: normal inspection Respiratory exam: Present: decreased breath sounds (Bilateral bases) Cardiovascular Exam: Present: irregular rhythm GI/Abdominal exam: Present: soft. Absent: tenderness Extremities exam: Present: normal inspection. Absent: pedal edema, calf tenderness Neurological exam: Present: alert Psychiatric exam: Present: normal affect, normal mood Skin exam: Present: normal color <Vinh East - Last Filed: 05/13/23 18:22> - General Exam Comments Initial Comments: Visual Physical Exam Vital signs reviewed General: Well-appearing, nontoxic, no acute distress. Head: Normocephalic, atraumatic Eyes: PERRLA, EOMI ENT: Airway patent Chest: Nonlabored breathing Skin: No visual rash, normal skin tone Neuro: Alert and oriented 3 Musculoskeletal: No gross abnormalities (Lakisha Panda) Course Vital Signs 05/13/23 05/13/23 14:51 17:42 Temperature 98.3 F Pulse Rate 63 59 L Respiratory 16 20 Rate Blood Pressure 99/53 110/89 O2 Sat by Pulse 96 92 L Oximetry Medical Decision Making <Lakisha Panda - Last Filed: 05/13/23 16:02> - Lab Data Result diagrams: 05/13/23 16:14 05/13/23 16:14 <Vinh East - Last Filed: 05/13/23 18:22> - Medical Decision Making I performed the quick note portion of the exam. Electronically signed by Lakisha Panda PA-C (Lakisha Panda) EKG interpreted by myself shows sinus rhythm with bigeminy pattern. Left axis. Right bundle branch block. LVH criteria. No acute ST change. Was pt. sent in by a medical professional or institution ([facility], GIS SOFTWARE ENGINEER, urgent care, hospital, or correction...) When possible be specific @ -Patient was sent in by his casing cleaner Did you speak to anyone other than the patient for history (EMS, parent, family, police, friend...)? What history was obtained from this source @ -Family is present that helps provide history including recent admission. Did you review nursing and triage notes (agree or disagree)? Why? @ -I reviewed and agree with nursing and triage notes Were old charts reviewed (outside hosp., previous admission, EMS record, old EKG, old radiological studies, urgent care reports/EKG's, correction records)? Report findings @ -Previous labs reviewed. Differential Diagnosis (chest pain, altered mental status, abdominal pain women, abdominal pain men, vaginal bleeding, weakness, fever, dyspnea, syncope, headache, dizziness, GI bleed, back pain, seizure, CVA, palpatations, mental health, musculoskeletal)? @ -Differential Dyspnea: Coronary syndrome, arrhythmia, tamponade, asthma, COPD, pulmonary embolism, pneumonia, pneumothorax, pulmonary effusion, anaphylaxis, diabetic ketoacidosis, flailed chest, pulmonary contusion, diaphragmatic rupture, anemia, neuromuscular, this is not meant to be an all-inclusive list. EKG interpreted by me (3pts min.). @ -As above X-rays interpreted by me (1pt min.). @ -X-ray concerning for CHF CT interpreted by me (1pt min.). @ -None done U/S interpreted by me (1pt. min.). @ -None done What testing was considered but not performed or refused? (CT, X-rays, U/S, labs)? Why? @ -None What meds were considered but not given or refused? Why? @ -None Did you discuss the management of the patient with other professionals (professionals i.e. , PA, GIS SOFTWARE ENGINEER, lab, RT, psych nurse, social services aide, otolaryngology surgeon, t eacher, chief quality officer, assistant case manager)? Give summary @ -cAce was discussed with Dr. humphreys who will admit his patient. Was smoking cessation discussed for >3mins.? @ -No Was critical care preformed (if so, how long)? @ -No Were there social determinants of health that impacted care today? How? (Homelessness, low income, unemployed, alcoholism, drug addiction, transportation, low edu. Level, literacy, decrease access to med. care, halfway, rehab)? @ -No Was there de-escalation of care discussed even if they declined (Discuss DNR or withdrawal of care, Hospice)? DNR status @ -No What co-morbidities impacted this encounter? (DM, HTN, Smoking, COPD, CAD, Cancer, CVA, ARF, Chemo, Hep., AIDS, mental health diagnosis, sleep apnea, morbid obesity)? @ -None Was patient admitted / discharged? Hospital course, mention meds given and route, prescriptions, significant lab abnormalities, going to OR and other pertinent info. @ -Patient and family are updated on results and plan. Patient will be admitted with cardiac consult. Patient confirms Dr. Lima did send him back to the hospital. Undiagnosed new problem with uncertain prognosis? @ -No Drug Therapy requiring intensive monitoring for toxicity (Heparin, Nitro, Insulin, Cardizem)? @ -No Were any procedures done? @ -No Diagnosis/symptom? @ -CHF Acute, or Chronic, or Acute on Chronic? @ -Acute Uncomplicated (without systemic symptoms) or Complicated (systemic symptoms)? @ -default Side effects of treatment? @ -No Exacerbation, Progression, or Severe Exacerbation? @ -Exacerbation Poses a threat to life or bodily function? How? (Chest pain, [place], [place], pneumonia, PE, COPD, DKA, ARF, appy, cholecystitis, CVA, Diverticulitis, Homicidal, Suicidal, threat to staff... and all critical care pts) @ -No (Vinh East) - Lab Data Lab Results 05/13/23 05/13/23 05/13/23 Range/Units 16:14 16:14 16:14 WBC 6.4 (3.8-10.6) k/uL RBC 4.78 (4.30-5.90) m/uL Hgb 14.8 (13.0-17.5) gm/dL Hct 44.2 (39.0-53.0) % MCV 92.5 (80.0-100.0) fL MCH 31.0 (25.0-35.0) pg MCHC 33.5 (31.0-37.0) g/dL RDW 14.4 (11.5-15.5) % Plt Count 144 L (150-450) k/uL MPV 9.7 PT (10.0-12.5) sec INR (<1.2) APTT (22.0-30.0) sec Sodium 135 L (137-145) mmol/L Potassium 4.6 (3.5-5.1) mmol/L Chloride 96 L (98-107) mmol/L Carbon Dioxide 27 (22-30) mmol/L Anion Gap 12 mmol/L BUN 38 H (9-20) mg/dL Creatinine 1.35 H (0.66-1.25) mg/dL Est GFR (CKD-EPI)AfAm 57 (>60 ml/min/1.73 sqM) Est GFR (CKD-EPI)NonAf 49 (>60 ml/min/1.73 sqM) Glucose 103 H (74-99) mg/dL Calcium 9.5 (8.4-10.2) mg/dL Total Bilirubin 1.0 (0.2-1.3) mg/dL AST 33 (17-59) U/L ALT 80 H (4-49) U/L Alkaline Phosphatase 104 (38-126) U/L Troponin I 0.098 H* (0.000-0.034) ng/mL NT-Pro-B Natriuret Pep 27941 pg/mL Total Protein 6.6 (6.3-8.2) g/dL Albumin 4.1 (3.5-5.0) g/dL 05/13/23 Range/Units 16:15 WBC (3.8-10.6) k/uL RBC (4.30-5.90) m/uL Hgb (13.0-17.5) gm/dL Hct (39.0-53.0) % MCV (80.0-100.0) fL MCH (25.0-35.0) pg MCHC (31.0-37.0) g/dL RDW (11.5-15.5) % Plt Count (150-450) k/uL MPV PT 11.7 (10.0-12.5) sec INR 1.1 (<1.2) APTT 24.9 (22.0-30.0) sec Sodium (137-145) mmol/L Potassium (3.5-5.1) mmol/L Chloride (98-107) mmol/L Carbon Dioxide (22-30) mmol/L Anion Gap mmol/L BUN (9-20) mg/dL Creatinine (0.66-1.25) mg/dL Est GFR (CKD-EPI)AfAm (>60 ml/min/1.73 sqM) Est GFR (CKD-EPI)NonAf (>60 ml/min/1.73 sqM) Glucose (74-99) mg/dL Calcium (8.4-10.2) mg/dL Total Bilirubin (0.2-1.3) mg/dL AST (17-59) U/L ALT (4-49) U/L Alkaline Phosphatase (38-126) U/L Troponin I (0.000-0.034) ng/mL NT-Pro-B Natriuret Pep pg/mL Total Protein (6.3-8.2) g/dL Albumin (3.5-5.0) g/dL Disposition <Lakisha Panda - Last Filed: 05/13/23 16:02> Is patient prescribed a controlled substance at d/c from ED?: No Time of Disposition: 18:06 <Vinh East - Last Filed: 05/13/23 18:22> Clinical Impression: CHF (congestive heart failure) Disposition: ADMITTED IP TO THIS HOSP Referrals: Quinn Humphreys MD [Primary Care Provider] - 1-2 days
--- NOTE | 2023-05-13 16:39 | XR ---
EXAMINATION TYPE: XR chest 2V DATE OF EXAM: 05/13/2023 COMPARISON: 05/08/2023 HISTORY: Shortness of breath TECHNIQUE: Frontal and lateral views of the chest are obtained. FINDINGS: Scattered senescent parenchymal changes noted. Hyperinflation compatible with COPD. Cardiomegaly with pulmonary venous congestion, basilar atelectasis and effusions compatible with chio estive failure essentially unchanged from prior study. Mediastinal structures are stable and grossly unremarkable. No evidence for hilar prominence. Degenerative changes dorsal spine. IMPRESSION: 1. Cardiomegaly with pulmonary venous congestion, basilar atelectasis and effusions compatible with c ongestive failure essentially unchanged from prior study.
[2023-05-13 16:43] LABS: INR 1.1 (<1.2); Partial Thromboplastin Time 24.9 sec (22.0-30.0); Prothrombin Time 11.7 sec (10.0-12.5)
[2023-05-13 16:45] LABS: HCT 44.2 % (39.0-53.0); HGB 14.8 gm/dL (13.0-17.5); MCHC 33.5 g/dL (31.0-37.0); MCV 92.5 fL (80.0-100.0); Mean Platelet Volume 9.7; Platelet Count 144 k/uL (150-450); RBC 4.78 m/uL (4.30-5.90); RDW 14.4 % (11.5-15.5); WBC 6.4 k/uL (3.8-10.6)
[2023-05-13 16:55] LABS: ALT 80 U/L (4-49); AST 33 U/L (17-59); African American GFR (CKD) 57 (>60 ml/min/1.73 sqM); Albumin 4.1 g/dL (3.5-5.0); Alkaline Phosphatase 104 U/L (38-126); Anion Gap 12 mmol/L; Blood Urea Nitrogen 38 mg/dL (9-20); Calcium 9.5 mg/dL (8.4-10.2); Carbon Dioxide 27 mmol/L (22-30); Chloride 96 mmol/L (98-107); Glucose 103 mg/dL (74-99); Non-African American GFR(CKD) 49 (>60 ml/min/1.73 sqM); Potassium 4.6 mmol/L (3.5-5.1); Sodium 135 mmol/L (137-145); Total Protein 6.6 g/dL (6.3-8.2)
[2023-05-13 17:01] LABS: NT-Pro-B-Type Natriuretic Pept 17400 pg/mL
[2023-05-13] MEDS ORDERED: ASPIRIN 325 MG TAB PO STA (18:22)
[2023-05-13] MEDS: FUROSEMIDE 10 MG/ML 4 ML VIAL IV SCH (18:44)
[2023-05-13] MEDS: NITROGLYCERIN OINT 1 INCH/GM PACKET TOPICAL SCH (23:29)
[2023-05-14] MEDS: FUROSEMIDE 10 MG/ML 4 ML VIAL IV SCH ×3 (03:32→17:59)
[2023-05-14] MEDS: NITROGLYCERIN OINT 1 INCH/GM PACKET TOPICAL SCH (06:57)
[2023-05-14] MEDS: DAPAGLIFLOZIN PROPANEDIOL 10 MG TABLET PO SCH (08:44)
[2023-05-14] MEDS: METOPROLOL TARTRATE 25 MG TAB PO SCH ×2 (08:44→19:58)
[2023-05-14] MEDS: ASPIRIN 81 MG PO SCH (08:44)
[2023-05-14] MEDS ORDERED: ASPIRIN 325 MG TAB PO SCH (09:00)
[2023-05-14] MEDS: busPIRone HCl 5 MG TAB PO SCH ×2 (09:16→19:58)
[2023-05-14] MEDS: ESCITALOPRAM 20 MG TAB PO SCH (09:16)
--- NOTE | 2023-05-14 09:37 | P.HPIM ---
History of Present Illness H&P Date: 05/14/23 (Third admission for congestive heart failure) Chief Complaint: Short of breath and hypotensive History of present illness Dictation date 05/14/[address] Tomas. Chief complaint: Patient still short of breath and hypotensive, weak. History of present illness: 83 years old white male send emergency room by Dr. ERENDIRA Lima. Patient called cardiology office yesterday and informed the office with the patient condition with the severe shortness of breath and need to be seen soon, Subsequently Dr. ERENDIRA Lima the extrusion die repair manager he called her and told her to be cysts send the patient to the emergency room to be admitted with the possibility to be transferred to [facility] because of his aortic valve which was borderline replaced in the past leaking around it and with the underlying low ejection fraction and with a history of aortic stenosis that repaired was currently aortic incompetence. Patient came to the ER where he was seen by Dr. East subsequently he called me requested admission because of the patient send extrusion die repair manager ERENDIRA Lima. In the ER patient found to still have elevated troponin as his previous to admission with the first reading 0.098, second reading 0.086, sodium reading 0.075. NT pro-B neck uveitic peptide 17 400 which worse than last BNP done on his previous admission which is more than 12,000. And his creatinine went up to 1.35, BUN 38, patient no anticoagulant except aspirin. Cardiology. A chest x-ray as well showed cardiomegaly and congestive heart failure as well, he is a LT 80 secondary to the congestive heart failure and AST is normal 33. Patient admitted to the hospital with the cardiology consult for his third admission to be evaluated and care with the possible KAI consider per Dr. ERENDIRA Lima. Past medical history Ischemic cardiomyopathy with the impaired ejection fraction to 3035 percent, bovine aortic valve, aortic regurg. Anxiety and depression. Hypertension with hypertensive heart disease Hyperlipidemia ALLERGY to cephalexin. Family history has 2 daughter. Review of system: Neuro psychiatry stable history of CVA and TIA in the past however resolved Respiratory shortness of breath seen in his last admission by Dr. Mosqueda and Dr. Ricardo and the pleural effusion was investigated was minimal and he has a dry tap Cardiac third admission for congestive heart failure has been monitored by cardiology in nature admission and on the last admission was discharge on Saturday after cleared by Dr. Lynch and Dr. Mosqueda to be discharged home and to follow-up with Dr. ERENDIRA Lima. No other's symptomatology for reviewing of the 14 will Physical exam: Patient is conscious alert oriented lethargic his current vital sign indicating that blood pressure 99/55 with a mean 69, oxygen saturation on room air 98, after febrile. HEENT head was normocephalic and atraumatic pupils equal reactive oropharynx natural teeth Neck was supple no lymphadenopathy trachea midline no JVD Chest: Rales bilateral two third of the lung and chest x-ray indicating that as well with the congestive heart failure Heart EKG indicating bigeminy and right bundle branch block and blood pressure on the low side secondary to the ejection fraction Abdomen is soft positive bowel sounds no organ enlargement Extremities: No edema and positive pulses Neurologically: Stable Assessment: And plan Discussed was his daughter and his and the patient Congestive heart failure with elevated troponin and aortic valve bovine for aortic stenosis in the past with the currently leak as aortic incompetence. Patient sent by Dr. ERENDIRA Lima for for further investigation was KAI which will be ordered by cardiology and for further referral to [facility] if needed Cardiology will follow consulted and further evaluation. We'll follow the cardiology recommendation and plan. His Lasix has been changed by the nurse practitioner of cardiology to IV Lasix 40 mg every 12 hours. Past Medical History Past Medical History: Coronary Artery Disease (CAD), CVA/TIA, Hypertension Additional Past Medical History / Comment(s): STATES HE GETS CYSTS AT THE SIGHT OF THE RIGHT CAROTID SURGERY SCAR, DRAINS PERDIODICALLY. MULTIPLE TIAs. - HOSPITALIZED 03/03/20-03/04/20 FOR TIA WITH LEFT ARM WEAKNESS & NUMBNESS WHICH HAS RESOLVED. LEAKY HEART VALVE, Fall with concussion in 2019. AVR and previou CABG 20 years ago History of Any Multi-Drug Resistant Organisms: None Reported Past Surgical History: Coronary Bypass/CABG, Joint Replacement, Orthopedic Surgery Additional Past Surgical History / Comment(s): AORTIC VALVE REPLACEMENT (BOVINE). RIGHT CAROTID ENDARTERECTOMY (DR. HANKS. Nasal cauterization. Bilat knee replacements. CABG (2007) Past Anesthesia/Blood Transfusion Reactions: No Reported Reaction Past Psychological History: No Psychological Hx Reported Smoking Status: Never smoker Past Alcohol Use History: Rare Past Drug Use History: None Reported - Past Family History Mother Family Medical History: No Reported History Medications and Allergies Home Medications Medication Instructions Recorded Confirmed Type Atorvastatin [Lipitor] 80 mg PO HS 11/18/16 05/13/23 History busPIRone HCL 5 mg PO BID 03/24/20 05/13/23 History Aspirin EC [Ecotrin Low Dose] 81 mg PO DAILY 04/20/23 05/13/23 History Cholecalciferol [Vitamin D3 (25 50 mcg PO HS 04/20/23 05/13/23 History Mcg = 1000 Iu)] Escitalopram [Lexapro] 20 mg PO DAILY 04/20/23 05/13/23 History Prevagen 1 cap PO HS 05/02/23 05/13/23 History Bumetanide [BUMEX] 1 mg PO BID@0900,1600 #60 tab 05/10/23 05/13/23 Rx Dapagliflozin Propanediol [Farxiga] 10 mg PO DAILY 30 Days #30 tab 05/10/23 05/13/23 Rx Losartan [Cozaar] 12.5 mg PO HS #30 tab 05/10/23 05/13/23 Rx Metoprolol Tartrate [Lopressor] 25 mg PO BID #60 tab 05/10/23 05/13/23 Rx Tamsulosin [Flomax] 0.4 mg PO HS cap 05/10/23 05/13/23 Rx Allergies Allergy/AdvReac Type Severity Reaction Status Date / Time cephalexin [From Keflex] AdvReac Nausea & Verified 05/13/23 17:41 Vomiting & Diarrhea Physical Exam Vitals: Vital Signs Temp Pulse Resp BP Pulse Ox 05/14/23 06:40 84 16 99/55 98 05/14/23 03:30 67 20 107/53 96 05/14/23 02:30 67 24 90/38 96 05/14/23 00:00 73 18 133/57 98 05/13/23 23:00 66 19 112/51 97 05/13/23 22:00 71 22 129/58 97 05/13/23 21:00 65 27 H 107/47 93 L 05/13/23 20:00 75 18 143/85 97 05/13/23 19:00 87 32 H 130/65 95 05/13/23 18:13 22 05/13/23 18:00 65 30 H 110/89 96 05/13/23 17:42 59 L 20 110/89 92 L 05/13/23 14:51 98.3 F 63 16 99/53 96 Results CBC & Chem 7: 05/13/23 16:14 05/13/23 16:14 Labs: Abnormal Lab Results - Last 24 Hours (Table) 05/13/23 05/13/23 05/13/23 Range/Units 16:14 16:14 16:14 Plt Count 144 L (150-450) k/uL Sodium 135 L (137-145) mmol/L Chloride 96 L (98-107) mmol/L BUN 38 H (9-20) mg/dL Creatinine 1.35 H (0.66-1.25) mg/dL Glucose 103 H (74-99) mg/dL ALT 80 H (4-49) U/L Troponin I 0.098 H* (0.000-0.034) ng/mL 05/13/23 05/13/23 Range/Units 19:20 21:19 Plt Count (150-450) k/uL Sodium (137-145) mmol/L Chloride (98-107) mmol/L BUN (9-20) mg/dL Creatinine (0.66-1.25) mg/dL Glucose (74-99) mg/dL ALT (4-49) U/L Troponin I 0.086 H* 0.075 H* (0.000-0.034) ng/mL
--- NOTE | 2023-05-14 11:08 | P.CRDCN ---
History of Present Illness History of present illness: HISTORY OF PRESENT ILLNESS: This is a 83-year-old male with a past medical history significant for coronary artery disease with previous CABG, hypertension, hyperlipidemia, ischemic cardiomyopathy, and aortic insufficiency status post open aortic valve replacement at [facility]. Patient follows in the office with Dr. Lima. We have been asked to see the patient in consultation for CHF and KAI. Patient examined at the bedside. Patient presented to the hospital with a chief complaint of shortness of breath. Patient was recently hospitalized and he states his SOB has not improved. He states this has been occuring since . He is currently laying flat in bed and denies SOB. Patients is at the bedside and reports he has been coughing alot at home. He denies chest pain or pressure. Orthostatic blood pressures obtained and are negative. * EKG reveals sinus mechanism with bigeminy. Right bundle-branch block. * Chest xray cardiomegaly with pulmonary venous congestion, basilar atelectasis and effusions compatible with congestive heart failure * Laboratory data: BUN 38. Creatinine 1.35. ProBNP 17,400. Troponin 0.098. 0.086. 0.075. * Current home cardiac medications include metoprolol tartrate 25 mg twice a day, losartan 12.5 mg at night, Bumex 1 mg twice a day, Lipitor 80 mg at night, aspirin 81 mg daily * Most recent echocardiogram obtained in May 2023 revealed bioprosthetic aortic valve with at least moderate AI. * Previous echocardiogram in April 2023 revealed ejection fraction 30-35% * Cardiac catheterization history: November 2020 revealing 2 vessel CAD with significant dilatation of ascending aorta of 4.9 cm. Both vein grafts are occluded. Circumflex has 95% ostial lesion RCA with 50% mid narrowing. Distal left main 35% narrowing. Mild prosthetic valve aortic regurgitation noted. REVIEW OF SYSTEMS: At the time of my exam: CONSTITUTIONAL: Denies fever or chills. HEENT: Denies blurred vision, vision changes, or eye pain. Denies hemoptysis CARDIOVASCULAR: Denies chest pain. Denies orthopnea. Denies PND. Denies palpitations RESPIRATORY: Denies shortness of breath. GASTROINTESTINAL: Denies abdominal pain. Denies nausea or vomiting. HEMATOLOGIC: Denies bleeding disorders. GENITOURINARY: Denies any blood in urine. SKIN: Denies pruitis. Denies rash. PHYSICAL EXAM: VITAL SIGNS: Reviewed. GENERAL: Well-developed in no acute distress. HEENT: Head is normocephalic. Pupils are equal, round. Sclerae anicteric. Mucous membranes of the mouth are moist. Neck supple. No JVD or thyromegaly LUNGS: Respirations even and unlabored. Lungs essentially clear to auscultation bilaterally. HEART: Regular rate and rhythm. S1 and S2 heard. Systolic and diastolic murmur noted. ABDOMEN: Soft. Nondistended. Nontender. EXTREMITIES: Normal range of motion. No clubbing or cyanosis. Peripheral pulses intact. No lower extremity edema NEUROLOGIC: Awake and alert. Oriented x 3. ASSESSMENT: Shortness of breath Acute on chronic heart failure with reduced EF Abnormal troponins, flat, not suggestive of acute coronary syndrome, type II NE History of bioprosthetic aortic valve replacement in 2004 now with moderate AI Coronary artery disease with previous CABG; both vein grafts occluded per cardiac catheterization in November 2020 Hypertension Hyperlipidemia Ischemic cardiomyopathy Dilated ascending aorta PLAN: Resume home cardiac mediations Discontinue losartan as blood pressures are borderline low No need to repeat echocardiogram Continue IV Lasix Daily weights, accurate I&O, and monitor kidney function. Patient to undergo KAI today with Dr. Quiñonez Will consider ischemic workup in the future with possible heart catheterization versus stress testing Further recommendations pending patient's course Nurse practitioner note has been reviewed by physician. Signing provider agrees with the documented findings, assessment, and plan of care. Past Medical History Past Medical History: Coronary Artery Disease (CAD), CVA/TIA, Hypertension Additional Past Medical History / Comment(s): STATES HE GETS CYSTS AT THE SIGHT OF THE RIGHT CAROTID SURGERY SCAR, DRAINS PERDIODICALLY. MULTIPLE TIAs. - HOSPITALIZED 03/03/20-03/04/20 FOR TIA WITH LEFT ARM WEAKNESS & NUMBNESS WHICH HAS RESOLVED. LEAKY HEART VALVE, Fall with concussion in 2019. AVR and previou CABG 20 years ago History of Any Multi-Drug Resistant Organisms: None Reported Past Surgical History: Coronary Bypass/CABG, Joint Replacement, Orthopedic Surgery Additional Past Surgical History / Comment(s): AORTIC VALVE REPLACEMENT (BOVINE). RIGHT CAROTID ENDARTERECTOMY (DR. HANKS. Nasal cauterization. Bilat knee replacements. CABG (2007) Past Anesthesia/Blood Transfusion Reactions: No Reported Reaction Past Psychological History: No Psychological Hx Reported Smoking Status: Never smoker Past Alcohol Use History: Rare Past Drug Use History: None Reported - Past Family History Mother Family Medical History: No Reported History Medications and Allergies Home Medications Medication Instructions Recorded Confirmed Type Atorvastatin [Lipitor] 80 mg PO HS 11/18/16 05/13/23 History busPIRone HCL 5 mg PO BID 03/24/20 05/13/23 History Aspirin EC [Ecotrin Low Dose] 81 mg PO DAILY 04/20/23 05/13/23 History Cholecalciferol [Vitamin D3 (25 50 mcg PO HS 04/20/23 05/13/23 History Mcg = 1000 Iu)] Escitalopram [Lexapro] 20 mg PO DAILY 04/20/23 05/13/23 History Prevagen 1 cap PO HS 05/02/23 05/13/23 History Bumetanide [BUMEX] 1 mg PO BID@0900,1600 #60 tab 05/10/23 05/13/23 Rx Dapagliflozin Propanediol [Farxiga] 10 mg PO DAILY 30 Days #30 tab 05/10/23 05/13/23 Rx Losartan [Cozaar] 12.5 mg PO HS #30 tab 05/10/23 05/13/23 Rx Metoprolol Tartrate [Lopressor] 25 mg PO BID #60 tab 05/10/23 05/13/23 Rx Tamsulosin [Flomax] 0.4 mg PO HS cap 05/10/23 05/13/23 Rx Allergies Allergy/AdvReac Type Severity Reaction Status Date / Time cephalexin [From Keflex] AdvReac Nausea & Verified 05/13/23 17:41 Vomiting & Diarrhea Physical Exam Vitals: Vital Signs Temp Pulse Resp BP Pulse Ox 05/14/23 06:40 84 16 99/55 98 05/14/23 03:30 67 20 107/53 96 05/14/23 02:30 67 24 90/38 96 05/14/23 00:00 73 18 133/57 98 05/13/23 23:00 66 19 112/51 97 05/13/23 22:00 71 22 129/58 97 05/13/23 21:00 65 27 H 107/47 93 L 05/13/23 20:00 75 18 143/85 97 05/13/23 19:00 87 32 H 130/65 95 12/11/23 18:13 22 05/13/23 18:00 65 30 H 110/89 96 05/13/23 17:42 59 L 20 110/89 92 L 05/13/23 14:51 98.3 F 63 16 99/53 96 Results 05/13/23 16:14 05/13/23 16:14 Cardiac Enzymes 05/13/23 05/13/23 05/13/23 Range/Units 16:14 16:14 19:20 AST 33 (17-59) U/L Troponin I 0.098 H* 0.086 H* (0.000-0.034) ng/mL 05/13/23 Range/Units 21:19 AST (17-59) U/L Troponin I 0.075 H* (0.000-0.034) ng/mL Coagulation 05/13/23 Range/Units 16:15 PT 11.7 (10.0-12.5) sec APTT 24.9 (22.0-30.0) sec CBC 05/13/23 Range/Units 16:14 WBC 6.4 (3.8-10.6) k/uL RBC 4.78 (4.30-5.90) m/uL Hgb 14.8 (13.0-17.5) gm/dL Hct 44.2 (39.0-53.0) % Plt Count 144 L (150-450) k/uL Comprehensive Metabolic Panel 05/13/23 Range/Units 16:14 Sodium 135 L (137-145) mmol/L Potassium 4.6 (3.5-5.1) mmol/L Chloride 96 L (98-107) mmol/L Carbon Dioxide 27 (22-30) mmol/L BUN 38 H (9-20) mg/dL Creatinine 1.35 H (0.66-1.25) mg/dL Glucose 103 H (74-99) mg/dL Calcium 9.5 (8.4-10.2) mg/dL AST 33 (17-59) U/L ALT 80 H (4-49) U/L Alkaline Phosphatase 104 (38-126) U/L Total Protein 6.6 (6.3-8.2) g/dL Albumin 4.1 (3.5-5.0) g/dL Current Medications Generic Name Dose Route Start Last Admin Trade Name Freq PRN Reason Stop Dose Admin Aspirin 325 mg 05/14/23 09:00 Aspirin 325 Mg Tab PO DAILY [facility] Furosemide 40 mg 05/13/23 19:00 05/14/23 03:32 Furosemide 10 Mg/Ml 4 Ml Vial IV 40 mg Q8H [facility] Administration Nitroglycerin 1 inch 05/14/23 00:00 05/14/23 06:57 Nitroglycerin Oint 1 Inch/Gm Packet TOPICAL 05/15/23 00:01 Not Given Q6HR [facility] 05/13/23 16:14 05/13/23 16:14
[2023-05-14] MEDS ORDERED: fentaNYL (PF) 50 MCG/ML 2 ML AMP ONE (11:28)
[2023-05-14] MEDS ORDERED: fentaNYL (PF) 50 MCG/ML 2 ML AMP IVP ONE (11:56)
[2023-05-14] MEDS ORDERED: BENZOCAINE SPRAY 1 CAN TOPICAL ONE (11:56)
[2023-05-14] MEDS ORDERED: MIDAZOLAM 2 MG/2 ML VIAL IVP ONE (11:56)
[2023-05-14] MEDS ORDERED: SODIUM CHLORIDE 0.9% 500 ML 500 ML IV ONE (11:59)
[2023-05-14] MEDS ORDERED: ALPRAZolam 0.5 MG TAB PO PRN (12:20)
[2023-05-14] MEDS ORDERED: NITROGLYCERIN SL TABS 0.4 MG TAB SUBLINGUAL PRN (12:20)
[2023-05-14] MEDS ORDERED: ALPRAZolam 0.25 MG TAB PO PRN (12:20)
--- NOTE | 2023-05-14 12:21 | P.TEE ---
Description of Procedure(s): Procedure performed: Transesophageal Echocardiogram with color flow doppler, pulsed wave doppler and continuous wave doppler, moderate conscious sedation Moderate conscious sedation: Moderate conscious sedation was supplied with direct supervision of myself using Versed and Fentanyl. Complications: none Indications: Moderate to severe aortic insufficiency, aortic stenosis, concern of paravalvular leak. PROCEDURE: After the risks, benefits and alternatives of the above mentioned procedure was explained in detail with the patient, informed consent was obtained. Patient was brought to the lab in a fasting state. Patient was given IV Versed and Fentanyl for sedation. The throat was sprayed with Hurricane to anesthetize the throat. A lubricated Omni probe was then introduced into the esophagus and stomach and multiple views were obtained. 2D echo with color flow doppler, pulsed wave doppler and continuous wave doppler was utilized. Agitated saline bubbles were injected to assess for any intra-atrial shunt. The probe was then removed. Patient tolerated the procedure well. Patient was transferred to the post procedure area in stable and satisfactory condition. FINDINGS: 1. There is a bioprosthetic valve with central moderate to severe aortic insufficiency which appears mainly related to bioprosthetic noncoronary located cusp being fixed with additional severe aortic stenosis, aortic valve area 0.8 cm. No paravalvular leak noted. No descending aortic diastolic flow reversal noted. 2. The mitral valve appears be normal with mild to moderate mitral regurgitation. Systolic blunting of left upper pulmonary vein 3. Tricuspid valve appears normal with trace tricuspid regurgitation. 4. The interatrial septum is intact. No evidence of PFO. 5. Left atrial appendage is free of clot. 6. Left ventricular ejection fraction 30-35% with global hypokinesis
[2023-05-14] MEDS: ATORVASTATIN 80 MG TAB PO SCH (19:58)
[2023-05-14] MEDS: CHOLECALCIFEROL 25 MCG (1000 IU) TABLET PO SCH (19:58)
[2023-05-14] MEDS: TAMSULOSIN 0.4 MG CAP.ER.24H PO SCH (19:58)
[2023-05-14] MEDS ORDERED: LOSARTAN 25 MG TAB PO SCH (21:00)
[2023-05-14] MEDS ORDERED: NON FORMULARY DRUG (Prevagen 1 CAP) PO SCH (21:00)
[2023-05-15] MEDS: FUROSEMIDE 10 MG/ML 4 ML VIAL IV SCH ×3 (03:01→18:03)
[2023-05-15] MEDS ORDERED: ASPIRIN 325 MG TAB PO ONE (05:00)
[2023-05-15] MEDS ORDERED: ATORVASTATIN 80 MG TAB PO ONE (05:00)
[2023-05-15] MEDS: ESCITALOPRAM 20 MG TAB PO SCH (05:46)
[2023-05-15] MEDS: busPIRone HCl 5 MG TAB PO SCH ×2 (05:46→20:10)
[2023-05-15] MEDS: METOPROLOL TARTRATE 25 MG TAB PO SCH ×2 (05:46→20:10)
[2023-05-15] MEDS: DAPAGLIFLOZIN PROPANEDIOL 10 MG TABLET PO SCH (06:05)
[2023-05-15] MEDS: ASPIRIN 81 MG PO SCH (06:05)
[2023-05-15] MEDS ORDERED: HEPARIN SODIUM,PORCINE (1 ML) 2,500 UNIT in SODIUM CHLORIDE 0.9% 250 ML IRRIGATION PRN (07:00)
[2023-05-15] MEDS ORDERED: HEPARIN SODIUM,PORCINE 10,000 UNIT in SODIUM CHLORIDE 0.9% 1,000 ML IRRIGATION PRN (07:00)
[2023-05-15] MEDS ORDERED: VERAPAMIL 2.5 MG/ML 2 ML AMP ONE (07:14)
[2023-05-15] MEDS ORDERED: HEPARIN SODIUM 1,000 UN/ML (10ML VL) ONE (07:14)
[2023-05-15] MEDS ORDERED: LIDOCAINE 1% INJ 10MG/ML (20 ML MDV) ONE (07:14)
[2023-05-15] MEDS ORDERED: fentaNYL (PF) 50 MCG/ML 2 ML AMP ONE (07:15)
[2023-05-15] MEDS ORDERED: SODIUM CHLORIDE 0.9% 1,000 ML IV ONE (07:52)
[2023-05-15] MEDS ORDERED: fentaNYL (PF) 50 MCG/1 ML VIAL IVP ONE (07:53)
[2023-05-15] MEDS ORDERED: MIDAZOLAM 2 MG/2 ML VIAL IVP ONE (07:53)
[2023-05-15] MEDS ORDERED: LIDOCAINE 1% INJ 10MG/ML (20 ML MDV) SQ ONE (07:56)
[2023-05-15] MEDS ORDERED: VERAPAMIL SYRINGE (5 MG/10 ML) INTRAARTER ONE (07:57)
[2023-05-15] MEDS ORDERED: HEPARIN SODIUM 1,000 UN/ML (10ML VL) IV ONE (08:02)
[2023-05-15] MEDS ORDERED: IOPAMIDOL-370 100ML BTL INJ ONE (08:11)
[2023-05-15 10:34] LABS: Basophils % (A) 0 %; Eosinophils # (A) 0.1 k/uL (0-0.7); Eosinophils % (A) 1 %; HCT 39.3 % (39.0-53.0); HGB 12.8 gm/dL (13.0-17.5); Lymphocytes # (A) 0.7 k/uL (1.0-4.8); Lymphocytes % (A) 14 %; MCH 30.4 pg (25.0-35.0); MCHC 32.5 g/dL (31.0-37.0); MCV 93.5 fL (80.0-100.0); Mean Platelet Volume 9.6; Monocytes # (A) 0.4 k/uL (0-1.0); Monocytes % (A) 8 %; Neutrophils # (A) 3.8 k/uL (1.3-7.7); Neutrophils % (A) 73 %; Platelet Count 120 k/uL (150-450); RBC 4.21 m/uL (4.30-5.90); RDW 14.9 % (11.5-15.5); WBC 5.2 k/uL (3.8-10.6)
[2023-05-15 10:49] LABS: African American GFR (CKD) 66 (>60 ml/min/1.73 sqM); Anion Gap 9 mmol/L; Blood Urea Nitrogen 34 mg/dL (9-20); Calcium 8.7 mg/dL (8.4-10.2); Carbon Dioxide 28 mmol/L (22-30); Chloride 99 mmol/L (98-107); Glucose 99 mg/dL (74-99); Non-African American GFR(CKD) 57 (>60 ml/min/1.73 sqM); Potassium 3.5 mmol/L (3.5-5.1); Sodium 136 mmol/L (137-145)
[2023-05-15] MEDS: SODIUM CHLORIDE 0.9% 1,000 ML in EMPTY BAG 1 BAG IV SCH ×3 (11:00→23:11)
[2023-05-15 11:05] VITALS: BMI 29.2
[2023-05-15] MEDS ORDERED: Potassium Replacement Protocol 1 EACH MISC MISCELLANE PRN (11:34)
[2023-05-15] MEDS: POTASSIUM CHLORIDE ER 20 MEQ TAB.ER PO SCH ×2 (12:33→16:30)
--- NOTE | 2023-05-15 14:00 | P.PN ---
Subjective Progress Note Date: 05/15/23 Principal diagnosis: Diagnosis: #1 resistant shortness of breath associated with congestive heart failure #2 resistant congestive heart failure, third admission #3 of aortic valve bioprosthesis with bovine many years ago was for aortic stenosis and currently associated with leak a with aortic regurgitation moderate to severe him a aortic valve area 0.8 cm for aortic stenosis #4 program previous echo ascending aortic aneurysm 4.9 cm as mentioned in the cardiology note nurse practitione , #5 history of right carotid endarterectomy #6 midline thoracotomy, 2 vessel bypass graft Last cardiac cath 2020 mentioned to venous graft has been occluded #7 hypertension was hypertensive heart disease, currently hypotensive #8 hyperlipidemia. Progress note Date of service 05/15/[address] Camarena Patient seen today [id number] and discussed with the patient and his with the finding of the KAI and the presence of the problem with the aortic valve dysfunction and need for for surgical intervention in a tertiary center probably [facility]. Dr. Quiñonez bicycle messenger he is discussing the problem at this point and I with the [facility] cardiac surgeon team. Vital sign indicating blood pressure 98/47 mean 64 and heart rate 56 bpm, oxygen saturation 97% on 2 L, respiratory rate 18/m, patient afebrile temperature this morning was 90 7.7F for. Patient is conscious alert oriented he underwent cardiac catheterization report is not on the chart yet however the give the patient pictures. Head was normocephalic and atraumatic pupil was equal reactive conjunctiva was pink sclera was nonicteric extraocular muscle movement is intact. Neck was supple he had scar on the right carotid with a cyst formation and old, no lymphadenopathy Chest is bilateral rales two thirds of the chest Heart regular positive murmur Abdomen soft positive bowel sounds Extremities no edema and positive pulses Neurologically stable, history of TIA and CVA affecting speech Assessment: Of aortic valve bioprosthesis with the aortic stenosis and aortic regurg with mild dysfunction Persistent congestive heart failure with impaired ejection fraction Elevated abnormal troponin Status post cardiac cath today Hypotension Ischemic cardiomyopathy with ejection fraction 30-35%. Persistent congestive heart failure with the third admission for the same reason Plan: Waiting for the evaluation and the report of the cardiac cath Waiting for the local cardiac surgical team. Patient may be transferred to [facility], or other tertiary center as heavily forward or [place] Currently cardiology Dr. Quiñonez is working on that at this time discussed with the patient in detail Time more than 35 minutes . Objective - Vital Signs Vital signs: Vital Signs Temp 97.9 F 05/15/23 08:30 Pulse 56 L 05/15/23 10:15 Resp 18 05/15/23 09:45 BP 98/47 05/15/23 10:15 Pulse Ox 97 05/15/23 09:45 FiO2 Intake & Output 05/14/23 05/15/23 05/15/23 18:59 06:59 18:59 Intake Total 380 0 390 Output Total 800 Balance 380 -800 390 Weight 77.111 kg Intake: IV 200 150 Oral 180 0 240 Output: Urine 800 Other: # Voids 2 - Labs CBC & Chem 7: 05/15/23 10:04 05/15/23 09:41 Labs: Abnormal Lab Results - Last 24 Hours (Table) 05/15/23 05/15/23 Range/Units 09:41 10:04 RBC 4.21 L (4.30-5.90) m/uL Hgb 12.8 L (13.0-17.5) gm/dL Plt Count 120 L (150-450) k/uL Lymphocytes # 0.7 L (1.0-4.8) k/uL Sodium 136 L (137-145) mmol/L BUN 34 H (9-20) mg/dL
--- NOTE | 2023-05-15 16:27 | P.GSCN ---
History of Present Illness Consult date: 05/15/23 Reason for Consult: Bioprosthetic aortic valve stenosis Requesting physician: Sal Quiñonez History of present illness: This is an 83-year-old gentleman who bubbles outpatient with Dr. Camarena for primary care and Dr. Lima for cardiology. He has a previous medical history of coronary artery disease as well as aortic insufficiency status post 2 vessel CABG (SVG to the OM and RCA ) and bioprosthetic aortic valve replacement (#25 Ponce) in 2004, hypertension, hyperlipidemia, ischemic cardiomyopathy/chronic systolic heart failure, multiple TIAs, carotid artery disease status post right carotid endarterectomy, and lifelong nonsmoker. He has had multiple hospitalizations recently for shortness of breath and acute heart failure. This admission he presented with shortness of breath at the request of his primary care physician for evaluation related to his aortic valve, especially as he was just discharged from the hospital a few days prior. He underwent KAI demonstrating bioprosthetic valve with central moderate to severe aortic insufficiency along with severe aortic stenosis, aortic valve area 0.8 cm without any paravalvular leak, mild to moderate mitral regurgitation, trace tricuspid regurgitation, and reduced systolic function with EF 30-35% and global hypokinesis. Cardiac catheterization was completed today demonstrating left main stenosis 30%, RCA stenosis 50-60%, circumflex stenosis 90%, proximal LAD stenosis 30% and mid LAD stenosis 20%. Consultation was placed to cardiothoracic surgery for recommendations regarding re-do aortic valve replacement. Review of Systems Review of systems was completed and is negative except as noted - Cardiovascular Reports decreased exercise tolerance, Reports dyspnea on exertion, Reports short ness of breath Past Medical History Past Medical History: Coronary Artery Disease (CAD), CVA/TIA, Hyperlipidemia, Hypertension Additional Past Medical History / Comment(s): STATES HE GETS CYSTS AT THE SIGHT OF THE RIGHT CAROTID SURGERY SCAR, DRAINS PERDIODICALLY. MULTIPLE TIAs. - HOSPITALIZED 03/03/20-03/04/20 FOR TIA WITH LEFT ARM WEAKNESS & NUMBNESS WHICH HAS RESOLVED. LEAKY HEART VALVE, Fall with concussion in 2019 History of Any Multi-Drug Resistant Organisms: None Reported Past Surgical History: Coronary Bypass/CABG, Joint Replacement, Orthopedic Surgery Additional Past Surgical History / Comment(s): AORTIC VALVE REPLACEMENT (BOVINE- #25 Ponce) and two-vessel CABG (2004). RIGHT CAROTID ENDARTERECTOMY (DR. HANKS). Nasal cauterization. Bilat knee replacements. Past Anesthesia/Blood Transfusion Reactions: No Reported Reaction Past Psychological History: No Psychological Hx Reported Smoking Status: Never smoker Past Alcohol Use History: Rare Past Drug Use History: None Reported - Past Family History Mother Family Medical History: No Reported History Medications and Allergies Home Medications Medication Instructions Recorded Confirmed Type Atorvastatin [Lipitor] 80 mg PO HS 11/18/16 05/13/23 History busPIRone HCL 5 mg PO BID 03/24/20 05/13/23 History Aspirin EC [Ecotrin Low Dose] 81 mg PO DAILY 04/20/23 05/13/23 History Cholecalciferol [Vitamin D3 (25 50 mcg PO HS 04/20/23 05/13/23 History Mcg = 1000 Iu)] Escitalopram [Lexapro] 20 mg PO DAILY 04/20/23 05/13/23 History Prevagen 1 cap PO HS 05/02/23 05/13/23 History Bumetanide [BUMEX] 1 mg PO BID@0900,1600 #60 tab 05/10/23 05/13/23 Rx Dapagliflozin Propanediol [Farxiga] 10 mg PO DAILY 30 Days #30 tab 05/10/23 05/13/23 Rx Losartan [Cozaar] 12.5 mg PO HS #30 tab 05/10/23 05/13/23 Rx Metoprolol Tartrate [Lopressor] 25 mg PO BID #60 tab 05/10/23 05/13/23 Rx Tamsulosin [Flomax] 0.4 mg PO HS cap 05/10/23 05/13/23 Rx Allergies Allergy/AdvReac Type Severity Reaction Status Date / Time cephalexin [From Keflex] AdvReac Nausea & Verified 05/13/23 17:41 Vomiting & Diarrhea Surgical - Exam Vital Signs Temp Pulse Resp BP Pulse Ox 98.3 F 63 16 99/53 96 05/13/23 14:51 05/13/23 14:51 05/13/23 14:51 05/13/23 14:51 05/13/23 14:51 CONSTITUTIONAL: Awake and alert, appears comfortable, cooperative, well- developed, well-nourished, no pain, no acute distress EYES: Pupils equal, round, reactive to light, normal ocular movement ENT: Moist mucous membranes without oral lesions present NECK: No masses, no bruits, trachea midline RESPIRATORY: Lungs sounds clear to auscultation bilaterally. Respirations even, nonlabored. Currently on room air with oxygen saturation 96% CARDIOVASCULAR: S1, S2 present, systolic murmur present. Regular rate and rhythm, sinus rhythm on telemetry. Palpable peripheral pulses bilaterally. No edema present GASTROINTESTINAL: Abdomen soft, nontender, nondistended without masses or organomegaly noted. There is no rebound or guarding present. Active bowel s ounds present 4 quadrants. GENITOURINARY: Deferred INTEGUMENTARY: Skin is warm and dry with evidence of good perfusion. NEUROLOGIC: Cranial nerves II through XII intact, normal coordination, no obvious motor or sensory deficits, speech is normal MUSKULOSKELETAL: Able to move all extremities, strength equal bilaterally, normal posture PSYCHIATRIC: Alert and oriented to person place and time, appropriate affect, intact judgment and insight Results - Labs 05/15/23 10:04 05/15/23 09:41 Abnormal Lab Results - Last 24 Hours (Table) 05/15/23 05/15/23 Range/Units 09:41 10:04 RBC 4.21 L (4.30-5.90) m/uL Hgb 12.8 L (13.0-17.5) gm/dL Plt Count 120 L (150-450) k/uL Lymphocytes # 0.7 L (1.0-4.8) k/uL Sodium 136 L (137-145) mmol/L BUN 34 H (9-20) mg/dL Diabetes panel 05/15/23 Range/Units 09:41 Sodium 136 L (137-145) mmol/L Potassium 3.5 (3.5-5.1) mmol/L Chloride 99 (98-107) mmol/L Carbon Dioxide 28 (22-30) mmol/L BUN 34 H (9-20) mg/dL Creatinine 1.19 (0.66-1.25) mg/dL Glucose 99 (74-99) mg/dL Calcium 8.7 (8.4-10.2) mg/dL Calcium panel 05/15/23 Range/Units 09:41 Calcium 8.7 (8.4-10.2) mg/dL Pituitary panel 05/15/23 Range/Units 09:41 Sodium 136 L (137-145) mmol/L Potassium 3.5 (3.5-5.1) mmol/L Chloride 99 (98-107) mmol/L Carbon Dioxide 28 (22-30) mmol/L BUN 34 H (9-20) mg/dL Creatinine 1.19 (0.66-1.25) mg/dL Glucose 99 (74-99) mg/dL Calcium 8.7 (8.4-10.2) mg/dL Adrenal panel 05/15/23 Range/Units 09:41 Sodium 136 L (137-145) mmol/L Potassium 3.5 (3.5-5.1) mmol/L Chloride 99 (98-107) mmol/L Carbon Dioxide 28 (22-30) mmol/L BUN 34 H (9-20) mg/dL Creatinine 1.19 (0.66-1.25) mg/dL Glucose 99 (74-99) mg/dL Calcium 8.7 (8.4-10.2) mg/dL - Imaging Additional studies: Heart catheterization and KAI films reviewed with Dr. Walker Assessment and Plan Assessment: Severe prostatic aortic valve stenosis, aortic valve area 0.8 cm Central moderate to severe aortic insufficiency Mild to moderate mitral regurgitation Acute on chronic systolic heart failure with reduced EF 30-35% Shortness of breath, secondary to above History of coronary artery disease status post 2 vessel CABG (SVG to the OM and RCA ) in 2004 History of aortic insufficiency status post bioprosthetic aortic valve re placement (#25 Ponce) in 2004 Hypertension Hyperlipidemia Ischemic cardiomyopathy/chronic systolic heart failure Multiple TIAs Carotid artery disease status post right carotid endarterectomy Lifelong nonsmoker Plan: The patient was seen and examined sitting up in a recliner on the cardiac stepdown unit in no acute distress with family present. This case was discussed in detail with Dr. Walker, as well as between Dr. Walker and Dr. Quiñonez. This gentleman is a poor candidate for redo open heart. He could be evaluated for TAVR. TAVR teaching was discussed with the patient his family. They have elected to go to [facility] for aortic valve replacement and transfer process has been started. According to reports Dr. Lima has already talked with a back closer at [facility]. All questions were answered to the best of my ability. If the patient changes his mind we would certainly be willing to discuss TAVR in S[facility] at this facility. Thank you for this consult, please call us with any further questions. I have personally seen and examined the patient, performed the documentation and the assessment and plan as written. Number of minutes spent on the visit: 30. Aspen Patrick NP-C
[2023-05-15] MEDS: CHOLECALCIFEROL 25 MCG (1000 IU) TABLET PO SCH (20:09)
[2023-05-15] MEDS: ATORVASTATIN 80 MG TAB PO SCH (20:11)
[2023-05-15] MEDS: TAMSULOSIN 0.4 MG CAP.ER.24H PO SCH (20:11)
--- NOTE | 2023-05-15 21:26 | P.CARDCATH ---
Description of Procedure: PROCEDURES PERFORMED: Bilateral coronary angiography, ultrasound guided arterial access INDICATION: Severe aortic stenosis CONSENT:I have discussed the risks, benefits and alternative therapies for the above-mentioned procedure and for both sedation/analgesia as well as necessary blood product administration, if indicated, as they pertain to this patient. The patient has indicated understanding and acceptance of the risks and procedures discussed. PROCEDURE: After the risks, benefits and alternatives of the above mentioned pr ocedure explained in detail with the patient, informed consent was obtained. Patient was taken to the catheterization lab and prepped and draped in usual fashion. Ultrasound guidance was used to assess for arterial access. 1% lidocaine was used to anesthetize the right radial artery. A 6-Guinean sheath was placed in the right radial artery using modified Seldinger technique and ultrasound guidance. Left coronary angiography was performed with a 5-Guinean JL 3.5 catheter and right coronary angiography was performed with a 5-Guinean FR5 catheter in various views. The right radial sheath was removed and a TR band was placed with hemostasis achieved. The patient tolerated the procedure well. Patient was transported back to the post catheterization holding area in stable condition. Conscious Sedation: Patient was monitored under the direct supervision of myself for conscious sedation using Versed and fentanyl for a total duration of 12 minutes HEMODYNAMICS: Aorta: 108/40 SELECTIVE CORONARY ARTERIOGRAPHY: LEFT MAIN: The left main is a large caliber vessel which bifurcates into the LAD and circumflex. There is distal left main 30% stenosis LEFT ANTERIOR DESCENDING CORONARY ARTERY: LAD is a large caliber vessel which wraps around to the apex. There is a proximal LAD 40-50% stenosis and otherwise mild luminal irregularities LEFT CIRCUMFLEX CORONARY ARTERY: Left circumflex is a moderate caliber vessel with a 95% ostial circumflex stenosis which is similar to prior images from 2020 RIGHT CORONARY ARTERY: The right coronary artery is a moderate to large caliber vessel which gives off a PDA and PLV branch and is the dominant vessel. There is diffuse 50-60% proximal mid RCA stenosis SVG to OM branch: Known to be occluded from prior SVG to PDA: Known to be occluded from prior FINAL IMPRESSION: 1. CAD as described above including 30% left main, proximal LAD 40-50%, 95% ostial circumflex and 50-60% RCA stenosis 2. CAD appears relatively unchanged from prior films from 2020 PLAN: 1. Aggressive risk factor modification per most recent ACC/AHA guidelines. 2. Given CAD appears relatively unchanged from prior films, would recommend treatment of aortic valve first with a ostial circumflex lesion being chronic.
[2023-05-16] MEDS: FUROSEMIDE 10 MG/ML 4 ML VIAL IV SCH ×3 (05:14→17:43)
[2023-05-16 08:41] LABS: African American GFR (CKD) 66 (>60 ml/min/1.73 sqM); Anion Gap 10 mmol/L; Blood Urea Nitrogen 29 mg/dL (9-20); Calcium 9.1 mg/dL (8.4-10.2); Carbon Dioxide 33 mmol/L (22-30); Chloride 95 mmol/L (98-107); Glucose 138 mg/dL (74-99); Non-African American GFR(CKD) 57 (>60 ml/min/1.73 sqM); Potassium 3.9 mmol/L (3.5-5.1); Sodium 138 mmol/L (137-145)
[2023-05-16] MEDS: DAPAGLIFLOZIN PROPANEDIOL 10 MG TABLET PO SCH (09:19)
[2023-05-16] MEDS: busPIRone HCl 5 MG TAB PO SCH ×2 (09:19→20:41)
[2023-05-16] MEDS: ESCITALOPRAM 20 MG TAB PO SCH (09:19)
[2023-05-16] MEDS: ASPIRIN 81 MG PO SCH (09:19)
[2023-05-16] MEDS: METOPROLOL TARTRATE 25 MG TAB PO SCH ×2 (09:19→20:41)
[2023-05-16] MEDS ORDERED: POTASSIUM CHLORIDE ER 20 MEQ TAB.ER PO SCH (12:00)
--- NOTE | 2023-05-16 14:28 | P.PN ---
Subjective HISTORY OF PRESENT ILLNESS: This is a 83-year-old male with a past medical history significant for coronary artery disease with previous CABG, hypertension, hyperlipidemia, ischemic cardiomyopathy, and aortic insufficiency status post open aortic valve replacement at [facility]. Patient follows in the office with Dr. Lima. We have been asked to see the patient in consultation for CHF and KAI. Patient examined at the bedside. Patient presented to the hospital with a chief complaint of shortness of breath. Patient was recently hospitalized and he states his SOB has not improved. He states this has been occuring since . He is currently laying flat in bed and denies SOB. Patients is at the bedside and reports he has been coughing alot at home. He denies chest pain or pressure. Orthostatic blood pressures obtained and are negative. * EKG reveals sinus mechanism with bigeminy. Right bundle-branch block. * Chest xray cardiomegaly with pulmonary venous congestion, basilar atelectasis and effusions compatible with congestive heart failure * Laboratory data: BUN 38. Creatinine 1.35. ProBNP 17,400. Troponin 0.098. 0.086. 0.075. * Current home cardiac medications include metoprolol tartrate 25 mg twice a day, losartan 12.5 mg at night, Bumex 1 mg twice a day, Lipitor 80 mg at night, aspirin 81 mg daily * Most recent echocardiogram obtained in May 2023 revealed bioprosthetic aortic valve with at least moderate AI. * Previous echocardiogram in April 2023 revealed ejection fraction 30-35% * Cardiac catheterization history: November 2020 revealing 2 vessel CAD with significant dilatation of ascending aorta of 4.9 cm. Both vein grafts are occluded. Circumflex has 95% ostial lesion RCA with 50% mid narrowing. Distal left main 35% narrowing. Mild prosthetic valve aortic regurgitation noted. 05/16/2023 Patient is status post KAI revealing bioprosthetic valve with central moderate to severe aortic insufficiency with additional severe aortic stenosis, mild to moderate mitral regurgitation, trace tricuspid regurgitation, no evidence of PFO, left atrial appendage is free of clot, ejection fraction 30-35% with global hypokinesis. He is also status post cardiac catheterization revealing 30% left main, proximal LAD 40-50%, 95% ostial circumflex and 50th 60% RCA stenosis. CAD appears relatively unchanged from prior films from 2020. Patient examined this morning to bedside. He is sitting up in the chair. He currently denies chest pain or pressure. He denies shortness of breath at the time of examination. PHYSICAL EXAM: VITAL SIGNS: Reviewed. GENERAL: Well-developed in no acute distress. HEENT: Head is normocephalic. Pupils are equal, round. Sclerae anicteric. Mucous membranes of the mouth are moist. Neck supple. No JVD or thyromegaly LUNGS: Respirations even and unlabored. Lungs essentially clear to auscultation bilaterally. HEART: Regular rate and rhythm. S1 and S2 heard. Systolic and diastolic murmur noted. ABDOMEN: Soft. Nondistended. Nontender. EXTREMITIES: Normal range of motion. No clubbing or cyanosis. Peripheral pulses intact. No lower extremity edema NEUROLOGIC: Awake and alert. Oriented x 3. ASSESSMENT: Shortness of breath Acute on chronic heart failure with reduced EF Abnormal troponins, flat, not suggestive of acute coronary syndrome, type II DE History of bioprosthetic aortic valve replacement in 2004 now with moderate to severe AI and severe aortic stenosis Coronary artery disease with previous CABG; both vein grafts occluded per cardiac catheterization in November 2020 Hypertension Hyperlipidemia Ischemic cardiomyopathy Dilated ascending aorta PLAN: Continue current cardiac medications Continue IV diuretics Daily weights, accurate I&O, and monitoring of kidney function Plans are underway for transfer to [facility] Nurse practitioner note has been reviewed by physician. Signing provider agrees with the documented findings, assessment, and plan of care. Objective - Vital Signs Vital signs: Vital Signs Temp 98.4 F 05/16/23 05:00 Pulse 68 05/16/23 05:00 Resp 16 05/16/23 05:00 BP 101/49 05/16/23 05:00 Pulse Ox 93 L 05/16/23 05:00 FiO2 Intake & Output 05/15/23 05/16/23 05/16/23 18:59 06:59 18:59 Intake Total 390 Balance 390 Weight 77.111 kg Intake: IV 150 Oral 240 Other: # Voids 3 - Labs CBC & Chem 7: 05/15/23 10:04 05/16/23 07:46 Labs: Abnormal Lab Results - Last 24 Hours (Table) 05/15/23 05/15/23 Range/Units 09:41 10:04 RBC 4.21 L (4.30-5.90) m/uL Hgb 12.8 L (13.0-17.5) gm/dL Plt Count 120 L (150-450) k/uL Lymphocytes # 0.7 L (1.0-4.8) k/uL Sodium 136 L (137-145) mmol/L BUN 34 H (9-20) mg/dL
--- NOTE | 2023-05-16 14:43 | DS ---
DISCHARGE SUMMARY VITALS: 5 feet 4 inches height, weight 77.11 kg, BSA 1.83 m2, BMI 29.2 kg/square m. ALLERGIES: To cephalexin. DISPOSITION: Transfer to [facility] for surgical intervention for his aortic valve. FINAL DIAGNOSES: 1. Persistent shortness of breath associated with congestive heart failure. 2. Secondary to aortic valve dysfunction with aortic stenosis with a surface area 0.8 and on the go line bioprosthesis, which was done many years ago as well as aortic incompetence, severe by cardiac catheterization and KAI. 3. Previous history of aortic aneurysm 4.9 cm in the ascending aorta. 4. Persistent left-sided congestive heart failure with resistance to medication due to the above reason with his 3rd admission. 5. History of right carotid endarterectomy with cyst formation, which is chronic. 6. Midline thoracotomy with 2-vessel bypass graft with recent yesterday cardiac catheterization and was stable per Dr. Quiñonez. 7. History of hypertension with hypertensive heart disease. 8. Hyperlipidemia. 9. History of CVA in the past, affected only speech and history of TIA in the past. DISPOSITION: This is Dr. Camarena, I did contact the [facility] yesterday and [facility] community services officer and they told call me to reach Dr. Esparza who will be accepting officer in [facility]. Subsequently, Dr. Esparza did speak to Dr. Sal Huang is the 1st name the Cardiology who did it through [facility] for the KIA and a cardiac cath and spoke and subsequently the patient accepted in the [facility] surgery. Dr.B. Osbaldo Lima has did speak with Dr. Jovany correa start and the cardiac surgeon and the Cardiology as well and Dr. Tamika Lima is a Cardiology primary cardiology for the patient. The underlying patient presentation to the emergency room and he has history of congestive heart failure and he was admitted on 05/13/2023. On his 3rd admission to the hospital with unresolved congestive heart failure and at that time, the did further workup for with a KAI and a cardiac cath and subsequently found that the problem with him is the valve aortic valve stenosis as well as regurgitation which has continued to be troublesome for continuation and resistant of the congestive heart failure and requests for transfer to [facility] by Cardiology, Dr. Tamika Lima as his primary cardiology as well as Dr. Quiñonez did speak to [facility] as well yesterday according to my knowledge from [facility]. The patient presentation on the ER short of breath, has been discharged 2 days prior to the readmission for the 3rd time and because there is no resolution of his symptoms. Currently, vital sign today, his temperature 97.4 and subsequently 97.8 F oral and a pulse rate 63 beats per minute, regular, and respiratory rate 18, blood pressure 118/54 at the time of dictation with a mean blood pressure 75 and he has been blood pressure fluctuation with the hypotension and he was earlier 101/49. He did not feel well at the time I saw him in the morning hours. His pulse ox is ranging between 94 to 95 on room air. PHYSICAL EXAMINATION: GENERAL: At the time of the ED, still short of breath. HEENT: His head was normocephalic, atraumatic. Pupils equal, reactive. Conjunctivae were pink. Sclerae were nonicteric. Extraocular muscle movement was intact. His oropharynx, he has natural teeth. NECK: Supple. He had a scar on the right carotid endarterectomy with cyst formation and neck was supple. No JVD, no thyromegaly. No lymphadenopathy. Trachea midline. CHEST: Bilateral rales 2/3 and with the shortness of breath symmetrical chest. HEART: PMI in the 5th intercostal space outside midclavicular line with the intermittent bradycardia and he had ejection fraction of 30-35% with ischemic cardiomyopathy. He had 2-vessel bypass graft and Dr. Quiñonez, Cardiology with the cardiac cath they are stable. ABDOMEN: Soft, positive bowel sounds. EXTREMITIES: No edema, positive pulses. ASSESSMENT: Stable for transfer to [facility] for the cardiac evaluation and surgical intervention for the aortic valve. The current laboratory today indicating that his sodium 136, potassium 3.5, chloride 99, carbon dioxide 28, anion gap of 9, BUN of 34, creatinine 1.19, and EGFR 57. His blood sugar 99 this morning that was on May 15. Today on the , his sodium 138, potassium 3.9, chloride 95, carbon dioxide 33, anion gap of 10, BUN of 29, creatinine 1.19, and his EGFR 57, and his blood glucose is 138, calcium 9.1, and magnesium 2.0. Still he has elevated troponin and the last troponin was done on the was 0.086 and 0.075. PLAN: We are waiting for the bed in the [facility] for the transfer Dr. Esparza, community services officer in [facility]. Disposition of transfer discharge note. MMWALTERL / IJN: [id number] /
[2023-05-16] MEDS: CHOLECALCIFEROL 25 MCG (1000 IU) TABLET PO SCH (20:41)
[2023-05-16] MEDS: ATORVASTATIN 80 MG TAB PO SCH (20:41)
[2023-05-16] MEDS: TAMSULOSIN 0.4 MG CAP.ER.24H PO SCH (20:41)
[2023-05-17] MEDS: FUROSEMIDE 10 MG/ML 4 ML VIAL IV SCH ×2 (03:44→11:24)
[2023-05-17 07:51] LABS: African American GFR (CKD) 73 (>60 ml/min/1.73 sqM); Anion Gap 8 mmol/L; Blood Urea Nitrogen 28 mg/dL (9-20); Calcium 8.8 mg/dL (8.4-10.2); Carbon Dioxide 30 mmol/L (22-30); Chloride 98 mmol/L (98-107); Glucose 97 mg/dL (74-99); Non-African American GFR(CKD) 63 (>60 ml/min/1.73 sqM); Potassium 3.9 mmol/L (3.5-5.1); Sodium 136 mmol/L (137-145)
[2023-05-17] MEDS: DAPAGLIFLOZIN PROPANEDIOL 10 MG TABLET PO SCH (08:46)
[2023-05-17] MEDS: ASPIRIN 81 MG PO SCH (08:46)
[2023-05-17] MEDS: METOPROLOL TARTRATE 25 MG TAB PO SCH (08:46)
[2023-05-17] MEDS: ESCITALOPRAM 20 MG TAB PO SCH (08:46)
[2023-05-17] MEDS: busPIRone HCl 5 MG TAB PO SCH (08:46)
--- NOTE | 2023-05-17 09:41 | P.PN ---
Subjective Progress Note Date: 05/17/23 05/17/2023 Progress note Dictation by Dr. Tomas. Patient was discharged yesterday in anticipation of [facility] to transfer to them however they did not still have no beds and patient stayed today as well and we waiting for the [facility] for the transfer Main reason is the aortic valve dysfunction with orthostatic stenosis and of the prosthesis bovine in the aortic valve as well as aortic regurg which caused the resistant congestive heart failure and the need for for further surgical treatment Patient accepted in [facility] after Dr. Quiñonez cardiology did speak with Dr. Smith the accepting officer in [facility], as well as Dr. ERENDIRA Lima case resolution specialist did speak with Dr. Dang the cardiac surgeon for surgical intervention. Patient seen today [id number] Awake alert oriented able to go to the bathroom Vital sign indicating, blood pressure 107/65 mean blood pressure 79 and pulse ox on room air 91 and resumed nasal cannula at 2 L subsequently., Respiratory rate 16 and pulse rate 65 bpm. Head was normocephalic and atraumatic pupil was equal reactive oropharynx natural teas able to eat and swallow and no neurological finding Neck was supple no JVD no thyromegaly no lymphadenopathy with the scar on the right side of the neck due to previous carotid endarterectomy with the formation of a cyst has been seen by vascular surgeon and the past Chest bilateral rales of the lower lung field 100 with the chronic congestive heart failure and the shortness of breath Heart regular sinus rhythm and bigeminy intermittently. With the ejection fraction 30-35% Abdomen soft positive bowel sounds no organ enlargement. Extremities no edema and positive pulses. Neurological he: Stable Assessment: Patient is stable general condition for transfer to [facility] for definitive treatment. He had dysfunction of the aortic valve Was aortic stenosis 0.8 diameter and severe aortic incompetence. Ejection fraction 30-35 by echocardiogram. Status post KAI Coronary artery disease atherosclerotic heart disease and coronary artery bypass graft for 2 vessel, no chest pain Status post cardiac catheterization by Dr. Quiñonez who discuss it with the [facility]. Hyperlipidemia Hypertension was hypertensive heart disease currently is hypotensive to normotensive. Plan: Transfer to [facility] when bed is available Currently waiting for bed. Patient stable for discharge. Laboratory done today chemistry profile with his EGFR 63, sodium 136, potassium 3.9, BUN 28, creatinine 1.10. On 05/17/2023 Troponin 1 on 05/13/2023 last of 0.075. Objective - Vital Signs Vital signs: Vital Signs Temp 97.8 F 05/16/23 20:35 Pulse 65 05/17/23 03:40 Resp 16 05/17/23 03:40 BP 107/65 05/17/23 03:40 Pulse Ox 91 L 05/17/23 03:40 FiO2 Intake & Output 05/16/23 05/17/23 05/17/23 18:59 06:59 18:59 Intake Total 400 Balance 400 Intake: Oral 400 Other: # Voids 3 - Labs CBC & Chem 7: 05/15/23 10:04 05/17/23 07:09 Labs: Abnormal Lab Results - Last 24 Hours (Table) 05/17/23 Range/Units 07:09 Sodium 136 L (137-145) mmol/L BUN 28 H (9-20) mg/dL
[2023-05-17 09:43] VITALS: TEMP 97.9
--- NOTE | 2023-05-17 13:49 | P.PN ---
Subjective HISTORY OF PRESENT ILLNESS: This is a 83-year-old male with a past medical history significant for coronary artery disease with previous CABG, hypertension, hyperlipidemia, ischemic cardiomyopathy, and aortic insufficiency status post open aortic valve replacement at [facility]. Patient follows in the office with Dr. Lima. We have been asked to see the patient in consultation for CHF and KAI. Patient examined at the bedside. Patient presented to the hospital with a chief complaint of shortness of breath. Patient was recently hospitalized and he states his SOB has not improved. He states this has been occuring since . He is currently laying flat in bed and denies SOB. Patients is at the bedside and reports he has been coughing alot at home. He denies chest pain or pressure. Orthostatic blood pressures obtained and are negative. * EKG reveals sinus mechanism with bigeminy. Right bundle-branch block. * Chest xray cardiomegaly with pulmonary venous congestion, basilar atelectasis and effusions compatible with congestive heart failure * Laboratory data: BUN 38. Creatinine 1.35. ProBNP 17,400. Troponin 0.098. 0.086. 0.075. * Current home cardiac medications include metoprolol tartrate 25 mg twice a day, losartan 12.5 mg at night, Bumex 1 mg twice a day, Lipitor 80 mg at night, aspirin 81 mg daily * Most recent echocardiogram obtained in May 2023 revealed bioprosthetic aortic valve with at least moderate AI. * Previous echocardiogram in April 2023 revealed ejection fraction 30-35% * Cardiac catheterization history: November 2020 revealing 2 vessel CAD with significant dilatation of ascending aorta of 4.9 cm. Both vein grafts are occluded. Circumflex has 95% ostial lesion RCA with 50% mid narrowing. Distal left main 35% narrowing. Mild prosthetic valve aortic regurgitation noted. 05/16/2023 Patient is status post KAI revealing bioprosthetic valve with central moderate to severe aortic insufficiency with additional severe aortic stenosis, mild to moderate mitral regurgitation, trace tricuspid regurgitation, no evidence of PFO, left atrial appendage is free of clot, ejection fraction 30-35% with global hypokinesis. He is also status post cardiac catheterization revealing 30% left main, proximal LAD 40-50%, 95% ostial circumflex and 50th 60% RCA stenosis. CAD appears relatively unchanged from prior films from 2020. Patient examined this morning to bedside. He is sitting up in the chair. He currently denies chest pain or pressure. He denies shortness of breath at the time of examination. 05/17/2023 Patient examined this morning at the bedside. He is sitting up in a chair. Patient currently denies chest pain or pressure. He denies shortness of breath at rest. He remains on IV Lasix 40 mg every 8 hours. Creatinine remained sta ble at 1.1. He is currently waiting an open bed at [facility]. PHYSICAL EXAM: VITAL SIGNS: Reviewed. GENERAL: Well-developed in no acute distress. HEENT: Head is normocephalic. Pupils are equal, round. Sclerae anicteric. Mucous membranes of the mouth are moist. Neck supple. No JVD or thyromegaly LUNGS: Respirations even and unlabored. Lungs essentially clear to auscultation bilaterally. HEART: Regular rate and rhythm. S1 and S2 heard. Systolic and diastolic murmur noted. ABDOMEN: Soft. Nondistended. Nontender. EXTREMITIES: Normal range of motion. No clubbing or cyanosis. Peripheral pulses intact. No lower extremity edema NEUROLOGIC: Awake and alert. Oriented x 3. ASSESSMENT: Shortness of breath Acute on chronic heart failure with reduced EF Abnormal troponins, flat, not suggestive of acute coronary syndrome, type II IN History of bioprosthetic aortic valve replacement in 2004 now with moderate to severe AI and severe aortic stenosis Coronary artery disease with previous CABG; both vein grafts occluded per cardiac catheterization in November 2020 Hypertension Hyperlipidemia Ischemic cardiomyopathy Dilated ascending aorta PLAN: Continue current cardiac medications Continue IV diuretics. Decrease IV Lasix to 40 mg every 12 hours Daily weights, accurate I&O, and monitoring of kidney function Plans are underway for transfer to [facility] Further recommendations pending patient's course Nurse practitioner note has been reviewed by physician. Signing provider agrees with the documented findings, assessment, and plan of care. Objective - Vital Signs Vital signs: Vital Signs Temp 97.8 F 05/16/23 20:35 Pulse 65 05/17/23 03:40 Resp 16 05/17/23 03:40 BP 107/65 05/17/23 03:40 Pulse Ox 91 L 05/17/23 03:40 FiO2 Intake & Output 05/16/23 05/17/23 05/17/23 18:59 06:59 18:59 Intake Total 400 Balance 400 Intake: Oral 400 Other: # Voids 3 - Labs CBC & Chem 7: 05/15/23 10:04 05/17/23 07:09 Labs: Abnormal Lab Results - Last 24 Hours (Table) 05/17/23 Range/Units 07:09 Sodium 136 L (137-145) mmol/L BUN 28 H (9-20) mg/dL
[2023-05-17 16:02] VITALS: BP 96/47; PULSE 65; RESP 16
[2023-05-17] MEDS ORDERED: FUROSEMIDE 10 MG/ML 4 ML VIAL IV SCH (21:00)
== END 2023-05-17 16:50 | disposition short-term general hospital (02) | DRG 286 ==
LOC: EC 14:40 → 3SCARD 18:22 → OBSVTOIN 05-15 15:29
PROVIDERS: ADMIT Internal Medicine; ATTEND Internal Medicine
PROC: B246ZZ4 Ultrasonography of Right and Left Heart, Transesophageal (ICD-10-PCS; 2023-05-14)
PROC: B2111ZZ Fluoroscopy of Multiple Coronary Arteries using Low Osmolar Contrast (ICD-10-PCS; principal; 2023-05-15 07:30)
DX: T82.857A Stenosis of other cardiac prosthetic devices, implants and grafts, initial encounter (principal); I50.23 Acute on chronic systolic (congestive) heart failure; J98.11 Atelectasis; Z95.3 Presence of xenogenic heart valve; I08.0 Rheumatic disorders of both mitral and aortic valves; I77.810 Thoracic aortic ectasia; I25.5 Ischemic cardiomyopathy; Z95.1 Presence of aortocoronary bypass graft; E78.5 Hyperlipidemia, unspecified; I45.10 Unspecified right bundle-branch block; Z79.82 Long term (current) use of aspirin; Z79.84 Long term (current) use of oral hypoglycemic drugs; Z86.73 Personal history of transient ischemic attack (TIA), and cerebral infarction without residual deficits; Z88.1 Allergy status to other antibiotic agents; Z96.653 Presence of artificial knee joint, bilateral; Y84.8 Other medical procedures as the cause of abnormal reaction of the patient, or of later complication, without mention of misadventure at the time of the procedure; Z79.899 Other long term (current) drug therapy; Z86.79 Personal history of other diseases of the circulatory system; Z87.820 Personal history of traumatic brain injury; Y83.1 Surgical operation with implant of artificial internal device as the cause of abnormal reaction of the patient, or of later complication, without mention of misadventure at the time of the procedure
CPT/HCPCS: 36415; 71046; 76937; 80048; 80053; 83735; 83880; 84484; 85025; 85027; 85610; 85730; 93005; 93312; 93320; 93325; 93454; 94760; 96374; 96376; 99285